=== PATIENT | male | born 1950 | race Caucasian/White ===

== ENCOUNTER 2017-10-18 18:40 | Inpatient (IN) | payer MEDICARE ==
[2017-10-18] MEDS ORDERED: IPRATROPIUM-ALBUTEROL 3 ML NEB INHALATION STA (18:42)
[2017-10-18] MEDS ORDERED: MAGNESIUM SULFATE-D5W PMX 1 GM in DEXTROSE/WATER 1 100ML.BAG IVPB STA (18:42)
--- NOTE | 2017-10-18 18:45 | ED ---
SOB HPI - General Stated Complaint: YENNY Time Seen by Provider: 10/18/17 18:40 Source: patient, EMS, RN notes reviewed Mode of arrival: EMS - History of Present Illness Initial Comments: This is a 67-year-old male with a history of COPD who is a former smoker who quit about 8 years ago who complains of shortness of breath which started this morning. He complains of difficulty breathing in spite of his homograft machine usage. He has a cough of white phlegm no fevers chills or sweats no overt chest pain except to the left anterior lateral ribs which is take is worse with coughing and deep breathing. No other complaints he was recently treated at [facility] for similar situation. He was brought in by EMS he was given 2 updrafts with some improvement he also was given 125 mg of Solu-Medrol. MD Complaint: shortness of breath - Related Data Home Medications Medication Instructions Recorded Confirmed Benazepril [Lotensin] 5 mg PO DAILY 10/18/17 10/18/17 Folic Acid 1 mg PO DAILY 10/18/17 10/18/17 Hydrochlorothiazide 25 mg PO DAILY 10/18/17 10/18/17 Potassium Chloride [Klor-Con 10 meq PO AC-BID 10/18/17 10/18/17 Sprinkle] Thiamine [Vitamin B-1] 100 mg PO DAILY 10/18/17 10/18/17 chlordiazePOXIDE HCL [Librium] 5 mg PO Q8H 10/18/17 10/18/17 Allergies Allergy/AdvReac Type Severity Reaction Status Date / Time Penicillins Allergy Swelling Verified 10/18/17 18:59 Review of Systems ROS Statement: Those systems with pertinent positive or pertinent negative responses have been documented in the HPI. ROS Other: All systems not noted in ROS Statement are negative. General Exam - General Exam Comments Initial Comments: This is a well-developed well-nourished awake alert oriented 3 male General appearance: alert, anxious, in distress Head exam: Present: atraumatic, normocephalic, normal inspection Eye exam: Present: normal appearance, PERRL, EOMI. Absent: scleral icterus, conjunctival injection, periorbital swelling ENT exam: Present: normal exam, mucous membranes moist Neck exam: Present: normal inspection. Absent: tenderness, meningismus, lymphadenopathy Respiratory exam: Present: respiratory distress, wheezes, chest wall tenderness , decreased breath sounds. Absent: rales, rhonchi, stridor Cardiovascular Exam: Present: regular rate, normal rhythm, normal heart sounds. Absent: systolic murmur, diastolic murmur, rubs, gallop, clicks GI/Abdominal exam: Present: soft, normal bowel sounds. Absent: distended, tenderness, guarding, rebound, rigid Extremities exam: Present: normal inspection, full ROM, normal capillary refill , pedal edema. Absent: tenderness, joint swelling, calf tenderness Back exam: Present: normal inspection Neurological exam: Present: alert, oriented X3, CN II-XII intact Psychiatric exam: Present: normal affect, normal mood Skin exam: Present: warm, dry, intact, normal color. Absent: rash Course Vital Signs 10/18/17 10/18/17 10/18/17 18:47 19:05 19:15 Temperature 98.0 F Pulse Rate 108 H 106 H 102 H Respiratory 18 Rate Blood Pressure 143/86 O2 Sat by Pulse 94 L Oximetry 10/18/17 10/18/17 10/18/17 19:32 20:02 21:00 Temperature Pulse Rate 110 H 114 H 108 H Respiratory 20 20 20 Rate Blood Pressure 144/81 136/88 150/82 O2 Sat by Pulse 95 92 L 92 L Oximetry 10/18/17 21:56 Temperature Pulse Rate 105 H Respiratory 20 Rate Blood Pressure 139/66 O2 Sat by Pulse 92 L Oximetry - Reevaluation(s) Reevaluation #1: 10/18/17 22:03 Reevaluation patient reveals some improvement in his aeration hour he still pretty dyspneic as follows heaviness breath sounds with some wheezes. X-ray did look suspicious for right middle lobe infiltrate his d-dimer was elevated a CAT scan was performed. Medical Decision Making - Medical Decision Making I did discuss findings the patient family members or present. Patient is still dyspneic and reexamination on this basis alone he does require admission. I did discuss the case with Dr. Mack. The patient will be admitted with pulmonary consultation. - Lab Data Result diagrams: 10/18/17 20:30 10/18/17 20:30 Lab Results 10/18/17 10/18/17 10/18/17 Range/Units 20:30 20:30 20:30 WBC 5.8 (3.8-10.6) k/uL RBC 2.99 L (4.30-5.90) m/uL Hgb 8.8 L (13.0-17.5) gm/dL Hct 28.6 L (39.0-53.0) % MCV 95.4 (80.0-100.0) fL MCH 29.4 (25.0-35.0) pg MCHC 30.8 L (31.0-37.0) g/dL RDW 14.5 (11.5-15.5) % Plt Count 437 (150-450) k/uL Neutrophils % 86 % Lymphocytes % 7 % Monocytes % 4 % Eosinophils % 1 % Basophils % 1 % Neutrophils # 5.0 (1.3-7.7) k/uL Lymphocytes # 0.4 L (1.0-4.8) k/uL Monocytes # 0.2 (0-1.0) k/uL Eosinophils # 0.1 (0-0.7) k/uL Basophils # 0.0 (0-0.2) k/uL Hypochromasia Slight PT 9.6 (9.0-12.0) sec INR 1.0 (<1.2) APTT 25.1 (22.0-30.0) sec D-Dimer 1.95 H (<0.60) mg/L FEU Sodium 138 (137-145) mmol/L Potassium 4.0 (3.5-5.1) mmol/L Chloride 102 (98-107) mmol/L Carbon Dioxide 27 (22-30) mmol/L Anion Gap 9 mmol/L BUN 14 (9-20) mg/dL Creatinine 0.70 (0.66-1.25) mg/dL Est GFR (MDRD) Af Amer >60 (>60 ml/min/1.73 sqM) Est GFR (MDRD) Non-Af >60 (>60 ml/min/1.73 sqM) Glucose 113 H (74-99) mg/dL Calcium 8.9 (8.4-10.2) mg/dL Magnesium 1.9 (1.6-2.3) mg/dL Total Bilirubin 0.2 (0.2-1.3) mg/dL AST 27 (17-59) U/L ALT 49 (21-72) U/L Alkaline Phosphatase 86 (38-126) U/L Total Creatine Kinase (55-170) U/L CK-MB (CK-2) (0.0-2.4) ng/mL CK-MB (CK-2) Rel Index Troponin I (0.000-0.034) ng/mL NT-Pro-B Natriuret Pep pg/mL Total Protein 5.8 L (6.3-8.2) g/dL Albumin 3.4 L (3.5-5.0) g/dL 10/18/17 10/18/17 Range/Units 20:30 20:30 WBC (3.8-10.6) k/uL RBC (4.30-5.90) m/uL Hgb (13.0-17.5) gm/dL Hct (39.0-53.0) % MCV (80.0-100.0) fL MCH (25.0-35.0) pg MCHC (31.0-37.0) g/dL RDW (11.5-15.5) % Plt Count (150-450) k/uL Neutrophils % % Lymphocytes % % Monocytes % % Eosinophils % % Basophils % % Neutrophils # (1.3-7.7) k/uL Lymphocytes # (1.0-4.8) k/uL Monocytes # (0-1.0) k/uL Eosinophils # (0-0.7) k/uL Basophils # (0-0.2) k/uL Hypochromasia PT (9.0-12.0) sec INR (<1.2) APTT (22.0-30.0) sec D-Dimer (<0.60) mg/L FEU Sodium (137-145) mmol/L Potassium (3.5-5.1) mmol/L Chloride (98-107) mmol/L Carbon Dioxide (22-30) mmol/L Anion Gap mmol/L BUN (9-20) mg/dL Creatinine (0.66-1.25) mg/dL Est GFR (MDRD) Af Amer (>60 ml/min/1.73 sqM) Est GFR (MDRD) Non-Af (>60 ml/min/1.73 sqM) Glucose (74-99) mg/dL Calcium (8.4-10.2) mg/dL Magnesium (1.6-2.3) mg/dL Total Bilirubin (0.2-1.3) mg/dL AST (17-59) U/L ALT (21-72) U/L Alkaline Phosphatase (38-126) U/L Total Creatine Kinase 55 (55-170) U/L CK-MB (CK-2) 1.8 (0.0-2.4) ng/mL CK-MB (CK-2) Rel Index 3.3 Troponin I <0.012 (0.000-0.034) ng/mL NT-Pro-B Natriuret Pep 117 pg/mL Total Protein (6.3-8.2) g/dL Albumin (3.5-5.0) g/dL - EKG Data -: EKG Interpreted by Me EKG shows normal: sinus rhythm (Sinus tachycardia with a rate of 107 appear interval 182 QRS duration 84 QT since QTC of 336/448 occasional PACs) - Radiology Data Radiology results: report reviewed (I did review the imaging and reports are is no evidence of PE there is however evidence of a suspicious 1.5 x 0.9 cm superior right lower lobe spiculated nodule consistent with a neoplasm.), image reviewed Critical Care Time Critical Care Time: Yes Critical Care Time: 33 minutes of critical care time includes initial presentation with monitoring of the EMS run and discussed with paramedics history physical labs x-rays of the patient. Several reevaluation the patient. Discussed with the family members as well as the patient as well as the admitting doctor. Admission orders and documentation of the above. Disposition Clinical Impression: Acute exacerbation of chronic obstructive airways disease, Adult respiratory distress syndrome, Lung mass Disposition: ADMITTED IP TO THIS HOSP Condition: Stable Referrals: None,Stated [Primary Care Provider] - 1-2 days
[2017-10-18 19:36] VITALS: RESP 20
--- NOTE | 2017-10-18 19:42 | XR ---
EXAMINATION TYPE: XR chest 2V DATE OF EXAM: 10/18/2017 COMPARISON: NONE HISTORY: Shortness of breath TECHNIQUE: Frontal and lateral views of the chest are obtained. FINDINGS: There is background chronic emphysematous change. There is suspicious right basilar opacity on frontal view localized to middle lobe on lateral view. Left lung is clear. No large pleural effus ion or pneumothorax is seen. The cardiac silhouette size is enlarged. The osseous structures are in tact. IMPRESSION: Chronic emphysematous change and cardiomegaly with right middle lobe infiltrate and/or a telectasis.
[2017-10-18 20:47] LABS: Basophils % (A) 1 %; Eosinophils # (A) 0.1 k/uL (0-0.7); Eosinophils % (A) 1 %; HCT 28.6 % (39.0-53.0); HGB 8.8 gm/dL (13.0-17.5); Hypochromasia Slight; Lymphocytes # (A) 0.4 k/uL (1.0-4.8); Lymphocytes % (A) 7 %; MCH 29.4 pg (25.0-35.0); MCHC 30.8 g/dL (31.0-37.0); MCV 95.4 fL (80.0-100.0); Mean Platelet Volume 6.5; Monocytes # (A) 0.2 k/uL (0-1.0); Monocytes % (A) 4 %; Neutrophils % (A) 86 %; Platelet Count 437 k/uL (150-450); RBC 2.99 m/uL (4.30-5.90); RDW 14.5 % (11.5-15.5); WBC 5.8 k/uL (3.8-10.6)
[2017-10-18 21:00] LABS: ALT 49 U/L (21-72); AST 27 U/L (17-59); Albumin 3.4 g/dL (3.5-5.0); Alkaline Phosphatase 86 U/L (38-126); Anion Gap 9 mmol/L; Blood Urea Nitrogen 14 mg/dL (9-20); Calcium 8.9 mg/dL (8.4-10.2); Carbon Dioxide 27 mmol/L (22-30); Chloride 102 mmol/L (98-107); Glucose 113 mg/dL (74-99); Magnesium 1.9 mg/dL (1.6-2.3); Sodium 138 mmol/L (137-145); Total Bilirubin 0.2 mg/dL (0.2-1.3); Total Protein 5.8 g/dL (6.3-8.2)
[2017-10-18 21:02] LABS: Creatine Kinase 55 U/L (55-170)
[2017-10-18 21:05] LABS: D-Dimer 1.95 mg/L FEU (<0.60); Partial Thromboplastin Time 25.1 sec (22.0-30.0); Prothrombin Time 9.6 sec (9.0-12.0)
[2017-10-18] MEDS ORDERED: RX INFO: IV CONTRAST WAS GIVEN 1 EACH MISC MISCELLANE PRN (21:08)
[2017-10-18 21:16] LABS: Creatine Kinase MB 1.8 ng/mL (0.0-2.4); Troponin I <0.012 ng/mL (0.000-0.034)
--- NOTE | 2017-10-18 21:53 | CT ---
EXAMINATION TYPE: CT angio chest DATE OF EXAM: 10/18/2017 COMPARISON: NONE HISTORY: YENNY and elevated d-dimer. CT DLP: 332 mGycm. Automated Exposure Control for Dose Reduction was Utilized. CONTRAST: CTA scan of the thorax is performed with IV Contrast, patient injected with 100ml mL of Omnipaque 350 , pulmonary embolism protocol. MIP Images are created on CT scanner and reviewed. FINDINGS: LUNGS: There is moderate underlying emphysematous change. There is patchy bibasilar linear areas of s carring and/or atelectasis. There is more suspicious spiculated nodule superior aspect right lower lo be measuring 1.5 x 0.9 cm size image 75 that warrants follow-up. Tracheobronchial tree is patent. No pleural effusion or pneumothorax is seen. MEDIASTINUM: There is suboptimal bolus with fecal contrast seen in right and left heart systems but t here is no convincing CT evidence for acute pulmonary embolism. There are no greater than 1 cm hilar or mediastinal lymph nodes. No cardiomegaly or pericardial effusion is seen. There is mild to mode rate left ventricular dilatation appreciated. There is coronary artery calcification which is noted m rochelle for coronary artery disease. OTHER: Osseous structures are demineralized. There is multilevel disc space narrowing and vacuum disc phenomenon. There is multilevel spurring with slight S-shaped scoliotic curvature seen on coronal im ages. IMPRESSION: 1. Suboptimal study without CT evidence for acute pulmonary embolism. 2. Moderate emphysematous change with scattered bibasilar scarring and/or atelectasis. There is a nick picious 1.5 x 0.9 cm superior right lower lobe spiculated nodule, neoplasm cannot be excluded. Pulmon ology referral and probable PET/CT follow-up advised.
--- NOTE | 2017-10-18 22:05 | ED ---
Medical Decision Making - Lab Data Result diagrams: 10/18/17 20:30 10/18/17 20:30 Lab Results 10/18/17 10/18/17 10/18/17 Range/Units 20:30 20:30 20:30 WBC 5.8 (3.8-10.6) k/uL RBC 2.99 L (4.30-5.90) m/uL Hgb 8.8 L (13.0-17.5) gm/dL Hct 28.6 L (39.0-53.0) % MCV 95.4 (80.0-100.0) fL MCH 29.4 (25.0-35.0) pg MCHC 30.8 L (31.0-37.0) g/dL RDW 14.5 (11.5-15.5) % Plt Count 437 (150-450) k/uL Neutrophils % 86 % Lymphocytes % 7 % Monocytes % 4 % Eosinophils % 1 % Basophils % 1 % Neutrophils # 5.0 (1.3-7.7) k/uL Lymphocytes # 0.4 L (1.0-4.8) k/uL Monocytes # 0.2 (0-1.0) k/uL Eosinophils # 0.1 (0-0.7) k/uL Basophils # 0.0 (0-0.2) k/uL Hypochromasia Slight PT 9.6 (9.0-12.0) sec INR 1.0 (<1.2) APTT 25.1 (22.0-30.0) sec D-Dimer 1.95 H (<0.60) mg/L FEU Sodium 138 (137-145) mmol/L Potassium 4.0 (3.5-5.1) mmol/L Chloride 102 (98-107) mmol/L Carbon Dioxide 27 (22-30) mmol/L Anion Gap 9 mmol/L BUN 14 (9-20) mg/dL Creatinine 0.70 (0.66-1.25) mg/dL Est GFR (MDRD) Af Amer >60 (>60 ml/min/1.73 sqM) Est GFR (MDRD) Non-Af >60 (>60 ml/min/1.73 sqM) Glucose 113 H (74-99) mg/dL Calcium 8.9 (8.4-10.2) mg/dL Magnesium 1.9 (1.6-2.3) mg/dL Total Bilirubin 0.2 (0.2-1.3) mg/dL AST 27 (17-59) U/L ALT 49 (21-72) U/L Alkaline Phosphatase 86 (38-126) U/L Total Creatine Kinase (55-170) U/L CK-MB (CK-2) (0.0-2.4) ng/mL CK-MB (CK-2) Rel Index Troponin I (0.000-0.034) ng/mL NT-Pro-B Natriuret Pep pg/mL Total Protein 5.8 L (6.3-8.2) g/dL Albumin 3.4 L (3.5-5.0) g/dL 10/18/17 10/18/17 Range/Units 20:30 20:30 WBC (3.8-10.6) k/uL RBC (4.30-5.90) m/uL Hgb (13.0-17.5) gm/dL Hct (39.0-53.0) % MCV (80.0-100.0) fL MCH (25.0-35.0) pg MCHC (31.0-37.0) g/dL RDW (11.5-15.5) % Plt Count (150-450) k/uL Neutrophils % % Lymphocytes % % Monocytes % % Eosinophils % % Basophils % % Neutrophils # (1.3-7.7) k/uL Lymphocytes # (1.0-4.8) k/uL Monocytes # (0-1.0) k/uL Eosinophils # (0-0.7) k/uL Basophils # (0-0.2) k/uL Hypochromasia PT (9.0-12.0) sec INR (<1.2) APTT (22.0-30.0) sec D-Dimer (<0.60) mg/L FEU Sodium (137-145) mmol/L Potassium (3.5-5.1) mmol/L Chloride (98-107) mmol/L Carbon Dioxide (22-30) mmol/L Anion Gap mmol/L BUN (9-20) mg/dL Creatinine (0.66-1.25) mg/dL Est GFR (MDRD) Af Amer (>60 ml/min/1.73 sqM) Est GFR (MDRD) Non-Af (>60 ml/min/1.73 sqM) Glucose (74-99) mg/dL Calcium (8.4-10.2) mg/dL Magnesium (1.6-2.3) mg/dL Total Bilirubin (0.2-1.3) mg/dL AST (17-59) U/L ALT (21-72) U/L Alkaline Phosphatase (38-126) U/L Total Creatine Kinase 55 (55-170) U/L CK-MB (CK-2) 1.8 (0.0-2.4) ng/mL CK-MB (CK-2) Rel Index 3.3 Troponin I <0.012 (0.000-0.034) ng/mL NT-Pro-B Natriuret Pep 117 pg/mL Total Protein (6.3-8.2) g/dL Albumin (3.5-5.0) g/dL Disposition Clinical Impression: Acute exacerbation of chronic obstructive airways disease, Adult respiratory distress syndrome, Lung mass, Anemia Disposition: ADMITTED IP TO THIS HOSP Condition: Stable Referrals: None,Stated [Primary Care Provider] - 1-2 days
--- NOTE | 2017-10-18 23:12 | P.HPIM ---
History of Present Illness H&P Date: 10/18/17 Chief Complaint: shortness of breath 67 year old male comes in with one-day history of shortness of breath. He has known history of COPD which he uses Xopenex and albuterol nebulization at home. Today patient says that he is unable to walk his bathroom without getting shortness of breath. He normally lives in [place] recently moved to [place] and to be with family. He currently does not establish with primary care physician in that area. No fever or chills or hemoptysis. No chest palpitations. In ER patient found to have COPD exacerbation with wheezes. CTA was done secondary to elevated d-dimer showed emphysema and a spiculated mass. Patient was admitted for further evaluation and treatment of COPD and spiculated mass Review of Systems Constitutional: Denies chills, Denies fever Ears, nose, mouth and throat: Denies neck lump, Denies sinus pressure, Denies vertigo Cardiovascular: Reports leg edema, Denies chest pain, Denies irregular heart beat, Denies syncope Gastrointestinal: Denies abdominal pain, Denies nausea, Denies vomiting Genitourinary: Denies nocturia, Denies polyuria, Denies urinary frequency Musculoskeletal: Denies arm numbness/tingling, Denies leg numbness/tingling, Denies myalgias, Denies neck pain Integumentary: Denies depigmentation, Denies pruritus, Denies rash Neurological: Denies head injury, Denies syncope Psychiatric: Reports as per HPI, Denies anxiety, Denies hopelessness Endocrine: Denies cold intolerance, Denies polyuria Hematologic/Lymphatic: Denies lymphadenopathy Allergic/Immunologic: Denies urticaria Past Medical History Past Medical History: COPD, Hypertension Past Surgical History: No Surgical Hx Reported Smoking Status: Former smoker Medications and Allergies Home Medications Medication Instructions Recorded Confirmed Type Benazepril [Lotensin] 5 mg PO DAILY 10/18/17 10/18/17 History Folic Acid 1 mg PO DAILY 10/18/17 10/18/17 History Hydrochlorothiazide 25 mg PO DAILY 10/18/17 10/18/17 History Potassium Chloride [Klor-Con 10 meq PO AC-BID 10/18/17 10/18/17 History Sprinkle] Thiamine [Vitamin B-1] 100 mg PO DAILY 10/18/17 10/18/17 History chlordiazePOXIDE HCL [Librium] 5 mg PO Q8H 10/18/17 10/18/17 History Allergies Allergy/AdvReac Type Severity Reaction Status Date / Time Penicillins Allergy Swelling Verified 10/18/17 18:59 Physical Exam Vitals: Vital Signs Temp Pulse Resp BP Pulse Ox 10/18/17 21:56 105 H 20 139/66 92 L 10/18/17 21:00 108 H 20 150/82 92 L 10/18/17 20:02 114 H 20 136/88 92 L 10/18/17 19:32 110 H 20 144/81 95 10/18/17 19:15 102 H 10/18/17 19:05 106 H 10/18/17 18:47 98.0 F 108 H 18 143/86 94 L Intake and Output 10/18/17 10/18/17 10/19/17 14:59 22:59 06:59 Other: Weight 87.18 kg Patient Weight 10/19/17 06:59 Weight 87.18 kg - Constitutional General appearance: no acute distress - EENT Eyes: EOMI, PERRLA - Neck Neck: no lymphadenopathy - Respiratory Respiratory: bilateral: CTA, negative: rhonchi, wheezing - Cardiovascular Rhythm: regular Heart sounds: normal: S1, S2 foot Peripheral Edema: bilateral: 2+ leg Peripheral Edema: bilateral: 2+ - Gastrointestinal General gastrointestinal: normal bowel sounds - Integumentary Integumentary: no cellulitis, no rash - Neurologic Neurologic: CNII-XII intact - Musculoskeletal Musculoskeletal: strength equal bilaterally - Psychiatric Psychiatric: A&O x's 3, appropriate affect Results CBC & Chem 7: 10/18/17 20:30 10/18/17 20:30 Labs: Abnormal Lab Results - Last 24 Hours (Table) 10/18/17 10/18/17 10/18/17 Range/Units 20:30 20:30 20:30 RBC 2.99 L (4.30-5.90) m/uL Hgb 8.8 L (13.0-17.5) gm/dL Hct 28.6 L (39.0-53.0) % MCHC 30.8 L (31.0-37.0) g/dL Lymphocytes # 0.4 L (1.0-4.8) k/uL D-Dimer 1.95 H (<0.60) mg/L FEU Glucose 113 H (74-99) mg/dL Total Protein 5.8 L (6.3-8.2) g/dL Albumin 3.4 L (3.5-5.0) g/dL Assessment and Plan (1) Acute exacerbation of chronic obstructive airways disease Narrative/Plan: IV Solu-Medrol Nebulizers Pulmonary to evaluate Current Visit: Yes Status: Acute Code(s): J44.1 - CHRONIC OBSTRUCTIVE PULMONARY DISEASE W (ACUTE) EXACERBATION SNOMED Code(s): 387148077 (2) Edema Narrative/Plan: We'll check echo Check Albumin Current Visit: Yes Status: Acute Code(s): R60.9 - EDEMA, UNSPECIFIED SNOMED Code(s): 815397791 (3) Lung mass Narrative/Plan: We'll need evaluation by pulmonary service Rule out malignancy Current Visit: Yes Status: Acute Code(s): R91.8 - OTHER NONSPECIFIC ABNORMAL FINDING OF LUNG FIELD SNOMED Code(s): 700353898 (4) Hypertension Narrative/Plan: Controlled Continue benazepril and hydrochlorothiazide Current Visit: Yes Status: Acute Code(s): I10 - ESSENTIAL (PRIMARY) HYPERTENSION SNOMED Code(s): 46523024
[2017-10-18] MEDS: IPRATROPIUM-ALBUTEROL 3 ML NEB INHALATION SCH (23:56)
[2017-10-19] MEDS: methylPREDNISolone SOD SUCCI 125 MG/2 ML VIAL IV SCH ×3 (00:04→10:54)
[2017-10-19] MEDS: chlordiazePOXIDE 5 MG CAPSULE PO SCH ×3 (00:05→14:35)
[2017-10-19] MEDS: SODIUM CHLORIDE 0.9% 1,000 ML IV SCH ×2 (00:05→08:38)
[2017-10-19] MEDS: IPRATROPIUM-ALBUTEROL 3 ML NEB INHALATION SCH ×4 (03:42→15:36)
[2017-10-19] MEDS ORDERED: POTASSIUM CHLORIDE ER 10 MEQ TAB.ER.PRT PO SCH (07:30)
[2017-10-19 08:55] LABS: HCT 28.9 % (39.0-53.0); HGB 8.8 gm/dL (13.0-17.5); Hypochromasia Slight; MCH 29.3 pg (25.0-35.0); MCHC 30.6 g/dL (31.0-37.0); Mean Platelet Volume 7.1; Platelet Count 389 k/uL (150-450); RBC 3.01 m/uL (4.30-5.90); RDW 15.4 % (11.5-15.5); WBC 4.3 k/uL (3.8-10.6)
[2017-10-19] MEDS ORDERED: HYDROCHLOROTHIAZIDE 25 MG TAB PO SCH (09:00)
[2017-10-19] MEDS ORDERED: FOLIC ACID 1 MG TAB PO SCH (09:00)
[2017-10-19] MEDS ORDERED: THIAMINE 100 MG TAB PO SCH (09:00)
[2017-10-19] MEDS ORDERED: LISINOPRIL 5 MG TAB PO SCH (09:00)
[2017-10-19 09:25] LABS: Anion Gap 10 mmol/L; Blood Urea Nitrogen 14 mg/dL (9-20); Carbon Dioxide 24 mmol/L (22-30); Chloride 101 mmol/L (98-107); Glucose 177 mg/dL (74-99); Potassium 4.4 mmol/L (3.5-5.1); Sodium 135 mmol/L (137-145)
[2017-10-19] MEDS ORDERED: PANTOPRAZOLE 40 MG TABLET PO SCH (09:30)
[2017-10-19] MEDS ORDERED: ENOXAPARIN 40 MG/0.4 ML SYRINGE SQ SCH (09:30)
[2017-10-19] MEDS ORDERED: DOXYCYCLINE 50 MG CAP PO SCH (09:30)
[2017-10-19 09:53] LABS: Calcium 8.9 mg/dL (8.4-10.2)
[2017-10-19] MEDS ORDERED: IPRATROPIUM-ALBUTEROL 3 ML NEB INHALATION PRN (10:41)
--- NOTE | 2017-10-19 10:59 | XR ---
EXAMINATION TYPE: XR chest 1V DATE OF EXAM: 10/19/2017 COMPARISON: 10/18/2017 HISTORY: Increasing shortness of breath with history of COPD TECHNIQUE: Single frontal view of the chest is obtained. FINDINGS: There is pulmonary hyperinflation and biapical lucency compatible with a known underlying moderate pulmonary emphysema. The previously seen 1.5 x 0.9 cm right lower lobe spiculated nodule is obscured by right lower lobe linear subsegmental atelectasis. Cardiac silhouette is upper limits of n ormal. Osseous structures appear intact. IMPRESSION: Right basilar atelectasis obscures the 1.5 cm suspicious pulmonary nodule. Emphysematous changes are redemonstrated with no new focal opacity.
--- NOTE | 2017-10-19 12:50 | US ---
EXAMINATION TYPE: US venous doppler duplex LE BI DATE OF EXAM: 10/19/2017 12:23 PM COMPARISON: NONE CLINICAL HISTORY: swelling in Bilateral LE, positive d-dimer. SIDE PERFORMED: Bilateral TECHNIQUE: The lower extremity deep venous system is examined utilizing real time linear array sonog bayron with graded compression, Doppler sonography and color-flow sonography. VESSELS IMAGED: Common Femoral Vein Deep Femoral Vein Greater Saphenous Vein * Femoral Vein Popliteal Vein Small Saphenous Vein * Proximal Calf Veins (* superficial vessels) Right Leg: Wall echoes are noted behind valves in Deep Venous System throughout Right Femoral Vein; otherwise, patency and compressibility is achieved throughout Deep Venous Assessment. Left Leg: Wall echoes are noted behind valves in Deep Venous System in Left Femoral Vein and in one of two upper calf veins;otherwise, patency and compressibility is achieved throughout Deep Venous Ass essment. IMPRESSION: 1. Findings are compatible with chronic areas of DVT eccentrically located near the valves.
[2017-10-19 15:46] VITALS: BP 139/89; TEMP 97
[2017-10-19 15:49] VITALS: PULSE 119
--- NOTE | 2017-10-19 16:34 | P.CNPUL ---
History of Present Illness Consult date: 10/19/17 Reason for consult: dyspnea, cough, asthma, COPD, hypoxemia, abnormal CXR/CT Chief complaint: Increased shortness of breath, congestive cough production of white sputum History of present illness: Bert is a 67-year-old white male patient who presented to the emergency department on 10/18/2017 with complaints of increasing shortness of breath, cough with production of white sputum that started that morning. He tried nebulizer treatments, with no relief. Denied any fever, chills, hemoptysis, chest pain. He is in the process of moving to this area from [place] to be closer to his family, great-niece and her family. He does have an underlying history of bronchial asthma, multiple environmental ALLERGIES, COPD, pneumonia. He is an ex-smoker, quit 2 years ago prior to then he smoked 1-1/2 packs per day for 40 years. He has a history of service, was in the [employer]. He wears 2 L of oxygen on a regular basis, at bedtime and and is needed basis. He has seen a auto adjudication specialist in the [place], was told his FEV1 was around 60% 6 months ago. Denied any history of myocardial infarction's , congestive heart failure or coronary artery disease. Negative for diabetes. He does have hypertension, currently on prescription medications for that. His maintenance inhalers include Xopenex nebulizer, albuterol rescue inhaler, and Symbicort. Chest x-ray taken in the ED on 10/18/2017 showed chronic emphysematous changes and cardiomegaly with right middle lobe infiltrate and/or atelectasis. D-dimer was elevated at 1.95, for that reason CTA chest was done, the study was suboptimal, without evidence of acute pulmonary embolism. There were moderate emphysematous changes noted with scattered bibasilar scarring and/ or atelectasis. There was a suspicious 1.5 x 0.9 cm superior right lower lobe spiculated nodule, neoplasm could not be excluded. Patient states he's had prior CT chest and [place], without any mention of nodules or masses. He does not have an established primary care provider or a auto adjudication specialist in this area, and is in process of transferring his records from [place]. Lab work showed no evidence of leukocytosis, hemoglobin is 8.8, d- dimer is 1.95, serum sodium on admission was 138, serum potassium 4.0, B1 is 14 , creatinine 0.7, cardiac enzymes and troponins were negative 1, and proBNP was negative and there are 117. He has been afebrile, tachycardic with a rate of 116-120 BPM, in sinus mechanism per the EKG on 10/18/2017. Patient was started on IV Solu-Medrol, DuoNeb nebulized treatments in the emergency department, and admitted for further evaluation and treatment. Review of Systems All systems: negative Constitutional: Denies chills, Denies fever Eyes: denies blurred vision, denies pain Ears, nose, mouth and throat: Denies headache, Denies sore throat Cardiovascular: Reports dyspnea on exertion, Reports high blood pressure, Reports leg edema, Reports rapid heart beat, Reports shortness of breath, Denies chest pain Respiratory: Reports cough, Reports cough with sputum, Reports dyspnea Gastrointestinal: Denies abdominal pain, Denies diarrhea, Denies nausea, Denies vomiting Musculoskeletal: Denies myalgias Musculoskeletal: bilateral: ankle swelling, foot swelling Integumentary: Denies pruritus, Denies rash Neurological: Denies numbness, Denies weakness Psychiatric: Denies anxiety, Denies depression Endocrine: Denies fatigue, Denies weight change Past Medical History Past Medical History: COPD, Hypertension History of Any Multi-Drug Resistant Organisms: None Reported Past Surgical History: No Surgical Hx Reported Smoking Status: Former smoker Medications and Allergies Home Medications Medication Instructions Recorded Confirmed Type Benazepril [Lotensin] 5 mg PO DAILY 10/18/17 10/18/17 History Folic Acid 1 mg PO DAILY 10/18/17 10/18/17 History Hydrochlorothiazide 25 mg PO DAILY 10/18/17 10/18/17 History Potassium Chloride [Klor-Con 10 meq PO AC-BID 10/18/17 10/18/17 History Sprinkle] Thiamine [Vitamin B-1] 100 mg PO DAILY 10/18/17 10/18/17 History chlordiazePOXIDE HCL [Librium] 5 mg PO Q8H 10/18/17 10/18/17 History Allergies Allergy/AdvReac Type Severity Reaction Status Date / Time Penicillins Allergy Swelling Verified 10/18/17 18:59 Physical Exam Vitals: Vital Signs Temp Pulse Pulse Pulse Resp BP BP 10/19/17 11:07 120 H 10/19/17 10:52 124 H 10/19/17 09:15 116 H 10/19/17 09:03 120 H 10/19/17 07:00 98.3 F 118 H 20 10/19/17 03:51 104 H 10/19/17 03:42 100 10/19/17 00:08 100 10/18/17 23:56 104 H 10/18/17 23:00 97.4 F L 113 H 20 138/79 10/18/17 21:56 105 H 20 139/66 10/18/17 21:00 108 H 20 150/82 10/18/17 20:02 114 H 20 136/88 10/18/17 19:32 110 H 20 144/81 10/18/17 19:15 102 H 10/18/17 19:05 106 H 10/18/17 18:47 98.0 F 108 H 18 143/86 BP Pulse Ox 10/19/17 11:07 10/19/17 10:52 10/19/17 09:15 10/19/17 09:03 95 10/19/17 07:00 125/73 94 L 10/19/17 03:51 10/19/17 03:42 10/19/17 00:08 10/18/17 23:56 10/18/17 23:00 94 L 10/18/17 21:56 92 L 10/18/17 21:00 92 L 10/18/17 20:02 92 L 10/18/17 19:32 95 10/18/17 19:15 10/18/17 19:05 10/18/17 18:47 94 L Intake and Output 10/18/17 10/19/17 10/19/17 22:59 06:59 14:59 Intake Total 250 Balance 250 Intake: Oral 250 Other: # Voids 2 2 Weight 87.18 kg 84 kg - Constitutional General appearance: average body habitus, cooperative, no acute distress - EENT Eyes: PERRLA ENT: NA/AT Ears: bilateral: normal - Neck Neck: no lymphadenopathy, normal ROM Carotids: bilateral: upstroke normal Thyroid: bilateral: normal size - Respiratory Respiratory: bilateral: rhonchi (Bilateral posterior bases), prolonged expiration - Cardiovascular Rhythm: regular Heart sounds: normal: S1, S2 ankle Peripheral Edema: bilateral: 1+ foot Peripheral Edema: bilateral: 1+ - Gastrointestinal General gastrointestinal: no organomegaly, soft, no tenderness - Neurologic Neurologic: CNII-XII intact - Musculoskeletal Musculoskeletal: gait normal, strength equal bilaterally - Psychiatric Psychiatric: A&O x's 3 Results - Laboratory Findings CBC and BMP: 10/19/17 08:20 10/19/17 08:20 PT/INR, D-dimer PT 9.6 sec (9.0-12.0) 10/18/17 20:30 INR 1.0 (<1.2) 10/18/17 20:30 D-Dimer 1.95 mg/L FEU (<0.60) H 10/18/17 20:30 Abnormal lab findings: Abnormal Labs 10/18/17 10/18/17 10/18/17 20:30 20:30 20:30 RBC 2.99 L Hgb 8.8 L Hct 28.6 L MCHC 30.8 L Lymphocytes # 0.4 L D-Dimer 1.95 H Sodium Creatinine Glucose 113 H Total Protein 5.8 L Albumin 3.4 L 10/19/17 10/19/17 08:20 08:20 RBC 3.01 L Hgb 8.8 L Hct 28.9 L MCHC 30.6 L Lymphocytes # D-Dimer Sodium 135 L Creatinine 0.57 L Glucose 177 H Total Protein Albumin - Diagnostic Findings Chest x-ray: report reviewed CT scan - chest: report reviewed U/S of Legs: report reviewed Additional studies: Twelve-lead EKG reviewed Assessment and Plan Plan: Assessment: #1. Acute COPD exacerbation with secondary dyspnea, chest x-ray from 2017 shows chronic emphysematous change, cardiomegaly and right middle lobe infiltrate/or atelectasis. #2. Elevated d-dimer, 1.95. CTA chest from 10/18/2017 was a suboptimal study, with no evidence of pulmonary embolism. Moderate emphysematous change with scattered bibasilar scarring and/or atelectasis was noted. #3. 1.5 x 0.9 cm suspicious superior right lower lobe spiculated nodule, neoplasm cannot be excluded #4. Underlying history of COPD, on home oxygen at bedtime and as needed #5. History of bronchial asthma, with multiple environmental ALLERGIES #6. Nicotine dependence, currently in remission, quit 2 years ago, smoked 1-1/ 2 packs for 40 years #7. Hypertension #8. Bilateral lower leg edema, echo is pending, bilateral lower extremity Dopplers positive for chronic DVTs, patient probably has a degree of cor pulmonale, from pulmonary hypertension secondary to COPD #9. Anemia, unspecified Plan: We will start patient on empiric antibiotic with the doxycycline 100 mg every 12 hours, continue IV steroids, we will add Pulmicort/Perforomist, continue all other medical treatments. Patient already reports some improvement in his respiratory status. 2-D echo is pending. Patient will need follow-up with Dr. Matta in the office on an outpatient basis in 7-10 days, he will need follow- up with a CT of the chest in 4 months to reevaluate the appearance of the superior right lower lobe spiculated nodule. We advised patient to try and obtaining records of his previous CT chest from [place], for comparison. From pulmonary standpoint patient can be discharged home today, with a follow- up appointment with Dr. Matta. He can go home and his home Xopenex nebulizer, he reportedly takes Symbicort, he can complete the outpatient course of doxycycline and prednisone taper. I performed a history & physical examination of the patient and discussed their management with my nurse practitioner, Berkley Valle. I reviewed the nurse practitioner's note and agree with the documented findings and plan of care. Lung sounds are positive for scattered rhonchi posterior bases. The findings and the impression was discussed with the patient. I attest to the documentation by the nurse practitioner.
--- NOTE | 2017-10-19 17:24 | ECHOF ---
Referral Reason:bilateral lower extremity swelling MEASUREMENTS -------- HEIGHT: 170.2 cm WEIGHT: 83.9 kg BP: 125/73 RVIDd: 3.0 cm (< 3.3) IVSd: 1.2 cm (0.6 - 1.1) LVIDd: 3.6 cm (3.9 - 5.3) LVPWd: 1.2 cm (0.6 - 1.1) LAESV Index (A-L): 27.32 ml/m Ao Diam: 3.9 cm (2.0 - 3.7) AV Cusp: 2.1 cm (1.5 - 2.6) LA Diam: 3.0 cm (2.7 - 3.8) MV E Alan: 1.28 m/s MV DecT: 221 ms MV A Alan: 0.00 m/s MV E/A Ratio: 310.95 RAP: 5.00 mmHg RVSP: 16.08 mmHg FINDINGS -------- Resting tachycardia (HR>100bpm). This was a technically adequate study. The left ventricular size is normal. There is mild concentric left ventricular hypertrophy. Overa ll left ventricular systolic function is mildly impaired with, an EF between 45 - 50 %. Apical ante rior LV wall motion is hypokinetic. The right ventricle is normal in size and function. Normal LA size by volume 22+/-6 ml/m2. The right atrium is normal in size. There is mild aortic valve sclerosis. There is no evidence of aortic regurgitation. There is no e vidence of aortic stenosis. The mitral valve leaflets are mildly thickened. There is trace to mild mitral regurgitation. Trace tricuspid regurgitation present. Right ventricular systolic pressure is normal at < 35 mmHg. There is no evidence of pulmonary hypertension. The pulmonic valve was not well visualized. The aortic root size is normal. Normal inferior vena cava with normal inspiratory collapse consistent with estimated right atrial pre ssure of 5 mmHg. The pericardium is normal. There is no pericardial effusion. CONCLUSIONS -------- 1. Resting tachycardia (HR>100bpm). 2. This was a technically adequate study. 3. The left ventricular size is normal. 4. There is mild concentric left ventricular hypertrophy. 5. Normal LA size by volume 22+/-6 ml/m2. 6. There is mild aortic valve sclerosis. 7. The mitral valve leaflets are mildly thickened. 8. There is trace to mild mitral regurgitation. 9. Trace tricuspid regurgitation present. 10. Right ventricular systolic pressure is normal at < 35 mmHg. 11. There is no evidence of pulmonary hypertension. 12. The pulmonic valve was not well visualized. 13. The aortic root size is normal. 14. There is no pericardial effusion. MANAGER TRANSPORTATION PLANNING: Thomas Mccullough RDCS
[2017-10-19] MEDS ORDERED: BUDESONIDE 1 MG/2 ML NEBU INHALATION SCH (20:00)
[2017-10-19] MEDS ORDERED: FORMOTEROL FUMARATE 20 MCG/2 ML NEBU INHALATION SCH (20:00)
--- NOTE | 2017-10-20 18:53 | P.DS ---
Providers Date of admission: 10/18/17 22:06 Expected date of discharge: 10/19/17 Attending physician: Katarina Means MD Consults: 10/18/17 22:06 Consult Physician Routine Consulting Provider: Arie Hodgson Consult Reason/Comments: COPD with exacerbation, right lung nodule Do you want consulting provider notified?: Yes Primary care physician: Stated None Hospital Course: 67-year-old white male patient who presented to the emergency department on 04/2018 with complaints of increasing shortness of breath, cough with production of white sputum that started that morning. He tried nebulizer treatments, with no relief. Denied any fever, chills, hemoptysis, chest pain. He is in the process of moving to this area from [place] to be closer to his family, great-niece and her family. He does have an underlying history of bronchial asthma, multiple environmental ALLERGIES, COPD, pneumonia. He is an ex-smoker, quit 2 years ago prior to then he smoked 1-1/2 packs per day for 40 years. He wears 2 L of oxygen on a regular basis at bedtime and and is needed basis. He does have hypertension, currently on prescription medications for that. Chest x-ray taken in the ED on 10/18/2017 showed chronic emphysematous changes and cardiomegaly with right middle lobe infiltrate and/or atelectasis. D-dimer was elevated at 1.95, for that reason CTA chest was done, the study was suboptimal, but no evidence of acute pulmonary embolism was found. There were moderate emphysematous changes noted with scattered bibasilar scarring and/or atelectasis. There was a suspicious 1.5 x 0.9 cm superior right lower lobe spiculated nodule, neoplasm could not be excluded. She was seen in consultation with pulmonary regarding the lung mass, the recommendation was to repeat computed tomography scan in 4 months. Patient is aware. Lab work showed no evidence of leukocytosis, cardiac enzyme were negative, and proBNP was negative. He was afebrile, tachycardic with a rate of 116-120 BPM, sinus tach per the EKG on 10/18/2017. Patient was started on IV Solu-Medrol, DuoNeb in the emergency department, doxycycline was added by the admitting physician. She also had bilateral leg swelling, because of that he had bilateral lower extremity Doppler as well as an echocardiogram. The Doppler showed chronic DVT in the superficial femoral artery on both sides. Patient was never treated with a blood thinner in the past. Echocardiogram report was pending at the time discharge. Patient was very anxious to leave the hospital to use his family. I went down and explained to him the benefits of staying in the hospital in order to finish the workup for his bilateral leg swelling but he adamantly refused to stay. He was given prescription for Medrol Dosepak, doxycycline and as well as pro-air upon discharge. He was told to follow-up with his primary care physician and possibly hematology to see if he qualifies for chronic anticoagulation therapy. Patient Condition at Discharge: Stable Plan - Discharge Summary Discharge Rx Participant: Yes New Discharge Prescriptions: No Action chlordiazePOXIDE HCL [Librium] 5 mg PO Q8H Benazepril [Lotensin] 5 mg PO DAILY Thiamine [Vitamin B-1] 100 mg PO DAILY Potassium Chloride [Klor-Con Sprinkle] 10 meq PO AC-BID Folic Acid 1 mg PO DAILY Hydrochlorothiazide 25 mg PO DAILY Discharge Medication List Benazepril [Lotensin] 5 mg PO DAILY 10/18/17 [History] Folic Acid 1 mg PO DAILY 10/18/17 [History] Hydrochlorothiazide 25 mg PO DAILY 10/18/17 [History] Potassium Chloride [Klor-Con Sprinkle] 10 meq PO AC-BID 10/18/17 [History] Thiamine [Vitamin B-1] 100 mg PO DAILY 10/18/17 [History] chlordiazePOXIDE HCL [Librium] 5 mg PO Q8H 10/18/17 [History] Follow up Appointment(s)/Referral(s): None,Stated [Primary Care Provider] - 1-2 days Patient Instructions/Handouts: COPD (Chronic Obstructive Pulmonary Disease) (DC ) Discharge Disposition: Left Against Medical Advice
== END 2017-10-19 17:21 | disposition left against medical advice (07) | DRG 191 ==
LOC: EC 18:40 → 4MS4W 22:06
PROVIDERS: ADMIT Internal Medicine; ATTEND Internal Medicine
DX: J44.1 Chronic obstructive pulmonary disease with (acute) exacerbation (principal); J98.11 Atelectasis; I27.20 Pulmonary hypertension, unspecified; I82.513 Chronic embolism and thrombosis of femoral vein, bilateral; D64.9 Anemia, unspecified; I10 Essential (primary) hypertension; R60.9 Edema, unspecified; R79.1 Abnormal coagulation profile; R91.1 Solitary pulmonary nodule; R00.0 Tachycardia, unspecified; M79.89 Other specified soft tissue disorders; J30.2 Other seasonal allergic rhinitis; I27.81 Cor pulmonale (chronic); R26.2 Difficulty in walking, not elsewhere classified; Z88.0 Allergy status to penicillin; Z87.891 Personal history of nicotine dependence; Z87.01 Personal history of pneumonia (recurrent); Z79.899 Other long term (current) drug therapy; Z99.81 Dependence on supplemental oxygen; Z53.21 Procedure and treatment not carried out due to patient leaving prior to being seen by health care provider
CPT/HCPCS: 36415; 71045; 71046; 71275; 80048; 80053; 82550; 82553; 83735; 83880; 84484; 85025; 85027; 85379; 85610; 85730; 93005; 93306; 93970; 94640; 94760; 96365; 99291

== ENCOUNTER 2018-01-04 10:29 | Inpatient (IN) | payer MEDICARE ==
[2018-01-04] MEDS ORDERED: IPRATROPIUM-ALBUTEROL 3 ML NEB INHALATION STA (10:40)
[2018-01-04] MEDS ORDERED: NITROGLYCERIN OINT 1 INCH/GM PACKET TOPICAL STA (10:40)
[2018-01-04] MEDS ORDERED: methylPREDNISolone SOD SUCCI 125 MG/2 ML VIAL IV STA (10:40)
[2018-01-04] MEDS ORDERED: FUROSEMIDE 10 MG/ML 4 ML VIAL IV STA (10:40)
[2018-01-04] MEDS ORDERED: MORPHINE SULFATE/PF 10MG/10ML VL IV STA (10:43)
[2018-01-04] MEDS ORDERED: ASPIRIN 81 MG PO STA (10:44)
--- NOTE | 2018-01-04 10:49 | ED ---
SOB HPI - General Chief Complaint: Shortness of Breath Stated Complaint: Respitory Issues Time Seen by Provider: 01/04/18 10:32 Source: EMS Mode of arrival: EMS Limitations: no limitations - History of Present Illness Initial Comments: This 67-year-old white male presents with a complaint of some shortness of breath which is been present for at least the last 4 days. He states that he's been coughing without any significant production. He denies any fevers or chills. He has a long-standing history of severe COPD. He does present via EMS and they relate that his pulse ox was 74% on they initially arrived. He is on home oxygen at 2 L per nasal cannula. They increased his oxygen and gave him a breathing treatment and this did improve his oxygenation. He denies any chest pain or leg pain. He's had some fairly significant abdominal distention which she relates is due to him needing more. This has increased over the last 1 month. He's had some mild lower extremity edema as well. He complains of a rattling in his chest. He also complains of chronic low back pain due to 3 herniated disks. No other complaints or modifying factors. Old records do show that he is hospitalized in October 2017. They did note a lung mass at that time but he denies having lung cancer currently. - Related Data Home Medications Medication Instructions Recorded Confirmed Potassium Chloride [Klor-Con 10 meq PO AC-BID 10/18/17 01/04/18 Sprinkle] ALPRAZolam [Xanax] 0.25 mg PO BID PRN 01/04/18 01/04/18 Albuterol Nebulized [Ventolin 2.5 mg INHALATION Q4H PRN 01/04/18 01/04/18 Nebulized] Albuterol Sulfate [Proair Hfa] 2 puff INHALATION RT-Q6H PRN 01/04/18 01/04/18 Atenolol [Tenormin] 50 mg PO DAILY 01/04/18 01/04/18 Benazepril [Lotensin] 5 mg PO DAILY 01/04/18 01/04/18 Cyclobenzaprine [Flexeril] 10 mg PO BID 01/04/18 01/04/18 Furosemide [Lasix] 20 mg PO DAILY 01/04/18 01/04/18 Levalbuterol Nebulized [Xopenex 1.25 mg INHALATION RT-Q8H PRN 01/04/18 01/04/18 Nebulized] Montelukast [Singulair] 10 mg PO HS 01/04/18 01/04/18 Omeprazole 40 mg PO DAILY 01/04/18 01/04/18 Tiotropium Elfrida [Spiriva] 1 cap INHALATION RT-DAILY 01/04/18 01/04/18 traMADol HCL [Ultram] 100 mg PO Q8H PRN 01/04/18 01/04/18 Allergies Allergy/AdvReac Type Severity Reaction Status Date / Time Penicillins Allergy Swelling Verified 01/04/18 12:14 Review of Systems ROS Statement: Those systems with pertinent positive or pertinent negative responses have been documented in the HPI. ROS Other: All systems not noted in ROS Statement are negative. Past Medical History Past Medical History: COPD, Hypertension History of Any Multi-Drug Resistant Organisms: None Reported Past Surgical History: No Surgical Hx Reported Past Psychological History: Anxiety Smoking Status: Former smoker Past Alcohol Use History: None Reported Past Drug Use History: None Reported General Exam - General Exam Comments Initial Comments: GENERAL: The patient is well nourished and well hydrated. VITAL SIGNS: Heart rate, blood pressure, respiratory rate reviewed as recorded in nurse's notes. EYES: Pupils are round and reactive. Extraocular movements are intact. No conjunctival / lid redness or swelling. ENT: No external evidence of injury, swelling, or ecchymosis. Airway is patent. Throat is clear. NECK: Nontender. No swelling or evidence of injury. No subcutaneous emphysema. Trachea is midline. No thyroid mass. HEART: Regular rate and rhythm. Good peripheral pulses. LUNGS/CHEST: There is wheezing and rhonchi noted bilaterally. No ecchymosis, subcutaneous emphysema, or tenderness. ABDOMEN: Abdomen soft without tenderness. No palpable masses or organomegaly. No peritoneal signs. There is diffuse abdominal swelling noted. EXTREMITIES: No extremity tenderness. Normal muscle tone and function. There is mild tenderness to the perilumbar musculature. There is mild bilateral lower extremity edema. NEUROLOGIC: Sensation is grossly intact. Cranial nerve exam reveals face is symmetrical, tongue is midline, speech is clear. SKIN: No abrasions or ecchymosis is noted. No induration or masses noted. PSYCHIATRIC: Alert and oriented. Appropriate behavior and judgment. Limitations: no limitations Course Vital Signs 01/04/18 01/04/18 01/04/18 10:35 10:55 11:12 Temperature 98.9 F Pulse Rate 110 H 106 H 88 Respiratory 28 H Rate Blood Pressure 148/98 O2 Sat by Pulse 97 Oximetry 01/04/18 01/04/18 12:00 13:00 Temperature Pulse Rate 104 H 107 H Respiratory 20 20 Rate Blood Pressure 124/81 160/99 O2 Sat by Pulse 96 96 Oximetry Medical Decision Making - Medical Decision Making The patient was seen and examined. All diagnostics were reviewed. The EKG shows a sinus tachycardia at a rate of 111. There is no acute ST-T wave changes noted. An occasional PVC is identified. The patient's LA interval is 158, QRS duration is 82, and the QTC intervals 451. An IV is started. He receives a double DuoNeb breathing treatment, Solu-Medrol, Nitropaste, aspirin, and Lasix. He is feeling somewhat improved on recheck. He does put out approximately 4 L of urine. The laboratories reviewed and does show an elevation of the BNP, hyperkalemia, leukocytosis but no other acute processes. The chest x-ray shows COPD changes and interstitial disease versus pneumonitis. It is felt clinically that he does have an exacerbation of COPD. He likely does have a tracheal bronchitis versus pneumonitis. He also may have a degree of congestive heart failure. The case is discussed with Dr. Zamora and she is agreeable to admission. - Lab Data Result diagrams: 01/04/18 11:14 01/04/18 11:14 Lab Results 01/04/18 01/04/18 01/04/18 Range/Units 11:14 11:14 11:14 WBC 14.5 H (3.8-10.6) k/uL RBC 4.20 L (4.30-5.90) m/uL Hgb 12.0 L (13.0-17.5) gm/dL Hct 38.1 L (39.0-53.0) % MCV 90.5 (80.0-100.0) fL MCH 28.6 (25.0-35.0) pg MCHC 31.6 (31.0-37.0) g/dL RDW 14.3 (11.5-15.5) % Plt Count 315 (150-450) k/uL Neutrophils % 93 % Lymphocytes % 2 % Monocytes % 4 % Eosinophils % 0 % Basophils % 0 % Neutrophils # 13.5 H (1.3-7.7) k/uL Lymphocytes # 0.4 L (1.0-4.8) k/uL Monocytes # 0.5 (0-1.0) k/uL Eosinophils # 0.0 (0-0.7) k/uL Basophils # 0.0 (0-0.2) k/uL PT (9.0-12.0) sec INR (<1.2) APTT (22.0-30.0) sec D-Dimer (<0.60) mg/L FEU Sodium 139 (137-145) mmol/L Potassium 5.5 H (3.5-5.1) mmol/L Chloride 101 (98-107) mmol/L Carbon Dioxide 27 (22-30) mmol/L Anion Gap 11 mmol/L BUN 16 (9-20) mg/dL Creatinine 0.60 L (0.66-1.25) mg/dL Est GFR (CKD-EPI)AfAm >90 (>60 ml/min/1.73 sqM) Est GFR (CKD-EPI)NonAf >90 (>60 ml/min/1.73 sqM) Glucose 105 H (74-99) mg/dL Calcium 9.0 (8.4-10.2) mg/dL Magnesium 2.5 H (1.6-2.3) mg/dL Total Bilirubin 0.5 (0.2-1.3) mg/dL AST 32 (17-59) U/L ALT 103 H (21-72) U/L Alkaline Phosphatase 86 (38-126) U/L Total Creatine Kinase 67 (55-170) U/L CK-MB (CK-2) 2.6 H* (0.0-2.4) ng/mL CK-MB (CK-2) Rel Index 3.9 Troponin I 0.015 (0.000-0.034) ng/mL NT-Pro-B Natriuret Pep pg/mL Total Protein 6.5 (6.3-8.2) g/dL Albumin 3.8 (3.5-5.0) g/dL 01/04/18 01/04/18 Range/Units 11:14 11:14 WBC (3.8-10.6) k/uL RBC (4.30-5.90) m/uL Hgb (13.0-17.5) gm/dL Hct (39.0-53.0) % MCV (80.0-100.0) fL MCH (25.0-35.0) pg MCHC (31.0-37.0) g/dL RDW (11.5-15.5) % Plt Count (150-450) k/uL Neutrophils % % Lymphocytes % % Monocytes % % Eosinophils % % Basophils % % Neutrophils # (1.3-7.7) k/uL Lymphocytes # (1.0-4.8) k/uL Monocytes # (0-1.0) k/uL Eosinophils # (0-0.7) k/uL Basophils # (0-0.2) k/uL PT 9.5 (9.0-12.0) sec INR 0.9 (<1.2) APTT 23.2 (22.0-30.0) sec D-Dimer 0.45 (<0.60) mg/L FEU Sodium (137-145) mmol/L Potassium (3.5-5.1) mmol/L Chloride (98-107) mmol/L Carbon Dioxide (22-30) mmol/L Anion Gap mmol/L BUN (9-20) mg/dL Creatinine (0.66-1.25) mg/dL Est GFR (CKD-EPI)AfAm (>60 ml/min/1.73 sqM) Est GFR (CKD-EPI)NonAf (>60 ml/min/1.73 sqM) Glucose (74-99) mg/dL Calcium (8.4-10.2) mg/dL Magnesium (1.6-2.3) mg/dL Total Bilirubin (0.2-1.3) mg/dL AST (17-59) U/L ALT (21-72) U/L Alkaline Phosphatase (38-126) U/L Total Creatine Kinase (55-170) U/L CK-MB (CK-2) (0.0-2.4) ng/mL CK-MB (CK-2) Rel Index Troponin I (0.000-0.034) ng/mL NT-Pro-B Natriuret Pep 1070 pg/mL Total Protein (6.3-8.2) g/dL Albumin (3.5-5.0) g/dL Disposition Clinical Impression: Acute respiratory failure, Acute exacerbation of chronic obstructive airways disease, Edema, Hypertension, Chronic back pain, Abdominal distension, Congestive heart failure, Bronchitis, Hyperkalemia Disposition: ADMITTED IP TO THIS [facility] Condition: Fair Referrals: Nonstaff,Physician [REFERRING] - 1-2 days Time of Disposition: 13:24 Decision Date: 01/04/18 Decision Time: 13:24
[2018-01-04 11:35] LABS: Basophils % (A) 0 %; Eosinophils % (A) 0 %; HCT 38.1 % (39.0-53.0); Lymphocytes # (A) 0.4 k/uL (1.0-4.8); Lymphocytes % (A) 2 %; MCH 28.6 pg (25.0-35.0); MCHC 31.6 g/dL (31.0-37.0); MCV 90.5 fL (80.0-100.0); Monocytes # (A) 0.5 k/uL (0-1.0); Monocytes % (A) 4 %; Neutrophils # (A) 13.5 k/uL (1.3-7.7); Neutrophils % (A) 93 %; Platelet Count 315 k/uL (150-450); RDW 14.3 % (11.5-15.5); WBC 14.5 k/uL (3.8-10.6)
[2018-01-04 11:46] LABS: ALT 103 U/L (21-72); AST 32 U/L (17-59); Albumin 3.8 g/dL (3.5-5.0); Alkaline Phosphatase 86 U/L (38-126); Anion Gap 11 mmol/L; Blood Urea Nitrogen 16 mg/dL (9-20); Carbon Dioxide 27 mmol/L (22-30); Chloride 101 mmol/L (98-107); Glucose 105 mg/dL (74-99); Magnesium 2.5 mg/dL (1.6-2.3); Potassium 5.5 mmol/L (3.5-5.1); Sodium 139 mmol/L (137-145); Total Bilirubin 0.5 mg/dL (0.2-1.3); Total Protein 6.5 g/dL (6.3-8.2)
--- NOTE | 2018-01-04 11:47 | XR ---
EXAMINATION TYPE: XR chest 2V DATE OF EXAM: 01/04/2018 COMPARISON: 10/28/2017 TECHNIQUE: PA and lateral views submitted. HISTORY: Chest pain FINDINGS: The lungs are clear and there is no pneumothorax, pleural effusion, or focal pneumonia. Hyperinflat ion suggests COPD. Coarsened interstitium noted correlate for congestion or pneumonitis. Basilar subs egmental consolidation noted. Biapical pleural thickening noted. Degenerative change of the spine. IMPRESSION: 1. COPD correlate for chronic interstitial lung disease or pneumonitis.
[2018-01-04 11:51] LABS: D-Dimer 0.45 mg/L FEU (<0.60)
[2018-01-04 12:07] LABS: INR 0.9 (<1.2); Partial Thromboplastin Time 23.2 sec (22.0-30.0); Prothrombin Time 9.5 sec (9.0-12.0)
[2018-01-04 12:13] LABS: Troponin I 0.015 ng/mL (0.000-0.034)
[2018-01-04 12:17] LABS: Creatine Kinase MB 2.6 ng/mL (0.0-2.4)
[2018-01-04] MEDS ORDERED: SODIUM POLYSTYRENE SULFONATE 15 GM/60 ML BOTTLE PO STA (13:20)
[2018-01-04] MEDS ORDERED: ALBUTEROL NEBULIZED 2.5 MG/3 ML INHALATION STA (13:24)
[2018-01-04] MEDS ORDERED: LEVOFLOXACIN 750MG-D5W PMX 750 MG in DEXTROSE/WATER 1 150ML.BAG IVPB STA (13:26)
[2018-01-04] MEDS ORDERED: ALBUTEROL NEBULIZED 2.5 MG/3 ML INHALATION PRN (13:32)
[2018-01-04] MEDS: FUROSEMIDE 10 MG/ML 4 ML VIAL IV SCH ×2 (13:38→22:48)
[2018-01-04] MEDS: IPRATROPIUM-ALBUTEROL 3 ML NEB INHALATION SCH ×2 (16:26→18:41)
[2018-01-04] MEDS: NITROGLYCERIN OINT 1 INCH/GM PACKET TOPICAL SCH ×2 (16:58→20:36)
[2018-01-04] MEDS: methylPREDNISolone SOD SUCCI 125 MG/2 ML VIAL IV SCH ×2 (16:59→20:36)
[2018-01-04] MEDS: ALPRAZolam 0.25 MG TAB PO PRN (17:01)
[2018-01-04] MEDS: traMADol 50 MG TAB PO PRN (17:01)
--- NOTE | 2018-01-04 18:14 | P.HPIM ---
History of Present Illness H&P Date: 01/04/18 67 years old male patient of Dr. Rouse with past medical history of COPD, hypertension, history of systolic CHF with ejection fraction last noted to be 45-50% in October 2017 presents with worsening shortness of breath associated with cough. Patient uses 2.5 L of oxygen with exertion and 2 L on rest at baseline he has to increase his oxygen to 4 L to help feed better. Patient denies any fever or chills or chest pain. He is a former smoker and quit 2 years ago smoked one to one and a half pack a day for [address] chest from October 2017 and a suspicious 1.5 X .9 cm right upper lobe spiculated lesion and was asked to follow-up with a repeat computed tomography scan in 4 months. His influenza negative. BNP is 1000. WBC 14.5, hemoglobin 12, PT/INR within normal limits. Potassium 5.5. Test x-ray concerning for congestion or pneumonitis. Patient is admitted for CHF exacerbation with COPD exacerbation. Started on levofloxacin 750 mg IV daily along with Solu-Medrol 60 daily 6 hours. Review of Systems Constitutional: Denies chills, Denies fever, Denies lethargy, Denies malaise, Denies poor appetite, Denies weakness, Denies weight loss Eyes: denies decreased vision, denies diplopia, denies discharge, denies pain Ears: deny: decreased hearing Ears, nose, mouth and throat: Denies dental pain, Denies headache, Denies nasal discharge, Denies nose pain Cardiovascular: Denies chest pain endorses decreased exercise tolerance, worsening edema of the lower extremity, palpitation, Denies paroxysmal nocturnal dyspnea, Respiratory: Dorsal congestion, cough with sputum production, home oxygen, wheezing Gastrointestinal: Denies abdominal pain, Denies change in bowel habits, Denies coffee ground emesis, Denies early satiety, Denies excessive gas, Denies heartburn, Denies hematemesis, Denies hematochezia, Denies loss of appetite, Denies nausea, Denies vomiting Genitourinary: Denies dysuria, Denies flank pain, Denies kidney stones, Denies menorrhagia, Denies urgency, Denies urinary frequency Musculoskeletal: Denies gait dysfunction, Denies limitation of motion, Denies morning stiffness, Denies muscle cramps Integumentary: Denies rash, Denies wounds, Denies brittle nails, Denies change in hair/nails, Denies darkening of skin Neurological: Denies balance difficulties, Denies change in speech, Denies double vision, Denies gait dysfunction, Denies loss of vision, Denies motor disturbance, Denies numbness, Denies paralysis, Denies paresthesias, Denies seizures Psychiatric: Denies anxiety, Denies depression Endocrine: Denies excessive sweating, Denies excessive thirst, Denies high blood sugars, Denies palpitations Hematologic/Lymphatic: Denies easy bruising, Denies lymphadenopathy Past Medical History Past Medical History: COPD, Hypertension Additional Past Medical History / Comment(s): Advanced COPD with an FEV1 of 36% of predicted, right lower lobes. Related nodule measuring 1.5 x 0.9 cm in size that looks suspicious for malignancy. The patient is not a candidate for any further interventions, hypertension, lower symmetry edema, CHF with mild impairment of the LV function and ejection fraction 45-50% History of Any Multi-Drug Resistant Organisms: None Reported Past Surgical History: No Surgical Hx Reported Past Psychological History: Anxiety Smoking Status: Former smoker Past Alcohol Use History: None Reported Past Drug Use History: None Reported - Past Family History Father Family Medical History: No Reported History Medications and Allergies Home Medications Medication Instructions Recorded Confirmed Type Potassium Chloride [Klor-Con 10 meq PO AC-BID 10/18/17 01/04/18 History Sprinkle] ALPRAZolam [Xanax] 0.25 mg PO BID PRN 01/04/18 01/04/18 History Albuterol Nebulized [Ventolin 2.5 mg INHALATION Q4H PRN 01/04/18 01/04/18 History Nebulized] Albuterol Sulfate [Proair Hfa] 2 puff INHALATION RT-Q6H PRN 01/04/18 01/04/18 History Atenolol [Tenormin] 50 mg PO DAILY 01/04/18 01/04/18 History Benazepril [Lotensin] 5 mg PO DAILY 01/04/18 01/04/18 History Cyclobenzaprine [Flexeril] 10 mg PO BID 01/04/18 01/04/18 History Furosemide [Lasix] 20 mg PO DAILY 01/04/18 01/04/18 History Levalbuterol Nebulized [Xopenex 1.25 mg INHALATION RT-Q8H PRN 01/04/18 01/04/18 History Nebulized] Montelukast [Singulair] 10 mg PO HS 01/04/18 01/04/18 History Omeprazole 40 mg PO DAILY 01/04/18 01/04/18 History Tiotropium [place] [Spiriva] 1 cap INHALATION RT-DAILY 01/04/18 01/04/18 History traMADol HCL [Ultram] 100 mg PO Q8H PRN 01/04/18 01/04/18 History Allergies Allergy/AdvReac Type Severity Reaction Status Date / Time Penicillins Allergy Swelling Verified 01/04/18 12:14 Physical Exam Vitals: Vital Signs Temp Pulse Pulse Resp BP BP Pulse Ox 01/04/18 16:38 110 H 18 01/04/18 16:26 117 H 18 01/04/18 15:47 97 F L 114 H 17 121/79 95 01/04/18 14:16 117 H 16 158/88 94 L 01/04/18 14:06 118 H 01/04/18 13:51 115 H 01/04/18 13:00 107 H 20 160/99 96 01/04/18 12:00 104 H 20 124/81 96 01/04/18 11:12 88 01/04/18 10:55 106 H 01/04/18 10:35 98.9 F 110 H 28 H 148/98 97 Intake and Output 01/04/18 01/04/18 01/04/18 06:59 14:59 22:59 Intake Total 150 Balance 150 Intake: Intake, IV Titration 150 Amount Levofloxacin 750Mg-D5w 150 Pmx 750 mg In Dextrose/ Water 1 150ml.bag @ 100 mls/hr IVPB ONCE STA Rx#: [id number] Other: Weight 91.626 kg 91.626 kg - Constitutional General appearance: cooperative, in mild acute distress, obese - EENT Eyes: anicteric sclerae, PERRLA, normal appearance ENT: hearing grossly normal - Neck Neck: no lymphadenopathy, normal ROM, no other, no rigidity, no stridor, no thyromegaly - Respiratory Respiratory: bilateral diffuse wheezing with decreased air entry with basilar rales - Cardiovascular Rhythm: Tachycardic Heart sounds: normal: S1, S2 Abnormal Heart Sounds: no systolic murmur, no diastolic murmur, no rub, no S3 Gallop, no S4 Gallop, no click, no other - Gastrointestinal General gastrointestinal: normal bowel sounds, soft - Integumentary Integumentary: no rash - Neurologic Neurologic: CNII-XII intact - Musculoskeletal Musculoskeletal: gait normal, strength equal bilaterally 2+ pitting edema in lower extremity - Psychiatric Psychiatric: A&O x's 3, appropriate affect Results CBC & Chem 7: 01/04/18 11:14 01/04/18 11:14 Labs: Abnormal Lab Results - Last 24 Hours (Table) 01/04/18 01/04/18 01/04/18 Range/Units 11:14 11:14 11:14 WBC 14.5 H (3.8-10.6) k/uL RBC 4.20 L (4.30-5.90) m/uL Hgb 12.0 L (13.0-17.5) gm/dL Hct 38.1 L (39.0-53.0) % Neutrophils # 13.5 H (1.3-7.7) k/uL Lymphocytes # 0.4 L (1.0-4.8) k/uL Potassium 5.5 H (3.5-5.1) mmol/L Creatinine 0.60 L (0.66-1.25) mg/dL Glucose 105 H (74-99) mg/dL Magnesium 2.5 H (1.6-2.3) mg/dL ALT 103 H (21-72) U/L CK-MB (CK-2) 2.6 H* (0.0-2.4) ng/mL TSH (0.465-4.680) mIU/L 01/04/18 Range/Units 11:16 WBC (3.8-10.6) k/uL RBC (4.30-5.90) m/uL Hgb (13.0-17.5) gm/dL Hct (39.0-53.0) % Neutrophils # (1.3-7.7) k/uL Lymphocytes # (1.0-4.8) k/uL Potassium (3.5-5.1) mmol/L Creatinine (0.66-1.25) mg/dL Glucose (74-99) mg/dL Magnesium (1.6-2.3) mg/dL ALT (21-72) U/L CK-MB (CK-2) (0.0-2.4) ng/mL TSH 0.116 L (0.465-4.680) mIU/L Thrombosis Risk Factor Assmnt - DVT/VTE Prophylaxis DVT/VTE Prophylaxis: Pharmacologic Prophylaxis ordered - Choose All That Apply Each Risk Factor Represents 2 Points: Age 61-74 years Thrombosis Risk Factor Assessment Total Risk Factor Score: 2 Thrombosis Risk Factor Assessment Level: Low Risk Assessment and Plan Plan: #1 acute on chronic hypoxic respiratory failure secondary to COPD exacerbation with a component of acute systolic CHF exacerbation. Continue input and output , daily weights, Lasix 80 mg IV stat given in the ER followed by Lasix 40 mg IV every 12. Continue Solu-Medrol 60 IV every 6 hours. Continue levofloxacin 750 mg by mouth daily. Sputum culture, DuoNeb's as needed for shortness of breath. Incentive spirometry. Influenza negative. Last echo in October 2017 with ejection fraction 40-45%. #2 spiculated upper right lower lobe nodule with follow-up in 4 months with a computed tomography scan recommended by pulmonary in the last admission. #3 former tobacco abuse. Quit 2 years ago small 1-1/2 pack for 40 years. #4 hypertension - Continue Sadiq inhibitors and beta ana maria #5 GI prophylaxis with Pepcid 20 mg twice a day on steroids #6 DVT prophylaxis with heparin every 12 #7 CODE STATUS full code Disposition patient need 1-2 inpatient nights in the hospital
[2018-01-04] MEDS ORDERED: ACETAMINOPHEN TAB 325 MG TAB PO PRN (18:17)
[2018-01-04] MEDS: IPRATROPIUM 0.5 MG/2.5 ML NEBU INHALATION SCH ×2 (18:30→21:00)
--- NOTE | 2018-01-04 19:15 | P.CNPUL ---
History of Present Illness Consult date: 01/04/18 Reason for consult: dyspnea History of present illness: T his is a 67-year-old white male with history of severe COPD, chronic hypoxic respiratory failure, seen on a previous admission at [facility], and he was eventually discharged on multiple bronchodilators. . CT of the chest showed a right lung solitary lung nodule, however the patient is not a candidate for any intervention based on the fact that he has severe COPD, and we have recommended repeat CT of the chest in 4 months. Patient is on home option 04/05, he does not smoke at present, used to live in [place], recently moved to the area. Despite his earlier hospitalization, the patient continued to have shortness of breath and wheezing and he was given another prednisone burst taper and a course of Cipro on outpatient basis. Also, anoro 1 puff daily was also added to his regimen. A pulmonary function test was done in the office on 10/28/2017 and the patient was found to have an FEV1 of 34% of predicted consistent with severe obstructive airway limitation. His diffusion capacity was at 22% and the patient had a total lung capacity of 91% along with some hyperinflation. Comorbid conditions include hypertension. The patient presented back to the emergency department today because of worsening shortness of breath over at least 4 days duration. He hasn't been able to cough out any significant sputum production. He denied having any fever or chills. His pulse ox was apparently at 74% when EMS arrived to the scene. He is utilizing oxygen at 2 L/m nasal cannula. He also had abdominal distention and some mild lower extremity edema. He had a congested cough. No fever. No chills. No altered mentation. White cell count was at 14.4. Renal function was stable at creatinine of 0.6 influenza screen was negative. Troponin was 0.015 and the proBNP level was at 1000. Echocardiogram from of his admission showed an ejection fraction of 45%. The patient had noticed some any pulmonary hypertension. No pericardial effusion. His LV was mildly impaired with an ejection fraction of 45-50%. Right ventricular size and function was within normal limits. There was mild aortic valve sclerosis without evidence of regurgitation or stenosis. Review of Systems All systems: negative Constitutional: Denies chills, Denies fever Eyes: denies blurred vision, denies pain Ears, nose, mouth and throat: Denies headache, Denies sore throat Cardiovascular: Reports dyspnea on exertion, Reports high blood pressure, Reports leg edema, Reports rapid heart beat, Reports shortness of breath, Denies chest pain Respiratory: Reports cough, Reports cough with sputum, Reports dyspnea. Noted the patient has significant limitation exercise capacity because of a shortness of breath. He is breathing was gradually getting worse over this past 4 days on outpatient basis. Gastrointestinal: Denies abdominal pain, Denies diarrhea, Denies nausea, Denies vomiting Musculoskeletal: Denies myalgias Musculoskeletal: bilateral: ankle swelling, foot swelling Integumentary: Denies pruritus, Denies rash Neurological: Denies numbness, Denies weakness Psychiatric: Denies anxiety, Denies depression Endocrine: Denies fatigue, Denies weight change Past Medical History Past Medical History: COPD, Hypertension Additional Past Medical History / Comment(s): Advanced COPD with an FEV1 of 36% of predicted, right lower lobes. Related nodule measuring 1.5 x 0.9 cm in size that looks suspicious for malignancy. The patient is not a candidate for any further interventions, hypertension, lower symmetry edema, CHF with mild impairment of the LV function and ejection fraction 45-50% History of Any Multi-Drug Resistant Organisms: None Reported Past Surgical History: No Surgical Hx Reported Past Psychological History: Anxiety Smoking Status: Former smoker Past Alcohol Use History: None Reported Past Drug Use History: None Reported - Past Family History Father Family Medical History: No Reported History Medications and Allergies Home Medications Medication Instructions Recorded Confirmed Type Potassium Chloride [Klor-Con 10 meq PO AC-BID 10/18/17 01/04/18 History Sprinkle] ALPRAZolam [Xanax] 0.25 mg PO BID PRN 01/04/18 01/04/18 History Albuterol Nebulized [Ventolin 2.5 mg INHALATION Q4H PRN 01/04/18 01/04/18 History Nebulized] Albuterol Sulfate [Proair Hfa] 2 puff INHALATION RT-Q6H PRN 01/04/18 01/04/18 History Atenolol [Tenormin] 50 mg PO DAILY 01/04/18 01/04/18 History Benazepril [Lotensin] 5 mg PO DAILY 01/04/18 01/04/18 History Cyclobenzaprine [Flexeril] 10 mg PO BID 01/04/18 01/04/18 History Furosemide [Lasix] 20 mg PO DAILY 01/04/18 01/04/18 History Levalbuterol Nebulized [Xopenex 1.25 mg INHALATION RT-Q8H PRN 01/04/18 01/04/18 History Nebulized] Montelukast [Singulair] 10 mg PO HS 01/04/18 01/04/18 History Omeprazole 40 mg PO DAILY 01/04/18 01/04/18 History Tiotropium [place] [Spiriva] 1 cap INHALATION RT-DAILY 01/04/18 01/04/18 History traMADol HCL [Ultram] 100 mg PO Q8H PRN 01/04/18 01/04/18 History Allergies Allergy/AdvReac Type Severity Reaction Status Date / Time Penicillins Allergy Swelling Verified 01/04/18 12:14 Physical Exam Vitals: Vital Signs Temp Pulse Pulse Resp BP BP Pulse Ox 01/04/18 16:38 110 H 18 01/04/18 16:26 117 H 18 01/04/18 15:47 97 F L 114 H 17 121/79 95 01/04/18 14:16 117 H 16 158/88 94 L 01/04/18 14:06 118 H 01/04/18 13:51 115 H 01/04/18 13:00 107 H 20 160/99 96 01/04/18 12:00 104 H 20 124/81 96 01/04/18 11:12 88 01/04/18 10:55 106 H 01/04/18 10:35 98.9 F 110 H 28 H 148/98 97 Intake and Output 01/04/18 01/04/18 01/04/18 06:59 14:59 22:59 Intake Total 150 Balance 150 Intake: Intake, IV Titration 150 Amount Levofloxacin 750Mg-D5w 150 Pmx 750 mg In Dextrose/ Water 1 150ml.bag @ 100 mls/hr IVPB ONCE STA Rx#: [id number] Other: Weight 91.626 kg 91.626 kg - Constitutional General appearance: average body habitus, cooperative, no acute distress - EENT Eyes: PERRLA ENT: NA/AT Ears: bilateral: normal - Neck Neck: no lymphadenopathy, normal ROM Carotids: bilateral: upstroke normal Thyroid: bilateral: normal size - Respiratory Respiratory: bilateral: rhonchi (Bilateral posterior bases), prolonged expiration - Cardiovascular Rhythm: regular Heart sounds: normal: S1, S2 ankle Peripheral Edema: bilateral: 1+ foot Peripheral Edema: bilateral: 1+ - Gastrointestinal General gastrointestinal: no organomegaly, soft, no tenderness - Neurologic Neurologic: CNII-XII intact - Musculoskeletal Musculoskeletal: gait normal, strength equal bilaterally - Psychiatric Psychiatric: A&O x's 3 Results - Laboratory Findings CBC and BMP: 01/04/18 11:14 01/04/18 11:14 PT/INR, D-dimer PT 9.5 sec (9.0-12.0) 01/04/18 11:14 INR 0.9 (<1.2) 01/04/18 11:14 D-Dimer 0.45 mg/L FEU (<0.60) 01/04/18 11:14 Abnormal lab findings: Abnormal Labs 01/04/18 01/04/18 01/04/18 11:14 11:14 11:14 WBC 14.5 H RBC 4.20 L Hgb 12.0 L Hct 38.1 L Neutrophils # 13.5 H Lymphocytes # 0.4 L Potassium 5.5 H Creatinine 0.60 L Glucose 105 H Magnesium 2.5 H ALT 103 H CK-MB (CK-2) 2.6 H* TSH 01/04/18 11:16 WBC RBC Hgb Hct Neutrophils # Lymphocytes # Potassium Creatinine Glucose Magnesium ALT CK-MB (CK-2) TSH 0.116 L - Diagnostic Findings Chest x-ray: image reviewed Assessment and Plan Plan: Assessment: #1. Acute COPD exacerbation with secondary dyspnea #2. Advanced COPD with an FEV1 of 36% of predicted consistent with severe obstructive airway limitation #3. 1.5 x 0.9 cm suspicious superior right lower lobe spiculated nodule, neoplasm cannot be excluded #4. Chronic hypoxic respiratory failure maintained on oxygen 2 L/m nasal cannula #5. History of bronchial asthma, with multiple environmental ALLERGIES #6. Nicotine dependence, currently in remission, quit 2 years ago, smoked 1-1/ 2 packs for 40 years #7. Hypertension #8. CHF with mild impairment of the LV with an ejection fraction 45% #9 chronic areas of DVT eccentric the located near the valves with secondary chronic lower extremity edema and the patient is on no anticoagulants for now Plan Agree on the current management. We'll continue to follow. The patient is currently on a combination of bronchodilators steroids and antibiotics. Agree on IV Lasix. No need for BiPAP treatment at this point. The patient's gradually improving. We'll continue to follow make further recommendations based on his progress. The patient has advanced COPD.
[2018-01-04] MEDS ORDERED: IPRATROPIUM-ALBUTEROL 3 ML NEB INHALATION PRN (20:32)
[2018-01-04] MEDS: CYCLOBENZAPRINE 10 MG TAB PO SCH (20:35)
[2018-01-04] MEDS: MONTELUKAST 10 MG TAB PO SCH (20:36)
[2018-01-04] MEDS: guaiFENesin 600 MG TABLET.ER PO SCH (20:36)
[2018-01-04] MEDS ORDERED: ALPRAZolam 0.5 MG TAB PO STA (22:44)
[2018-01-05 01:35] LABS: Creatine Kinase MB 2.2 ng/mL (0.0-2.4); Troponin I 0.014 ng/mL (0.000-0.034)
[2018-01-05 06:28] LABS: Basophils % (A) 0 %; Eosinophils % (A) 0 %; HCT 40.1 % (39.0-53.0); HGB 12.5 gm/dL (13.0-17.5); Lymphocytes # (A) 0.4 k/uL (1.0-4.8); Lymphocytes % (A) 4 %; MCH 29.1 pg (25.0-35.0); MCHC 31.2 g/dL (31.0-37.0); MCV 93.3 fL (80.0-100.0); Mean Platelet Volume 7.2; Monocytes # (A) 0.5 k/uL (0-1.0); Monocytes % (A) 4 %; Neutrophils # (A) 10.9 k/uL (1.3-7.7); Neutrophils % (A) 92 %; Platelet Count 300 k/uL (150-450); RDW 14.3 % (11.5-15.5); WBC 11.9 k/uL (3.8-10.6)
[2018-01-05 06:31] LABS: ALT 80 U/L (21-72); AST 21 U/L (17-59); Albumin 3.8 g/dL (3.5-5.0); Alkaline Phosphatase 75 U/L (38-126); Anion Gap 14 mmol/L; Blood Urea Nitrogen 29 mg/dL (9-20); Calcium 9.1 mg/dL (8.4-10.2); Carbon Dioxide 28 mmol/L (22-30); Chloride 96 mmol/L (98-107); Glucose 123 mg/dL (74-99); Magnesium 2.7 mg/dL (1.6-2.3); Potassium 4.5 mmol/L (3.5-5.1); Sodium 138 mmol/L (137-145); Total Bilirubin 0.4 mg/dL (0.2-1.3); Total Protein 6.3 g/dL (6.3-8.2)
[2018-01-05] MEDS: IPRATROPIUM-ALBUTEROL 3 ML NEB INHALATION SCH ×5 (07:59→19:15)
[2018-01-05] MEDS: traMADol 50 MG TAB PO PRN ×2 (08:14→16:15)
[2018-01-05] MEDS: ENOXAPARIN 40 MG/0.4 ML SYRINGE SQ SCH (08:17)
[2018-01-05] MEDS: ATENOLOL 50 MG TAB PO SCH (08:17)
[2018-01-05] MEDS: LISINOPRIL 5 MG TAB PO SCH (08:18)
[2018-01-05] MEDS: guaiFENesin 600 MG TABLET.ER PO SCH ×2 (08:18→20:02)
[2018-01-05] MEDS: NITROGLYCERIN OINT 1 INCH/GM PACKET TOPICAL SCH ×4 (08:18→21:37)
[2018-01-05] MEDS: CYCLOBENZAPRINE 10 MG TAB PO SCH ×2 (08:18→20:02)
[2018-01-05] MEDS: PANTOPRAZOLE 40 MG TABLET PO SCH (08:18)
[2018-01-05] MEDS: methylPREDNISolone SOD SUCCI 125 MG/2 ML VIAL IV SCH ×4 (08:18→21:38)
[2018-01-05] MEDS ORDERED: LEVOFLOXACIN 750MG-D5W PMX 750 MG in DEXTROSE/WATER 1 150ML.BAG IVPB SCH (09:00)
[2018-01-05] MEDS: ALPRAZolam 0.25 MG TAB PO PRN ×2 (09:16→20:01)
[2018-01-05] MEDS: FUROSEMIDE 10 MG/ML 4 ML VIAL IV SCH (12:26)
--- NOTE | 2018-01-05 12:36 | P.PN ---
Subjective Progress Note Date: 01/05/18 T his is a 67-year-old white male with history of severe COPD, chronic hypoxic respiratory failure, seen on a previous admission at [facility], and he was eventually discharged on multiple bronchodilators. . CT of the chest showed a right lung solitary lung nodule, however the patient is not a candidate for any intervention based on the fact that he has severe COPD, and we have recommended repeat CT of the chest in 4 months. Patient is on home option 04/05, he does not smoke at present, used to live in [place], recently moved to the area. Despite his earlier hospitalization, the patient continued to have shortness of breath and wheezing and he was given another prednisone burst taper and a course of Cipro on outpatient basis. Also, anoro 1 puff daily was also added to his regimen. A pulmonary function test was done in the office on 10/28/2017 and the patient was found to have an FEV1 of 34% of predicted consistent with severe obstructive airway limitation. His diffusion capacity was at 22% and the patient had a total lung capacity of 91% along with some hyperinflation. Comorbid conditions include hypertension. The patient presented back to the emergency department today because of worsening shortness of breath over at least 4 days duration. He hasn't been able to cough out any significant sputum production. He denied having any fever or chills. His pulse ox was apparently at 74% when EMS arrived to the scene. He is utilizing oxygen at 2 L/m nasal cannula. He also had abdominal distention and some mild lower extremity edema. He had a congested cough. No fever. No chills. No altered mentation. White cell count was at 14.4. Renal function was stable at creatinine of 0.6 influenza screen was negative. Troponin was 0.015 and the proBNP level was at 1000. Echocardiogram from of his admission showed an ejection fraction of 45%. The patient had noticed some any pulmonary hypertension. No pericardial effusion. His LV was mildly impaired with an ejection fraction of 45-50%. Right ventricular size and function was within normal limits. There was mild aortic valve sclerosis without evidence of regurgitation or stenosis. On 01/05/2018 the patient is feeling better compared to yesterday. Last bronchus spastic and wheezy compared to yesterday. He was treated with a combination of bronchodilators and steroids. He was admitted for an acute COPD exacerbation. No fever or chills. No altered mentation. He is responding nicely to a combination of bronchodilators and steroids. He is also on empiric antibiotic coverage with Levaquin. He is receiving diuretics due to increased lower extremities edema and a mild component of CHF and currently is on Lasix 40 mg IV push every 12 hours. Objective - Vital Signs Vital signs: Vital Signs Temp 98.1 F 01/05/18 12:00 Pulse 100 01/05/18 12:03 Resp 22 01/05/18 12:00 BP 136/91 01/05/18 12:00 Pulse Ox 91 L 01/05/18 12:00 Intake & Output 01/04/18 01/05/18 01/05/18 18:59 06:59 18:59 Intake Total 150 960 180 Output Total 1300 Balance 150 -340 180 Weight 91.626 kg 86.9 kg Intake: Intake, IV Titration 150 Amount Levofloxacin 750Mg-D5w 150 Pmx 750 mg In Dextrose/ Water 1 150ml.bag @ 100 mls/hr IVPB ONCE STA Rx#: [id number] Oral 960 180 Output: Urine 1300 Other: Voiding Method Urinal Urinal - Exam - Constitutional General appearance: average body habitus, cooperative, no acute distress - EENT Eyes: PERRLA ENT: NA/AT Ears: bilateral: normal - Neck Neck: no lymphadenopathy, normal ROM Carotids: bilateral: upstroke normal Thyroid: bilateral: normal size - Respiratory Respiratory: bilateral: rhonchi (Bilateral posterior bases), prolonged expiration - Cardiovascular Rhythm: regular Heart sounds: normal: S1, S2 ankle Peripheral Edema: bilateral: 1+ foot Peripheral Edema: bilateral: 1+ - Gastrointestinal General gastrointestinal: no organomegaly, soft, no tenderness - Neurologic Neurologic: CNII-XII intact - Musculoskeletal Musculoskeletal: gait normal, strength equal bilaterally - Psychiatric Psychiatric: A&O x's 3 - Labs CBC & Chem 7: 01/05/18 05:36 01/05/18 05:36 Labs: Abnormal Lab Results - Last 24 Hours (Table) 01/04/18 01/05/18 01/05/18 Range/Units 11:16 05:36 05:36 WBC 11.9 H (3.8-10.6) k/uL Hgb 12.5 L (13.0-17.5) gm/dL Neutrophils # 10.9 H (1.3-7.7) k/uL Lymphocytes # 0.4 L (1.0-4.8) k/uL Chloride 96 L (98-107) mmol/L BUN 29 H (9-20) mg/dL Glucose 123 H (74-99) mg/dL Magnesium 2.7 H (1.6-2.3) mg/dL ALT 80 H (21-72) U/L TSH 0.116 L (0.465-4.680) mIU/L Assessment and Plan Plan: Assessment: #1. Acute COPD exacerbation with secondary dyspnea, improving slowly. #2. Advanced COPD with an FEV1 of 36% of predicted consistent with severe obstructive airway limitation #3. 1.5 x 0.9 cm suspicious superior right lower lobe spiculated nodule, neoplasm cannot be excluded #4. Chronic hypoxic respiratory failure maintained on oxygen 2 L/m nasal cannula #5. History of bronchial asthma, with multiple environmental ALLERGIES #6. Nicotine dependence, currently in remission, quit 2 years ago, smoked 1-1/ 2 packs for 40 years #7. Hypertension #8. CHF with mild impairment of the LV with an ejection fraction 45% #9 chronic areas of DVT eccentric the located near the valves with secondary chronic lower extremity edema and the patient is on no anticoagulants for now Plan Continue same treatment. We continue to follow up this patient and reevaluate in a.m. Patient improved and feels better compared to yesterday.
--- NOTE | 2018-01-05 13:04 | CONS ---
CONSULTATION CHIEF COMPLAINT: Shortness of breath. Bert is a 67-year-old gentleman with history of COPD, systolic congestive heart failure on home O2, comes to hospital complaining of progressively worsening shortness of breath. It is moderate to severe intensity at rest unassociated with chest pain. Patient had been treated with bronchodilators, steroids and antibiotics following which his symptoms have improved. At the time of my evaluation, patient appears better. He is eating his lunch. PAST MEDICAL HISTORY: Significant for COPD, congestive heart failure. CURRENT MEDICATIONS: Include K-Dur, Xanax, Ventolin, ProAir, Tenormin, Lotensin, Lasix, Singulair, Spiriva, Ultram. ALLERGIES: PENICILLIN. FAMILY HISTORY: Negative for premature coronary artery disease. SOCIAL HISTORY: Negative for current smoking, EtOH abuse or drug abuse. REVIEW OF SYSTEMS: HEENT is unremarkable. CARDIAC: As described above. RESPIRATORY: As described above. GI: Negative. GENITOURINARY: Negative. ALLERGY/IMMUNOLOGY: Negative. SKIN: Negative. MUSCULOSKELETAL: Significant for arthritis. PSYCHOSOCIAL: Negative. ENDOCRINE: Negative. DERM: Negative. CONSTITUTIONAL: Negative. ONCOLOGICAL: Negative. Rest of the system review is not relevant. PHYSICAL EXAM: Comfortable at rest. Vital signs are stable. Chest exam reveals diminished air entry at the bases with diffuse rhonchi. Heart exam reveals first and second heart sounds. No gallop. Abdomen is soft. Exam of extremities reveal 1+ edema. Peripheral pulses are felt. LABS: Show a hemoglobin of 12.5. Potassium is 4.5, creatinine is 0.7, two sets of troponins are negative. EKG on this admission reveals sinus tachycardia. Chest x-ray shows COPD. ASSESSMENT: 1. Shortness of breath due to chronic obstructive pulmonary disease exacerbation. 2. Acute exacerbation of chronic systolic heart failure. 3. Hypertension. PLAN: Patient will continue the IV Lasix, aspirin, Tenormin, and Zestril along with the antibiotics, steroids and nebulizers. MMODL / IJN: [id number] /
[2018-01-05 13:24] VITALS: BMI 27.4
--- NOTE | 2018-01-05 13:27 | P.PN ---
Subjective 67 years old male patient of Dr. Rouse with past medical history of COPD, hypertension, history of systolic CHF with ejection fraction last noted to be 45-50% in October 2017 presents with worsening shortness of breath associated with cough. Patient uses 2.5 L of oxygen with exertion and 2 L on rest at baseline he has to increase his oxygen to 4 L to help feed better. Patient denies any fever or chills or chest pain. He is a former smoker and quit 2 years ago smoked one to one and a half pack a day for [address] chest from October 2017 and a suspicious 1.5 X .9 cm right upper lobe spiculated lesion and was asked to follow-up with a repeat computed tomography scan in 4 months. His influenza negative. BNP is 1000. WBC 14.5, hemoglobin 12, PT/INR within normal limits. Potassium 5.5. Test x-ray concerning for congestion or pneumonitis. Patient is admitted for CHF exacerbation with COPD exacerbation. Started on levofloxacin 750 mg IV daily along with Solu-Medrol 60 daily 6 hours. 01/05 Patient seen today at the bedside. He reports breathing has improved from last night. Wheezing has improved from yesterday. He still has quite a bit of lower extremity edema, continues on 4 L of o2 NC. Will continie with IV lasix 40 mg IV push every 12. He is down 4.7 Kg. Will continue with I&O's, cardiology and pulmonology is on consult. Influenza A and B are negative, 3 sets of troponins have been negative. We'll continue with current treatment plan and reevaluate tomorrow. Objective - Vital Signs Vital signs: Vital Signs Temp 98.3 F 01/05/18 00:00 Pulse 101 H 01/05/18 08:17 Resp 20 01/05/18 03:54 BP 116/74 01/05/18 00:00 Pulse Ox 96 01/05/18 00:00 Intake & Output 01/04/18 01/05/18 01/05/18 18:59 06:59 18:59 Intake Total 150 960 Output Total 1300 Balance 150 -340 Weight 91.626 kg 86.9 kg Intake: Intake, IV Titration 150 Amount Levofloxacin 750Mg-D5w 150 Pmx 750 mg In Dextrose/ Water 1 150ml.bag @ 100 mls/hr IVPB [facility] Rx#: [id number] Oral 960 Output: Urine 1300 Other: Voiding Method Urinal - Exam - Constitutional General appearance: cooperative, in mild acute distress, obese - EENT Eyes: anicteric sclerae, PERRLA, normal appearance ENT: hearing grossly normal - Neck Neck: no lymphadenopathy, normal ROM, no other, no rigidity, no stridor, no thyromegaly - Respiratory Respiratory: bilateral diffuse wheezing with decreased air entry - Cardiovascular Rhythm: Tachycardic Heart sounds: normal: S1, S2 Abnormal Heart Sounds: no systolic murmur, no diastolic murmur, no rub, no S3 Gallop, no S4 Gallop, no click, no other - Gastrointestinal General gastrointestinal: normal bowel sounds, soft - Integumentary Integumentary: no rash - Neurologic Neurologic: CNII-XII intact - Musculoskeletal Musculoskeletal: gait normal, strength equal bilaterally 2+ pitting edema in lower extremity - Psychiatric Psychiatric: A&O x's 3, appropriate affect - Labs CBC & Chem 7: 01/05/18 05:36 01/05/18 05:36 Labs: Abnormal Lab Results - Last 24 Hours (Table) 01/04/18 01/04/18 01/04/18 Range/Units 11:14 11:14 11:14 WBC 14.5 H (3.8-10.6) k/uL RBC 4.20 L (4.30-5.90) m/uL Hgb 12.0 L (13.0-17.5) gm/dL Hct 38.1 L (39.0-53.0) % Neutrophils # 13.5 H (1.3-7.7) k/uL Lymphocytes # 0.4 L (1.0-4.8) k/uL Potassium 5.5 H (3.5-5.1) mmol/L Chloride (98-107) mmol/L BUN (9-20) mg/dL Creatinine 0.60 L (0.66-1.25) mg/dL Glucose 105 H (74-99) mg/dL Magnesium 2.5 H (1.6-2.3) mg/dL ALT 103 H (21-72) U/L CK-MB (CK-2) 2.6 H* (0.0-2.4) ng/mL TSH (0.465-4.680) mIU/L 01/04/18 01/05/18 01/05/18 Range/Units 11:16 05:36 05:36 WBC 11.9 H (3.8-10.6) k/uL RBC (4.30-5.90) m/uL Hgb 12.5 L (13.0-17.5) gm/dL Hct (39.0-53.0) % Neutrophils # 10.9 H (1.3-7.7) k/uL Lymphocytes # 0.4 L (1.0-4.8) k/uL Potassium (3.5-5.1) mmol/L Chloride 96 L (98-107) mmol/L BUN 29 H (9-20) mg/dL Creatinine (0.66-1.25) mg/dL Glucose 123 H (74-99) mg/dL Magnesium 2.7 H (1.6-2.3) mg/dL ALT 80 H (21-72) U/L CK-MB (CK-2) (0.0-2.4) ng/mL TSH 0.116 L (0.465-4.680) mIU/L Assessment and Plan Plan: #1 acute on chronic hypoxic respiratory failure secondary to COPD exacerbation with a component of acute systolic CHF exacerbation. Continue input and output, daily weights, patient down 4.7 kg, continue Lasix 40 mg IV every 12 hours. Continue Solu-Medrol 60 IV every 6 hours. Continue levofloxacin 750 mg by mouth daily. Sputum culture still pending, DuoNeb's as needed for shortness of breath. Incentive spirometry. Influenza negative. Last echo in October 2017 with ejection fraction 40-45%. #2 spiculated upper right lower lobe nodule with follow-up in 4 months with a computed tomography scan recommended by pulmonary in the last admission. #3 former tobacco abuse. Quit 2 years ago, 1-1/2 pack for 40 years. #4 hypertension - Continue Sadiq inhibitors and beta ana maria #5 GI prophylaxis with Pepcid 20 mg twice a day on steroids #6 DVT prophylaxis with heparin every 12 #7 CODE STATUS full code Disposition patient need 1-2 inpatient nights in the hospital The above impression and plan of care have been discussed and directed by signing physician. Arlette Garcia nurse practitioner acting as scribe for signing physician.
[2018-01-05] MEDS ORDERED: ALBUTEROL NEBULIZED 2.5 MG/3 ML INHALATION PRN (15:59)
[2018-01-05] MEDS: ASPIRIN 325 MG TAB PO SCH (16:16)
[2018-01-05] MEDS: SENNOSIDES 8.6 MG TAB PO SCH (16:21)
[2018-01-05] MEDS: DOCUSATE 100 MG CAP PO SCH (16:21)
[2018-01-05 16:53] LABS: Glucose,Whole Blood 220 mg/dL (75-99)
[2018-01-05] MEDS: INSULIN ASPART 100 UNIT/ML 1 ML 10 ML VIAL SQ SCH ×2 (17:19→21:36)
[2018-01-05] MEDS: ALBUTEROL NEBULIZED 2.5 MG/3 ML INHALATION PRN (19:15)
[2018-01-05] MEDS: MONTELUKAST 10 MG TAB PO SCH (20:02)
[2018-01-05 21:09] LABS: Glucose,Whole Blood 228 mg/dL (75-99)
[2018-01-06] MEDS: FUROSEMIDE 10 MG/ML 4 ML VIAL IV SCH (00:42)
[2018-01-06] MEDS: ALBUTEROL NEBULIZED 2.5 MG/3 ML INHALATION PRN ×2 (01:06→16:42)
[2018-01-06 05:51] LABS: Glucose,Whole Blood 141 mg/dL (75-99)
[2018-01-06] MEDS: PANTOPRAZOLE 40 MG TABLET PO SCH (06:13)
[2018-01-06 06:16] LABS: Basophils % (A) 0 %; Eosinophils % (A) 0 %; HGB 12.9 gm/dL (13.0-17.5); Lymphocytes # (A) 0.3 k/uL (1.0-4.8); Lymphocytes % (A) 2 %; MCH 29.8 pg (25.0-35.0); MCHC 33.2 g/dL (31.0-37.0); MCV 89.7 fL (80.0-100.0); Mean Platelet Volume 6.7; Monocytes # (A) 0.7 k/uL (0-1.0); Monocytes % (A) 4 %; Neutrophils # (A) 15.6 k/uL (1.3-7.7); Neutrophils % (A) 93 %; Platelet Count 339 k/uL (150-450); RBC 4.35 m/uL (4.30-5.90); WBC 16.8 k/uL (3.8-10.6)
[2018-01-06 06:34] LABS: ALT 100 U/L (21-72); AST 32 U/L (17-59); Albumin 3.8 g/dL (3.5-5.0); Alkaline Phosphatase 85 U/L (38-126); Anion Gap 13 mmol/L; Blood Urea Nitrogen 39 mg/dL (9-20); Calcium 8.9 mg/dL (8.4-10.2); Carbon Dioxide 35 mmol/L (22-30); Chloride 94 mmol/L (98-107); Glucose 117 mg/dL (74-99); Magnesium 2.6 mg/dL (1.6-2.3); Potassium 3.9 mmol/L (3.5-5.1); Sodium 142 mmol/L (137-145); Total Bilirubin 0.4 mg/dL (0.2-1.3); Total Protein 6.4 g/dL (6.3-8.2)
[2018-01-06] MEDS: INSULIN ASPART 100 UNIT/ML 1 ML 10 ML VIAL SQ SCH ×4 (06:50→21:25)
[2018-01-06] MEDS: ATENOLOL 50 MG TAB PO SCH (07:58)
[2018-01-06] MEDS: ASPIRIN 325 MG TAB PO SCH (07:58)
[2018-01-06] MEDS: LEVOFLOXACIN 750 MG TAB PO SCH (07:59)
[2018-01-06] MEDS: DOCUSATE 100 MG CAP PO SCH ×2 (07:59→20:39)
[2018-01-06] MEDS: guaiFENesin 600 MG TABLET.ER PO SCH ×2 (07:59→20:39)
[2018-01-06] MEDS: LISINOPRIL 5 MG TAB PO SCH (07:59)
[2018-01-06] MEDS: CYCLOBENZAPRINE 10 MG TAB PO SCH ×2 (07:59→20:39)
[2018-01-06] MEDS: SENNOSIDES 8.6 MG TAB PO SCH (07:59)
[2018-01-06] MEDS: traMADol 50 MG TAB PO PRN ×2 (08:01→16:15)
[2018-01-06] MEDS: methylPREDNISolone SOD SUCCI 125 MG/2 ML VIAL IV SCH (08:02)
[2018-01-06] MEDS: ENOXAPARIN 40 MG/0.4 ML SYRINGE SQ SCH (08:02)
[2018-01-06] MEDS: NITROGLYCERIN OINT 1 INCH/GM PACKET TOPICAL SCH ×4 (08:07→20:40)
[2018-01-06] MEDS: IPRATROPIUM-ALBUTEROL 3 ML NEB INHALATION SCH ×4 (08:57→20:02)
[2018-01-06] MEDS: FUROSEMIDE 40 MG TAB PO SCH ×2 (10:14→16:15)
--- NOTE | 2018-01-06 11:16 | P.PN ---
Subjective Progress Note Date: 01/06/18 Principal diagnosis: CHf/COPD This is a 66-year-old gentleman with known history of COPD, home O2 use, systolic congestive heart failure, hypertension, who presented to the hospital with symptoms of progressively worsening shortness of breath. Initiated on IV Lasix for congestive heart failure, also receiving bronchodilators and steroids for exacerbation of COPD. Patient was seen and examined this morning, sitting up at the side of his bed, states that his breathing is significantly improved from admission here. Blood pressure 128/70 , heart rate tiny 90s low 100s, 98% on 3 L of oxygen. White blood cell count 16.8, hemoglobin 12.9, platelet count 339. Sodium 142, potassium 3.9, BUN 39, creatinine 0.8, magnesium 2.6. Objective - Vital Signs Vital signs: Vital Signs Temp 97 F L 01/06/18 08:00 Pulse 112 H 01/06/18 09:12 Resp 16 01/06/18 08:00 BP 129/74 01/06/18 08:00 Pulse Ox 98 01/06/18 08:00 Intake & Output 01/05/18 01/06/18 01/06/18 18:59 06:59 18:59 Intake Total 510 180 Output Total 300 500 Balance 210 -500 180 Weight 86.9 kg 85.4 kg Intake: Intake, IV Titration 150 Amount Levofloxacin 750Mg-D5w 150 Pmx 750 mg In Dextrose/ Water 1 150ml.bag @ 100 mls/hr IVPB DAILY [facility] Rx# :[id number] Oral 360 180 Output: Urine 300 500 Other: Voiding Method Urinal Urinal # Voids 1 # Bowel Movements 0 1 - Exam PHYSICAL EXAMINATION: HEENT: Head is atraumatic, normocephalic. Pupils equal, round. Neck is supple. There is no elevated jugular venous pressure. HEART EXAMINATION: Heart S1, S2 normal. No murmur or gallop heard. CHEST EXAMINATION: Lungs reveal scattered coarse rhonchi throughout ABDOMEN: Soft, nontender. Bowel sounds are heard. No organomegaly noted. EXTREMITIES: 2+ peripheral pulses with 1+ evidence of peripheral edema and no calf tenderness noted. NEUROLOGIC patient is awake, alert and oriented -3. . - Labs CBC & Chem 7: 01/06/18 05:25 01/06/18 05:25 Labs: Abnormal Lab Results - Last 24 Hours (Table) 01/04/18 01/05/18 01/05/18 Range/Units 11:14 16:33 21:06 WBC (3.8-10.6) k/uL Hgb (13.0-17.5) gm/dL Neutrophils # (1.3-7.7) k/uL Lymphocytes # (1.0-4.8) k/uL Chloride (98-107) mmol/L Carbon Dioxide (22-30) mmol/L BUN (9-20) mg/dL Glucose (74-99) mg/dL POC Glucose (mg/dL) 220 H 228 H (75-99) mg/dL Magnesium (1.6-2.3) mg/dL ALT (21-72) U/L Total T4 3.6 L (4.5 - 10.9) ug/dL 01/06/18 01/06/18 01/06/18 Range/Units 05:25 05:25 05:50 WBC 16.8 H (3.8-10.6) k/uL Hgb 12.9 L (13.0-17.5) gm/dL Neutrophils # 15.6 H (1.3-7.7) k/uL Lymphocytes # 0.3 L (1.0-4.8) k/uL Chloride 94 L (98-107) mmol/L Carbon Dioxide 35 H (22-30) mmol/L BUN 39 H (9-20) mg/dL Glucose 117 H (74-99) mg/dL POC Glucose (mg/dL) 141 H (75-99) mg/dL Magnesium 2.6 H (1.6-2.3) mg/dL ALT 100 H (21-72) U/L Total T4 (4.5 - 10.9) ug/dL Microbiology - Last 24 Hours (Table) 01/04/18 11:14 Blood Culture - Preliminary Blood No Growth after 24 hours Assessment and Plan Plan: Assessment and plan #1 COPD exacerbation #2 systolic congestive heart failure acute on chronic #3 history of advanced COPD and bronchial asthma. Suspicious superior right lower lobe nodule noted on chest x-ray, neoplasm cannot be excluded. #4 nicotine dependence, patient quit smoking 2 years ago #5 hypertension Plan IV Lasix has been discontinued and patient has been placed on oral diuretics. We will decrease the aspirin to 81 mg daily continue other medications. DNP note has been reviewed, I agree with a documented findings and plan of care. Patient was seen and examined.
[2018-01-06 11:41] LABS: Glucose,Whole Blood 137 mg/dL (75-99)
--- NOTE | 2018-01-06 14:14 | P.PN ---
Subjective Progress Note Date: 01/06/18 67 years old male patient of Dr. Rouse with past medical history of COPD, hypertension, history of systolic CHF with ejection fraction last noted to be 45-50% in October 2017 presents with worsening shortness of breath associated with cough. Patient uses 2.5 L of oxygen with exertion and 2 L on rest at baseline he has to increase his oxygen to 4 L to help feed better. Patient denies any fever or chills or chest pain. He is a former smoker and quit 2 years ago smoked one to one and a half pack a day for [address] chest from October 2017 and a suspicious 1.5 X .9 cm right upper lobe spiculated lesion and was asked to follow-up with a repeat computed tomography scan in 4 months. His influenza negative. BNP is 1000. WBC 14.5, hemoglobin 12, PT/INR within normal limits. Potassium 5.5. Test x-ray concerning for congestion or pneumonitis. Patient is admitted for CHF exacerbation with COPD exacerbation. Started on levofloxacin 750 mg IV daily along with Solu-Medrol 60 daily 6 hours. 01/05 Patient seen today at the bedside. He reports breathing has improved from last night. Wheezing has improved from yesterday. He still has quite a bit of lower extremity edema, continues on 4 L of o2 NC. Will continie with IV lasix 40 mg IV push every 12. He is down 4.7 Kg. Will continue with I&O's, cardiology and pulmonology is on consult. Influenza A and B are negative, 3 sets of troponins have been negative. We'll continue with current treatment plan and reevaluate tomorrow. 01/06: Patient remains on Solu-Medrol 60 mg IV 4 times daily and will be decreased to 40 mg every 8 hours. Lasix 40 mg IV every 12 hours will be changed to oral. Decreased lower extremity edema. Breathing status is slowly improving. Patient does state he is feeling better from yesterday. He is using incentive spirometry. White count is up to 16.8, BUN 34 and creatinine 0.83. Patient is followed by Dr. Hodgson. Patient has been seen by cardiology with plan to continue IV Lasix, aspirin, Tenormin and Zestril. Objective - Vital Signs Vital signs: Vital Signs Temp 96.0 F L 01/06/18 04:00 Pulse 109 H 01/06/18 04:00 Resp 16 01/06/18 04:00 BP 149/96 01/06/18 04:00 Pulse Ox 97 01/06/18 04:00 Intake & Output 01/05/18 01/06/18 01/06/18 18:59 06:59 18:59 Intake Total 510 Output Total 300 500 Balance 210 -500 Weight 86.9 kg 85.4 kg Intake: Intake, IV Titration 150 Amount Levofloxacin 750Mg-D5w 150 Pmx 750 mg In Dextrose/ Water 1 150ml.bag @ 100 mls/hr IVPB DAILY [facility] Rx# :[id number] Oral 360 Output: Urine 300 500 Other: Voiding Method Urinal Urinal # Voids 1 # Bowel Movements 0 1 - Exam - Constitutional General appearance: cooperative, in mild acute distress, obese - EENT Eyes: anicteric sclerae, PERRLA, normal appearance ENT: hearing grossly normal - Neck Neck: no lymphadenopathy, normal ROM, no other, no rigidity, no stridor, no thyromegaly - Respiratory Respiratory: bilateral diffuse wheezing with decreased air entry - Cardiovascular Rhythm: Tachycardic Heart sounds: normal: S1, S2 Abnormal Heart Sounds: no systolic murmur, no diastolic murmur, no rub, no S3 Gallop, no S4 Gallop, no click, no other - Gastrointestinal General gastrointestinal: normal bowel sounds, soft - Integumentary Integumentary: no rash - Neurologic Neurologic: CNII-XII intact - Musculoskeletal Musculoskeletal: gait normal, strength equal bilaterally 2+ pitting edema in lower extremity - Psychiatric Psychiatric: A&O x's 3, appropriate affect - Labs CBC & Chem 7: 01/06/18 05:25 01/06/18 05:25 Labs: Abnormal Lab Results - Last 24 Hours (Table) 01/05/18 01/05/18 01/06/18 Range/Units 16:33 21:06 05:25 WBC 16.8 H (3.8-10.6) k/uL Hgb 12.9 L (13.0-17.5) gm/dL Neutrophils # 15.6 H (1.3-7.7) k/uL Lymphocytes # 0.3 L (1.0-4.8) k/uL Chloride (98-107) mmol/L Carbon Dioxide (22-30) mmol/L BUN (9-20) mg/dL Glucose (74-99) mg/dL POC Glucose (mg/dL) 220 H 228 H (75-99) mg/dL Magnesium (1.6-2.3) mg/dL ALT (21-72) U/L 01/06/18 01/06/18 Range/Units 05:25 05:50 WBC (3.8-10.6) k/uL Hgb (13.0-17.5) gm/dL Neutrophils # (1.3-7.7) k/uL Lymphocytes # (1.0-4.8) k/uL Chloride 94 L (98-107) mmol/L Carbon Dioxide 35 H (22-30) mmol/L BUN 39 H (9-20) mg/dL Glucose 117 H (74-99) mg/dL POC Glucose (mg/dL) 141 H (75-99) mg/dL Magnesium 2.6 H (1.6-2.3) mg/dL ALT 100 H (21-72) U/L Microbiology - Last 24 Hours (Table) 01/04/18 11:14 Blood Culture - Preliminary Blood No Growth after 24 hours Assessment and Plan Plan: #1 acute on chronic hypoxic respiratory failure secondary to COPD exacerbation with a component of acute systolic CHF exacerbation. Continue input and output, daily weights, patient down 4.7 kg, continue Lasix 40 mg oral every 12 hours. Continue Solu-Medrol decreased to 40 mg IV every 8 hours. Continue levofloxacin 750 mg by mouth daily. Sputum culture still pending, DuoNeb's as needed for shortness of breath. Incentive spirometry. Influenza negative. Last echo in October 2017 with ejection fraction 40-45%. #2 spiculated upper right lower lobe nodule with follow-up in 4 months with a computed tomography scan recommended by pulmonary in the last admission. #3 former tobacco abuse. Quit 2 years ago, 1-1/2 pack for 40 years. #4 hypertension - Continue Sadiq inhibitors and beta ana maria #5 GI prophylaxis with Pepcid 20 mg twice a day on steroids #6 DVT prophylaxis with heparin every 12 #7 CODE STATUS full code Discharge plan: return home with [facility] Impression and plan of care have been directed as dictated by the signing physician. Valery Germain nurse practitioner acting as scribe for signing physician.
--- NOTE | 2018-01-06 15:20 | P.PN ---
Subjective Progress Note Date: 01/06/18 his is a 67-year-old white male with history of severe COPD, chronic hypoxic respiratory failure, seen on a previous admission at [facility], and he was eventually discharged on multiple bronchodilators. . CT of the chest showed a right lung solitary lung nodule, however the patient is not a candidate for any intervention based on the fact that he has severe COPD, and we have recommended repeat CT of the chest in 4 months. Patient is on home option 04/05, he does not smoke at present, used to live in [place], recently moved to the area. Despite his earlier hospitalization, the patient continued to have shortness of breath and wheezing and he was given another prednisone burst taper and a course of Cipro on outpatient basis. Also, anoro 1 puff daily was also added to his regimen. A pulmonary function test was done in the office on 10/28/2017 and the patient was found to have an FEV1 of 34% of predicted consistent with severe obstructive airway limitation. His diffusion capacity was at 22% and the patient had a total lung capacity of 91% along with some hyperinflation. Comorbid conditions include hypertension. The patient presented back to the emergency department today because of worsening shortness of breath over at least 4 days duration. He hasn't been able to cough out any significant sputum production. He denied having any fever or chills. His pulse ox was apparently at 74% when EMS arrived to the scene. He is utilizing oxygen at 2 L/m nasal cannula. He also had abdominal distention and some mild lower extremity edema. He had a congested cough. No fever. No chills. No altered mentation. White cell count was at 14.4. Renal function was stable at creatinine of 0.6 influenza screen was negative. Troponin was 0.015 and the proBNP level was at 1000. Echocardiogram from of his admission showed an ejection fraction of 45%. The patient had noticed some any pulmonary hypertension. No pericardial effusion. His LV was mildly impaired with an ejection fraction of 45-50%. Right ventricular size and function was within normal limits. There was mild aortic valve sclerosis without evidence of regurgitation or stenosis. On 01/05/2018 the patient is feeling better compared to yesterday. Last bronchus spastic and wheezy compared to yesterday. He was treated with a combination of bronchodilators and steroids. He was admitted for an acute COPD exacerbation. No fever or chills. No altered mentation. He is responding nicely to a combination of bronchodilators and steroids. He is also on empiric antibiotic coverage with Levaquin. He is receiving diuretics due to increased lower extremities edema and a mild component of CHF and currently is on Lasix 40 mg IV push every 12 hours. On 01/06/2018, patient is being seen for a follow-up. He is steadily improving. Specific complaints for now. Limited cough and sputum production. No chest pain. No pleurisy. Remains on a combination of bronchodilators and steroids. The patient on empiric antibiotic coverage with Levaquin. The patient is on IV Solu Medrol 40 g every 8 hours. He is requesting his pain medication to be renewed and resumed and the patient is currently on tramadol 100 mg every 8 hours and he also takes Flexeril 10 mg as a muscle relaxant. Mucinex for cough and congestion. Overall condition is improved. Lasix have been switched to oral 40 mg by mouth twice a day. Objective - Vital Signs Vital signs: Vital Signs Temp 97.4 F L 01/06/18 12:00 Pulse 110 H 01/06/18 12:39 Resp 18 01/06/18 12:00 BP 121/73 01/06/18 12:00 Pulse Ox 99 01/06/18 12:00 Intake & Output 01/05/18 01/06/18 01/06/18 18:59 06:59 18:59 Intake Total 510 580 Output Total 300 500 500 Balance 210 -500 80 Weight 86.9 kg 85.4 kg Intake: Intake, IV Titration 150 Amount Levofloxacin 750Mg-D5w 150 Pmx 750 mg In Dextrose/ Water 1 150ml.bag @ 100 mls/hr IVPB DAILY [facility] Rx# :[id number] Oral 360 580 Output: Urine 300 500 500 Other: Voiding Method Urinal Urinal Urinal # Voids 1 # Bowel Movements 0 1 - Exam - Constitutional General appearance: average body habitus, cooperative, no acute distress - EENT Eyes: PERRLA ENT: NA/AT Ears: bilateral: normal - Neck Neck: no lymphadenopathy, normal ROM Carotids: bilateral: upstroke normal Thyroid: bilateral: normal size - Respiratory Respiratory: bilateral: rhonchi (Bilateral posterior bases), prolonged expiration - Cardiovascular Rhythm: regular Heart sounds: normal: S1, S2 ankle Peripheral Edema: bilateral: 1+ foot Peripheral Edema: bilateral: 1+ - Gastrointestinal General gastrointestinal: no organomegaly, soft, no tenderness - Neurologic Neurologic: CNII-XII intact - Musculoskeletal Musculoskeletal: gait normal, strength equal bilaterally - Psychiatric Psychiatric: A&O x's 3 - Labs CBC & Chem 7: 01/06/18 05:25 01/06/18 05:25 Labs: Abnormal Lab Results - Last 24 Hours (Table) 01/04/18 01/05/18 01/05/18 Range/Units 11:14 16:33 21:06 WBC (3.8-10.6) k/uL Hgb (13.0-17.5) gm/dL Neutrophils # (1.3-7.7) k/uL Lymphocytes # (1.0-4.8) k/uL Chloride (98-107) mmol/L Carbon Dioxide (22-30) mmol/L BUN (9-20) mg/dL Glucose (74-99) mg/dL POC Glucose (mg/dL) 220 H 228 H (75-99) mg/dL Magnesium (1.6-2.3) mg/dL ALT (21-72) U/L Total T4 3.6 L (4.5 - 10.9) ug/dL 01/06/18 01/06/18 01/06/18 Range/Units 05:25 05:25 05:50 WBC 16.8 H (3.8-10.6) k/uL Hgb 12.9 L (13.0-17.5) gm/dL Neutrophils # 15.6 H (1.3-7.7) k/uL Lymphocytes # 0.3 L (1.0-4.8) k/uL Chloride 94 L (98-107) mmol/L Carbon Dioxide 35 H (22-30) mmol/L BUN 39 H (9-20) mg/dL Glucose 117 H (74-99) mg/dL POC Glucose (mg/dL) 141 H (75-99) mg/dL Magnesium 2.6 H (1.6-2.3) mg/dL ALT 100 H (21-72) U/L Total T4 (4.5 - 10.9) ug/dL 01/06/18 Range/Units 11:40 WBC (3.8-10.6) k/uL Hgb (13.0-17.5) gm/dL Neutrophils # (1.3-7.7) k/uL Lymphocytes # (1.0-4.8) k/uL Chloride (98-107) mmol/L Carbon Dioxide (22-30) mmol/L BUN (9-20) mg/dL Glucose (74-99) mg/dL POC Glucose (mg/dL) 137 H (75-99) mg/dL Magnesium (1.6-2.3) mg/dL ALT (21-72) U/L Total T4 (4.5 - 10.9) ug/dL Microbiology - Last 24 Hours (Table) 01/04/18 11:14 Blood Culture - Preliminary Blood No Growth after 48 hours Assessment and Plan Plan: Assessment: #1. Acute COPD exacerbation with secondary dyspnea, improving slowly. The patient is improving significantly since admission. No chest pain. No signs of ongoing pneumonia or rest or checked infection. His acute COPD exacerbations gradually improving. #2. Advanced COPD with an FEV1 of 36% of predicted consistent with severe obstructive airway limitation #3. 1.5 x 0.9 cm suspicious superior right lower lobe spiculated nodule, neoplasm cannot be excluded #4. Chronic hypoxic respiratory failure maintained on oxygen 2 L/m nasal cannula #5. History of bronchial asthma, with multiple environmental ALLERGIES #6. Nicotine dependence, currently in remission, quit 2 years ago, smoked 1-1/ 2 packs for 40 years #7. Hypertension #8. CHF with mild impairment of the LV with an ejection fraction 45% #9 chronic areas of DVT eccentric the located near the valves with secondary chronic lower extremity edema and the patient is on no anticoagulants for now Plan Continue same treatment. Continue bronchodilators. Switch diuretics to Lasix 40 mg by mouth twice a day. Continued IV Solu Medrol 40 g every 8 hours for another 24 hours. Ankle disease the level of activity as tolerated. We'll continue to follow. Overall condition is improving.
[2018-01-06] MEDS: methylPREDNISolone SOD SUCCI 40 MG/ML 1 ML VIAL IV SCH ×2 (16:23→23:18)
[2018-01-06 16:39] LABS: Glucose,Whole Blood 188 mg/dL (75-99)
[2018-01-06] MEDS: MONTELUKAST 10 MG TAB PO SCH (20:39)
[2018-01-06 20:59] LABS: Glucose,Whole Blood 161 mg/dL (75-99)
[2018-01-07] MEDS: ALBUTEROL NEBULIZED 2.5 MG/3 ML INHALATION PRN ×3 (05:04→11:56)
[2018-01-07] MEDS: traMADol 50 MG TAB PO PRN ×2 (05:18→08:40)
[2018-01-07] MEDS: INSULIN ASPART 100 UNIT/ML 1 ML 10 ML VIAL SQ SCH ×4 (06:18→21:34)
[2018-01-07 06:19] LABS: Glucose,Whole Blood 124 mg/dL (75-99)
[2018-01-07] MEDS: PANTOPRAZOLE 40 MG TABLET PO SCH (06:20)
[2018-01-07 07:16] LABS: Basophils % (A) 0 %; Eosinophils % (A) 0 %; HCT 38.4 % (39.0-53.0); HGB 12.8 gm/dL (13.0-17.5); Lymphocytes # (A) 0.5 k/uL (1.0-4.8); Lymphocytes % (A) 4 %; MCH 29.8 pg (25.0-35.0); MCHC 33.3 g/dL (31.0-37.0); MCV 89.4 fL (80.0-100.0); Mean Platelet Volume 6.8; Monocytes # (A) 0.8 k/uL (0-1.0); Monocytes % (A) 6 %; Neutrophils # (A) 12.4 k/uL (1.3-7.7); Neutrophils % (A) 90 %; Platelet Count 302 k/uL (150-450); WBC 13.8 k/uL (3.8-10.6)
[2018-01-07 07:39] LABS: ALT 97 U/L (21-72); AST 29 U/L (17-59); Albumin 3.7 g/dL (3.5-5.0); Alkaline Phosphatase 93 U/L (38-126); Anion Gap 13 mmol/L; Blood Urea Nitrogen 30 mg/dL (9-20); Calcium 8.8 mg/dL (8.4-10.2); Carbon Dioxide 30 mmol/L (22-30); Chloride 94 mmol/L (98-107); Glucose 106 mg/dL (74-99); Magnesium 2.7 mg/dL (1.6-2.3); Potassium 3.8 mmol/L (3.5-5.1); Sodium 137 mmol/L (137-145); Total Bilirubin 0.4 mg/dL (0.2-1.3); Total Protein 6.3 g/dL (6.3-8.2)
[2018-01-07] MEDS: IPRATROPIUM-ALBUTEROL 3 ML NEB INHALATION SCH ×5 (08:33→19:39)
[2018-01-07] MEDS: ENOXAPARIN 40 MG/0.4 ML SYRINGE SQ SCH (08:41)
[2018-01-07] MEDS: guaiFENesin 600 MG TABLET.ER PO SCH ×2 (08:41→21:36)
[2018-01-07] MEDS: DOCUSATE 100 MG CAP PO SCH ×2 (08:41→21:36)
[2018-01-07] MEDS: LISINOPRIL 5 MG TAB PO SCH (08:41)
[2018-01-07] MEDS: FUROSEMIDE 40 MG TAB PO SCH ×2 (08:41→17:18)
[2018-01-07] MEDS: CYCLOBENZAPRINE 10 MG TAB PO SCH ×2 (08:41→21:37)
[2018-01-07] MEDS: LEVOFLOXACIN 750 MG TAB PO SCH (08:41)
[2018-01-07] MEDS: ASPIRIN 81 MG PO SCH (08:41)
[2018-01-07] MEDS: ATENOLOL 50 MG TAB PO SCH (08:41)
[2018-01-07] MEDS: NITROGLYCERIN OINT 1 INCH/GM PACKET TOPICAL SCH ×4 (08:42→21:36)
[2018-01-07] MEDS: methylPREDNISolone SOD SUCCI 40 MG/ML 1 ML VIAL IV SCH ×2 (08:42→17:18)
[2018-01-07 11:20] LABS: Glucose,Whole Blood 163 mg/dL (75-99)
--- NOTE | 2018-01-07 11:39 | P.PN ---
Subjective Progress Note Date: 01/07/18 Principal diagnosis: CHf/COPD This is a 66-year-old gentleman with known history of COPD, home O2 use, systolic congestive heart failure, hypertension, who presented to the hospital with symptoms of progressively worsening shortness of breath. Initiated on IV Lasix for congestive heart failure, also receiving bronchodilators and steroids for exacerbation of COPD. Patient was seen and examined this morning, sitting up at the side of his bed, states that his breathing is significantly improved from admission here. Blood pressure 128/70 , heart rate tiny 90s low 100s, 98% on 3 L of oxygen. White blood cell count 16.8, hemoglobin 12.9, platelet count 339. Sodium 142, potassium 3.9, BUN 39, creatinine 0.8, magnesium 2.6. 01/07/2018 Patient seen and examined this morning, breathing has improved significantly overall. Continues to be in a sinus tachycardia with a heart rate 120s, we will add verapamil to his medication regime this morning. The patient is also on atenolol 50 mg daily. Blood pressure 126/70. Objective - Vital Signs Vital signs: Vital Signs Temp 98.1 F 01/07/18 08:00 Pulse 124 H 01/07/18 08:53 Resp 20 01/07/18 08:00 BP 126/74 01/07/18 08:00 Pulse Ox 93 L 01/07/18 08:00 Intake & Output 01/06/18 01/07/18 01/07/18 18:59 06:59 18:59 Intake Total 580 180 Output Total 500 Balance 80 180 Weight 86.3 kg Intake: Oral 580 180 Output: Urine 500 Other: Voiding Method Urinal Urinal # Voids 1 # Bowel Movements 1 - Exam PHYSICAL EXAMINATION: HEENT: Head is atraumatic, normocephalic. Pupils equal, round. Neck is supple. There is no elevated jugular venous pressure. HEART EXAMINATION: Heart S1, S2 normal. No murmur or gallop heard. CHEST EXAMINATION: Lungs reveal scattered coarse rhonchi throughout ABDOMEN: Soft, nontender. Bowel sounds are heard. No organomegaly noted. EXTREMITIES: 2+ peripheral pulses with 1+ evidence of peripheral edema and no calf tenderness noted. NEUROLOGIC patient is awake, alert and oriented -3. . - Labs CBC & Chem 7: 01/07/18 06:11 01/07/18 06:11 Labs: Abnormal Lab Results - Last 24 Hours (Table) 01/06/18 01/06/18 01/06/18 Range/Units 11:40 16:38 20:58 WBC (3.8-10.6) k/uL Hgb (13.0-17.5) gm/dL Hct (39.0-53.0) % Neutrophils # (1.3-7.7) k/uL Lymphocytes # (1.0-4.8) k/uL Chloride (98-107) mmol/L BUN (9-20) mg/dL Creatinine (0.66-1.25) mg/dL Glucose (74-99) mg/dL POC Glucose (mg/dL) 137 H 188 H 161 H (75-99) mg/dL Magnesium (1.6-2.3) mg/dL ALT (21-72) U/L 01/07/18 01/07/18 01/07/18 Range/Units 06:11 06:11 06:16 WBC 13.8 H (3.8-10.6) k/uL Hgb 12.8 L (13.0-17.5) gm/dL Hct 38.4 L (39.0-53.0) % Neutrophils # 12.4 H (1.3-7.7) k/uL Lymphocytes # 0.5 L (1.0-4.8) k/uL Chloride 94 L (98-107) mmol/L BUN 30 H (9-20) mg/dL Creatinine 0.65 L (0.66-1.25) mg/dL Glucose 106 H (74-99) mg/dL POC Glucose (mg/dL) 124 H (75-99) mg/dL Magnesium 2.7 H (1.6-2.3) mg/dL ALT 97 H (21-72) U/L 01/07/18 Range/Units 11:18 WBC (3.8-10.6) k/uL Hgb (13.0-17.5) gm/dL Hct (39.0-53.0) % Neutrophils # (1.3-7.7) k/uL Lymphocytes # (1.0-4.8) k/uL Chloride (98-107) mmol/L BUN (9-20) mg/dL Creatinine (0.66-1.25) mg/dL Glucose (74-99) mg/dL POC Glucose (mg/dL) 163 H (75-99) mg/dL Magnesium (1.6-2.3) mg/dL ALT (21-72) U/L Microbiology - Last 24 Hours (Table) 01/04/18 11:14 Blood Culture - Preliminary Blood No Growth after 48 hours Assessment and Plan Plan: Assessment and plan #1 COPD exacerbation #2 systolic congestive heart failure acute on chronic #3 history of advanced COPD and bronchial asthma. Suspicious superior right lower lobe nodule noted on chest x-ray, neoplasm cannot be excluded. #4 nicotine dependence, patient quit smoking 2 years ago #5 hypertension Plan From cardiology's perspective, we will add verapamil to the medication regime, for the sinus tachycardia. Continue atenolol. Discharge when cleared by pulmonary and primary. DNP note has been reviewed, I agree with a documented findings and plan of care. Patient was seen and examined.
[2018-01-07] MEDS: METOLAZONE 5 MG TAB PO SCH (12:22)
[2018-01-07] MEDS: SENNOSIDES 8.6 MG TAB PO SCH (12:22)
--- NOTE | 2018-01-07 13:02 | P.PN ---
Subjective Progress Note Date: 01/07/18 67 years old male patient of Dr. Rouse with past medical history of COPD, hypertension, history of systolic CHF with ejection fraction last noted to be 45-50% in October 2017 presents with worsening shortness of breath associated with cough. Patient uses 2.5 L of oxygen with exertion and 2 L on rest at baseline he has to increase his oxygen to 4 L to help feed better. Patient denies any fever or chills or chest pain. He is a former smoker and quit 2 years ago smoked one to one and a half pack a day for [address] chest from October 2017 and a suspicious 1.5 X .9 cm right upper lobe spiculated lesion and was asked to follow-up with a repeat computed tomography scan in 4 months. His influenza negative. BNP is 1000. WBC 14.5, hemoglobin 12, PT/INR within normal limits. Potassium 5.5. Test x-ray concerning for congestion or pneumonitis. Patient is admitted for CHF exacerbation with COPD exacerbation. Started on levofloxacin 750 mg IV daily along with Solu-Medrol 60 daily 6 hours. 01/05 Patient seen today at the bedside. He reports breathing has improved from last night. Wheezing has improved from yesterday. He still has quite a bit of lower extremity edema, continues on 4 L of o2 NC. Will continie with IV lasix 40 mg IV push every 12. He is down 4.7 Kg. Will continue with I&O's, cardiology and pulmonology is on consult. Influenza A and B are negative, 3 sets of troponins have been negative. We'll continue with current treatment plan and reevaluate tomorrow. 01/06: Patient remains on Solu-Medrol 60 mg IV 4 times daily and will be decreased to 40 mg every 8 hours. Lasix 40 mg IV every 12 hours will be changed to oral. Decreased lower extremity edema. Breathing status is slowly improving. Patient does state he is feeling better from yesterday. He is using incentive spirometry. White count is up to 16.8, BUN 34 and creatinine 0.83. Patient is followed by Dr. Hodgson. Patient has been seen by cardiology with plan to continue IV Lasix, aspirin, Tenormin and Zestril. 01/07: Patient is currently on oxygen at 2 L pulse oxing 93%. Patient is normally on home O2 at 2 L. He is mildly tachycardic. He does have shortness of breath with activity but slightly improved. Patient is continued on Solu- Medrol 40 mg IV every 8 hours. He has had good urine output. Patient is noted to have some increased edema from yesterday in the lower extremities. He did have his first bowel movement today after 4 days. Blood sugars are running 124- 188 and white count is 13.8 BUN 30 and creatinine 0.65. We are adding in metolazone 5 mg daily with plan to change this to Thursday at the time of discharge. Blood culture showing no growth after 48 hours. Objective - Vital Signs Vital signs: Vital Signs Temp 98.2 F 01/07/18 04:00 Pulse 114 H 01/07/18 05:16 Resp 18 01/07/18 04:00 BP 134/74 01/07/18 04:00 Pulse Ox 93 L 01/07/18 04:00 Intake & Output 01/06/18 01/07/18 01/07/18 18:59 06:59 18:59 Intake Total 580 Output Total 500 Balance 80 Weight 86.3 kg Intake: Oral 580 Output: Urine 500 Other: Voiding Method Urinal Urinal # Voids 1 # Bowel Movements 1 - Exam - Constitutional General appearance: cooperative, in mild acute distress, obese - EENT Eyes: anicteric sclerae, PERRLA, normal appearance ENT: hearing grossly normal - Neck Neck: no lymphadenopathy, normal ROM, no other, no rigidity, no stridor, no thyromegaly - Respiratory Respiratory: bilateral diffuse wheezing with decreased air entry - Cardiovascular Rhythm: Tachycardic Heart sounds: normal: S1, S2 Abnormal Heart Sounds: no systolic murmur, no diastolic murmur, no rub, no S3 Gallop, no S4 Gallop, no click, no other - Gastrointestinal General gastrointestinal: normal bowel sounds, soft - Integumentary Integumentary: no rash - Neurologic Neurologic: CNII-XII intact - Musculoskeletal Musculoskeletal: gait normal, strength equal bilaterally 2+ pitting edema in lower extremity - Psychiatric Psychiatric: A&O x's 3, appropriate affect - Labs CBC & Chem 7: 01/07/18 06:11 01/07/18 06:11 Labs: Abnormal Lab Results - Last 24 Hours (Table) 01/04/18 01/06/18 01/06/18 Range/Units 11:14 11:40 16:38 WBC (3.8-10.6) k/uL Hgb (13.0-17.5) gm/dL Hct (39.0-53.0) % Neutrophils # (1.3-7.7) k/uL Lymphocytes # (1.0-4.8) k/uL Chloride (98-107) mmol/L BUN (9-20) mg/dL Creatinine (0.66-1.25) mg/dL Glucose (74-99) mg/dL POC Glucose (mg/dL) 137 H 188 H (75-99) mg/dL Magnesium (1.6-2.3) mg/dL ALT (21-72) U/L Total T4 3.6 L (4.5 - 10.9) ug/dL 01/06/18 01/07/18 01/07/18 Range/Units 20:58 06:11 06:11 WBC 13.8 H (3.8-10.6) k/uL Hgb 12.8 L (13.0-17.5) gm/dL Hct 38.4 L (39.0-53.0) % Neutrophils # 12.4 H (1.3-7.7) k/uL Lymphocytes # 0.5 L (1.0-4.8) k/uL Chloride 94 L (98-107) mmol/L BUN 30 H (9-20) mg/dL Creatinine 0.65 L (0.66-1.25) mg/dL Glucose 106 H (74-99) mg/dL POC Glucose (mg/dL) 161 H (75-99) mg/dL Magnesium 2.7 H (1.6-2.3) mg/dL ALT 97 H (21-72) U/L Total T4 (4.5 - 10.9) ug/dL 01/07/18 Range/Units 06:16 WBC (3.8-10.6) k/uL Hgb (13.0-17.5) gm/dL Hct (39.0-53.0) % Neutrophils # (1.3-7.7) k/uL Lymphocytes # (1.0-4.8) k/uL Chloride (98-107) mmol/L BUN (9-20) mg/dL Creatinine (0.66-1.25) mg/dL Glucose (74-99) mg/dL POC Glucose (mg/dL) 124 H (75-99) mg/dL Magnesium (1.6-2.3) mg/dL ALT (21-72) U/L Total T4 (4.5 - 10.9) ug/dL Microbiology - Last 24 Hours (Table) 01/04/18 11:14 Blood Culture - Preliminary Blood No Growth after 48 hours Assessment and Plan Plan: #1 acute on chronic hypoxic respiratory failure secondary to COPD exacerbation with a component of acute systolic CHF exacerbation. Continue input and output, daily weights, patient down 4.7 kg, continue Lasix 40 mg oral every 12 hours. Continue Solu-Medrol decreased to 40 mg IV every 8 hours. Continue levofloxacin 750 mg by mouth daily. Sputum culture still pending, DuoNeb's as needed for shortness of breath. Incentive spirometry. Influenza negative. Last echo in October 2017 with ejection fraction 40-45%. Metolazone 5 mg daily added #2 spiculated upper right lower lobe nodule with follow-up in 4 months with a computed tomography scan recommended by pulmonary in the last admission. #3 former tobacco abuse. Quit 2 years ago, 1-1/2 pack for 40 years. #4 hypertension - Continue Sadiq inhibitors and beta ana maria #5 GI prophylaxis with Pepcid 20 mg twice a day on steroids #6 DVT prophylaxis with heparin every 12 #7 CODE STATUS full code Discharge plan: return home with [facility] Impression and plan of care have been directed as dictated by the signing physician. Valery Germain nurse practitioner acting as scribe for signing physician.
[2018-01-07 16:36] LABS: Glucose,Whole Blood 131 mg/dL (75-99)
--- NOTE | 2018-01-07 16:45 | P.PN ---
Subjective Progress Note Date: 01/07/18 his is a 67-year-old white male with history of severe COPD, chronic hypoxic respiratory failure, seen on a previous admission at [facility], and he was eventually discharged on multiple bronchodilators. . CT of the chest showed a right lung solitary lung nodule, however the patient is not a candidate for any intervention based on the fact that he has severe COPD, and we have recommended repeat CT of the chest in 4 months. Patient is on home option 04/05, he does not smoke at present, used to live in [place], recently moved to the area. Despite his earlier hospitalization, the patient continued to have shortness of breath and wheezing and he was given another prednisone burst taper and a course of Cipro on outpatient basis. Also, anoro 1 puff daily was also added to his regimen. A pulmonary function test was done in the office on 10/28/2017 and the patient was found to have an FEV1 of 34% of predicted consistent with severe obstructive airway limitation. His diffusion capacity was at 22% and the patient had a total lung capacity of 91% along with some hyperinflation. Comorbid conditions include hypertension. The patient presented back to the emergency department today because of worsening shortness of breath over at least 4 days duration. He hasn't been able to cough out any significant sputum production. He denied having any fever or chills. His pulse ox was apparently at 74% when EMS arrived to the scene. He is utilizing oxygen at 2 L/m nasal cannula. He also had abdominal distention and some mild lower extremity edema. He had a congested cough. No fever. No chills. No altered mentation. White cell count was at 14.4. Renal function was stable at creatinine of 0.6 influenza screen was negative. Troponin was 0.015 and the proBNP level was at 1000. Echocardiogram from of his admission showed an ejection fraction of 45%. The patient had noticed some any pulmonary hypertension. No pericardial effusion. His LV was mildly impaired with an ejection fraction of 45-50%. Right ventricular size and function was within normal limits. There was mild aortic valve sclerosis without evidence of regurgitation or stenosis. On 01/05/2018 the patient is feeling better compared to yesterday. Last bronchus spastic and wheezy compared to yesterday. He was treated with a combination of bronchodilators and steroids. He was admitted for an acute COPD exacerbation. No fever or chills. No altered mentation. He is responding nicely to a combination of bronchodilators and steroids. He is also on empiric antibiotic coverage with Levaquin. He is receiving diuretics due to increased lower extremities edema and a mild component of CHF and currently is on Lasix 40 mg IV push every 12 hours. On 01/06/2018, patient is being seen for a follow-up. He is steadily improving. Specific complaints for now. Limited cough and sputum production. No chest pain. No pleurisy. Remains on a combination of bronchodilators and steroids. The patient on empiric antibiotic coverage with Levaquin. The patient is on IV Solu Medrol 40 g every 8 hours. He is requesting his pain medication to be renewed and resumed and the patient is currently on tramadol 100 mg every 8 hours and he also takes Flexeril 10 mg as a muscle relaxant. Mucinex for cough and congestion. Overall condition is improved. Lasix have been switched to oral 40 mg by mouth twice a day. On 01/07/2018 I'm seeing this patient for a follow-up. His condition essentially the same. Not much of an improvement since yesterday and the patient is still having some symptoms of COPD exacerbation, this to exertion and even at rest and some bronchospasm wheezing. Cough is congested and is unable to bring up much sputum. No chest pain. No fever or chills. He is on examination bronchodilators and steroids. He is also on IV Solu Medrol 40 g every 8 hours, Lasix orally and DuoNeb nebulized treatments around the clock. Objective - Vital Signs Vital signs: Vital Signs Temp 98.1 F 01/07/18 15:45 Pulse 103 H 01/07/18 15:45 Resp 20 01/07/18 15:45 BP 121/89 01/07/18 15:45 Pulse Ox 94 L 01/07/18 15:45 Intake & Output 01/06/18 01/07/18 01/07/18 18:59 06:59 18:59 Intake Total 580 180 Output Total 500 300 Balance 80 -120 Weight 86.3 kg Intake: Oral 580 180 Output: Urine 500 300 Other: Voiding Method Urinal Urinal # Voids 1 # Bowel Movements 1 - Exam - Constitutional General appearance: average body habitus, cooperative, no acute distress - EENT Eyes: PERRLA ENT: NA/AT Ears: bilateral: normal - Neck Neck: no lymphadenopathy, normal ROM Carotids: bilateral: upstroke normal Thyroid: bilateral: normal size - Respiratory Respiratory: bilateral: rhonchi (Bilateral posterior bases), prolonged expiration - Cardiovascular Rhythm: regular Heart sounds: normal: S1, S2 ankle Peripheral Edema: bilateral: 1+ foot Peripheral Edema: bilateral: 1+ - Gastrointestinal General gastrointestinal: no organomegaly, soft, no tenderness - Neurologic Neurologic: CNII-XII intact - Musculoskeletal Musculoskeletal: gait normal, strength equal bilaterally - Psychiatric Psychiatric: A&O x's 3 - Labs CBC & Chem 7: 01/07/18 06:11 01/07/18 06:11 Labs: Abnormal Lab Results - Last 24 Hours (Table) 01/06/18 01/07/18 01/07/18 Range/Units 20:58 06:11 06:11 WBC 13.8 H (3.8-10.6) k/uL Hgb 12.8 L (13.0-17.5) gm/dL Hct 38.4 L (39.0-53.0) % Neutrophils # 12.4 H (1.3-7.7) k/uL Lymphocytes # 0.5 L (1.0-4.8) k/uL Chloride 94 L (98-107) mmol/L BUN 30 H (9-20) mg/dL Creatinine 0.65 L (0.66-1.25) mg/dL Glucose 106 H (74-99) mg/dL POC Glucose (mg/dL) 161 H (75-99) mg/dL Magnesium 2.7 H (1.6-2.3) mg/dL ALT 97 H (21-72) U/L 01/07/18 01/07/18 01/07/18 Range/Units 06:16 11:18 16:34 WBC (3.8-10.6) k/uL Hgb (13.0-17.5) gm/dL Hct (39.0-53.0) % Neutrophils # (1.3-7.7) k/uL Lymphocytes # (1.0-4.8) k/uL Chloride (98-107) mmol/L BUN (9-20) mg/dL Creatinine (0.66-1.25) mg/dL Glucose (74-99) mg/dL POC Glucose (mg/dL) 124 H 163 H 131 H (75-99) mg/dL Magnesium (1.6-2.3) mg/dL ALT (21-72) U/L Microbiology - Last 24 Hours (Table) 01/04/18 11:14 Blood Culture - Preliminary Blood No Growth after 72 hours Assessment and Plan Plan: Assessment: #1. Acute COPD exacerbation with secondary dyspnea, improving slowly. Over the past 24 hours, overall condition is stable and the patient will be kept on the same treatment with bronchodilators and steroids. #2. Advanced COPD with an FEV1 of 36% of predicted consistent with severe obstructive airway limitation #3. 1.5 x 0.9 cm suspicious superior right lower lobe spiculated nodule, neoplasm cannot be excluded #4. Chronic hypoxic respiratory failure maintained on oxygen 2 L/m nasal cannula #5. History of bronchial asthma, with multiple environmental ALLERGIES #6. Nicotine dependence, currently in remission, quit 2 years ago, smoked 1-1/ 2 packs for 40 years #7. Hypertension #8. CHF with mild impairment of the LV with an ejection fraction 45% #9 chronic areas of DVT eccentric the located near the valves with secondary chronic lower extremity edema and the patient is on no anticoagulants for now Plan Continue same treatment. Continue bronchodilators. Do not taper the steroids any further. Continue same treatment. We'll follow
[2018-01-07] MEDS: VERAPAMIL 40 MG TAB PO SCH ×2 (17:18→21:36)
[2018-01-07 20:43] LABS: Glucose,Whole Blood 135 mg/dL (75-99)
[2018-01-07] MEDS: MONTELUKAST 10 MG TAB PO SCH (21:36)
[2018-01-08] MEDS: methylPREDNISolone SOD SUCCI 40 MG/ML 1 ML VIAL IV SCH ×4 (00:53→23:06)
[2018-01-08] MEDS: ALBUTEROL NEBULIZED 2.5 MG/3 ML INHALATION PRN ×2 (03:51→11:19)
[2018-01-08 05:57] LABS: Glucose,Whole Blood 130 mg/dL (75-99)
[2018-01-08] MEDS: INSULIN ASPART 100 UNIT/ML 1 ML 10 ML VIAL SQ SCH ×4 (06:10→21:33)
[2018-01-08] MEDS: PANTOPRAZOLE 40 MG TABLET PO SCH (06:28)
[2018-01-08] MEDS: IPRATROPIUM-ALBUTEROL 3 ML NEB INHALATION SCH ×4 (07:27→20:20)
--- NOTE | 2018-01-08 09:05 | P.PN ---
Subjective Progress Note Date: 01/08/18 67 years old male patient of Dr. Rouse with past medical history of COPD, hypertension, history of systolic CHF with ejection fraction last noted to be 45-50% in October 2017 presents with worsening shortness of breath associated with cough. Patient uses 2.5 L of oxygen with exertion and 2 L on rest at baseline he has to increase his oxygen to 4 L to help feed better. Patient denies any fever or chills or chest pain. He is a former smoker and quit 2 years ago smoked one to one and a half pack a day for [address] chest from October 2017 and a suspicious 1.5 X .9 cm right upper lobe spiculated lesion and was asked to follow-up with a repeat computed tomography scan in 4 months. His influenza negative. BNP is 1000. WBC 14.5, hemoglobin 12, PT/INR within normal limits. Potassium 5.5. Test x-ray concerning for congestion or pneumonitis. Patient is admitted for CHF exacerbation with COPD exacerbation. Started on levofloxacin 750 mg IV daily along with Solu-Medrol 60 daily 6 hours. 01/05 Patient seen today at the bedside. He reports breathing has improved from last night. Wheezing has improved from yesterday. He still has quite a bit of lower extremity edema, continues on 4 L of o2 NC. Will continie with IV lasix 40 mg IV push every 12. He is down 4.7 Kg. Will continue with I&O's, cardiology and pulmonology is on consult. Influenza A and B are negative, 3 sets of troponins have been negative. We'll continue with current treatment plan and reevaluate tomorrow. 01/06: Patient remains on Solu-Medrol 60 mg IV 4 times daily and will be decreased to 40 mg every 8 hours. Lasix 40 mg IV every 12 hours will be changed to oral. Decreased lower extremity edema. Breathing status is slowly improving. Patient does state he is feeling better from yesterday. He is using incentive spirometry. White count is up to 16.8, BUN 34 and creatinine 0.83. Patient is followed by Dr. Hodgson. Patient has been seen by cardiology with plan to continue IV Lasix, aspirin, Tenormin and Zestril. 01/07: Patient is currently on oxygen at 2 L pulse oxing 93%. Patient is normally on home O2 at 2 L. He is mildly tachycardic. He does have shortness of breath with activity but slightly improved. Patient is continued on Solu- Medrol 40 mg IV every 8 hours. He has had good urine output. Patient is noted to have some increased edema from yesterday in the lower extremities. He did have his first bowel movement today after 4 days. Blood sugars are running 124- 188 and white count is 13.8 BUN 30 and creatinine 0.65. We are adding in metolazone 5 mg daily with plan to change this to Thursday at the time of discharge. Blood culture showing no growth after 48 hours. 01/08:. Heart rate running between 90s and 100s. Pulse ox 95% on 2 L nasal cannula. Patient states is breathing is about the same. He has increased shortness of breath with minimal activity. Lower extremity edema is decreasing. He is asking for Anoro which we asked for him to discuss with Dr. Hodgson as we do not carry this. Objective - Vital Signs Vital signs: Vital Signs Temp 97.2 F L 01/08/18 07:33 Pulse 108 H 01/08/18 07:41 Resp 16 01/08/18 07:33 BP 109/83 01/08/18 07:33 Pulse Ox 95 01/08/18 07:33 Intake & Output 01/07/18 01/08/18 01/08/18 18:59 06:59 18:59 Intake Total 540 540 Output Total 300 2575 Balance 240 -2035 Weight 83.4 kg Intake: Oral 540 540 Output: Urine 300 2575 Other: Voiding Method Urinal - Exam - Constitutional General appearance: cooperative, in mild acute distress, obese - EENT Eyes: anicteric sclerae, PERRLA, normal appearance ENT: hearing grossly normal - Neck Neck: no lymphadenopathy, normal ROM, no other, no rigidity, no stridor, no thyromegaly - Respiratory Respiratory: bilateral diffuse wheezing with decreased air entry - Cardiovascular Rhythm: Tachycardic Heart sounds: normal: S1, S2 Abnormal Heart Sounds: no systolic murmur, no diastolic murmur, no rub, no S3 Gallop, no S4 Gallop, no click, no other - Gastrointestinal General gastrointestinal: normal bowel sounds, soft - Integumentary Integumentary: no rash - Neurologic Neurologic: CNII-XII intact - Musculoskeletal Musculoskeletal: gait normal, strength equal bilaterally 2+ pitting edema in lower extremity - Psychiatric Psychiatric: A&O x's 3, appropriate affect - Labs CBC & Chem 7: 01/07/18 06:11 01/07/18 06:11 Labs: Abnormal Lab Results - Last 24 Hours (Table) 01/07/18 01/07/18 01/07/18 Range/Units 06:11 11:18 16:34 Chloride 94 L (98-107) mmol/L BUN 30 H (9-20) mg/dL Creatinine 0.65 L (0.66-1.25) mg/dL Glucose 106 H (74-99) mg/dL POC Glucose (mg/dL) 163 H 131 H (75-99) mg/dL Magnesium 2.7 H (1.6-2.3) mg/dL ALT 97 H (21-72) U/L 01/07/18 01/08/18 Range/Units 20:42 05:56 Chloride (98-107) mmol/L BUN (9-20) mg/dL Creatinine (0.66-1.25) mg/dL Glucose (74-99) mg/dL POC Glucose (mg/dL) 135 H 130 H (75-99) mg/dL Magnesium (1.6-2.3) mg/dL ALT (21-72) U/L Microbiology - Last 24 Hours (Table) 01/04/18 11:14 Blood Culture - Preliminary Blood No Growth after 72 hours Assessment and Plan Plan: #1 acute on chronic hypoxic respiratory failure secondary to COPD exacerbation with a component of acute systolic CHF exacerbation. Continue input and output, daily weights, patient down 4.7 kg, continue Lasix 40 mg oral every 12 hours. Continue Solu-Medrol decreased to 40 mg IV every 8 hours. Continue levofloxacin 750 mg by mouth daily. Sputum culture still pending, DuoNeb's as needed for shortness of breath. Incentive spirometry. Influenza negative. Last echo in October 2017 with ejection fraction 40-45%. Metolazone 5 mg daily added. No medication change. #2 spiculated upper right lower lobe nodule with follow-up in 4 months with a computed tomography scan recommended by pulmonary in the last admission. #3 former tobacco abuse. Quit 2 years ago, 1-1/2 pack for 40 years. #4 hypertension - Continue Sadiq inhibitors and beta ana maria #5 GI prophylaxis with Pepcid 20 mg twice a day on steroids #6 DVT prophylaxis with heparin every 12 #7 CODE STATUS full code #8 Chronic hypoxic respiratory failure with home O2 at 2L. Discharge plan: return home with [facility] Impression and plan of care have been directed as dictated by the signing physician. Valery Germain nurse practitioner acting as scribe for signing physician.
[2018-01-08] MEDS: ASPIRIN 81 MG PO SCH (09:19)
[2018-01-08] MEDS: ENOXAPARIN 40 MG/0.4 ML SYRINGE SQ SCH (09:20)
[2018-01-08] MEDS: guaiFENesin 600 MG TABLET.ER PO SCH ×2 (09:20→21:32)
[2018-01-08] MEDS: ATENOLOL 50 MG TAB PO SCH (09:20)
[2018-01-08] MEDS: CYCLOBENZAPRINE 10 MG TAB PO SCH ×2 (09:20→21:32)
[2018-01-08] MEDS: FUROSEMIDE 40 MG TAB PO SCH ×2 (09:20→16:28)
[2018-01-08] MEDS: LEVOFLOXACIN 750 MG TAB PO SCH (09:21)
[2018-01-08] MEDS: VERAPAMIL 40 MG TAB PO SCH ×3 (09:21→21:32)
[2018-01-08] MEDS: SENNOSIDES 8.6 MG TAB PO SCH (09:21)
[2018-01-08] MEDS: METOLAZONE 5 MG TAB PO SCH (09:21)
[2018-01-08] MEDS: DOCUSATE 100 MG CAP PO SCH ×2 (09:44→21:32)
--- NOTE | 2018-01-08 11:06 | P.PN ---
Subjective Progress Note Date: 01/08/18 Principal diagnosis: CHf/COPD This is a 66-year-old gentleman with known history of COPD, home O2 use, systolic congestive heart failure, hypertension, who presented to the hospital with symptoms of progressively worsening shortness of breath. Initiated on IV Lasix for congestive heart failure, also receiving bronchodilators and steroids for exacerbation of COPD. Patient was seen and examined this morning, sitting up at the side of his bed, states that his breathing is significantly improved from admission here. Blood pressure 128/70 , heart rate tiny 90s low 100s, 98% on 3 L of oxygen. White blood cell count 16.8, hemoglobin 12.9, platelet count 339. Sodium 142, potassium 3.9, BUN 39, creatinine 0.8, magnesium 2.6. 01/07/2018 Patient seen and examined this morning, breathing has improved significantly overall. Continues to be in a sinus tachycardia with a heart rate 120s, we will add verapamil to his medication regime this morning. The patient is also on atenolol 50 mg daily. Blood pressure 126/70. 01/08/2018 Patient seen and examined this morning, breathing is stable, states he gets mildly short of breath with exertion. Blood pressure 110/80, heart rate in the 80s this morning. Objective - Vital Signs Vital signs: Vital Signs Temp 97.2 F L 01/08/18 07:33 Pulse 108 H 01/08/18 07:41 Resp 16 01/08/18 07:33 BP 109/83 01/08/18 07:33 Pulse Ox 95 01/08/18 07:33 Intake & Output 01/07/18 01/08/18 01/08/18 18:59 06:59 18:59 Intake Total 540 540 480 Output Total 300 2575 400 Balance 80 Weight 83.4 kg Intake: Oral 540 540 480 Output: Urine 300 2575 400 Other: Voiding Method Urinal - Exam PHYSICAL EXAMINATION: HEENT: Head is atraumatic, normocephalic. Pupils equal, round. Neck is supple. There is no elevated jugular venous pressure. HEART EXAMINATION: Heart S1, S2 normal. No murmur or gallop heard. CHEST EXAMINATION: Lungs reveal scattered coarse rhonchi throughout ABDOMEN: Soft, nontender. Bowel sounds are heard. No organomegaly noted. EXTREMITIES: 2+ peripheral pulses with 1+ evidence of peripheral edema and no calf tenderness noted. NEUROLOGIC patient is awake, alert and oriented -3. . - Labs CBC & Chem 7: 01/07/18 06:11 01/07/18 06:11 Labs: Abnormal Lab Results - Last 24 Hours (Table) 01/07/18 01/07/18 01/07/18 Range/Units 11:18 16:34 20:42 POC Glucose (mg/dL) 163 H 131 H 135 H (75-99) mg/dL 01/08/18 Range/Units 05:56 POC Glucose (mg/dL) 130 H (75-99) mg/dL Microbiology - Last 24 Hours (Table) 01/04/18 11:14 Blood Culture - Preliminary Blood No Growth after 72 hours Assessment and Plan Plan: Assessment and plan #1 COPD exacerbation #2 systolic congestive heart failure acute on chronic #3 history of advanced COPD and bronchial asthma. Suspicious superior right lower lobe nodule noted on chest x-ray, neoplasm cannot be excluded. #4 nicotine dependence, patient quit smoking 2 years ago #5 hypertension Plan From cardiology's perspective, we will continue the patient on his current medications. Arrangements are being made for him to be discharged home with home care. We'll make a follow-up appointment in the office post discharge. DNP note has been reviewed, I agree with a documented findings and plan of care. Patient was seen and examined.
[2018-01-08 11:10] LABS: Glucose,Whole Blood 110 mg/dL (75-99)
[2018-01-08] MEDS: traMADol 50 MG TAB PO PRN ×2 (11:16→23:03)
[2018-01-08] MEDS: NITROGLYCERIN OINT 1 INCH/GM PACKET TOPICAL SCH ×2 (12:33)
[2018-01-08] MEDS: LISINOPRIL 5 MG TAB PO SCH (12:33)
--- NOTE | 2018-01-08 16:03 | P.PN ---
Subjective Progress Note Date: 01/08/18 his is a 67-year-old white male with history of severe COPD, chronic hypoxic respiratory failure, seen on a previous admission at [facility], and he was eventually discharged on multiple bronchodilators. . CT of the chest showed a right lung solitary lung nodule, however the patient is not a candidate for any intervention based on the fact that he has severe COPD, and we have recommended repeat CT of the chest in 4 months. Patient is on home option 04/05, he does not smoke at present, used to live in [place], recently moved to the area. Despite his earlier hospitalization, the patient continued to have shortness of breath and wheezing and he was given another prednisone burst taper and a course of Cipro on outpatient basis. Also, anoro 1 puff daily was also added to his regimen. A pulmonary function test was done in the office on 10/28/2017 and the patient was found to have an FEV1 of 34% of predicted consistent with severe obstructive airway limitation. His diffusion capacity was at 22% and the patient had a total lung capacity of 91% along with some hyperinflation. Comorbid conditions include hypertension. The patient presented back to the emergency department today because of worsening shortness of breath over at least 4 days duration. He hasn't been able to cough out any significant sputum production. He denied having any fever or chills. His pulse ox was apparently at 74% when EMS arrived to the scene. He is utilizing oxygen at 2 L/m nasal cannula. He also had abdominal distention and some mild lower extremity edema. He had a congested cough. No fever. No chills. No altered mentation. White cell count was at 14.4. Renal function was stable at creatinine of 0.6 influenza screen was negative. Troponin was 0.015 and the proBNP level was at 1000. Echocardiogram from of his admission showed an ejection fraction of 45%. The patient had noticed some any pulmonary hypertension. No pericardial effusion. His LV was mildly impaired with an ejection fraction of 45-50%. Right ventricular size and function was within normal limits. There was mild aortic valve sclerosis without evidence of regurgitation or stenosis. On 01/05/2018 the patient is feeling better compared to yesterday. Last bronchus spastic and wheezy compared to yesterday. He was treated with a combination of bronchodilators and steroids. He was admitted for an acute COPD exacerbation. No fever or chills. No altered mentation. He is responding nicely to a combination of bronchodilators and steroids. He is also on empiric antibiotic coverage with Levaquin. He is receiving diuretics due to increased lower extremities edema and a mild component of CHF and currently is on Lasix 40 mg IV push every 12 hours. On 01/06/2018, patient is being seen for a follow-up. He is steadily improving. Specific complaints for now. Limited cough and sputum production. No chest pain. No pleurisy. Remains on a combination of bronchodilators and steroids. The patient on empiric antibiotic coverage with Levaquin. The patient is on IV Solu Medrol 40 g every 8 hours. He is requesting his pain medication to be renewed and resumed and the patient is currently on tramadol 100 mg every 8 hours and he also takes Flexeril 10 mg as a muscle relaxant. Mucinex for cough and congestion. Overall condition is improved. Lasix have been switched to oral 40 mg by mouth twice a day. On 01/07/2018 I'm seeing this patient for a follow-up. His condition essentially the same. Not much of an improvement since yesterday and the patient is still having some symptoms of COPD exacerbation, this to exertion and even at rest and some bronchospasm wheezing. Cough is congested and is unable to bring up much sputum. No chest pain. No fever or chills. He is on examination bronchodilators and steroids. He is also on IV Solu Medrol 40 g every 8 hours, Lasix orally and DuoNeb nebulized treatments around the clock. On 01/08/2018, the patient is essentially the same. Probably slightly improved compared to yesterday. He was asked to ablate more. On examination is less bronchospastic and wheezy. Denies having any chest pain. No fever chills or night sweats. He is on Levaquin. Is on IV Solu-Medrol. No other significant events overnight. He still being treated for an acute COPD exacerbation. He is on Lasix 40 mg by mouth twice a day. He is also on IV Solu Medrol 40 mg every 8 hours. Objective - Vital Signs Vital signs: Vital Signs Temp 97.2 F L 01/08/18 15:15 Pulse 92 01/08/18 15:15 Resp 18 01/08/18 15:34 BP 105/68 01/08/18 15:15 Pulse Ox 96 01/08/18 15:15 Intake & Output 01/07/18 01/08/18 01/08/18 18:59 06:59 18:59 Intake Total 540 540 882 Output Total 300 2575 2450 Balance 861 -2533 -1318 Weight 83.4 kg Intake: Oral 540 540 882 Output: Urine 300 2575 2450 Other: Voiding Method Urinal Urinal - Exam - Constitutional General appearance: average body habitus, cooperative, no acute distress - EENT Eyes: PERRLA ENT: NA/AT Ears: bilateral: normal - Neck Neck: no lymphadenopathy, normal ROM Carotids: bilateral: upstroke normal Thyroid: bilateral: normal size - Respiratory Respiratory: bilateral: rhonchi (Bilateral posterior bases), prolonged expiration - Cardiovascular Rhythm: regular Heart sounds: normal: S1, S2 ankle Peripheral Edema: bilateral: 1+ foot Peripheral Edema: bilateral: 1+ - Gastrointestinal General gastrointestinal: no organomegaly, soft, no tenderness - Neurologic Neurologic: CNII-XII intact - Musculoskeletal Musculoskeletal: gait normal, strength equal bilaterally - Psychiatric Psychiatric: A&O x's 3 - Labs CBC & Chem 7: 01/07/18 06:11 01/07/18 06:11 Labs: Abnormal Lab Results - Last 24 Hours (Table) 01/07/18 01/07/18 01/08/18 Range/Units 16:34 20:42 05:56 POC Glucose (mg/dL) 131 H 135 H 130 H (75-99) mg/dL 01/08/18 Range/Units 11:06 POC Glucose (mg/dL) 110 H (75-99) mg/dL Microbiology - Last 24 Hours (Table) 01/04/18 11:14 Blood Culture - Preliminary Blood No Growth after 96 hours Assessment and Plan Plan: Assessment: #1. Acute COPD exacerbation with secondary dyspnea, improving slowly. #2. Advanced COPD with an FEV1 of 36% of predicted consistent with severe obstructive airway limitation #3. 1.5 x 0.9 cm suspicious superior right lower lobe spiculated nodule, neoplasm cannot be excluded #4. Chronic hypoxic respiratory failure maintained on oxygen 2 L/m nasal cannula #5. History of bronchial asthma, with multiple environmental ALLERGIES #6. Nicotine dependence, currently in remission, quit 2 years ago, smoked 1-1/ 2 packs for 40 years #7. Hypertension #8. CHF with mild impairment of the LV with an ejection fraction 45% #9 chronic areas of DVT eccentric the located near the valves with secondary chronic lower extremity edema and the patient is on no anticoagulants for now Plan Continue same treatment. Improved compared to yesterday. We'll start the patient a prednisone burst taper and discharge patient home in a.m.
[2018-01-08 16:14] LABS: Glucose,Whole Blood 121 mg/dL (75-99)
[2018-01-08] MEDS: ALPRAZolam 0.25 MG TAB PO PRN (19:50)
[2018-01-08 20:38] LABS: Glucose,Whole Blood 140 mg/dL (75-99)
[2018-01-08] MEDS: MONTELUKAST 10 MG TAB PO SCH (21:32)
[2018-01-09 05:50] LABS: HCT 40.4 % (39.0-53.0); HGB 13.5 gm/dL (13.0-17.5); MCH 29.3 pg (25.0-35.0); MCHC 33.4 g/dL (31.0-37.0); MCV 87.9 fL (80.0-100.0); Mean Platelet Volume 6.7; Platelet Count 310 k/uL (150-450); RDW 13.9 % (11.5-15.5); WBC 15.7 k/uL (3.8-10.6)
[2018-01-09 06:03] LABS: Anion Gap 8 mmol/L; Blood Urea Nitrogen 35 mg/dL (9-20); Calcium 8.9 mg/dL (8.4-10.2); Carbon Dioxide 39 mmol/L (22-30); Chloride 81 mmol/L (98-107); Glucose 190 mg/dL (74-99); Potassium 4.1 mmol/L (3.5-5.1); Sodium 128 mmol/L (137-145)
[2018-01-09 06:15] LABS: Glucose,Whole Blood 161 mg/dL (75-99)
[2018-01-09] MEDS: INSULIN ASPART 100 UNIT/ML 1 ML 10 ML VIAL SQ SCH ×4 (06:37→21:50)
[2018-01-09] MEDS: PANTOPRAZOLE 40 MG TABLET PO SCH (06:37)
[2018-01-09] MEDS: IPRATROPIUM-ALBUTEROL 3 ML NEB INHALATION SCH ×4 (07:56→19:37)
[2018-01-09] MEDS: ASPIRIN 81 MG PO SCH (09:07)
[2018-01-09] MEDS: methylPREDNISolone SOD SUCCI 40 MG/ML 1 ML VIAL IV SCH (09:07)
[2018-01-09] MEDS: ATENOLOL 50 MG TAB PO SCH (09:07)
[2018-01-09] MEDS: SENNOSIDES 8.6 MG TAB PO SCH (09:07)
[2018-01-09] MEDS: VERAPAMIL 40 MG TAB PO SCH ×3 (09:08→21:51)
[2018-01-09] MEDS: CYCLOBENZAPRINE 10 MG TAB PO SCH ×2 (09:08→21:50)
[2018-01-09] MEDS: guaiFENesin 600 MG TABLET.ER PO SCH ×2 (09:08→21:50)
[2018-01-09] MEDS: FUROSEMIDE 40 MG TAB PO SCH ×2 (09:08→15:45)
[2018-01-09] MEDS: LEVOFLOXACIN 750 MG TAB PO SCH (09:08)
[2018-01-09] MEDS: ENOXAPARIN 40 MG/0.4 ML SYRINGE SQ SCH (09:08)
[2018-01-09] MEDS: DOCUSATE 100 MG CAP PO SCH ×3 (09:09→21:50)
--- NOTE | 2018-01-09 11:29 | P.PN ---
Subjective Progress Note Date: 01/09/18 Principal diagnosis: This is a 67-year-old white male with history of severe COPD, chronic hypoxic respiratory failure, seen on a previous admission at [facility], and he was eventually discharged on multiple bronchodilators. . CT of the chest showed a right lung solitary lung nodule, however the patient is not a candidate for any intervention based on the fact that he has severe COPD, and we have recommended repeat CT of the chest in 4 months. Patient is on home option 04/05, he does not smoke at present, used to live in [place], recently moved to the area. Despite his earlier hospitalization, the patient continued to have shortness of breath and wheezing and he was given another prednisone burst taper and a course of Cipro on outpatient basis. Also, anoro 1 puff daily was also added to his regimen. A pulmonary function test was done in the office on 10/28/2017 and the patient was found to have an FEV1 of 34% of predicted consistent with severe obstructive airway limitation. His diffusion capacity was at 22% and the patient had a total lung capacity of 91% along with some hyperinflation. Comorbid conditions include hypertension. The patient presented back to the emergency department today because of worsening shortness of breath over at least 4 days duration. He hasn't been able to cough out any significant sputum production. He denied having any fever or chills. His pulse ox was apparently at 74% when EMS arrived to the scene. He is utilizing oxygen at 2 L/m nasal cannula. He also had abdominal distention and some mild lower extremity edema. He had a congested cough. No fever. No chills. No altered mentation. White cell count was at 14.4. Renal function was stable at creatinine of 0.6 influenza screen was negative. Troponin was 0.015 and the proBNP level was at 1000. Echocardiogram from of his admission showed an ejection fraction of 45%. The patient had noticed some any pulmonary hypertension. No pericardial effusion. His LV was mildly impaired with an ejection fraction of 45-50%. Right ventricular size and function was within normal limits. There was mild aortic valve sclerosis without evidence of regurgitation or stenosis. On 01/05/2018 the patient is feeling better compared to yesterday. Last bronchus spastic and wheezy compared to yesterday. He was treated with a combination of bronchodilators and steroids. He was admitted for an acute COPD exacerbation. No fever or chills. No altered mentation. He is responding nicely to a combination of bronchodilators and steroids. He is also on empiric antibiotic coverage with Levaquin. He is receiving diuretics due to increased lower extremities edema and a mild component of CHF and currently is on Lasix 40 mg IV push every 12 hours. On 01/06/2018, patient is being seen for a follow-up. He is steadily improving. Specific complaints for now. Limited cough and sputum production. No chest pain. No pleurisy. Remains on a combination of bronchodilators and steroids. The patient on empiric antibiotic coverage with Levaquin. The patient is on IV Solu Medrol 40 g every 8 hours. He is requesting his pain medication to be renewed and resumed and the patient is currently on tramadol 100 mg every 8 hours and he also takes Flexeril 10 mg as a muscle relaxant. Mucinex for cough and congestion. Overall condition is improved. Lasix have been switched to oral 40 mg by mouth twice a day. On 01/07/2018 I'm seeing this patient for a follow-up. His condition essentially the same. Not much of an improvement since yesterday and the patient is still having some symptoms of COPD exacerbation, this to exertion and even at rest and some bronchospasm wheezing. Cough is congested and is unable to bring up much sputum. No chest pain. No fever or chills. He is on examination bronchodilators and steroids. He is also on IV Solu Medrol 40 g every 8 hours, Lasix orally and DuoNeb nebulized treatments around the clock. On 01/08/2018, the patient is essentially the same. Probably slightly improved compared to yesterday. He was asked to ablate more. On examination is less bronchospastic and wheezy. Denies having any chest pain. No fever chills or night sweats. He is on Levaquin. Is on IV Solu-Medrol. No other significant events overnight. He still being treated for an acute COPD exacerbation. He is on Lasix 40 mg by mouth twice a day. He is also on IV Solu Medrol 40 mg every 8 hours. The patient is seen again today 01/09/2018 follow-up on the selective care unit. He is currently awake and alert in no acute distress. He is breathing easier today as compared to yesterday. Still not back to his baseline. Still some dyspnea on minimal exertion. Maintaining good O2 saturations in the upper 90s on 3 L/m per nasal cannula. Afebrile. Hemodynamically stable. He remains on bronchodilators, steroids, diuretics. Objective - Vital Signs Vital signs: Vital Signs Temp 97.7 F 01/09/18 09:00 Pulse 105 H 01/09/18 09:00 Resp 20 01/09/18 09:00 BP 127/83 01/09/18 09:00 Pulse Ox 97 01/09/18 09:00 Intake & Output 01/08/18 01/09/18 01/09/18 18:59 06:59 18:59 Intake Total 1104 30 240 Output Total 2450 275 Balance -1346 -245 240 Weight 83.6 kg Intake: IV 30 Invasive Line 4 30 Oral 1104 240 Output: Urine 2450 275 Other: Voiding Method Urinal Urinal - Exam GENERAL EXAM: Alert, active, comfortable in no apparent distress. HEAD: Normocephalic. EYES: Normal reaction of pupils, equal size. NOSE: Clear with pink turbinates. THROAT: No erythema or exudates. NECK: No masses, no JVD. CHEST: No chest wall deformity. LUNGS: Equal air entry with bilateral end expiratory wheeze. Diminished. CVS: S1 and S2 normal with no audible murmur, regular rhythm. ABDOMEN: No hepatosplenomegaly, normal bowel sounds, no guarding or rigidity. SPINE: No scoliosis or deformity SKIN: No rashes CENTRAL NERVOUS SYSTEM: No focal deficits, tone is normal in all 4 extremities. EXTREMITIES: There is no peripheral edema. No clubbing, no cyanosis. Peripheral pulses are intact. - Labs CBC & Chem 7: 01/09/18 05:32 01/09/18 05:32 Labs: Abnormal Lab Results - Last 24 Hours (Table) 01/08/18 01/08/18 01/09/18 Range/Units 16:05 20:38 05:32 WBC 15.7 H (3.8-10.6) k/uL Sodium (137-145) mmol/L Chloride (98-107) mmol/L Carbon Dioxide (22-30) mmol/L BUN (9-20) mg/dL Glucose (74-99) mg/dL POC Glucose (mg/dL) 121 H 140 H (75-99) mg/dL 03/31/18 03/31/18 Range/Units 05:32 06:14 WBC (3.8-10.6) k/uL Sodium 128 L (137-145) mmol/L Chloride 81 L (98-107) mmol/L Carbon Dioxide 39 H (22-30) mmol/L BUN 35 H (9-20) mg/dL Glucose 190 H (74-99) mg/dL POC Glucose (mg/dL) 161 H (75-99) mg/dL Microbiology - Last 24 Hours (Table) 01/04/18 11:14 Blood Culture - Preliminary Blood No Growth after 96 hours Assessment and Plan Assessment: Assessment: #1. Acute COPD exacerbation with secondary dyspnea, improving slowly. #2. Advanced COPD with an FEV1 of 36% of predicted consistent with severe obstructive airway limitation #3. 1.5 x 0.9 cm suspicious superior right lower lobe spiculated nodule, neoplasm cannot be excluded #4. Chronic hypoxic respiratory failure maintained on oxygen 2 L/m nasal cannula #5. History of bronchial asthma, with multiple environmental ALLERGIES #6. Nicotine dependence, currently in remission, quit 2 years ago, smoked 1-1/ 2 packs for 40 years #7. Hypertension #8. CHF with mild impairment of the LV with an ejection fraction 45% #9 chronic areas of DVT eccentric the located near the valves with secondary chronic lower extremity edema and the patient is on no anticoagulants for now Plan: The patient was seen and evaluated by Dr. Hodgson. We'll continue with his current treatment plan for now. He is improved. Hopefully discharge in the next 24-48 hours. We'll continue to follow and make further recommendations based on his clinical status. I, the cosigning physician, performed a history & physical examination of the patient. Lungs sounds expiratory wheeze. Diminished.. Maintaining good O2 saturations in the 90s on 2 L/m per nasal cannula. I discussed the assessment and plan of care with my nurse practitioner, Janessa Rubio. I attest to the above note as dictated by her.
[2018-01-09 12:01] LABS: Glucose,Whole Blood 131 mg/dL (75-99)
[2018-01-09] MEDS: ALBUTEROL NEBULIZED 2.5 MG/3 ML INHALATION PRN ×2 (12:01→15:52)
[2018-01-09] MEDS: traMADol 50 MG TAB PO PRN ×2 (12:25→21:58)
[2018-01-09] MEDS: LISINOPRIL 5 MG TAB PO SCH (12:26)
--- NOTE | 2018-01-09 13:54 | P.PN ---
Subjective Progress Note Date: 01/09/18 67 years old male patient of Dr. Rouse with past medical history of COPD, hypertension, history of systolic CHF with ejection fraction last noted to be 45-50% in October 2017 presents with worsening shortness of breath associated with cough. Patient uses 2.5 L of oxygen with exertion and 2 L on rest at baseline he has to increase his oxygen to 4 L to help feed better. Patient denies any fever or chills or chest pain. He is a former smoker and quit 2 years ago smoked one to one and a half pack a day for [address] chest from October 2017 and a suspicious 1.5 X .9 cm right upper lobe spiculated lesion and was asked to follow-up with a repeat computed tomography scan in 4 months. His influenza negative. BNP is 1000. WBC 14.5, hemoglobin 12, PT/INR within normal limits. Potassium 5.5. Test x-ray concerning for congestion or pneumonitis. Patient is admitted for CHF exacerbation with COPD exacerbation. Started on levofloxacin 750 mg IV daily along with Solu-Medrol 60 daily 6 hours. 01/05 Patient seen today at the bedside. He reports breathing has improved from last night. Wheezing has improved from yesterday. He still has quite a bit of lower extremity edema, continues on 4 L of o2 NC. Will continie with IV lasix 40 mg IV push every 12. He is down 4.7 Kg. Will continue with I&O's, cardiology and pulmonology is on consult. Influenza A and B are negative, 3 sets of troponins have been negative. We'll continue with current treatment plan and reevaluate tomorrow. 01/06: Patient remains on Solu-Medrol 60 mg IV 4 times daily and will be decreased to 40 mg every 8 hours. Lasix 40 mg IV every 12 hours will be changed to oral. Decreased lower extremity edema. Breathing status is slowly improving. Patient does state he is feeling better from yesterday. He is using incentive spirometry. White count is up to 16.8, BUN 34 and creatinine 0.83. Patient is followed by Dr. Hodgson. Patient has been seen by cardiology with plan to continue IV Lasix, aspirin, Tenormin and Zestril. 01/07: Patient is currently on oxygen at 2 L pulse oxing 93%. Patient is normally on home O2 at 2 L. He is mildly tachycardic. He does have shortness of breath with activity but slightly improved. Patient is continued on Solu- Medrol 40 mg IV every 8 hours. He has had good urine output. Patient is noted to have some increased edema from yesterday in the lower extremities. He did have his first bowel movement today after 4 days. Blood sugars are running 124- 188 and white count is 13.8 BUN 30 and creatinine 0.65. We are adding in metolazone 5 mg daily with plan to change this to Thursday at the time of discharge. Blood culture showing no growth after 48 hours. 01/08:. Heart rate running between 90s and 100s. Pulse ox 95% on 2 L nasal cannula. Patient states is breathing is about the same. He has increased shortness of breath with minimal activity. Lower extremity edema is decreasing. He is asking for Anoro which we asked for him to discuss with Dr. Hodgson as we do not carry this. 01/09: Patient is feeling better today he continues to have some shortness of breath, he continues to have some coughing yellow phlegm production, he is using his spirometer at the bedside, he denies any abdominal pain, he has less edema both lower extremity is, and he has no new complaints. Objective - Vital Signs Vital signs: Vital Signs Temp 97.1 F L 01/09/18 04:00 Pulse 101 H 01/09/18 08:08 Resp 17 01/09/18 04:00 BP 130/83 01/09/18 04:00 Pulse Ox 96 01/09/18 07:57 Intake & Output 01/08/18 01/09/18 01/09/18 18:59 06:59 18:59 Intake Total 1104 30 240 Output Total 2450 275 Balance -1346 -245 240 Weight 83.6 kg Intake: IV 30 Invasive Line 4 30 Oral 1104 240 Output: Urine 2450 275 Other: Voiding Method Urinal Urinal - Exam Exam - Constitutional General appearance: cooperative, in mild acute distress, obese - EENT Eyes: anicteric sclerae, PERRLA, normal appearance ENT: hearing grossly normal - Neck Neck: no lymphadenopathy, normal ROM, no other, no rigidity, no stridor, no thyromegaly - Respiratory Respiratory: bilateral diffuse wheezing with decreased air entry - Cardiovascular Rhythm: Tachycardic Heart sounds: normal: S1, S2 Abnormal Heart Sounds: no systolic murmur, no diastolic murmur, no rub, no S3 Gallop, no S4 Gallop, no click, no other - Gastrointestinal General gastrointestinal: normal bowel sounds, soft - Integumentary Integumentary: no rash - Neurologic Neurologic: CNII-XII intact - Musculoskeletal Musculoskeletal: gait normal, strength equal bilaterally 2+ pitting edema in lower extremity - Psychiatric Psychiatric: A&O x's 3, appropriate affect - Labs CBC & Chem 7: 01/09/18 05:32 01/09/18 05:32 Labs: Abnormal Lab Results - Last 24 Hours (Table) 01/08/18 01/08/18 01/08/18 Range/Units 11:06 16:05 20:38 WBC (3.8-10.6) k/uL Sodium (137-145) mmol/L Chloride (98-107) mmol/L Carbon Dioxide (22-30) mmol/L BUN (9-20) mg/dL Glucose (74-99) mg/dL POC Glucose (mg/dL) 110 H 121 H 140 H (75-99) mg/dL 01/09/18 01/09/18 01/09/18 Range/Units 05:32 05:32 06:14 WBC 15.7 H (3.8-10.6) k/uL Sodium 128 L (137-145) mmol/L Chloride 81 L (98-107) mmol/L Carbon Dioxide 39 H (22-30) mmol/L BUN 35 H (9-20) mg/dL Glucose 190 H (74-99) mg/dL POC Glucose (mg/dL) 161 H (75-99) mg/dL Microbiology - Last 24 Hours (Table) 01/04/18 11:14 Blood Culture - Preliminary Blood No Growth after 96 hours Assessment and Plan Assessment: Assessment and Plan Plan: #1 acute on chronic hypoxic respiratory failure secondary to COPD exacerbation with a component of acute systolic CHF exacerbation. Continue input and output, daily weights, patient down 4.7 kg, continue Lasix 40 mg oral every 12 hours. Continue Solu-Medrol decreased to 40 mg IV every 12 hours. Continue levofloxacin 750 mg by mouth daily. Sputum culture still pending, DuoNeb's as needed for shortness of breath. Incentive spirometry. Influenza negative. Last echo in October 2017 with ejection fraction 40-45%. Metolazone 5 mg daily added. No medication change. #2 spiculated upper right lower lobe nodule with follow-up in 4 months with a computed tomography scan recommended by pulmonary in the last admission. #3 former tobacco abuse. Quit 2 years ago, 1-1/2 pack for 40 years. #4 hypertension - Continue Sadiq inhibitors and beta ana maria #5 GI prophylaxis with Pepcid 20 mg twice a day on steroids #6 DVT prophylaxis with heparin every 12 #7 CODE STATUS full code #8 Chronic hypoxic respiratory failure with home O2 at 2L. Discharge plan: return home with [facility] hopefully tomorrow morning.
[2018-01-09 16:21] LABS: Glucose,Whole Blood 135 mg/dL (75-99)
[2018-01-09 20:31] LABS: Glucose,Whole Blood 135 mg/dL (75-99)
[2018-01-09] MEDS ORDERED: methylPREDNISolone SOD SUCCI 40 MG/ML 1 ML VIAL IV SCH (21:00)
[2018-01-09] MEDS: MONTELUKAST 10 MG TAB PO SCH (21:51)
[2018-01-10] MEDS: ALBUTEROL NEBULIZED 2.5 MG/3 ML INHALATION PRN ×3 (03:36→15:24)
[2018-01-10 06:00] LABS: Glucose,Whole Blood 122 mg/dL (75-99)
[2018-01-10 06:36] LABS: Basophils % (A) 0 %; Eosinophils % (A) 0 %; HCT 41.1 % (39.0-53.0); HGB 13.6 gm/dL (13.0-17.5); Lymphocytes # (A) 0.8 k/uL (1.0-4.8); Lymphocytes % (A) 4 %; MCHC 33.2 g/dL (31.0-37.0); MCV 87.5 fL (80.0-100.0); Mean Platelet Volume 6.8; Monocytes # (A) 0.7 k/uL (0-1.0); Monocytes % (A) 3 %; Neutrophils # (A) 17.6 k/uL (1.3-7.7); Neutrophils % (A) 92 %; Platelet Count 310 k/uL (150-450); RDW 13.9 % (11.5-15.5); WBC 19.1 k/uL (3.8-10.6)
[2018-01-10 06:52] LABS: ALT 71 U/L (21-72); AST 21 U/L (17-59); Albumin 3.7 g/dL (3.5-5.0); Alkaline Phosphatase 87 U/L (38-126); Anion Gap 9 mmol/L; Blood Urea Nitrogen 35 mg/dL (9-20); Calcium 8.7 mg/dL (8.4-10.2); Carbon Dioxide 37 mmol/L (22-30); Glucose 106 mg/dL (74-99); Magnesium 3.4 mg/dL (1.6-2.3); Potassium 4.2 mmol/L (3.5-5.1); Sodium 123 mmol/L (137-145); Total Bilirubin 0.5 mg/dL (0.2-1.3); Total Protein 6.1 g/dL (6.3-8.2)
[2018-01-10 06:56] LABS: Chloride 77 mmol/L (98-107)
[2018-01-10] MEDS: PANTOPRAZOLE 40 MG TABLET PO SCH (06:56)
[2018-01-10] MEDS: INSULIN ASPART 100 UNIT/ML 1 ML 10 ML VIAL SQ SCH ×4 (06:56→22:29)
[2018-01-10] MEDS: predniSONE 20 MG TAB PO SCH (07:45)
[2018-01-10] MEDS: traMADol 50 MG TAB PO PRN ×3 (07:45→23:29)
[2018-01-10] MEDS: ALPRAZolam 0.25 MG TAB PO PRN ×2 (07:45→15:24)
[2018-01-10] MEDS: IPRATROPIUM-ALBUTEROL 3 ML NEB INHALATION SCH ×4 (07:51→20:40)
[2018-01-10] MEDS: SODIUM CHLORIDE 0.9% 1,000 ML IV SCH ×2 (07:51→22:30)
[2018-01-10] MEDS: ASPIRIN 81 MG PO SCH (07:51)
[2018-01-10] MEDS: LEVOFLOXACIN 750 MG TAB PO SCH (07:51)
[2018-01-10] MEDS: CYCLOBENZAPRINE 10 MG TAB PO SCH ×2 (07:52→21:40)
[2018-01-10] MEDS: guaiFENesin 600 MG TABLET.ER PO SCH ×2 (07:52→21:39)
[2018-01-10] MEDS: DOCUSATE 100 MG CAP PO SCH ×2 (07:52→21:40)
[2018-01-10] MEDS: ATENOLOL 50 MG TAB PO SCH (07:52)
[2018-01-10] MEDS: LISINOPRIL 5 MG TAB PO SCH (07:52)
[2018-01-10] MEDS: ENOXAPARIN 40 MG/0.4 ML SYRINGE SQ SCH (07:52)
[2018-01-10] MEDS: SENNOSIDES 8.6 MG TAB PO SCH (07:53)
[2018-01-10] MEDS: VERAPAMIL 40 MG TAB PO SCH ×2 (07:53→21:40)
--- NOTE | 2018-01-10 10:06 | P.PN ---
Subjective Progress Note Date: 01/10/18 67 years old male patient of Dr. Rouse with past medical history of COPD, hypertension, history of systolic CHF with ejection fraction last noted to be 45-50% in October 2017 presents with worsening shortness of breath associated with cough. Patient uses 2.5 L of oxygen with exertion and 2 L on rest at baseline he has to increase his oxygen to 4 L to help feed better. Patient denies any fever or chills or chest pain. He is a former smoker and quit 2 years ago smoked one to one and a half pack a day for [address] chest from October 2017 and a suspicious 1.5 X .9 cm right upper lobe spiculated lesion and was asked to follow-up with a repeat computed tomography scan in 4 months. His influenza negative. BNP is 1000. WBC 14.5, hemoglobin 12, PT/INR within normal limits. Potassium 5.5. Test x-ray concerning for congestion or pneumonitis. Patient is admitted for CHF exacerbation with COPD exacerbation. Started on levofloxacin 750 mg IV daily along with Solu-Medrol 60 daily 6 hours. 01/05 Patient seen today at the bedside. He reports breathing has improved from last night. Wheezing has improved from yesterday. He still has quite a bit of lower extremity edema, continues on 4 L of o2 NC. Will continie with IV lasix 40 mg IV push every 12. He is down 4.7 Kg. Will continue with I&O's, cardiology and pulmonology is on consult. Influenza A and B are negative, 3 sets of troponins have been negative. We'll continue with current treatment plan and reevaluate tomorrow. 01/06: Patient remains on Solu-Medrol 60 mg IV 4 times daily and will be decreased to 40 mg every 8 hours. Lasix 40 mg IV every 12 hours will be changed to oral. Decreased lower extremity edema. Breathing status is slowly improving. Patient does state he is feeling better from yesterday. He is using incentive spirometry. White count is up to 16.8, BUN 34 and creatinine 0.83. Patient is followed by Dr. Hodgson. Patient has been seen by cardiology with plan to continue IV Lasix, aspirin, Tenormin and Zestril. 01/07: Patient is currently on oxygen at 2 L pulse oxing 93%. Patient is normally on home O2 at 2 L. He is mildly tachycardic. He does have shortness of breath with activity but slightly improved. Patient is continued on Solu- Medrol 40 mg IV every 8 hours. He has had good urine output. Patient is noted to have some increased edema from yesterday in the lower extremities. He did have his first bowel movement today after 4 days. Blood sugars are running 124- 188 and white count is 13.8 BUN 30 and creatinine 0.65. We are adding in metolazone 5 mg daily with plan to change this to Thursday at the time of discharge. Blood culture showing no growth after 48 hours. 01/08:. Heart rate running between 90s and 100s. Pulse ox 95% on 2 L nasal cannula. Patient states is breathing is about the same. He has increased shortness of breath with minimal activity. Lower extremity edema is decreasing. He is asking for Anoro which we asked for him to discuss with Dr. Hodgson as we do not carry this. 01/09: Patient is feeling better today he continues to have some shortness of breath, he continues to have some coughing yellow phlegm production, he is using his spirometer at the bedside, he denies any abdominal pain, he has less edema both lower extremity is, and he has no new complaints. 01/10: Patient is feeling weak today very wobbly with the low blood pressure he had dropped his sodium 23 and chloride to 77 he was taken off his diuretics he would be given sodium chloride at 75 mL an hour for the next 24 hours, he would be kept in the hospital for another 24 hours he would be switched to oral prednisone hopefully will be discharged home tomorrow morning. Objective - Vital Signs Vital signs: Vital Signs Temp 97.5 F L 01/10/18 04:00 Pulse 90 01/10/18 04:00 Resp 17 01/10/18 04:00 BP 118/76 01/10/18 04:00 Pulse Ox 94 L 01/10/18 04:00 Intake & Output 01/09/18 01/10/18 01/10/18 18:59 06:59 18:59 Intake Total 240 Output Total 750 Balance -510 Weight 84.2 kg Intake: Oral 240 Output: Urine 750 Other: Voiding Method Urinal Urinal - Exam Exam - Constitutional General appearance: cooperative, in mild acute distress, obese - EENT Eyes: anicteric sclerae, PERRLA, normal appearance ENT: hearing grossly normal - Neck Neck: no lymphadenopathy, normal ROM, no other, no rigidity, no stridor, no thyromegaly - Respiratory Respiratory: bilateral diffuse wheezing with decreased air entry - Cardiovascular Rhythm: Tachycardic Heart sounds: normal: S1, S2 Abnormal Heart Sounds: no systolic murmur, no diastolic murmur, no rub, no S3 Gallop, no S4 Gallop, no click, no other - Gastrointestinal General gastrointestinal: normal bowel sounds, soft - Integumentary Integumentary: no rash - Neurologic Neurologic: CNII-XII intact - Musculoskeletal Musculoskeletal: gait normal, strength equal bilaterally 2+ pitting edema in lower extremity - Psychiatric Psychiatric: A&O x's 3, appropriate affect - Labs CBC & Chem 7: 01/10/18 05:26 01/10/18 05:26 Labs: Abnormal Lab Results - Last 24 Hours (Table) 01/09/18 01/09/18 01/09/18 Range/Units 11:43 16:19 20:29 WBC (3.8-10.6) k/uL Neutrophils # (1.3-7.7) k/uL Lymphocytes # (1.0-4.8) k/uL Sodium (137-145) mmol/L Chloride (98-107) mmol/L Carbon Dioxide (22-30) mmol/L BUN (9-20) mg/dL Glucose (74-99) mg/dL POC Glucose (mg/dL) 131 H 135 H 135 H (75-99) mg/dL Magnesium (1.6-2.3) mg/dL Total Protein (6.3-8.2) g/dL 01/10/18 01/10/18 01/10/18 Range/Units 05:26 05:26 05:59 WBC 19.1 H (3.8-10.6) k/uL Neutrophils # 17.6 H (1.3-7.7) k/uL Lymphocytes # 0.8 L (1.0-4.8) k/uL Sodium 123 L (137-145) mmol/L Chloride 77 L* (98-107) mmol/L Carbon Dioxide 37 H (22-30) mmol/L BUN 35 H (9-20) mg/dL Glucose 106 H (74-99) mg/dL POC Glucose (mg/dL) 122 H (75-99) mg/dL Magnesium 3.4 H (1.6-2.3) mg/dL Total Protein 6.1 L (6.3-8.2) g/dL Microbiology - Last 24 Hours (Table) 01/04/18 11:14 Blood Culture - Preliminary Blood No Growth after 120 hours Assessment and Plan Assessment: Assessment and Plan Plan: #1 acute on chronic hypoxic respiratory failure secondary to COPD exacerbation with a component of acute systolic CHF exacerbation. Continue input and output, daily weights, patient down 4.7 kg, continue Lasix 40 mg oral every 12 hours. Continue Solu-Medrol decreased to 40 mg IV every 12 hours. Continue levofloxacin 750 mg by mouth daily. Sputum culture still pending, DuoNeb's as needed for shortness of breath. Incentive spirometry. Influenza negative. Last echo in October 2017 with ejection fraction 40-45%. Metolazone 5 mg daily added. No medication change. #2 spiculated upper right lower lobe nodule with follow-up in 4 months with a computed tomography scan recommended by pulmonary in the last admission. #3 former tobacco abuse. Quit 2 years ago, 1-1/2 pack for 40 years. #4 hypertension - Continue Sadiq inhibitors and beta ana maria #5 GI prophylaxis with Pepcid 20 mg twice a day on steroids #6 DVT prophylaxis with heparin every 12 #7 CODE STATUS full code #8 Chronic hypoxic respiratory failure with home O2 at 2L. # 9 hypovolemic hyponatremia with contraction alkalosis. Discontinue diuretics , start IV fluid normal saline 75 mL an hour, repeat BMP tomorrow morning. #10. Home tomorrow morning.
[2018-01-10 11:43] LABS: Glucose,Whole Blood 116 mg/dL (75-99)
--- NOTE | 2018-01-10 11:43 | P.PN ---
Subjective Progress Note Date: 01/10/18 This is a 67-year-old white male with history of severe COPD, chronic hypoxic respiratory failure, seen on a previous admission at [facility], and he was eventually discharged on multiple bronchodilators. . CT of the chest showed a right lung solitary lung nodule, however the patient is not a candidate for any intervention based on the fact that he has severe COPD, and we have recommended repeat CT of the chest in 4 months. Patient is on home option 04/05, he does not smoke at present, used to live in [place], recently moved to the area. Despite his earlier hospitalization, the patient continued to have shortness of breath and wheezing and he was given another prednisone burst taper and a course of Cipro on outpatient basis. Also, anoro 1 puff daily was also added to his regimen. A pulmonary function test was done in the office on 10/28/2017 and the patient was found to have an FEV1 of 34% of predicted consistent with severe obstructive airway limitation. His diffusion capacity was at 22% and the patient had a total lung capacity of 91% along with some hyperinflation. Comorbid conditions include hypertension. The patient presented back to the emergency department today because of worsening shortness of breath over at least 4 days duration. He hasn't been able to cough out any significant sputum production. He denied having any fever or chills. His pulse ox was apparently at 74% when EMS arrived to the scene. He is utilizing oxygen at 2 L/m nasal cannula. He also had abdominal distention and some mild lower extremity edema. He had a congested cough. No fever. No chills. No altered mentation. White cell count was at 14.4. Renal function was stable at creatinine of 0.6 influenza screen was negative. Troponin was 0.015 and the proBNP level was at 1000. Echocardiogram from of his admission showed an ejection fraction of 45%. The patient had noticed some any pulmonary hypertension. No pericardial effusion. His LV was mildly impaired with an ejection fraction of 45-50%. Right ventricular size and function was within normal limits. There was mild aortic valve sclerosis without evidence of regurgitation or stenosis. On 01/05/2018 the patient is feeling better compared to yesterday. Last bronchus spastic and wheezy compared to yesterday. He was treated with a combination of bronchodilators and steroids. He was admitted for an acute COPD exacerbation. No fever or chills. No altered mentation. He is responding nicely to a combination of bronchodilators and steroids. He is also on empiric antibiotic coverage with Levaquin. He is receiving diuretics due to increased lower extremities edema and a mild component of CHF and currently is on Lasix 40 mg IV push every 12 hours. On 01/06/2018, patient is being seen for a follow-up. He is steadily improving. Specific complaints for now. Limited cough and sputum production. No chest pain. No pleurisy. Remains on a combination of bronchodilators and steroids. The patient on empiric antibiotic coverage with Levaquin. The patient is on IV Solu Medrol 40 g every 8 hours. He is requesting his pain medication to be renewed and resumed and the patient is currently on tramadol 100 mg every 8 hours and he also takes Flexeril 10 mg as a muscle relaxant. Mucinex for cough and congestion. Overall condition is improved. Lasix have been switched to oral 40 mg by mouth twice a day. On 01/07/2018 I'm seeing this patient for a follow-up. His condition essentially the same. Not much of an improvement since yesterday and the patient is still having some symptoms of COPD exacerbation, this to exertion and even at rest and some bronchospasm wheezing. Cough is congested and is unable to bring up much sputum. No chest pain. No fever or chills. He is on examination bronchodilators and steroids. He is also on IV Solu Medrol 40 g every 8 hours, Lasix orally and DuoNeb nebulized treatments around the clock. On 01/08/2018, the patient is essentially the same. Probably slightly improved compared to yesterday. He was asked to ablate more. On examination is less bronchospastic and wheezy. Denies having any chest pain. No fever chills or night sweats. He is on Levaquin. Is on IV Solu-Medrol. No other significant events overnight. He still being treated for an acute COPD exacerbation. He is on Lasix 40 mg by mouth twice a day. He is also on IV Solu Medrol 40 mg every 8 hours. The patient is seen again today 01/09/2018 follow-up on the selective care unit. He is currently awake and alert in no acute distress. He is breathing easier today as compared to yesterday. Still not back to his baseline. Still some dyspnea on minimal exertion. Maintaining good O2 saturations in the upper 90s on 3 L/m per nasal cannula. Afebrile. Hemodynamically stable. He remains on bronchodilators, steroids, diuretics. On 01/10/2018 the patient has no specific complaints. Clinically improving. Less short of breath. Ambulating. I was considering discharging home this patient today however he opted to stay for another day. He is currently on a prednisone burst taper. He is also on oral Levaquin. Objective - Vital Signs Vital signs: Vital Signs Temp 97.0 F L 01/10/18 08:00 Pulse 84 01/10/18 11:22 Resp 20 01/10/18 08:00 BP 115/58 01/10/18 08:00 Pulse Ox 98 01/10/18 08:00 Intake & Output 01/09/18 01/10/18 01/10/18 18:59 06:59 18:59 Intake Total 240 Output Total 750 Balance -510 Weight 84.2 kg Intake: Oral 240 Output: Urine 750 Other: Voiding Method Urinal Urinal - Exam - Constitutional General appearance: average body habitus, cooperative, no acute distress - EENT Eyes: PERRLA ENT: NA/AT Ears: bilateral: normal - Neck Neck: no lymphadenopathy, normal ROM Carotids: bilateral: upstroke normal Thyroid: bilateral: normal size - Respiratory Respiratory: bilateral: rhonchi (Bilateral posterior bases), prolonged expiration - Cardiovascular Rhythm: regular Heart sounds: normal: S1, S2 ankle Peripheral Edema: bilateral: 1+ foot Peripheral Edema: bilateral: 1+ - Gastrointestinal General gastrointestinal: no organomegaly, soft, no tenderness - Neurologic Neurologic: CNII-XII intact - Musculoskeletal Musculoskeletal: gait normal, strength equal bilaterally - Psychiatric Psychiatric: A&O x's 3 - Labs CBC & Chem 7: 01/10/18 05:26 01/10/18 05:26 Labs: Abnormal Lab Results - Last 24 Hours (Table) 01/09/18 01/09/18 01/09/18 Range/Units 11:43 16:19 20:29 WBC (3.8-10.6) k/uL Neutrophils # (1.3-7.7) k/uL Lymphocytes # (1.0-4.8) k/uL Sodium (137-145) mmol/L Chloride (98-107) mmol/L Carbon Dioxide (22-30) mmol/L BUN (9-20) mg/dL Glucose (74-99) mg/dL POC Glucose (mg/dL) 131 H 135 H 135 H (75-99) mg/dL Magnesium (1.6-2.3) mg/dL Total Protein (6.3-8.2) g/dL 01/10/18 01/10/18 01/10/18 Range/Units 05:26 05:26 05:59 WBC 19.1 H (3.8-10.6) k/uL Neutrophils # 17.6 H (1.3-7.7) k/uL Lymphocytes # 0.8 L (1.0-4.8) k/uL Sodium 123 L (137-145) mmol/L Chloride 77 L* (98-107) mmol/L Carbon Dioxide 37 H (22-30) mmol/L BUN 35 H (9-20) mg/dL Glucose 106 H (74-99) mg/dL POC Glucose (mg/dL) 122 H (75-99) mg/dL Magnesium 3.4 H (1.6-2.3) mg/dL Total Protein 6.1 L (6.3-8.2) g/dL Microbiology - Last 24 Hours (Table) 01/04/18 11:14 Blood Culture - Preliminary Blood No Growth after 120 hours Assessment and Plan Plan: Assessment: #1. Acute COPD exacerbation with secondary dyspnea, recovered #2. Advanced COPD with an FEV1 of 36% of predicted consistent with severe obstructive airway limitation #3. 1.5 x 0.9 cm suspicious superior right lower lobe spiculated nodule, neoplasm cannot be excluded #4. Chronic hypoxic respiratory failure maintained on oxygen 2 L/m nasal cannula #5. History of bronchial asthma, with multiple environmental ALLERGIES #6. Nicotine dependence, currently in remission, quit 2 years ago, smoked 1-1/ 2 packs for 40 years #7. Hypertension #8. CHF with mild impairment of the LV with an ejection fraction 45% #9 chronic areas of DVT eccentric the located near the valves with secondary chronic lower extremity edema and the patient is on no anticoagulants for now Plan Prednisone burst taper starting with 60 mg. Completed the course of Levaquin. Continue bronchodilators. Discharge planning is in progress. Possible discharge either today or tomorrow.
[2018-01-10 17:22] LABS: Glucose,Whole Blood 117 mg/dL (75-99)
[2018-01-10 21:19] LABS: Glucose,Whole Blood 164 mg/dL (75-99)
[2018-01-10] MEDS: MONTELUKAST 10 MG TAB PO SCH (21:40)
[2018-01-11] MEDS: CYCLOBENZAPRINE 10 MG TAB PO SCH ×2 (05:33→11:06)
[2018-01-11 06:01] LABS: Glucose,Whole Blood 106 mg/dL (75-99)
[2018-01-11] MEDS: INSULIN ASPART 100 UNIT/ML 1 ML 10 ML VIAL SQ SCH (06:15)
[2018-01-11] MEDS: PANTOPRAZOLE 40 MG TABLET PO SCH (06:31)
[2018-01-11 06:47] LABS: Basophils % (A) 0 %; Eosinophils % (A) 0 %; HGB 14.8 gm/dL (13.0-17.5); Lymphocytes # (A) 1.4 k/uL (1.0-4.8); Lymphocytes % (A) 8 %; MCH 30.3 pg (25.0-35.0); MCHC 34.4 g/dL (31.0-37.0); MCV 87.9 fL (80.0-100.0); Mean Platelet Volume 6.5; Monocytes # (A) 0.7 k/uL (0-1.0); Monocytes % (A) 4 %; Neutrophils # (A) 14.8 k/uL (1.3-7.7); Neutrophils % (A) 87 %; Platelet Count 324 k/uL (150-450); RDW 13.8 % (11.5-15.5); WBC 17.1 k/uL (3.8-10.6)
[2018-01-11 06:56] LABS: Anion Gap 13 mmol/L; Blood Urea Nitrogen 28 mg/dL (9-20); Carbon Dioxide 26 mmol/L (22-30); Chloride 88 mmol/L (98-107); Glucose 124 mg/dL (74-99); Potassium 3.9 mmol/L (3.5-5.1); Sodium 127 mmol/L (137-145)
[2018-01-11 06:57] LABS: ALT 56 U/L (21-72); AST 20 U/L (17-59); Albumin 3.6 g/dL (3.5-5.0); Alkaline Phosphatase 80 U/L (38-126); Calcium 8.7 mg/dL (8.4-10.2); Total Bilirubin 0.5 mg/dL (0.2-1.3); Total Protein 6.2 g/dL (6.3-8.2)
[2018-01-11] MEDS: traMADol 50 MG TAB PO PRN (08:04)
[2018-01-11] MEDS: DOCUSATE 100 MG CAP PO SCH (08:14)
[2018-01-11] MEDS: LISINOPRIL 5 MG TAB PO SCH (08:14)
[2018-01-11] MEDS: LEVOFLOXACIN 750 MG TAB PO SCH (08:14)
[2018-01-11] MEDS: ASPIRIN 81 MG PO SCH (08:15)
[2018-01-11] MEDS: IPRATROPIUM-ALBUTEROL 3 ML NEB INHALATION SCH ×2 (08:15→12:39)
[2018-01-11] MEDS: ENOXAPARIN 40 MG/0.4 ML SYRINGE SQ SCH (08:15)
[2018-01-11] MEDS: SENNOSIDES 8.6 MG TAB PO SCH (08:15)
[2018-01-11] MEDS: guaiFENesin 600 MG TABLET.ER PO SCH (08:15)
[2018-01-11] MEDS: ATENOLOL 50 MG TAB PO SCH (08:15)
[2018-01-11] MEDS: VERAPAMIL 40 MG TAB PO SCH (08:15)
[2018-01-11] MEDS: predniSONE 20 MG TAB PO SCH (08:15)
[2018-01-11 09:47] VITALS: BP 116/69; RESP 20; TEMP 97
--- NOTE | 2018-01-11 10:32 | P.PN ---
Subjective Progress Note Date: 01/11/18 Principal diagnosis: Acute exacerbation of chronic obstructive pulmonary disease. This is a 67-year-old white male with history of severe COPD, chronic hypoxic respiratory failure, seen on a previous admission at [facility], and he was eventually discharged on multiple bronchodilators. . CT of the chest showed a right lung solitary lung nodule, however the patient is not a candidate for any intervention based on the fact that he has severe COPD, and we have recommended repeat CT of the chest in 4 months. Patient is on home option 04/05, he does not smoke at present, used to live in [place], recently moved to the area. Despite his earlier hospitalization, the patient continued to have shortness of breath and wheezing and he was given another prednisone burst taper and a course of Cipro on outpatient basis. Also, anoro 1 puff daily was also added to his regimen. A pulmonary function test was done in the office on 10/28/2017 and the patient was found to have an FEV1 of 34% of predicted consistent with severe obstructive airway limitation. His diffusion capacity was at 22% and the patient had a total lung capacity of 91% along with some hyperinflation. Comorbid conditions include hypertension. The patient presented back to the emergency department today because of worsening shortness of breath over at least 4 days duration. He hasn't been able to cough out any significant sputum production. He denied having any fever or chills. His pulse ox was apparently at 74% when EMS arrived to the scene. He is utilizing oxygen at 2 L/m nasal cannula. He also had abdominal distention and some mild lower extremity edema. He had a congested cough. No fever. No chills. No altered mentation. White cell count was at 14.4. Renal function was stable at creatinine of 0.6 influenza screen was negative. Troponin was 0.015 and the proBNP level was at 1000. Echocardiogram from of his admission showed an ejection fraction of 45%. The patient had noticed some any pulmonary hypertension. No pericardial effusion. His LV was mildly impaired with an ejection fraction of 45-50%. Right ventricular size and function was within normal limits. There was mild aortic valve sclerosis without evidence of regurgitation or stenosis. On 01/05/2018 the patient is feeling better compared to yesterday. Last bronchus spastic and wheezy compared to yesterday. He was treated with a combination of bronchodilators and steroids. He was admitted for an acute COPD exacerbation. No fever or chills. No altered mentation. He is responding nicely to a combination of bronchodilators and steroids. He is also on empiric antibiotic coverage with Levaquin. He is receiving diuretics due to increased lower extremities edema and a mild component of CHF and currently is on Lasix 40 mg IV push every 12 hours. On 01/06/2018, patient is being seen for a follow-up. He is steadily improving. Specific complaints for now. Limited cough and sputum production. No chest pain. No pleurisy. Remains on a combination of bronchodilators and steroids. The patient on empiric antibiotic coverage with Levaquin. The patient is on IV Solu Medrol 40 g every 8 hours. He is requesting his pain medication to be renewed and resumed and the patient is currently on tramadol 100 mg every 8 hours and he also takes Flexeril 10 mg as a muscle relaxant. Mucinex for cough and congestion. Overall condition is improved. Lasix have been switched to oral 40 mg by mouth twice a day. On 01/07/2018 I'm seeing this patient for a follow-up. His condition essentially the same. Not much of an improvement since yesterday and the patient is still having some symptoms of COPD exacerbation, this to exertion and even at rest and some bronchospasm wheezing. Cough is congested and is unable to bring up much sputum. No chest pain. No fever or chills. He is on examination bronchodilators and steroids. He is also on IV Solu Medrol 40 g every 8 hours, Lasix orally and DuoNeb nebulized treatments around the clock. On 01/08/2018, the patient is essentially the same. Probably slightly improved compared to yesterday. He was asked to ablate more. On examination is less bronchospastic and wheezy. Denies having any chest pain. No fever chills or night sweats. He is on Levaquin. Is on IV Solu-Medrol. No other significant events overnight. He still being treated for an acute COPD exacerbation. He is on Lasix 40 mg by mouth twice a day. He is also on IV Solu Medrol 40 mg every 8 hours. The patient is seen again today 01/09/2018 follow-up on the selective care unit. He is currently awake and alert in no acute distress. He is breathing easier today as compared to yesterday. Still not back to his baseline. Still some dyspnea on minimal exertion. Maintaining good O2 saturations in the upper 90s on 3 L/m per nasal cannula. Afebrile. Hemodynamically stable. He remains on bronchodilators, steroids, diuretics. On 01/10/2018 the patient has no specific complaints. Clinically improving. Less short of breath. Ambulating. I was considering discharging home this patient today however he opted to stay for another day. He is currently on a prednisone burst taper. He is also on oral Levaquin. Patient is seen again today 01/11/2018 in follow-up on the selective care unit. He is awake and alert in no acute distress. He is nearly back to his baseline. He denies any worsening shortness of breath, cough or congestion. He 's been up ambulating without acute distress. He has been converted to oral prednisone. Continued bronchodilators. Plan is for home today. Objective - Vital Signs Vital signs: Vital Signs Temp 97 F L 01/11/18 08:00 Pulse 84 01/11/18 08:25 Resp 20 01/11/18 08:00 BP 116/69 01/11/18 08:00 Pulse Ox 97 01/11/18 08:00 Intake & Output 01/10/18 01/11/18 01/11/18 18:59 06:59 18:59 Intake Total 480 240 Balance 480 240 Intake: Oral 480 240 Other: Voiding Method Urinal - Exam GENERAL EXAM: Alert, active, comfortable in no apparent distress. HEAD: Normocephalic. EYES: Normal reaction of pupils, equal size. NOSE: Clear with pink turbinates. THROAT: No erythema or exudates. NECK: No masses, no JVD. CHEST: No chest wall deformity. LUNGS: Equal air entry with bilateral end expiratory wheeze. Diminished. CVS: S1 and S2 normal with no audible murmur, regular rhythm. ABDOMEN: No hepatosplenomegaly, normal bowel sounds, no guarding or rigidity. SPINE: No scoliosis or deformity SKIN: No rashes CENTRAL NERVOUS SYSTEM: No focal deficits, tone is normal in all 4 extremities. EXTREMITIES: There is no peripheral edema. No clubbing, no cyanosis. Peripheral pulses are intact. - Labs CBC & Chem 7: 01/11/18 05:25 04/02/18 05:25 Labs: Abnormal Lab Results - Last 24 Hours (Table) 01/10/18 01/10/18 01/10/18 Range/Units 11:41 17:17 21:06 WBC (3.8-10.6) k/uL Neutrophils # (1.3-7.7) k/uL Sodium (137-145) mmol/L Chloride (98-107) mmol/L BUN (9-20) mg/dL Glucose (74-99) mg/dL POC Glucose (mg/dL) 116 H 117 H 164 H (75-99) mg/dL Total Protein (6.3-8.2) g/dL 01/11/18 01/11/18 01/11/18 Range/Units 05:25 05:25 05:57 WBC 17.1 H (3.8-10.6) k/uL Neutrophils # 14.8 H (1.3-7.7) k/uL Sodium 127 L (137-145) mmol/L Chloride 88 L (98-107) mmol/L BUN 28 H (9-20) mg/dL Glucose 124 H (74-99) mg/dL POC Glucose (mg/dL) 106 H (75-99) mg/dL Total Protein 6.2 L (6.3-8.2) g/dL Microbiology - Last 24 Hours (Table) 01/04/18 11:14 Blood Culture - Final Blood No Growth after 144 hours Assessment and Plan Assessment: Assessment: #1. Acute COPD exacerbation with secondary dyspnea, improving slowly. #2. Advanced COPD with an FEV1 of 36% of predicted consistent with severe obstructive airway limitation #3. 1.5 x 0.9 cm suspicious superior right lower lobe spiculated nodule, neoplasm cannot be excluded #4. Chronic hypoxic respiratory failure maintained on oxygen 2 L/m nasal cannula #5. History of bronchial asthma, with multiple environmental ALLERGIES #6. Nicotine dependence, currently in remission, quit 2 years ago, smoked 1-1/ 2 packs for 40 years #7. Hypertension #8. CHF with mild impairment of the LV with an ejection fraction 45% #9 chronic areas of DVT eccentric the located near the valves with secondary chronic lower extremity edema and the patient is on no anticoagulants for now Plan: The patient was seen and evaluated by Dr. Eller. He is cleared for discharge from the pulmonary standpoint. Complete his course of antibiotics. Complete prednisone taper. Continue with home oxygen and nebulized treatments. Continue Singulair. He will follow-up in our office in 1 week's time. He is however encouraged to call sooner with any recurrence of symptoms or other questions or concerns. I, the cosigning physician, performed a history & physical examination of the patient. Lungs sounds with end expiratory wheeze. Diminished.. Maintaining good O2 saturations in the 90s on 2 L/m per nasal cannula. I discussed the assessment and plan of care with my nurse practitioner, Janessa Rubio. I attest to the above note as dictated by her.
[2018-01-11] MEDS: SODIUM CHLORIDE 0.9% 1,000 ML IV SCH (11:07)
[2018-01-11 11:42] LABS: Glucose,Whole Blood 106 mg/dL (75-99)
--- NOTE | 2018-01-11 12:24 | P.DS ---
Providers Date of admission: 01/04/18 13:26 Expected date of discharge: 01/11/18 Attending physician: Fred Zamora MD Consults: 01/04/18 13:26 Consult Physician Routine Consulting Provider: Kwaku Poe Consult Reason/Comments: chf Do you want consulting provider notified?: Yes Consult Physician Routine Consulting Provider: Paige Eller Consult Reason/Comments: sob Do you want consulting provider notified?: Yes Primary care physician: Candelaria White Hospital Course: 67 years old male patient of Dr. Rouse with past medical history of COPD, hypertension, history of systolic CHF with ejection fraction last noted to be 45-50% in October 2017 presents with worsening shortness of breath associated with cough. Patient uses 2.5 L of oxygen with exertion and 2 L on rest at baseline he has to increase his oxygen to 4 L to help feed better. Patient denies any fever or chills or chest pain. He is a former smoker and quit 2 years ago smoked one to one and a half pack a day for [address] chest from October 2017 and a suspicious 1.5 X .9 cm right upper lobe spiculated lesion and was asked to follow-up with a repeat computed tomography scan in 4 months. His influenza negative. BNP is 1000. WBC 14.5, hemoglobin 12, PT/INR within normal limits. Potassium 5.5. Test x-ray concerning for congestion or pneumonitis. Patient is admitted for CHF exacerbation with COPD exacerbation. Started on levofloxacin 750 mg IV daily along with Solu-Medrol 60 daily 6 hours. 01/05 Patient seen today at the bedside. He reports breathing has improved from last night. Wheezing has improved from yesterday. He still has quite a bit of lower extremity edema, continues on 4 L of o2 NC. Will continie with IV lasix 40 mg IV push every 12. He is down 4.7 Kg. Will continue with I&O's, cardiology and pulmonology is on consult. Influenza A and B are negative, 3 sets of troponins have been negative. We'll continue with current treatment plan and reevaluate tomorrow. 01/06: Patient remains on Solu-Medrol 60 mg IV 4 times daily and will be decreased to 40 mg every 8 hours. Lasix 40 mg IV every 12 hours will be changed to oral. Decreased lower extremity edema. Breathing status is slowly improving. Patient does state he is feeling better from yesterday. He is using incentive spirometry. White count is up to 16.8, BUN 34 and creatinine 0.83. Patient is followed by Dr. Hodgson. Patient has been seen by cardiology with plan to continue IV Lasix, aspirin, Tenormin and Zestril. 01/07: Patient is currently on oxygen at 2 L pulse oxing 93%. Patient is normally on home O2 at 2 L. He is mildly tachycardic. He does have shortness of breath with activity but slightly improved. Patient is continued on Solu- Medrol 40 mg IV every 8 hours. He has had good urine output. Patient is noted to have some increased edema from yesterday in the lower extremities. He did have his first bowel movement today after 4 days. Blood sugars are running 124- 188 and white count is 13.8 BUN 30 and creatinine 0.65. We are adding in metolazone 5 mg daily with plan to change this to Thursday at the time of discharge. Blood culture showing no growth after 48 hours. 01/08:. Heart rate running between 90s and 100s. Pulse ox 95% on 2 L nasal cannula. Patient states is breathing is about the same. He has increased shortness of breath with minimal activity. Lower extremity edema is decreasing. He is asking for Anoro which we asked for him to discuss with Dr. Hodgson as we do not carry this. 01/09: Patient is feeling better today he continues to have some shortness of breath, he continues to have some coughing yellow phlegm production, he is using his spirometer at the bedside, he denies any abdominal pain, he has less edema both lower extremity is, and he has no new complaints. 01/10: Patient is feeling weak today very wobbly with the low blood pressure he had dropped his sodium 23 and chloride to 77 he was taken off his diuretics he would be given sodium chloride at 75 mL an hour for the next 24 hours, he would be kept in the hospital for another 24 hours he would be switched to oral prednisone hopefully will be discharged home tomorrow morning. 01/11: Repeat sodium is 127. Repeat sodium is 127 with chloride 88. Patient's breathing status is stable and he has been cleared for discharge On a medicine. Heart rate is running 80s to 90s. Patient will be discharged home today in stable condition. He has been instructed to hold Lasix and potassium and resume tomorrow. Discharge diagnoses: 1 acute on chronic hypoxic respiratory failure secondary to COPD exacerbation with a component of acute systolic CHF exacerbation. 2 spiculated upper right lower lobe nodule with follow-up in 4 months with a computed tomography scan recommended by pulmonary in the last admission. 3 former tobacco abuse. Quit 2 years ago, 1-1/2 pack for 40 years. 4 hypertension 5 Chronic hypoxic respiratory failure with home O2 at 2L. 6. Hypovolemic hyponatremia with contraction alkalosis. Discharge plan: return home with [facility] Impression and plan of care have been directed as dictated by the signing physician. Valery Germain nurse practitioner acting as scribe for signing physician. Patient Condition at Discharge: Good Plan - Discharge Summary Discharge Rx Participant: Yes New Discharge Prescriptions: New Aspirin 81 mg PO DAILY chew Cyclobenzaprine [Flexeril] 10 mg PO TID #30 tab guaiFENesin [Mucinex] 600 mg PO Q12HR tablet.er Levofloxacin [Levaquin] 750 mg PO DAILY #7 tab Lisinopril [Zestril] 5 mg PO DAILY #30 tab predniSONE 0 mg PO DIRECTED #63 tab Verapamil [Isoptin] 40 mg PO BID #60 tab Continue Potassium Chloride [Klor-Con Sprinkle] 10 meq PO AC-BID Levalbuterol Nebulized [Xopenex Nebulized] 1.25 mg INHALATION RT-Q8H PRN PRN Reason: Shortness Of Breath Albuterol Sulfate [Proair Hfa] 2 puff INHALATION RT-Q6H PRN PRN Reason: Shortness Of Breath Furosemide [Lasix] 20 mg PO DAILY Atenolol [Tenormin] 50 mg PO DAILY Omeprazole 40 mg PO DAILY Tiotropium [place] [Spiriva] 1 cap INHALATION RT-DAILY Montelukast [Singulair] 10 mg PO HS ALPRAZolam [Xanax] 0.25 mg PO BID PRN PRN Reason: Anxiety Albuterol Nebulized [Ventolin Nebulized] 2.5 mg INHALATION Q4H PRN PRN Reason: Shortness Of Breath Umeclidinium Brm/Vilanterol Tr [Anoro Ellipta 62.5-25 Mcg INH] 1 puff INHALATION DAILY traMADol HCL [Ultram] 100 mg PO Q8H PRN #21 tablet PRN Reason: Pain Discontinued Cyclobenzaprine [Flexeril] 10 mg PO BID Discharge Medication List Potassium Chloride [Klor-Con Sprinkle] 10 meq PO AC-BID 10/18/17 [History] ALPRAZolam [Xanax] 0.25 mg PO BID PRN 01/04/18 [History] Albuterol Nebulized [Ventolin Nebulized] 2.5 mg INHALATION Q4H PRN 01/04/18 [ History] Albuterol Sulfate [Proair Hfa] 2 puff INHALATION RT-Q6H PRN 01/04/18 [History] Atenolol [Tenormin] 50 mg PO DAILY 01/04/18 [History] Furosemide [Lasix] 20 mg PO DAILY 01/04/18 [History] Levalbuterol Nebulized [Xopenex Nebulized] 1.25 mg INHALATION RT-Q8H PRN [History] Montelukast [Singulair] 10 mg PO HS 01/04/18 [History] Omeprazole 40 mg PO DAILY 01/04/18 [History] Tiotropium [place] [Spiriva] 1 cap INHALATION RT-DAILY 01/04/18 [History] Umeclidinium Brm/Vilanterol Tr [Anoro Ellipta 62.5-25 Mcg INH] 1 puff INHALATION DAILY 01/07/18 [History] Aspirin 81 mg PO DAILY chew 01/11/18 [Rx] Cyclobenzaprine [Flexeril] 10 mg PO TID #30 tab 01/11/18 [Rx] Levofloxacin [Levaquin] 750 mg PO DAILY #7 tab 01/11/18 [Rx] Lisinopril [Zestril] 5 mg PO DAILY #30 tab 01/11/18 [Rx] Verapamil [Isoptin] 40 mg PO BID #60 tab 01/11/18 [Rx] guaiFENesin [Mucinex] 600 mg PO Q12HR tablet.er 01/11/18 [Rx] predniSONE 0 mg PO DIRECTED #63 tab 01/11/18 [Rx] traMADol HCL [Ultram] 100 mg PO Q8H PRN #21 tablet 01/11/18 [Rx] Follow up Appointment(s)/Referral(s): Paige Eller MD [STAFF PHYSICIAN] - 01/18/18 2:00 pm (Thursday) Candelaria Owen MD [Primary Care Provider] - 01/14/18 11:00 am () [facility], [NON-STAFF] - Patient Instructions/Handouts: Heart Failure (DC), COPD (Chronic Obstructive Pulmonary Disease) (DC) Activity/Diet/Wound Care/Special Instructions: Resume Lasix and potassium tomorrow at usual doses. Discharge Disposition: HOME WITH HOME HEALTH SERVICES
[2018-01-11 12:40] VITALS: PULSE 84
== END 2018-01-11 13:19 | disposition home health service (06) | DRG 291 ==
LOC: EC 10:29 → 6SEL 13:26
PROVIDERS: ADMIT Internal Medicine; ATTEND Internal Medicine
DX: I11.0 Hypertensive heart disease with heart failure (principal); J96.21 Acute and chronic respiratory failure with hypoxia; E87.3 Alkalosis; J44.1 Chronic obstructive pulmonary disease with (acute) exacerbation; E87.1 Hypo-osmolality and hyponatremia; I82.599 Chronic embolism and thrombosis of other specified deep vein of unspecified lower extremity; Z99.81 Dependence on supplemental oxygen; I50.23 Acute on chronic systolic (congestive) heart failure; R91.1 Solitary pulmonary nodule; R00.0 Tachycardia, unspecified; R14.0 Abdominal distension (gaseous); I35.8 Other nonrheumatic aortic valve disorders; F41.9 Anxiety disorder, unspecified; F17.211 Nicotine dependence, cigarettes, in remission; I49.3 Ventricular premature depolarization; E87.5 Hyperkalemia; I27.20 Pulmonary hypertension, unspecified; Z79.899 Other long term (current) drug therapy; Z79.51 Long term (current) use of inhaled steroids; Z88.0 Allergy status to penicillin
CPT/HCPCS: 36415; 71046; 80048; 80053; 82550; 82553; 83735; 83880; 84436; 84443; 84480; 84484; 85025; 85027; 85379; 85610; 85730; 87040; 87502; 93005; 94640; 94760; 96365; 96366; 96375; 96376; 99285

== ENCOUNTER 2018-01-12 19:06 | Inpatient (IN) | payer MEDICARE ==
[2018-01-12] MEDS ORDERED: SODIUM CHLORIDE 0.9% 500 ML IV STA ×2 (19:31→20:18)
--- NOTE | 2018-01-12 19:43 | ED ---
Altered Mental Status HPI - General Source: patient, RN notes reviewed Mode of arrival: EMS <Carmela Fiore - Last Filed: 01/12/18 20:01> <Jong Bansal - Last Filed: 01/12/18 22:13> - General Chief Complaint: Altered Mental Status Stated Complaint: Lethargy Time Seen by Provider: 01/12/18 19:12 - History of Present Illness Initial Comments: This is a 67-year-old male who presents to the emergency department via EMS with chief complaint of lethargy. Patient is a poor historian. EMS reports that they were contacted by patient's niece whom he lives with. It was reported that patient may have taken too many of his Xanax and tramadol. Patient became lethargic and his niece contacted EMS. Patient does state that he has been having mid to low back pain and difficulty sleeping so may have taken too much of his tramadol. He states that he took 2 Xanax and possibly 2 Ultram prior to arrival. Patient was recently admitted to the hospital for end- stage COPD and was discharged home yesterday. Patient does state that he is short of breath and has an increase in his cough. Denies chest pain, abdominal pain, nausea or vomiting, diarrhea or constipation, dysuria or hematuria. On review of patient's previous reports, he was admitted on January 04, 2018 for acute on chronic hypoxic respiratory failure, COPD exacerbation and CHF exacerbation. Chest x-ray revealed spiculated nodule in the right lower lobe with follow-up computed tomography scan recommended in 4 months. Patient does have a past medical history of COPD, hypertension and systolic CHF with ejection fraction of 45-50% last noted in October 2017. (Carmela Fiore) - Related Data Home Medications Medication Instructions Recorded Confirmed Potassium Chloride [Klor-Con 10 meq PO AC-BID 10/18/17 01/12/18 Sprinkle] ALPRAZolam [Xanax] 0.25 mg PO BID PRN 01/04/18 01/12/18 Albuterol Nebulized [Ventolin 2.5 mg INHALATION Q4H PRN 01/04/18 01/12/18 Nebulized] Albuterol Sulfate [Proair Hfa] 2 puff INHALATION RT-Q6H PRN 01/04/18 01/12/18 Atenolol [Tenormin] 50 mg PO DAILY 01/04/18 01/12/18 Furosemide [Lasix] 20 mg PO DAILY 01/04/18 01/12/18 Levalbuterol Nebulized [Xopenex 1.25 mg INHALATION RT-Q8H PRN 01/04/18 01/12/18 Nebulized] Montelukast [Singulair] 10 mg PO HS 01/04/18 01/12/18 Omeprazole 40 mg PO DAILY 01/04/18 01/12/18 Tiotropium [place] [Spiriva] 1 cap INHALATION RT-DAILY 01/04/18 01/12/18 Umeclidinium Brm/Vilanterol Tr 1 puff INHALATION DAILY 01/07/18 01/12/18 [Anoro Ellipta 62.5-25 Mcg INH] guaiFENesin [Mucinex] 600 mg PO Q12HR PRN 01/12/18 01/12/18 predniSONE See Taper PO DIRECTED 01/12/18 01/12/18 Previous Rx's Medication Instructions Recorded Aspirin 81 mg PO DAILY chew 01/11/18 Cyclobenzaprine [Flexeril] 10 mg PO TID #30 tab 01/11/18 Levofloxacin [Levaquin] 750 mg PO DAILY #7 tab 01/11/18 Lisinopril [Zestril] 5 mg PO DAILY #30 tab 01/11/18 Verapamil [Isoptin] 40 mg PO BID #60 tab 01/11/18 traMADol HCL [Ultram] 100 mg PO Q8H PRN #21 tablet 01/11/18 Allergies Allergy/AdvReac Type Severity Reaction Status Date / Time Penicillins Allergy Swelling Verified 01/12/18 20:03 Review of Systems ROS Other: All systems not noted in ROS Statement are negative. <Carmela Fiore - Last Filed: 01/12/18 20:01> ROS Other: All systems not noted in ROS Statement are negative. <Jong Bansal - Last Filed: 01/12/18 22:13> ROS Statement: Those systems with pertinent positive or pertinent negative responses have been documented in the HPI. Past Medical History Past Medical History: COPD, Hypertension Additional Past Medical History / Comment(s): Advanced COPD with an FEV1 of 36% of predicted, right lower lobes. Related nodule measuring 1.5 x 0.9 cm in size that looks suspicious for malignancy. The patient is not a candidate for any further interventions, hypertension, lower symmetry edema, CHF with mild impairment of the LV function and ejection fraction 45-50% History of Any Multi-Drug Resistant Organisms: None Reported Past Surgical History: No Surgical Hx Reported Past Psychological History: Anxiety Smoking Status: Former smoker Past Alcohol Use History: None Reported Past Drug Use History: None Reported - Past Family History Father Family Medical History: No Reported History <Carmela Fiore - Last Filed: 01/12/18 20:01> General Exam Limitations: altered mental status (Initial vital signs: temperature 99.9, pulse 132, respirations 28, blood pressure 81/41, pulse ox 88% room air) Back exam: Present: normal inspection, full ROM <Carmela Fiore - Last Filed: 01/12/18 20:01> <Jong Bansal - Last Filed: 01/12/18 22:13> - General Exam Comments Initial Comments: General: Awake and fatigued, but easily arousable. Well-developed; labored breathing. Resting uncomfortably in bed. HEENT: Head atraumatic, normocephalic. Pupils are equal and round and sluggishly reactive to light. Extraocular movements intact. Oropharynx dry without erythema. Neck: Supple. Normal ROM. Cardiovascular: Regular rate and rhythm. No murmurs, rubs or gallops. Chest symmetrical. Respiratory: Labored breathing. Diminished breath sounds throughout all lung carter. No wheezes, rales or rhonchi. Abdomen: Soft, nontender. Abdomen is distended. 2 large areas of ecchymosis bilateral lateral abdomen. No rigidity, rebound or guarding. Hypoactive bowel sounds 4 quadrants. Musculoskeletal: Normal ROM, no tenderness bilateral upper and lower extremities. 2+ pitting edema bilateral lower extremities. Skin: [place], warm and dry without rashes. Neurological: Alert and oriented x3. CN II-XII grossly intact. Speech is slurred. No focal neuro deficits. (Carmela Fiore) Course <Carmela Fiore - Last Filed: 01/12/18 20:01> <Jong Bansal - Last Filed: 01/12/18 22:13> Vital Signs 01/12/18 01/12/18 01/12/18 19:28 19:52 20:04 Temperature 99.9 F H Pulse Rate 132 H 133 H 123 H Respiratory 28 H 16 28 H Rate Blood Pressure 81/41 116/83 78/38 O2 Sat by Pulse 88 L 95 96 Oximetry 01/12/18 01/12/18 01/12/18 20:06 20:11 20:16 Temperature Pulse Rate 131 H 135 H 133 H Respiratory 16 22 38 H Rate Blood Pressure 78/38 80/42 O2 Sat by Pulse 95 98 Oximetry 01/12/18 01/12/18 01/12/18 20:28 20:30 21:17 Temperature 99.2 F Pulse Rate 127 H 130 H Respiratory 20 32 H Rate Blood Pressure 90/52 O2 Sat by Pulse 95 Oximetry 01/12/18 21:45 Temperature Pulse Rate 123 H Respiratory 30 H Rate Blood Pressure 85/51 O2 Sat by Pulse 94 L Oximetry - Reevaluation(s) Reevaluation #1: 01/12/18 22:11 Patient placed on BiPAP secondary to respiratory distress, accessory muscles of respiration. (Jong Bansal) Reevaluation #2: 01/12/18 22:11 Patient remains tachycardic despite IV fluid bolus, blood pressure labile ( Jong Bansal) Medical Decision Making <Carmela Fiore - Last Filed: 01/12/18 20:01> - Lab Data Result diagrams: 01/12/18 21:04 01/12/18 19:20 - EKG Data -: EKG Interpreted by Me (EKG shows sinus tachycardia rate 136, [place] 154, QRS 84, QTC 4:15) - Radiology Data Radiology results: report reviewed (Chest x-ray unchanged from prior could represent pneumonia), image reviewed <Jong Bansal - Last Filed: 01/12/18 22:13> - Medical Decision Making 67 male the ER for evaluation of shortness of breath, altered mental state. Patient placed on BiPAP given fluid bolus and secondary to increased white count placed on IV antibiotics. Patient to be admitted ICU for monitoring of cardiopulmonary hemodynamic state (Jong Bansal) - Lab Data Lab Results 01/12/18 01/12/18 01/12/18 Range/Units 19:20 19:20 19:20 WBC (3.8-10.6) k/uL RBC (4.30-5.90) m/uL Hgb (13.0-17.5) gm/dL Hct (39.0-53.0) % MCV (80.0-100.0) fL MCH (25.0-35.0) pg MCHC (31.0-37.0) g/dL RDW (11.5-15.5) % Plt Count (150-450) k/uL Neutrophils % % Lymphocytes % % Monocytes % % Eosinophils % % Basophils % % Neutrophils # (1.3-7.7) k/uL Lymphocytes # (1.0-4.8) k/uL Monocytes # (0-1.0) k/uL Eosinophils # (0-0.7) k/uL Basophils # (0-0.2) k/uL PT 10.5 (9.0-12.0) sec INR 1.1 (<1.2) APTT 24.8 (22.0-30.0) sec D-Dimer 0.57 (<0.60) mg/L FEU Sodium (137-145) mmol/L Potassium (3.5-5.1) mmol/L Chloride (98-107) mmol/L Carbon Dioxide (22-30) mmol/L Anion Gap mmol/L BUN (9-20) mg/dL Creatinine (0.66-1.25) mg/dL Est GFR (CKD-EPI)AfAm (>60 ml/min/1.73 sqM) Est GFR (CKD-EPI)NonAf (>60 ml/min/1.73 sqM) Glucose (74-99) mg/dL Plasma Lactic Acid Benjamin (0.7-2.0) mmol/L Calcium (8.4-10.2) mg/dL Phosphorus (2.5-4.5) mg/dL Magnesium (1.6-2.3) mg/dL Total Bilirubin (0.2-1.3) mg/dL AST (17-59) U/L ALT (21-72) U/L Alkaline Phosphatase (38-126) U/L Ammonia (<30) umol/L Total Creatine Kinase (55-170) U/L CK-MB (CK-2) (0.0-2.4) ng/mL CK-MB (CK-2) Rel Index Troponin I 0.028 (0.000-0.034) ng/mL NT-Pro-B Natriuret Pep 362 pg/mL Total Protein (6.3-8.2) g/dL Albumin (3.5-5.0) g/dL Urine Color Urine Appearance (Clear) Urine pH (5.0-8.0) Ur Specific [place] (1.001-1.035) Urine Protein (Negative) Urine Glucose (UA) (Negative) Urine Ketones (Negative) Urine Blood (Negative) Urine Nitrite (Negative) Urine Bilirubin (Negative) Urine Urobilinogen (<2.0) mg/dL Ur Leukocyte Esterase (Negative) Urine Opiates Screen (NotDetected) Ur Oxycodone Screen (NotDetected) Urine Methadone Screen (NotDetected) Ur Propoxyphene Screen (NotDetected) Ur Barbiturates Screen (NotDetected) U Tricyclic Antidepress (NotDetected) Ur Phencyclidine Scrn (NotDetected) Ur Amphetamines Screen (NotDetected) U Methamphetamines Scrn (NotDetected) U Benzodiazepines Scrn (NotDetected) Urine Cocaine Screen (NotDetected) U Marijuana (THC) Screen (NotDetected) Serum Alcohol mg/dL 01/12/18 01/12/18 01/12/18 Range/Units 19:20 19:20 19:20 WBC (3.8-10.6) k/uL RBC (4.30-5.90) m/uL Hgb (13.0-17.5) gm/dL Hct (39.0-53.0) % MCV (80.0-100.0) fL MCH (25.0-35.0) pg MCHC (31.0-37.0) g/dL RDW (11.5-15.5) % Plt Count (150-450) k/uL Neutrophils % % Lymphocytes % % Monocytes % % Eosinophils % % Basophils % % Neutrophils # (1.3-7.7) k/uL Lymphocytes # (1.0-4.8) k/uL Monocytes # (0-1.0) k/uL Eosinophils # (0-0.7) k/uL Basophils # (0-0.2) k/uL PT (9.0-12.0) sec INR (<1.2) APTT (22.0-30.0) sec D-Dimer (<0.60) mg/L FEU Sodium 124 L (137-145) mmol/L Potassium 5.2 H (3.5-5.1) mmol/L Chloride 85 L (98-107) mmol/L Carbon Dioxide 27 (22-30) mmol/L Anion Gap 12 mmol/L BUN 34 H (9-20) mg/dL Creatinine 1.48 H (0.66-1.25) mg/dL Est GFR (CKD-EPI)AfAm 57 (>60 ml/min/1.73 sqM) Est GFR (CKD-EPI)NonAf 49 (>60 ml/min/1.73 sqM) Glucose 84 (74-99) mg/dL Plasma Lactic Acid Benjamin 4.0 H* (0.7-2.0) mmol/L Calcium 8.7 (8.4-10.2) mg/dL Phosphorus 3.4 (2.5-4.5) mg/dL Magnesium 2.1 (1.6-2.3) mg/dL Total Bilirubin 0.6 (0.2-1.3) mg/dL AST 27 (17-59) U/L ALT 49 (21-72) U/L Alkaline Phosphatase 82 (38-126) U/L Ammonia <9 (<30) umol/L Total Creatine Kinase (55-170) U/L CK-MB (CK-2) (0.0-2.4) ng/mL CK-MB (CK-2) Rel Index Troponin I (0.000-0.034) ng/mL NT-Pro-B Natriuret Pep pg/mL Total Protein 6.1 L (6.3-8.2) g/dL Albumin 3.6 (3.5-5.0) g/dL Urine Color Urine Appearance (Clear) Urine pH (5.0-8.0) Ur Specific [place] (1.001-1.035) Urine Protein (Negative) Urine Glucose (UA) (Negative) Urine Ketones (Negative) Urine Blood (Negative) Urine Nitrite (Negative) Urine Bilirubin (Negative) Urine Urobilinogen (<2.0) mg/dL Ur Leukocyte Esterase (Negative) Urine Opiates Screen (NotDetected) Ur Oxycodone Screen (NotDetected) Urine Methadone Screen (NotDetected) Ur Propoxyphene Screen (NotDetected) Ur Barbiturates Screen (NotDetected) U Tricyclic Antidepress (NotDetected) Ur Phencyclidine Scrn (NotDetected) Ur Amphetamines Screen (NotDetected) U Methamphetamines Scrn (NotDetected) U Benzodiazepines Scrn (NotDetected) Urine Cocaine Screen (NotDetected) U Marijuana (THC) Screen (NotDetected) Serum Alcohol <10 mg/dL 01/12/18 01/12/18 01/12/18 Range/Units 19:20 20:48 21:04 WBC 27.3 H* (3.8-10.6) k/uL RBC 4.49 (4.30-5.90) m/uL Hgb 13.2 (13.0-17.5) gm/dL Hct 39.2 (39.0-53.0) % MCV 87.3 (80.0-100.0) fL MCH 29.4 (25.0-35.0) pg MCHC 33.7 (31.0-37.0) g/dL RDW 14.0 (11.5-15.5) % Plt Count 255 (150-450) k/uL Neutrophils % 96 % Lymphocytes % 2 % Monocytes % 2 % Eosinophils % 1 % Basophils % 0 % Neutrophils # 26.1 H (1.3-7.7) k/uL Lymphocytes # 0.5 L (1.0-4.8) k/uL Monocytes # 0.5 (0-1.0) k/uL Eosinophils # 0.1 (0-0.7) k/uL Basophils # 0.1 (0-0.2) k/uL PT (9.0-12.0) sec INR (<1.2) APTT (22.0-30.0) sec D-Dimer (<0.60) mg/L FEU Sodium (137-145) mmol/L Potassium (3.5-5.1) mmol/L Chloride (98-107) mmol/L Carbon Dioxide (22-30) mmol/L Anion Gap mmol/L BUN (9-20) mg/dL Creatinine (0.66-1.25) mg/dL Est GFR (CKD-EPI)AfAm (>60 ml/min/1.73 sqM) Est GFR (CKD-EPI)NonAf (>60 ml/min/1.73 sqM) Glucose (74-99) mg/dL Plasma Lactic Acid Benjamin (0.7-2.0) mmol/L Calcium (8.4-10.2) mg/dL Phosphorus (2.5-4.5) mg/dL Magnesium (1.6-2.3) mg/dL Total Bilirubin (0.2-1.3) mg/dL AST (17-59) U/L ALT (21-72) U/L Alkaline Phosphatase (38-126) U/L Ammonia (<30) umol/L Total Creatine Kinase 62 (55-170) U/L CK-MB (CK-2) 1.5 (0.0-2.4) ng/mL CK-MB (CK-2) Rel Index 2.4 Troponin I (0.000-0.034) ng/mL NT-Pro-B Natriuret Pep pg/mL Total Protein (6.3-8.2) g/dL Albumin (3.5-5.0) g/dL Urine Color Yellow Urine Appearance Clear (Clear) Urine pH 6.5 (5.0-8.0) Ur Specific [place] 1.012 (1.001-1.035) Urine Protein Negative (Negative) Urine Glucose (UA) Negative (Negative) Urine Ketones Negative (Negative) Urine Blood Negative (Negative) Urine Nitrite Negative (Negative) Urine Bilirubin Negative (Negative) Urine Urobilinogen <2.0 (<2.0) mg/dL Ur Leukocyte Esterase Negative (Negative) Urine Opiates Screen Not Detected (NotDetected) Ur Oxycodone Screen Not Detected (NotDetected) Urine Methadone Screen Not Detected (NotDetected) Ur Propoxyphene Screen Not Detected (NotDetected) Ur Barbiturates Screen Not Detected (NotDetected) U Tricyclic Antidepress Detected H (NotDetected) Ur Phencyclidine Scrn Not Detected (NotDetected) Ur Amphetamines Screen Not Detected (NotDetected) U Methamphetamines Scrn Not Detected (NotDetected) U Benzodiazepines Scrn Detected H (NotDetected) Urine Cocaine Screen Not Detected (NotDetected) U Marijuana (THC) Screen Not Detected (NotDetected) Serum Alcohol mg/dL Critical Care Time Critical Care Time: Yes Total Critical Care Time: 31 <Jong Bansal - Last Filed: 01/12/18 22:13> Disposition <Carmela Fiore - Last Filed: 01/12/18 20:01> <Jong Bansal - Last Filed: 01/12/18 22:13> Clinical Impression: Acute exacerbation of chronic obstructive airways disease, Adult respiratory distress syndrome, Acute respiratory failure, Altered mental status, Leukocytosis, Weakness, Delirium due to general medical condition, Tachycardia Disposition: ADMITTED IP TO THIS HOSP Condition: Critical Referrals: Candelaria Owen MD [Primary Care Provider] - 1-2 days
[2018-01-12 19:47] LABS: Ammonia <9 umol/L (<30)
[2018-01-12 19:50] LABS: Alcohol <10 mg/dL; D-Dimer 0.57 mg/L FEU (<0.60); INR 1.1 (<1.2); Magnesium 2.1 mg/dL (1.6-2.3); Partial Thromboplastin Time 24.8 sec (22.0-30.0); Phosphorus 3.4 mg/dL (2.5-4.5); Prothrombin Time 10.5 sec (9.0-12.0)
[2018-01-12] MEDS ORDERED: IPRATROPIUM-ALBUTEROL 3 ML NEB INHALATION STA (19:53)
[2018-01-12] MEDS ORDERED: SODIUM CHLORIDE 0.9% 1,000 ML IV STA (20:18)
[2018-01-12] MEDS ORDERED: methylPREDNISolone SOD SUCCI 125 MG/2 ML VIAL IV STA (20:18)
[2018-01-12] MEDS: SODIUM CHLORIDE 0.9% 1,000 ML IV STA ×2 (20:25→21:07)
[2018-01-12 20:31] LABS: Albumin 3.6 g/dL (3.5-5.0); Calcium 8.7 mg/dL (8.4-10.2); Potassium 5.2 mmol/L (3.5-5.1); Total Bilirubin 0.6 mg/dL (0.2-1.3); Total Protein 6.1 g/dL (6.3-8.2)
[2018-01-12 20:40] LABS: Creatine Kinase MB 1.5 ng/mL (0.0-2.4)
--- NOTE | 2018-01-12 20:59 | XR ---
EXAMINATION TYPE: XR chest 1V portable DATE OF EXAM: 01/12/2018 COMPARISON: 01/04/2018 HISTORY: Shortness of breath TECHNIQUE: Single frontal view of the chest is obtained. FINDINGS: Bibasilar opacities are again seen as present on the exam of 01/04/2018, similar in degree. Remainder the lungs are clear. No sizable pneumothorax or pleural effusion. Pulmonary per inflation again could relate to underlying COPD. Osseous structures are grossly intact. Cardiomediastinal silho uette is partially obscured but overall nonenlarged. The known 1.5 cm spiculated right lower lobe pul monary nodule is better demonstrated on CT. IMPRESSION: Bibasilar airspace disease, similar to the prior may represent pneumonia in the appropri ate clinical setting.
--- NOTE | 2018-01-12 21:01 | XR ---
EXAMINATION TYPE: XR KUB portable DATE OF EXAM: 01/12/2018 8:53 PM CLINICAL HISTORY: Abdominal pain and distention TECHNIQUE: Single supine KUB image of the abdomen is obtained. COMPARISON: None. FINDINGS: Exam is limited secondary to patient body habitus and technique: Noninclusion of the periph adrianne of the patient's abdomen. Moderate amount retained colonic stool is noted. No gross dilatation of small bowel. Degenerative changes of the lumbar spine and femoral acetabular joints are present.The lung bases are clear and the osseous structures are intact. IMPRESSION: The exam is suboptimal with noninclusion of the entirety of the abdomen. Moderate amount retained right hemicolonic stool is noted in overall nonobstructive bowel gas pattern.
[2018-01-12 21:12] LABS: Basophils # (A) 0.1 k/uL (0-0.2); Basophils % (A) 0 %; Eosinophils # (A) 0.1 k/uL (0-0.7); Eosinophils % (A) 1 %; HCT 39.2 % (39.0-53.0); HGB 13.2 gm/dL (13.0-17.5); Lymphocytes # (A) 0.5 k/uL (1.0-4.8); Lymphocytes % (A) 2 %; MCH 29.4 pg (25.0-35.0); MCHC 33.7 g/dL (31.0-37.0); MCV 87.3 fL (80.0-100.0); Mean Platelet Volume 6.8; Monocytes # (A) 0.5 k/uL (0-1.0); Monocytes % (A) 2 %; Neutrophils # (A) 26.1 k/uL (1.3-7.7); Neutrophils % (A) 96 %; Platelet Count 255 k/uL (150-450); RBC 4.49 m/uL (4.30-5.90)
[2018-01-12 21:16] LABS: WBC 27.3 k/uL (3.8-10.6)
[2018-01-12 21:38] LABS: Appearance,Urine Clear (Clear); Bilirubin,Urine Negative (Negative); Blood,Urine Negative (Negative); Color,Urine Yellow; Glucose,Urine (UA) Negative (Negative); Ketones,Urine Negative (Negative); Leukocyte Esterase,Urine Negative (Negative); Nitrite,Urine Negative (Negative); PH, Urine 6.5 (5.0-8.0); Protein,Urine Negative (Negative); Specific Gravity,Urine 1.012 (1.001-1.035); Urobilinogen,Urine <2.0 mg/dL (<2.0)
[2018-01-12] MEDS ORDERED: ACETAMINOPHEN IV (For NPO) 1,000 MG in EMPTY BAG 1 BAG IVPB STA (21:39)
[2018-01-12 21:48] LABS: Amphetamine Screen,Urine Not Detected (NotDetected); Barbiturate Screen,Urine Not Detected (NotDetected); Benzodiazepines Screen,Urine Detected (NotDetected); Cocaine Screen,Urine Not Detected (NotDetected); Methadone Screen, Urine Not Detected (NotDetected); Opiate Screen,Urine Not Detected (NotDetected); Oxycodone Screen, Urine Not Detected (NotDetected); Phencyclidine Screen,Urine Not Detected (NotDetected); Tricyclic Antidepressant,Urine Detected (NotDetected); Urn Cannabinoid Scrn Not Detected (NotDetected)
[2018-01-12] MEDS ORDERED: LEVOFLOXACIN 750MG-D5W PMX 750 MG in DEXTROSE/WATER 1 150ML.BAG IVPB STA (22:07)
[2018-01-12] MEDS ORDERED: NALOXONE 0.4 MG/ML 1 ML VIAL IV PRN (22:07)
[2018-01-12] MEDS ORDERED: VANCOMYCIN IV PER PHARMACY 1 EACH MISC MISCELLANE PRN (22:07)
[2018-01-12] MEDS ORDERED: DIAZEPAM 5 MG/ML 2 ML INJ IVP STA (22:31)
[2018-01-12] MEDS ORDERED: RX INFO: IV CONTRAST WAS GIVEN 1 EACH MISC MISCELLANE PRN (22:31)
[2018-01-12] MEDS: LACTATED RINGERS 1,000 ML IV SCH (22:37)
--- NOTE | 2018-01-12 23:09 | CT ---
EXAMINATION TYPE: CT brain wo con DATE OF EXAM: 01/12/2018 COMPARISON: NONE HISTORY: Confusion. Shortness of breath. CT DLP: 708.3 mGycm Automated exposure control for dose reduction was used. FINDINGS: There is mild cerebral cortical atrophy. There is no mass effect nor midline shift. There is no sign of intracranial hemorrhage. The calvarium is intact. IMPRESSION: MILD ATROPHY. OTHERWISE NEGATIVE CT SCAN OF THE BRAIN.
--- NOTE | 2018-01-12 23:20 | CT ---
EXAMINATION TYPE: CT abdomen pelvis w con DATE OF EXAM: 01/12/2018 COMPARISON: NONE HISTORY: Confusion, shortness of breath and abdominal distention. CT DLP: 1394.2 mGycm Automated exposure control for dose reduction was used. TECHNIQUE: Helical acquisition of images was performed from the lung bases through the pelvis. CONTRAST: Performed without Oral Contrast and with IV Contrast, patient injected with 80 mL of Isovue 370. FINDINGS: There is patchy pneumonic consolidation or atelectasis at the lung bases. There is no pericardial eff usion. There is no pleural effusion. Liver and spleen appear normal. Bile ducts are not dilated. Gallbladder appears normal. There is no p ancreatic mass. There is no adrenal mass. Kidneys show satisfactory contrast opacification. There is no hydronephrosi s. There is no retroperitoneal adenopathy. There is no ascites. There is no sign of free air. The genoveva endix appears normal. Urinary bladder is large and measures 17 cm in length. There are spondylotic ch anges in the lumbar spine. There is 10% depression of the superior endplate of T11. This is probably old fracture. I see no intestinal wall thickening. There are no dilated loops. There is no free fluid in the pelvis . There is very little contrast in the renal collecting systems on the delayed images suggestive of rakesh e degree of renal failure. IMPRESSION: THERE IS DECREASED CONTRAST IN THE RENAL COLLECTING SYSTEMS ON DELAYED IMAGES THAT SUGGEST SOME DEGRE E OF RENAL FAILURE. DILATED URINARY BLADDER SUGGESTIVE OF BLADDER OUTLET OBSTRUCTION. NORMAL APPENDIX. EXTENSIVE PNEUMONIC INFILTRATES AT THE LUNG BASES AND MORE ON THE RIGHT SIDE.
--- NOTE | 2018-01-12 23:27 | CT ---
EXAMINATION TYPE: CT angio chest DATE OF EXAM: 01/12/2018 11:03 PM COMPARISON: NONE HISTORY: Confusion, shortness of breath and abdominal distention. CT DLP: 468.4 mGycm Automated exposure control for dose reduction was used. CONTRAST: CTA scan of the thorax is performed with IV Contrast, patient injected with 80 mL of Isovue 370, pulm onary embolism protocol. There are 3-D post processed images.. FINDINGS: There is extensive pneumonic infiltrates in the mid and lower lung carter. There is mild right bronch ial adenopathy. Heart is enlarged. There is no pericardial effusion. There is no pleural effusion. Th ere is a small hiatal hernia. Thoracic aorta shows no evidence of aneurysm or dissection. I see no definite filling defects in the pulmonary arteries. There is no mediastinal adenopathy. There are paratracheal lymph nodes that measu re up to 7 mm. IMPRESSION: EXTENSIVE PNEUMONIC INFILTRATES PROBABLY RELATED TO INFLAMMATORY DISEASE. CARDIOMEGALY. NO EVIDENCE OF PULMONARY EMBOLISM. SPONDYLOTIC CHANGES IN THE THORACIC SPINE WITH SLIGHT ANTERIOR WEDGING OF SEVERAL MID AND LOWER THORA CIC VERTEBRA.
[2018-01-12] MEDS ORDERED: CEFEPIME 2 GM in SODIUM CHLORIDE 0.9% 50 ML IVPB STA (23:33)
[2018-01-13] MEDS ORDERED: VANCOMYCIN 1,500 MG in SODIUM CHLORIDE 0.9% 250 ML IVPB ONE ×2
[2018-01-13 00:24] LABS: Glucose,Whole Blood 110 mg/dL (75-99)
[2018-01-13 03:11] LABS: Albumin 2.7 g/dL (3.5-5.0); Calcium 7.7 mg/dL (8.4-10.2); Phosphorus 4.1 mg/dL (2.5-4.5); Potassium 4.8 mmol/L (3.5-5.1); Total Bilirubin 0.3 mg/dL (0.2-1.3); Total Protein 4.8 g/dL (6.3-8.2)
[2018-01-13 03:15] LABS: Basophils % (A) 0 %; Eosinophils % (A) 0 %; HCT 32.7 % (39.0-53.0); Lymphocytes # (A) 0.1 k/uL (1.0-4.8); Lymphocytes % (A) 1 %; MCHC 33.8 g/dL (31.0-37.0); MCV 88.6 fL (80.0-100.0); Mean Platelet Volume 6.4; Monocytes # (A) 0.4 k/uL (0-1.0); Monocytes % (A) 2 %; Neutrophils # (A) 19.4 k/uL (1.3-7.7); Neutrophils % (A) 97 %; Platelet Count 224 k/uL (150-450); RBC 3.69 m/uL (4.30-5.90); RDW 13.8 % (11.5-15.5)
[2018-01-13] MEDS: LACTATED RINGERS 1,000 ML IV SCH ×2 (05:19→12:57)
--- NOTE | 2018-01-13 08:28 | XR ---
EXAMINATION TYPE: XR chest 1V DATE OF EXAM: 01/13/2018 COMPARISON: 01/12/2018 HISTORY: 67-year-old male rule out aspiration, productive cough. TECHNIQUE: Single frontal view of the chest is obtained. FINDINGS: Heart upper limits of normal in size. Mild diffuse interstitial prominence similar to slightly increa sed. Patchy bibasilar densities persist and have also slightly increased. No significant pleural effu xavier. IMPRESSION: 1. Borderline heart size and interstitial prominence slightly more pronounced from prior. Correlate t o exclude mild CHF. 2. Patchy bibasilar infiltrates also slightly increased in the interval. Aspiration or infectious pne umonitis are considerations.
[2018-01-13] MEDS ORDERED: PANTOPRAZOLE 40 MG/10 ML VIAL IV SCH (09:00)
[2018-01-13] MEDS: IPRATROPIUM-ALBUTEROL 3 ML NEB INHALATION SCH ×4 (09:15→20:10)
[2018-01-13] MEDS: SODIUM CHLORIDE 0.9% 1,000 ML IV SCH (12:00)
--- NOTE | 2018-01-13 12:24 | P.CRDCN ---
History of Present Illness Consult date: 01/13/18 Chief complaint: shortness of breath History of present illness: This is a pleasant 67-year-old gentleman with a past medical history significant for chronic respiratory failure on home oxygen secondary to COPD as well as hypertension who presented to the hospital back complaining of worsening dyspnea. The patient just was discharged from the hospital a few days ago after he was admitted with COPD exacerbation and at that point he was seen by Dr. Wylie. The patient stated that after he left home he was experiencing worsening exertional dyspnea associated with cough and some sputum. No fever and no chills. No chest pain or chest discomfort. We get involved in the care of the patient because of tachycardia. He is in sinus tachycardia with a heart rate around 110 bpm. His blood pressure has been slightly elevated as well. The patient was receiving atenolol at home for hypertension. I am going to start the patient on Cardizem and DC the atenolol, in view of the COPD/wheezing. He underwent an echocardiogram back in October 2017 and that revealed mildly impaired LV function with an ejection fraction of 45%. Past Medical History Past Medical History: COPD, Hypertension Additional Past Medical History / Comment(s): Advanced COPD with an FEV1 of 36% of predicted, right lower lobes. Related nodule measuring 1.5 x 0.9 cm in size that looks suspicious for malignancy. The patient is not a candidate for any further interventions, hypertension, lower symmetry edema, CHF with mild impairment of the LV function and ejection fraction 45-50% History of Any Multi-Drug Resistant Organisms: None Reported Past Surgical History: No Surgical Hx Reported Past Psychological History: Anxiety Smoking Status: Former smoker Past Alcohol Use History: None Reported Past Drug Use History: None Reported - Past Family History Father Family Medical History: No Reported History Medications and Allergies Home Medications Medication Instructions Recorded Confirmed Type Potassium Chloride [Klor-Con 10 meq PO AC-BID 10/18/17 01/12/18 History Sprinkle] ALPRAZolam [Xanax] 0.25 mg PO BID PRN 01/04/18 01/12/18 History Albuterol Nebulized [Ventolin 2.5 mg INHALATION Q4H PRN 01/04/18 01/12/18 History Nebulized] Albuterol Sulfate [Proair Hfa] 2 puff INHALATION RT-Q6H PRN 01/04/18 01/12/18 History Atenolol [Tenormin] 50 mg PO DAILY 01/04/18 01/12/18 History Furosemide [Lasix] 20 mg PO DAILY 01/04/18 01/12/18 History Levalbuterol Nebulized [Xopenex 1.25 mg INHALATION RT-Q8H PRN 01/04/18 01/12/18 History Nebulized] Montelukast [Singulair] 10 mg PO HS 01/04/18 01/12/18 History Omeprazole 40 mg PO DAILY 01/04/18 01/12/18 History Tiotropium [place] [Spiriva] 1 cap INHALATION RT-DAILY 01/04/18 01/12/18 History Umeclidinium Brm/Vilanterol Tr 1 puff INHALATION DAILY 01/07/18 01/12/18 History [Anoro Ellipta 62.5-25 Mcg INH] Aspirin 81 mg PO DAILY chew 01/11/18 01/12/18 Rx Cyclobenzaprine [Flexeril] 10 mg PO TID #30 tab 01/11/18 01/12/18 Rx Levofloxacin [Levaquin] 750 mg PO DAILY #7 tab 01/11/18 01/12/18 Rx Lisinopril [Zestril] 5 mg PO DAILY #30 tab 01/11/18 01/12/18 Rx Verapamil [Isoptin] 40 mg PO BID #60 tab 01/11/18 01/12/18 Rx traMADol HCL [Ultram] 100 mg PO Q8H PRN #21 tablet 01/11/18 01/12/18 Rx guaiFENesin [Mucinex] 600 mg PO Q12HR PRN 01/12/18 01/12/18 History predniSONE See Taper PO DIRECTED 01/12/18 01/12/18 History Allergies Allergy/AdvReac Type Severity Reaction Status Date / Time Penicillins Allergy Swelling Verified 01/12/18 20:03 Physical Exam Vitals: Vital Signs Temp Pulse Resp BP Pulse Ox 01/13/18 11:00 101 H 29 H 117/71 96 01/13/18 10:00 101 H 26 H 147/78 98 01/13/18 09:24 104 H 01/13/18 09:15 108 H 01/13/18 09:00 103 H 27 H 115/74 96 01/13/18 08:00 97.2 F L 102 H 27 H 105/70 95 01/13/18 07:00 100 23 101/67 98 01/13/18 06:00 92 28 H 101/57 97 01/13/18 05:00 95 24 93/54 94 L 01/13/18 04:00 97.0 F L 99 28 H 105/69 96 01/13/18 03:00 96 26 H 107/70 97 01/13/18 02:00 98.6 F 105 H 26 H 97/65 96 01/13/18 01:00 109 H 26 H 105/67 95 01/13/18 00:22 99.2 F 109 H 26 H 96 01/13/18 00:04 111 H 27 H 95 01/12/18 23:00 98.8 F 110 H 26 H 90/52 95 01/12/18 22:20 119 H 30 H 90/54 97 01/12/18 21:45 123 H 30 H 85/51 94 L 01/12/18 21:17 130 H 32 H 90/52 95 01/12/18 20:30 99.2 F 01/12/18 20:28 127 H 20 01/12/18 20:16 133 H 38 H 80/42 98 01/12/18 20:11 135 H 22 01/12/18 20:06 131 H 16 78/38 95 01/12/18 20:04 123 H 28 H 78/38 96 01/12/18 19:52 133 H 16 116/83 95 01/12/18 19:28 99.9 F H 132 H 28 H 81/41 88 L Intake and Output 01/12/18 01/13/18 01/13/18 22:59 06:59 14:59 Intake Total 1200 990 Output Total 50 9815 560 Balance -50 -1340 430 Intake: IV 1200 750 Cefepime 2 gm In Sodium 50 Chloride 0.9% 50 ml @ 100 mls/hr IVPB ONCE STA Rx# :[id number] Lactated Ringers 1,000 ml 900 750 @ 150 mls/hr IV .Q6H40M [facility] Rx#:[id number] Vancomycin 1,500 mg In 250 Sodium Chloride 0.9% 250 ml @ 125 mls/hr IVPB ONCE ONE Rx#:[id number] Oral 240 Output: Urine 50 1845 560 Uretheral (Reed) 500 Other 700 Other: Voiding Method Indwelling Catheter Indwelling Catheter Weight 97.522 kg 83.7 kg - Constitutional General appearance: mild distress - Respiratory Respiratory: bilateral: diminished, wheezing - Cardiovascular Rhythm: regular Heart sounds: normal: S1, S2 Results 01/13/18 02:39 01/13/18 02:39 Cardiac Enzymes 01/12/18 01/12/18 01/12/18 Range/Units 19:20 19:20 19:20 AST 27 (17-59) U/L CK-MB (CK-2) 1.5 (0.0-2.4) ng/mL Troponin I 0.028 (0.000-0.034) ng/mL 01/13/18 Range/Units 02:39 AST 25 (17-59) U/L CK-MB (CK-2) (0.0-2.4) ng/mL Troponin I (0.000-0.034) ng/mL Coagulation 01/12/18 Range/Units 19:20 PT 10.5 (9.0-12.0) sec APTT 24.8 (22.0-30.0) sec CBC 01/12/18 01/13/18 Range/Units 21:04 02:39 WBC 27.3 H* 20.0 H (3.8-10.6) k/uL RBC 4.49 3.69 L (4.30-5.90) m/uL Hgb 13.2 11.0 L (13.0-17.5) gm/dL Hct 39.2 32.7 L (39.0-53.0) % Plt Count 255 224 (150-450) k/uL Comprehensive Metabolic Panel 01/12/18 01/13/18 Range/Units 19:20 02:39 Sodium 124 L 126 L (137-145) mmol/L Potassium 5.2 H 4.8 (3.5-5.1) mmol/L Chloride 85 L 94 L (98-107) mmol/L Carbon Dioxide 27 25 (22-30) mmol/L BUN 34 H 32 H (9-20) mg/dL Creatinine 1.48 H 1.10 (0.66-1.25) mg/dL Glucose 84 102 H (74-99) mg/dL Calcium 8.7 7.7 L (8.4-10.2) mg/dL AST 27 25 (17-59) U/L ALT 49 41 (21-72) U/L Alkaline Phosphatase 82 63 (38-126) U/L Total Protein 6.1 L 4.8 L (6.3-8.2) g/dL Albumin 3.6 2.7 L (3.5-5.0) g/dL Current Medications Generic Name Dose Route Start Last Admin Trade Name Freq PRN Reason Stop Dose Admin Albuterol/Ipratropium 3 ml 01/13/18 08:00 01/13/18 12:12 Duoneb 0.5 Mg-3 Mg/3 Ml Soln INHALATION 3 ml RT-QID BHUMIKA Administration Budesonide 1 mg 01/13/18 20:00 Pulmicort INHALATION RT-BID [facility] Formoterol Fumarate 20 mcg 01/13/18 20:00 Perforomist INHALATION RT-BID [facility] Levofloxacin 750 mg/ IV 150 mls @ 100 mls/hr 01/13/18 21:00 Solution IVPB HS [facility] Vancomycin HCl 1,750 mg/ 250 mls @ 125 mls/hr 01/13/18 18:00 Sodium Chloride IVPB Q12H BHUMIKA Sodium Chloride 1,000 mls @ 75 mls/hr 01/13/18 12:00 Saline 0.9% IV .[id number] [facility] Methylprednisolone Sodium Succinate 60 mg 01/13/18 12:00 Solu-Medrol IV Q6HR [facility] Miscellaneous Information 1 each 01/12/18 22:31 Rx Info: Iv Contrast Was Given MISCELLANE 01/14/18 22:31 DAILY PRN Per Protocol Naloxone HCl 0.2 mg 01/12/18 22:07 Narcan IV Q2M PRN Opioid Reversal Pantoprazole Sodium 40 mg 01/14/18 09:00 Protonix PO DAILY [facility] Intake and Output 01/12/18 01/13/18 01/13/18 22:59 06:59 14:59 Intake Total 1200 990 Output Total 50 2645 560 Balance -50 -1345 430 Intake: IV 1200 750 Cefepime 2 gm In Sodium 50 Chloride 0.9% 50 ml @ 100 mls/hr IVPB ONCE STA Rx# :[id number] Lactated Ringers 1,000 ml 900 750 @ 150 mls/hr IV .Q6H40M [facility] Rx#:[id number] Vancomycin 1,500 mg In 250 Sodium Chloride 0.9% 250 ml @ 125 mls/hr IVPB ONCE ONE Rx#:[id number] Oral 240 Output: Urine 50 1845 560 Uretheral (Reed) 500 Other 700 Other: Voiding Method Indwelling Catheter Indwelling Catheter Weight 97.522 kg 83.7 kg 01/13/18 02:39 01/13/18 02:39 Assessment and Plan Assessment: assessment #1 acute on chronic respiratory failure #2 sinus tachycardia #3 systemic hypertension #4 COPD Plan #1 DC atenolol and start the patient on Cardizem CD #2 monitor the patient in the intensive care unit for additional 24 hours #3 follow-up with the patient. Thank you for allowing us but spitting his care and we'll continue following up with him
[2018-01-13] MEDS: methylPREDNISolone SOD SUCCI 125 MG/2 ML VIAL IV SCH ×3 (12:57→23:20)
[2018-01-13] MEDS ORDERED: VANCOMYCIN 1,500 MG in SODIUM CHLORIDE 0.9% 250 ML IVPB SCH (13:00)
--- NOTE | 2018-01-13 13:09 | P.CNPUL ---
History of Present Illness Consult date: 01/13/18 Requesting physician: Nadege Kim Reason for consult: COPD, pneumonia Chief complaint: Altered mental status and shortness of breath History of present illness: This is a 67-year-old white male with known history of severe end-stage COPD, O2 dependent, prednisone dependent, patient was recently in the hospital for acute exacerbation of COPD, and he was discharged home on Thursday, 2 days ago. Patient was brought in via EMS with chief complaint of being lethargic, and he was complaining of shortness of breath, cough, and wheezing. It was felt that the patient may have been taking too much Xanax and tramadol, and that was affecting his mental status and affecting his pulmonary status at the same time. According to the ER note, the patient took 2 Xanax and 2 Ultram tablets prior to arrival to the ER. CT of the chest and chest x-ray clearly showed evidence of bilateral pneumonia. Patient is describing cough, wheezing, shortness of breath, cough is productive with thick yellow phlegm. Denies fever or chills, no hemoptysis, no chest pain. I reviewed the chest x-ray myself and the CT of the chest, clearly the patient has extensive infiltrates in both lungs. And there is a small hiatal hernia noted. No pulmonary embolism was noted. There was also evidence of spondylitic changes in thoracic spine with slight anterior wedging of the several mid and lower thoracic vertebral. CBC showed evidence of leukocytosis with WBC count of 27.3. His sodium was 126. Patient was also noted to have elevated lactic acid. Received about 3 L of fluid boluses overnight, and his repeat lactic acid this morning is 1.3. Patient is feeling much per her today compared to last night, apparently he required to be on BiPAP for a few hours before he was transferred to the ICU. However upon arrival to the ICU, patient was placed on a nasal cannula, and already on bronchodilators, steroids, and antibiotics. Patient is hemodynamically stable. And again feeling better compared to how he felt yesterday. He is off BiPAP at present. Denies any headaches, no blurred vision , no dizziness. No nausea no vomiting no abdominal pain no melena no hematemesis no dysuria and no frequency no urgency. Review of Systems 14 point review of systems were obtained, please refer to pertinent positives and negatives as noted in HPI. Otherwise remaining systems are negative. Past Medical History Past Medical History: COPD, Hypertension Additional Past Medical History / Comment(s): Advanced COPD with an FEV1 of 36% of predicted, right lower lobes. Related nodule measuring 1.5 x 0.9 cm in size that looks suspicious for malignancy. The patient is not a candidate for any further interventions, hypertension, lower symmetry edema, CHF with mild impairment of the LV function and ejection fraction 45-50% History of Any Multi-Drug Resistant Organisms: None Reported Past Surgical History: No Surgical Hx Reported Past Psychological History: Anxiety Smoking Status: Former smoker Past Alcohol Use History: None Reported Past Drug Use History: None Reported - Past Family History Father Family Medical History: No Reported History Medications and Allergies Home Medications Medication Instructions Recorded Confirmed Type Potassium Chloride [Klor-Con 10 meq PO AC-BID 10/18/17 01/12/18 History Sprinkle] ALPRAZolam [Xanax] 0.25 mg PO BID PRN 01/04/18 01/12/18 History Albuterol Nebulized [Ventolin 2.5 mg INHALATION Q4H PRN 01/04/18 01/12/18 History Nebulized] Albuterol Sulfate [Proair Hfa] 2 puff INHALATION RT-Q6H PRN 01/04/18 01/12/18 History Atenolol [Tenormin] 50 mg PO DAILY 01/04/18 01/12/18 History Furosemide [Lasix] 20 mg PO DAILY 01/04/18 01/12/18 History Levalbuterol Nebulized [Xopenex 1.25 mg INHALATION RT-Q8H PRN 01/04/18 01/12/18 History Nebulized] Montelukast [Singulair] 10 mg PO HS 01/04/18 01/12/18 History Omeprazole 40 mg PO DAILY 01/04/18 01/12/18 History Tiotropium [place] [Spiriva] 1 cap INHALATION RT-DAILY 01/04/18 01/12/18 History Umeclidinium Brm/Vilanterol Tr 1 puff INHALATION DAILY 01/07/18 01/12/18 History [Anoro Ellipta 62.5-25 Mcg INH] Aspirin 81 mg PO DAILY chew 01/11/18 01/12/18 Rx Cyclobenzaprine [Flexeril] 10 mg PO TID #30 tab 01/11/18 01/12/18 Rx Levofloxacin [Levaquin] 750 mg PO DAILY #7 tab 01/11/18 01/12/18 Rx Lisinopril [Zestril] 5 mg PO DAILY #30 tab 01/11/18 01/12/18 Rx Verapamil [Isoptin] 40 mg PO BID #60 tab 01/11/18 01/12/18 Rx traMADol HCL [Ultram] 100 mg PO Q8H PRN #21 tablet 01/11/18 01/12/18 Rx guaiFENesin [Mucinex] 600 mg PO Q12HR PRN 01/12/18 01/12/18 History predniSONE See Taper PO DIRECTED 01/12/18 01/12/18 History Allergies Allergy/AdvReac Type Severity Reaction Status Date / Time Penicillins Allergy Swelling Verified 01/12/18 20:03 Physical Exam Vitals: Vital Signs Temp Pulse Resp BP Pulse Ox 01/13/18 12:27 102 H 01/13/18 12:15 106 H 01/13/18 11:00 101 H 29 H 117/71 96 01/13/18 10:00 101 H 26 H 147/78 98 01/13/18 09:24 104 H 01/13/18 09:15 108 H 01/13/18 09:00 103 H 27 H 115/74 96 01/13/18 08:00 97.2 F L 102 H 27 H 105/70 95 01/13/18 07:00 100 23 101/67 98 01/13/18 06:00 92 28 H 101/57 97 01/13/18 05:00 95 24 93/54 94 L 01/13/18 04:00 97.0 F L 99 28 H 105/69 96 01/13/18 03:00 96 26 H 107/70 97 01/13/18 02:00 98.6 F 105 H 26 H 97/65 96 01/13/18 01:00 109 H 26 H 105/67 95 01/13/18 00:22 99.2 F 109 H 26 H 96 01/13/18 00:04 111 H 27 H 95 01/12/18 23:00 98.8 F 110 H 26 H 90/52 95 01/12/18 22:20 119 H 30 H 90/54 97 01/12/18 21:45 123 H 30 H 85/51 94 L 01/12/18 21:17 130 H 32 H 90/52 95 01/12/18 20:30 99.2 F 01/12/18 20:28 127 H 20 01/12/18 20:16 133 H 38 H 80/42 98 01/12/18 20:11 135 H 22 01/12/18 20:06 131 H 16 78/38 95 01/12/18 20:04 123 H 28 H 78/38 96 01/12/18 19:52 133 H 16 116/83 95 01/12/18 19:28 99.9 F H 132 H 28 H 81/41 88 L Intake and Output 01/12/18 01/13/18 01/13/18 22:59 06:59 14:59 Intake Total 1200 990 Output Total 50 2545 560 Balance -50 -1345 430 Intake: IV 1200 750 Cefepime 2 gm In Sodium 50 Chloride 0.9% 50 ml @ 100 mls/hr IVPB ONCE STA Rx# :[id number] Lactated Ringers 1,000 ml 900 750 @ 150 mls/hr IV .Q6H40M COUNT INCLUDES THE [facility] Rx#:[id number] Vancomycin 1,500 mg In 250 Sodium Chloride 0.9% 250 ml @ 125 mls/hr IVPB ONCE ONE Rx#:[id number] Oral 240 Output: Urine 50 1845 560 Uretheral (Reed) 500 Other 700 Other: Voiding Method Indwelling Catheter Indwelling Catheter Weight 97.522 kg 83.7 kg GENERAL EXAM: Alert, active, comfortable in no apparent distress. HEAD: Normocephalic. EYES: Normal reaction of pupils, equal size. NOSE: Clear with pink turbinates. THROAT: No erythema or exudates. NECK: No masses, no JVD. CHEST: No chest wall deformity. LUNGS: Equal air entry with bilateral end expiratory wheeze. Diminished. CVS: S1 and S2 normal with no audible murmur, regular rhythm. ABDOMEN: No hepatosplenomegaly, normal bowel sounds, no guarding or rigidity. SPINE: No scoliosis or deformity SKIN: No rashes CENTRAL NERVOUS SYSTEM: No focal deficits, tone is normal in all 4 extremities. EXTREMITIES: There is no peripheral edema. No clubbing, no cyanosis. Peripheral pulses are intact. Results - Laboratory Findings CBC and BMP: 01/13/18 02:39 01/13/18 02:39 PT/INR, D-dimer PT 10.5 sec (9.0-12.0) 01/12/18 19:20 INR 1.1 (<1.2) 01/12/18 19:20 D-Dimer 0.57 mg/L FEU (<0.60) 01/12/18 19:20 Abnormal lab findings: Abnormal Labs 01/12/18 01/12/18 01/12/18 19:20 19:20 20:48 WBC RBC Hgb Hct Neutrophils # Lymphocytes # Sodium 124 L Potassium 5.2 H Chloride 85 L BUN 34 H Creatinine 1.48 H Glucose POC Glucose (mg/dL) Plasma Lactic Acid Benjamin 4.0 H* Calcium Total Protein 6.1 L Albumin U Tricyclic Antidepress Detected H U Benzodiazepines Scrn Detected H 01/12/18 01/12/18 01/13/18 21:04 22:35 00:21 WBC 27.3 H* RBC Hgb Hct Neutrophils # 26.1 H Lymphocytes # 0.5 L Sodium Potassium Chloride BUN Creatinine Glucose POC Glucose (mg/dL) 110 H Plasma Lactic Acid Benjamin 3.5 H* Calcium Total Protein Albumin U Tricyclic Antidepress U Benzodiazepines Scrn 01/13/18 01/13/18 02:39 02:39 WBC 20.0 H RBC 3.69 L Hgb 11.0 L Hct 32.7 L Neutrophils # 19.4 H Lymphocytes # 0.1 L Sodium 126 L Potassium Chloride 94 L BUN 32 H Creatinine Glucose 102 H POC Glucose (mg/dL) Plasma Lactic Acid Benjamin Calcium 7.7 L Total Protein 4.8 L Albumin 2.7 L U Tricyclic Antidepress U Benzodiazepines Scrn - Diagnostic Findings Chest x-ray: image reviewed (As noted in HPI.) CT scan - chest: image reviewed Assessment and Plan Assessment: Impression: 1 acute on chronic hypoxic respiratory failure secondary to COPD exacerbation. And secondary to pneumonia. 2 acute sepsis secondary to pneumonia. Most likely healthcare acquired pneumonia. 3 history of right lower lobe spiculated nodule, suspicious for malignancy, not clearly appreciated on the chest x-ray or CT of the chest on this admission, but has been present previously, obviously the patient is not a candidate for any surgical intervention. 4 history of chronic hypoxic respiratory failure 5 history of hypertension 6 history of LV dysfunction ejection fraction of 45% 7 history of chronic areas of deep vein thrombosis with recurrent episodes of lower extremities edema. 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 And pneumonia. Recommendation: Continue present treatment plan including fluids, oxygen, bronchodilators, steroids, GI and DVT prophylaxis, may have to consider bronchoscopy if the patient does not improve much over the next couple of days. Patient could be transferred out of the ICU today, and we'll continue to follow. Orders placed on the chart. Time with Patient: Greater than 30
--- NOTE | 2018-01-13 14:32 | P.HPIM ---
History of Present Illness H&P Date: 01/13/18 This is a 67 years old male patient of Dr. Owen with past medical history of COPD, hypertension, chronic systolic heart failure with ejection fraction last noted to be 45-50% in October 2017, chronic hypoxic respiratory failure with home O2 at 2 L nasal cannula. Patient was just hospitalized from January 04 through January 11 for COPD exacerbation, acute on chronic systolic heart failure and discharged home. Patient states that he went home and sat on the couch and was having a hard time breathing. There was concern from a niece that he may have taken too Xanax and possibly to Ultram. He has had worsening cough with dark green sputum production. He came back into [facility] emergency center for evaluation where he found to have a lactic acid of 4 and was given 2 L of IV fluid with repeat lactic acid 1.3. He was tachycardic running in the 136 and blood pressure was low at 81/41 and pulse ox 88%. Patient was placed on BiPAP. His white count was elevated from time of discharge to 27.3. EKG was a sinus tachycardia. D-dimer was within normal limits, proBNP was 362, troponin 0.028. Sodium was done on 124 with potassium of 5.2, BUN 34 and creatinine 1.48. Ammonia level was less than 9. Urinalysis was negative for nitrate and leukoesterase. Urine drug screen was positive for tricyclic antidepressants and benzodiazepines. Imaging studies done included a chest x-ray that showed bibasilar airspace disease with marked prior May represent pneumonia. KUB of the abdomen for abdominal pain and distention which was suboptimal and not inconclusive. Moderate amount of retained right jl-colonic stool. Patient states that he has had abdominal bloating for many months with no change. CT of the abdomen and pelvis with contrast revealed decreased contrast and the renal collection systems. Images suggest some degree of renal failure. Dilated urinary bladder suggestive bladder outlet obstruction. Normal appendix. Extensive pneumonic infiltrates at the lung bases and more on the right side. CAT scan of the brain showed mild atrophy otherwise negative scan. CTA of the chest showed extensive pneumonic infiltrates probably related to inflammatory disease. Cardiomegaly. No evidence of pulmonary embolism. Spondylotic changes in the thoracic spine with slight anterior wedging of several mid and lower thoracic vertebrae. Repeat chest x-ray done this morning shows borderline heart size and interstitial prominence slightly more pronounced from prior. Correlate to exclude mild heart failure. Patchy bibasilar infiltrates also slightly increased in the interval. Aspiration of infectious pneumonitis are considerations. Due to sepsis and hypotension, patient was admitted into the intensive care unit. Consults in place with cardiology and pulmonary medicine. Review of Systems All systems: negative Constitutional: Reports fatigue, Reports malaise, Reports weakness, Denies chills, Denies fever Eyes: denies blurred vision, denies pain Ears, nose, mouth and throat: Denies dental pain, Denies headache, Denies mouth pain, Denies sore throat Cardiovascular: Reports decreased exercise tolerance, Reports dyspnea on exertion, Denies chest pain, Denies edema, Denies leg edema, Denies lightheadedness, Denies shortness of breath, Denies syncope Respiratory: Reports cough, Reports cough with sputum, Reports dyspnea, Reports excessive sputum, Reports home oxygen, Reports wheezing, Denies hemoptysis Gastrointestinal: Denies abdominal pain, Denies diarrhea, Denies nausea, Denies vomiting Musculoskeletal: Denies myalgias Integumentary: Denies pruritus, Denies rash Neurological: Denies numbness, Denies weakness Psychiatric: Denies anxiety, Denies depression Endocrine: Denies fatigue, Denies weight change Past Medical History Past Medical History: COPD, Hypertension Additional Past Medical History / Comment(s): Advanced COPD with an FEV1 of 36% of predicted, right lower lobes. Related nodule measuring 1.5 x 0.9 cm in size that looks suspicious for malignancy. The patient is not a candidate for any further interventions, hypertension, lower symmetry edema, CHF with mild impairment of the LV function and ejection fraction 45-50% History of Any Multi-Drug Resistant Organisms: None Reported Past Surgical History: No Surgical Hx Reported Past Psychological History: Anxiety Smoking Status: Former smoker Past Alcohol Use History: None Reported Past Drug Use History: None Reported - Past Family History Father Family Medical History: No Reported History Medications and Allergies Home Medications Medication Instructions Recorded Confirmed Type Potassium Chloride [Klor-Con 10 meq PO AC-BID 10/18/17 01/12/18 History Sprinkle] ALPRAZolam [Xanax] 0.25 mg PO BID PRN 01/04/18 01/12/18 History Albuterol Nebulized [Ventolin 2.5 mg INHALATION Q4H PRN 01/04/18 01/12/18 History Nebulized] Albuterol Sulfate [Proair Hfa] 2 puff INHALATION RT-Q6H PRN 01/04/18 01/12/18 History Atenolol [Tenormin] 50 mg PO DAILY 01/04/18 01/12/18 History Furosemide [Lasix] 20 mg PO DAILY 01/04/18 01/12/18 History Levalbuterol Nebulized [Xopenex 1.25 mg INHALATION RT-Q8H PRN 01/04/18 01/12/18 History Nebulized] Montelukast [Singulair] 10 mg PO HS 01/04/18 01/12/18 History Omeprazole 40 mg PO DAILY 01/04/18 01/12/18 History Tiotropium Causey [Spiriva] 1 cap INHALATION RT-DAILY 01/04/18 01/12/18 History Umeclidinium Brm/Vilanterol Tr 1 puff INHALATION DAILY 01/07/18 01/12/18 History [Anoro Ellipta 62.5-25 Mcg INH] Aspirin 81 mg PO DAILY chew 01/11/18 01/12/18 Rx Cyclobenzaprine [Flexeril] 10 mg PO TID #30 tab 01/11/18 01/12/18 Rx Levofloxacin [Levaquin] 750 mg PO DAILY #7 tab 01/11/18 01/12/18 Rx Lisinopril [Zestril] 5 mg PO DAILY #30 tab 01/11/18 01/12/18 Rx Verapamil [Isoptin] 40 mg PO BID #60 tab 01/11/18 01/12/18 Rx traMADol HCL [Ultram] 100 mg PO Q8H PRN #21 tablet 01/11/18 01/12/18 Rx guaiFENesin [Mucinex] 600 mg PO Q12HR PRN 01/12/18 01/12/18 History predniSONE See Taper PO DIRECTED 01/12/18 01/12/18 History Allergies Allergy/AdvReac Type Severity Reaction Status Date / Time Penicillins Allergy Swelling Verified 01/12/18 20:03 Physical Exam Vitals: Vital Signs Temp Pulse Resp BP Pulse Ox 01/13/18 13:00 113 H 29 H 119/74 95 01/13/18 12:27 102 H 01/13/18 12:15 106 H 01/13/18 12:00 98.1 F 103 H 28 H 112/73 96 01/13/18 11:00 101 H 29 H 117/71 96 01/13/18 10:00 101 H 26 H 147/78 98 01/13/18 09:24 104 H 01/13/18 09:15 108 H 01/13/18 09:00 103 H 27 H 115/74 96 01/13/18 08:00 97.2 F L 102 H 27 H 105/70 95 01/13/18 07:00 100 23 101/67 98 01/13/18 06:00 92 28 H 101/57 97 01/13/18 05:00 95 24 93/54 94 L 01/13/18 04:00 97.0 F L 99 28 H 105/69 96 01/13/18 03:00 96 26 H 107/70 97 01/13/18 02:00 98.6 F 105 H 26 H 97/65 96 01/13/18 01:00 109 H 26 H 105/67 95 01/13/18 00:22 99.2 F 109 H 26 H 96 01/13/18 00:04 111 H 27 H 95 01/12/18 23:00 98.8 F 110 H 26 H 90/52 95 01/12/18 22:20 119 H 30 H 90/54 97 01/12/18 21:45 123 H 30 H 85/51 94 L 01/12/18 21:17 130 H 32 H 90/52 95 01/12/18 20:30 99.2 F 01/12/18 20:28 127 H 20 01/12/18 20:16 133 H 38 H 80/42 98 01/12/18 20:11 135 H 22 01/12/18 20:06 131 H 16 78/38 95 01/12/18 20:04 123 H 28 H 78/38 96 01/12/18 19:52 133 H 16 116/83 95 01/12/18 19:28 99.9 F H 132 H 28 H 81/41 88 L Intake and Output 01/12/18 01/13/18 01/13/18 22:59 06:59 14:59 Intake Total 1200 1140 Output Total 50 0505 1060 Balance -50 -1344 80 Intake: IV 1200 750 Cefepime 2 gm In Sodium 50 Chloride 0.9% 50 ml @ 100 mls/hr IVPB ONCE STA Rx# :[id number] Lactated Ringers 1,000 ml 900 750 @ 150 mls/hr IV .[id number] [facility] Rx#:[id number] Vancomycin 1,500 mg In 250 Sodium Chloride 0.9% 250 ml @ 125 mls/hr IVPB ONCE ONE Rx#:[id number] Intake, IV Titration 150 Amount Sodium Chloride 0.9% 1, 150 000 ml @ 75 mls/hr IV . [id number] [facility] Rx#:[id number] Oral 240 Output: Urine 50 1845 1060 Uretheral (Reed) 500 Other 700 Other: Voiding Method Indwelling Catheter Indwelling Catheter Weight 97.522 kg 83.7 kg - Constitutional General appearance: cooperative, in mild acute distress, obese - EENT Eyes: anicteric sclerae, PERRLA, normal appearance ENT: hearing grossly normal - Neck Neck: no lymphadenopathy, normal ROM, no other, no rigidity, no stridor, no thyromegaly - Respiratory Respiratory: bilateral diffuse wheezing with decreased air entry - Cardiovascular Rhythm: Tachycardic Heart sounds: normal: S1, S2 Abnormal Heart Sounds: no systolic murmur, no diastolic murmur, no rub, no S3 Gallop, no S4 Gallop, no click, no other - Gastrointestinal General gastrointestinal: normal bowel sounds, soft - Integumentary Integumentary: no rash - Neurologic Neurologic: CNII-XII intact - Musculoskeletal Musculoskeletal: gait normal, strength equal bilaterally 2+ pitting edema in lower extremity - Psychiatric Psychiatric: A&O x's 3, appropriate affect Results CBC & Chem 7: 01/13/18 02:39 01/13/18 02:39 Labs: Abnormal Lab Results - Last 24 Hours (Table) 01/12/18 01/12/18 01/12/18 Range/Units 19:20 19:20 20:48 WBC (3.8-10.6) k/uL RBC (4.30-5.90) m/uL Hgb (13.0-17.5) gm/dL Hct (39.0-53.0) % Neutrophils # (1.3-7.7) k/uL Lymphocytes # (1.0-4.8) k/uL Sodium 124 L (137-145) mmol/L Potassium 5.2 H (3.5-5.1) mmol/L Chloride 85 L (98-107) mmol/L BUN 34 H (9-20) mg/dL Creatinine 1.48 H (0.66-1.25) mg/dL Glucose (74-99) mg/dL POC Glucose (mg/dL) (75-99) mg/dL Plasma Lactic Acid Benjamin 4.0 H* (0.7-2.0) mmol/L Calcium (8.4-10.2) mg/dL Total Protein 6.1 L (6.3-8.2) g/dL Albumin (3.5-5.0) g/dL U Tricyclic Antidepress Detected H (NotDetected) U Benzodiazepines Scrn Detected H (NotDetected) 01/12/18 01/12/18 01/13/18 Range/Units 21:04 22:35 00:21 WBC 27.3 H* (3.8-10.6) k/uL RBC (4.30-5.90) m/uL Hgb (13.0-17.5) gm/dL Hct (39.0-53.0) % Neutrophils # 26.1 H (1.3-7.7) k/uL Lymphocytes # 0.5 L (1.0-4.8) k/uL Sodium (137-145) mmol/L Potassium (3.5-5.1) mmol/L Chloride (98-107) mmol/L BUN (9-20) mg/dL Creatinine (0.66-1.25) mg/dL Glucose (74-99) mg/dL POC Glucose (mg/dL) 110 H (75-99) mg/dL Plasma Lactic Acid Benjamin 3.5 H* (0.7-2.0) mmol/L Calcium (8.4-10.2) mg/dL Total Protein (6.3-8.2) g/dL Albumin (3.5-5.0) g/dL U Tricyclic Antidepress (NotDetected) U Benzodiazepines Scrn (NotDetected) 01/13/18 01/13/18 Range/Units 02:39 02:39 WBC 20.0 H (3.8-10.6) k/uL RBC 3.69 L (4.30-5.90) m/uL Hgb 11.0 L (13.0-17.5) gm/dL Hct 32.7 L (39.0-53.0) % Neutrophils # 19.4 H (1.3-7.7) k/uL Lymphocytes # 0.1 L (1.0-4.8) k/uL Sodium 126 L (137-145) mmol/L Potassium (3.5-5.1) mmol/L Chloride 94 L (98-107) mmol/L BUN 32 H (9-20) mg/dL Creatinine (0.66-1.25) mg/dL Glucose 102 H (74-99) mg/dL POC Glucose (mg/dL) (75-99) mg/dL Plasma Lactic Acid Benjamin (0.7-2.0) mmol/L Calcium 7.7 L (8.4-10.2) mg/dL Total Protein 4.8 L (6.3-8.2) g/dL Albumin 2.7 L (3.5-5.0) g/dL U Tricyclic Antidepress (NotDetected) U Benzodiazepines Scrn (NotDetected) Thrombosis Risk Factor Assmnt - DVT/VTE Prophylaxis DVT/VTE Prophylaxis: Pharmacologic Prophylaxis ordered Assessment and Plan Plan: 1. Acute on chronic hypoxic respiratory failure secondary to COPD exacerbation and possible gram-negative pneumonia. Pulmonary consult appreciated. Continue DuoNeb treatments 4 times daily, Pulmicort 1 mg twice daily, perform a missed twice daily, Levaquin and vancomycin, Solu-Medrol 60 mg IV every 6 hours. 2. Acute sepsis with septic shock status post fluid resuscitation secondary to pneumonia. Continue as in #1. 3. Chronic hypoxic respiratory failure on home O2 at 2 L nasal cannula. 4. Chronic systolic heart failure. Hold Lasix. 5. Spiculated upper right lower lobe nodule with follow-up in 4 months with a computed tomography scan recommended by pulmonary in the last admission. 6. Former tobacco abuse. Quit 2 years ago, 1-1/2 pack for 40 years. 5. Hypertension, currently hypotensive. Verapamil, lisinopril, atenolol on hold. 7. Sinus tachycardia secondary to sepsis and underlying pulmonary disease. Cardiology consult appreciated. Patient started on Cardizem CD 120 mg daily. 8. 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 9. GI prophylaxis with Protonix. 10. DVT prophylaxis with heparin every 12 CODE STATUS full code Patient will be admitted to the hospital for a minimum of 2 night stay. Discharge plan: To be determined. PT and OT evaluations. Impression and plan of care have been directed as dictated by the signing physician. Valery Germain nurse practitioner acting as scribe for signing physician.
[2018-01-13] MEDS ORDERED: guaiFENesin 600 MG TABLET.ER PO PRN (16:50)
[2018-01-13 17:16] LABS: Glucose,Whole Blood 134 mg/dL (75-99)
[2018-01-13] MEDS: traMADol 50 MG TAB PO PRN (17:42)
[2018-01-13] MEDS: HEPARIN SODIUM,PORCINE 5,000 UNIT/ML 1 ML VIAL SQ SCH ×2 (17:45→23:20)
[2018-01-13] MEDS: INSULIN ASPART 100 UNIT/ML 1 ML 10 ML VIAL SQ SCH ×2 (17:45→23:03)
[2018-01-13] MEDS ORDERED: ALPRAZolam 0.25 MG TAB PO PRN (18:53)
[2018-01-13] MEDS: VANCOMYCIN 1,750 MG in SODIUM CHLORIDE 0.9% 250 ML IVPB SCH (19:05)
[2018-01-13] MEDS: BUDESONIDE 1 MG/2 ML NEBU INHALATION SCH (20:10)
[2018-01-13] MEDS: FORMOTEROL FUMARATE 20 MCG/2 ML NEBU INHALATION SCH (20:10)
[2018-01-13] MEDS: LORazepam 2 MG/ML INJ IV PRN (21:54)
[2018-01-13] MEDS: CYCLOBENZAPRINE 10 MG TAB PO PRN (22:03)
[2018-01-13 22:39] LABS: Glucose,Whole Blood 122 mg/dL (75-99)
[2018-01-13] MEDS: LEVOFLOXACIN 750MG-D5W PMX 750 MG in DEXTROSE/WATER 1 150ML.BAG IVPB SCH (23:03)
[2018-01-14] MEDS: LORazepam 2 MG/ML INJ IV PRN ×5 (00:57→21:28)
[2018-01-14] MEDS: SODIUM CHLORIDE 0.9% 1,000 ML IV SCH (01:00)
[2018-01-14 05:09] LABS: HGB 10.2 gm/dL (13.0-17.5); MCH 29.2 pg (25.0-35.0); MCHC 32.9 g/dL (31.0-37.0); MCV 88.7 fL (80.0-100.0); Mean Platelet Volume 6.7; Platelet Count 214 k/uL (150-450); RBC 3.49 m/uL (4.30-5.90); RDW 14.3 % (11.5-15.5); WBC 12.7 k/uL (3.8-10.6)
[2018-01-14] MEDS: methylPREDNISolone SOD SUCCI 125 MG/2 ML VIAL IV SCH ×4 (05:18→23:19)
[2018-01-14] MEDS: VANCOMYCIN 1,750 MG in SODIUM CHLORIDE 0.9% 250 ML IVPB SCH ×2 (05:18→19:22)
[2018-01-14 05:40] LABS: Anion Gap 5 mmol/L; Blood Urea Nitrogen 22 mg/dL (9-20); Calcium 8.4 mg/dL (8.4-10.2); Carbon Dioxide 28 mmol/L (22-30); Chloride 96 mmol/L (98-107); Glucose 116 mg/dL (74-99); Magnesium 2.3 mg/dL (1.6-2.3); Phosphorus 2.6 mg/dL (2.5-4.5); Potassium 4.5 mmol/L (3.5-5.1); Sodium 129 mmol/L (137-145)
[2018-01-14 07:05] LABS: Glucose,Whole Blood 116 mg/dL (75-99)
[2018-01-14] MEDS: FORMOTEROL FUMARATE 20 MCG/2 ML NEBU INHALATION SCH ×2 (07:21→19:54)
[2018-01-14] MEDS: IPRATROPIUM-ALBUTEROL 3 ML NEB INHALATION SCH ×4 (07:21→19:54)
[2018-01-14] MEDS: BUDESONIDE 1 MG/2 ML NEBU INHALATION SCH ×2 (07:21→19:54)
[2018-01-14] MEDS: HEPARIN SODIUM,PORCINE 5,000 UNIT/ML 1 ML VIAL SQ SCH ×3 (08:17→23:19)
[2018-01-14] MEDS: INSULIN ASPART 100 UNIT/ML 1 ML 10 ML VIAL SQ SCH ×4 (08:17→21:04)
[2018-01-14] MEDS: PANTOPRAZOLE 40 MG TABLET PO SCH (08:18)
[2018-01-14] MEDS: ALPRAZolam 0.25 MG TAB PO PRN ×2 (08:18→21:06)
[2018-01-14] MEDS ORDERED: DILTIAZEM CD 120 MG CAP.ER.24H PO SCH (09:00)
--- NOTE | 2018-01-14 09:11 | XR ---
EXAMINATION TYPE: XR chest 1V DATE OF EXAM: 01/14/2018 COMPARISON: 01/13/2018 HISTORY: Shortness of breath. Concern for aspiration. Productive cough. TECHNIQUE: Single frontal view of the chest is obtained. FINDINGS: Heart is mildly enlarged. Diffuse interstitial prominence and bibasilar airspace disease i s unchanged from the prior. Lung apices are well aerated. No sizable pleural effusion or pneumothorax . Osseous structures are grossly intact. IMPRESSION: Similar-appearing bibasilar opacities that could represent pneumonia from aspiration in the clinical suspicion. Alternatively these could represent atelectasis.
[2018-01-14] MEDS: CYCLOBENZAPRINE 10 MG TAB PO PRN ×2 (10:24→23:19)
[2018-01-14 11:13] VITALS: BMI 27.1
--- NOTE | 2018-01-14 11:51 | P.PN ---
Subjective Progress Note Date: 01/14/18 Principal diagnosis: Sinus tachycardia This is a pleasant 67-year-old gentleman with a past medical history significant for chronic respiratory failure on home oxygen secondary to COPD as well as hypertension who presented to the hospital back complaining of worsening dyspnea. The patient just was discharged from the hospital a few days ago after he was admitted with COPD exacerbation and at that point he was seen by Dr. Wylie. The patient stated that after he left home he was experiencing worsening exertional dyspnea associated with cough and some sputum. No fever and no chills. No chest pain or chest discomfort. We get involved in the care of the patient because of tachycardia. He is in sinus tachycardia with a heart rate around 110 bpm. The patient was receiving atenolol at home for hypertension. The patient was started yesterday on Cardizem by mouth at 120 mg daily. I did stop the atenolol in view of the COPD/wheezing. I'll follow-up with her today, he continues to be slightly tachycardic and I am going to increase the dose of Cardizem to 180 mg by mouth daily. Objective - Vital Signs Vital signs: Vital Signs Temp 97.6 F 01/14/18 04:00 Pulse 121 H 01/14/18 07:47 Resp 26 H 01/14/18 07:00 BP 144/94 01/14/18 07:00 Pulse Ox 96 01/14/18 07:00 Intake & Output 01/13/18 01/14/18 01/14/18 18:59 06:59 18:59 Intake Total 1440 1615 300 Output Total 1685 510 192 Balance -245 1105 108 Weight 86 kg 86 kg Intake: IV 750 1050 300 Lactated Ringers 1,000 ml 750 @ 150 mls/hr IV .Q6H40M [facility] Rx#:[id number] Levofloxacin 750Mg-D5w 100 Pmx 750 mg In Dextrose/ Water 1 150ml.bag @ 100 mls/hr IVPB HS [facility] Rx#: [id number] Sodium Chloride 0.9% 1, 700 300 000 ml @ 75 mls/hr IV . [id number] [facility] Rx#:[id number] Vancomycin 1,500 mg In 250 Sodium Chloride 0.9% 250 ml @ 125 mls/hr IVPB Q16H [facility] Rx#:[id number] Intake, IV Titration 450 325 Amount Sodium Chloride 0.9% 1, 450 75 000 ml @ 75 mls/hr IV . [id number] [facility] Rx#:[id number] Vancomycin 1,750 mg In 250 Sodium Chloride 0.9% 250 ml @ 125 mls/hr IVPB Q12H [facility] Rx#:[id number] Oral 240 240 Output: Urine 1685 510 192 Other: Voiding Method Indwelling Catheter Indwelling Catheter - Constitutional General appearance: Present: no acute distress - Respiratory Respiratory: bilateral: wheezing - Cardiovascular Rhythm: regular Heart sounds: normal: S1, S2 - Labs CBC & Chem 7: 01/14/18 04:42 01/14/18 04:42 Labs: Abnormal Lab Results - Last 24 Hours (Table) 01/13/18 01/13/18 01/14/18 Range/Units 17:13 22:37 04:42 WBC (3.8-10.6) k/uL RBC (4.30-5.90) m/uL Hgb (13.0-17.5) gm/dL Hct (39.0-53.0) % Sodium 129 L (137-145) mmol/L Chloride 96 L (98-107) mmol/L BUN 22 H (9-20) mg/dL Creatinine 0.60 L (0.66-1.25) mg/dL Glucose 116 H (74-99) mg/dL POC Glucose (mg/dL) 134 H 122 H (75-99) mg/dL 01/14/18 01/14/18 Range/Units 04:42 07:03 WBC 12.7 H (3.8-10.6) k/uL RBC 3.49 L (4.30-5.90) m/uL Hgb 10.2 L (13.0-17.5) gm/dL Hct 31.0 L (39.0-53.0) % Sodium (137-145) mmol/L Chloride (98-107) mmol/L BUN (9-20) mg/dL Creatinine (0.66-1.25) mg/dL Glucose (74-99) mg/dL POC Glucose (mg/dL) 116 H (75-99) mg/dL Microbiology - Last 24 Hours (Table) 01/13/18 09:30 Gram Stain - Preliminary Sputum 01/12/18 19:20 Blood Culture - Preliminary Blood No Growth after 24 hours Assessment and Plan Assessment: assessment #1 acute on chronic respiratory failure #2 sinus tachycardia #3 systemic hypertension #4 COPD Plan #1 increase the dose of Cardizem to 180 mg by mouth daily #2 follow-up with the patient. Thank you for allowing us but spitting his care and we'll continue following up with him
[2018-01-14 12:06] LABS: Glucose,Whole Blood 164 mg/dL (75-99)
--- NOTE | 2018-01-14 12:56 | P.PN ---
Subjective Progress Note Date: 01/14/18 Principal diagnosis: Acute on chronic hypoxic respiratory failure secondary to COPD exacerbation and pneumonia. Healthcare acquired. This is a 67-year-old white male with known history of severe end-stage COPD, O2 dependent, prednisone dependent, patient was recently in the hospital for acute exacerbation of COPD, and he was discharged home on Thursday, 2 days ago. Patient was brought in via EMS with chief complaint of being lethargic, and he was complaining of shortness of breath, cough, and wheezing. It was felt that the patient may have been taking too much Xanax and tramadol, and that was affecting his mental status and affecting his pulmonary status at the same time. According to the ER note, the patient took 2 Xanax and 2 Ultram tablets prior to arrival to the ER. CT of the chest and chest x-ray clearly showed evidence of bilateral pneumonia. Patient is describing cough, wheezing, shortness of breath, cough is productive with thick yellow phlegm. Denies fever or chills, no hemoptysis, no chest pain. I reviewed the chest x-ray myself and the CT of the chest, clearly the patient has extensive infiltrates in both lungs. And there is a small hiatal hernia noted. No pulmonary embolism was noted. There was also evidence of spondylitic changes in thoracic spine with slight anterior wedging of the several mid and lower thoracic vertebral. CBC showed evidence of leukocytosis with WBC count of 27.3. His sodium was 126. Patient was also noted to have elevated lactic acid. Received about 3 L of fluid boluses overnight, and his repeat lactic acid this morning is 1.3. Patient is feeling much per her today compared to last night, apparently he required to be on BiPAP for a few hours before he was transferred to the ICU. However upon arrival to the ICU, patient was placed on a nasal cannula, and already on bronchodilators, steroids, and antibiotics. Patient is hemodynamically stable. And again feeling better compared to how he felt yesterday. He is off BiPAP at present. Denies any headaches, no blurred vision , no dizziness. No nausea no vomiting no abdominal pain no melena no hematemesis no dysuria and no frequency no urgency. Patient was reevaluated today on 01/14/2018, patient required placement on BiPAP last night, he was experiencing more episodes of shortness of breath cough and wheezing. Initially he was reluctant to go on BiPAP, but once he was given Ativan, he was able to comply with the BiPAP. Presently on IPAP of 10, EPAP of 5, and he seems to be doing great on that mode of ventilation/noninvasive positive pressure ventilation. Chest x-ray continues to show by basilar infiltrates. This was also noted on the CT of the chest on admission. Patient remains on Levaquin and vancomycin, final microbiology from the sputum is pending. His WBC count seems to be coming down nicely it is 12.7 and his sodium is correcting nicely it is 129 today. The rest of the labs were noted to be unremarkable. Objective - Vital Signs Vital signs: Vital Signs Temp 97.6 F 01/14/18 04:00 Pulse 116 H 01/14/18 12:06 Resp 26 H 01/14/18 07:00 BP 144/94 01/14/18 07:00 Pulse Ox 96 01/14/18 07:00 Intake & Output 01/13/18 01/14/18 01/14/18 18:59 06:59 18:59 Intake Total 1440 1615 300 Output Total 1685 510 192 Balance -245 1105 108 Weight 86 kg 86 kg Intake: IV 750 1050 300 Lactated Ringers 1,000 ml 750 @ 150 mls/hr IV .Q6H40M [facility] Rx#:[id number] Levofloxacin 750Mg-D5w 100 Pmx 750 mg In Dextrose/ Water 1 150ml.bag @ 100 mls/hr IVPB HS [facility] Rx#: [id number] Sodium Chloride 0.9% 1, 700 300 000 ml @ 75 mls/hr IV . [id number] [facility] Rx#:[id number] Vancomycin 1,500 mg In 250 Sodium Chloride 0.9% 250 ml @ 125 mls/hr IVPB Q16H [facility] Rx#:[id number] Intake, IV Titration 450 325 Amount Sodium Chloride 0.9% 1, 450 75 000 ml @ 75 mls/hr IV . [id number] [facility] Rx#:[id number] Vancomycin 1,750 mg In 250 Sodium Chloride 0.9% 250 ml @ 125 mls/hr IVPB Q12H [facility] Rx#:[id number] Oral 240 240 Output: Urine 1685 510 192 Other: Voiding Method Indwelling Catheter Indwelling Catheter - Exam GENERAL EXAM: Revealed a 67-year-old white male, sleepy, on BiPAP. Arousable, and seems to be appropriate. HEAD: Normocephalic. EYES: Normal reaction of pupils, equal size. NOSE: Clear with pink turbinates. THROAT: No erythema or exudates. NECK: No masses, no JVD. CHEST: No chest wall deformity. LUNGS: Equal air entry with bilateral end expiratory wheeze. Diminished. CVS: S1 and S2 normal with no audible murmur, regular rhythm. ABDOMEN: No hepatosplenomegaly, normal bowel sounds, no guarding or rigidity. SPINE: No scoliosis or deformity SKIN: No rashes CENTRAL NERVOUS SYSTEM: No focal deficits, tone is normal in all 4 extremities. EXTREMITIES: There is no peripheral edema. No clubbing, no cyanosis. Peripheral pulses are intact. - Labs CBC & Chem 7: 01/14/18 04:42 01/14/18 04:42 Labs: Abnormal Lab Results - Last 24 Hours (Table) 01/13/18 01/13/18 01/14/18 Range/Units 17:13 22:37 04:42 WBC (3.8-10.6) k/uL RBC (4.30-5.90) m/uL Hgb (13.0-17.5) gm/dL Hct (39.0-53.0) % Sodium 129 L (137-145) mmol/L Chloride 96 L (98-107) mmol/L BUN 22 H (9-20) mg/dL Creatinine 0.60 L (0.66-1.25) mg/dL Glucose 116 H (74-99) mg/dL POC Glucose (mg/dL) 134 H 122 H (75-99) mg/dL 01/14/18 01/14/18 01/14/18 Range/Units 04:42 07:03 12:03 WBC 12.7 H (3.8-10.6) k/uL RBC 3.49 L (4.30-5.90) m/uL Hgb 10.2 L (13.0-17.5) gm/dL Hct 31.0 L (39.0-53.0) % Sodium (137-145) mmol/L Chloride (98-107) mmol/L BUN (9-20) mg/dL Creatinine (0.66-1.25) mg/dL Glucose (74-99) mg/dL POC Glucose (mg/dL) 116 H 164 H (75-99) mg/dL Microbiology - Last 24 Hours (Table) 01/13/18 09:30 Gram Stain - Preliminary Sputum Sputum Culture - Preliminary 01/12/18 19:20 Blood Culture - Preliminary Blood No Growth after 24 hours Assessment and Plan Assessment: Impression: 1 acute on chronic hypoxic respiratory failure secondary to COPD exacerbation. And secondary to pneumonia. 2 acute sepsis secondary to pneumonia. Most likely healthcare acquired pneumonia. 3 history of right lower lobe spiculated nodule, suspicious for malignancy, not clearly appreciated on the chest x-ray or CT of the chest on this admission, but has been present previously, obviously the patient is not a candidate for any surgical intervention. 4 history of chronic hypoxic respiratory failure 5 history of hypertension 6 history of LV dysfunction ejection fraction of 45% 7 history of chronic areas of deep vein thrombosis with recurrent episodes of lower extremities edema. 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 And pneumonia. Recommendation: Continue present treatment plan including fluids, oxygen, bronchodilators, steroids, GI and DVT prophylaxis, continue noninvasive positive pressure ventilation continue antibiotics, bronchodilators, steroids, continue Ativan and Xanax as needed, will follow closely. If the patient's clinical condition deteriorates, we could consider intubation and mechanical ventilation. At this point the patient seems to be tolerating BiPAP quite well , and we'll continue to monitor in the ICU. Time with Patient: Less than 30
[2018-01-14] MEDS ORDERED: FUROSEMIDE 20 MG TAB PO STA (13:39)
[2018-01-14 17:23] LABS: Glucose,Whole Blood 125 mg/dL (75-99)
[2018-01-14 20:56] LABS: Glucose,Whole Blood 134 mg/dL (75-99)
[2018-01-14] MEDS: MELATONIN 5 MG TABLET PO SCH (21:05)
[2018-01-14] MEDS: LEVOFLOXACIN 750MG-D5W PMX 750 MG in DEXTROSE/WATER 1 150ML.BAG IVPB SCH (21:05)
[2018-01-14] MEDS: traMADol 50 MG TAB PO PRN (23:20)
[2018-01-15] MEDS: LORazepam 2 MG/ML INJ IV PRN ×3 (00:46→16:22)
[2018-01-15] MEDS: IPRATROPIUM-ALBUTEROL 3 ML NEB INHALATION SCH ×6 (03:36→18:36)
[2018-01-15 04:44] LABS: HCT 30.9 % (39.0-53.0); HGB 10.1 gm/dL (13.0-17.5); MCH 29.1 pg (25.0-35.0); MCHC 32.5 g/dL (31.0-37.0); MCV 89.5 fL (80.0-100.0); Mean Platelet Volume 6.9; Platelet Count 219 k/uL (150-450); RBC 3.45 m/uL (4.30-5.90); WBC 12.5 k/uL (3.8-10.6)
[2018-01-15 04:55] LABS: Anion Gap 8 mmol/L; Blood Urea Nitrogen 28 mg/dL (9-20); Calcium 8.5 mg/dL (8.4-10.2); Carbon Dioxide 26 mmol/L (22-30); Chloride 96 mmol/L (98-107); Glucose 127 mg/dL (74-99); Magnesium 2.2 mg/dL (1.6-2.3); Phosphorus 2.8 mg/dL (2.5-4.5); Potassium 4.3 mmol/L (3.5-5.1); Sodium 130 mmol/L (137-145)
[2018-01-15] MEDS ORDERED: VANCOMYCIN TROUGH DUE 1 EACH MISC MISCELLANE ONE (05:00)
[2018-01-15] MEDS: VANCOMYCIN 1,750 MG in SODIUM CHLORIDE 0.9% 250 ML IVPB SCH ×2 (06:43→18:27)
[2018-01-15] MEDS: methylPREDNISolone SOD SUCCI 125 MG/2 ML VIAL IV SCH (06:51)
[2018-01-15] MEDS: BUDESONIDE 1 MG/2 ML NEBU INHALATION SCH ×2 (07:19→18:36)
[2018-01-15] MEDS: FORMOTEROL FUMARATE 20 MCG/2 ML NEBU INHALATION SCH ×2 (07:19→18:36)
[2018-01-15 07:39] LABS: Glucose,Whole Blood 126 mg/dL (75-99)
[2018-01-15] MEDS: INSULIN ASPART 100 UNIT/ML 1 ML 10 ML VIAL SQ SCH ×5 (07:45→20:56)
--- NOTE | 2018-01-15 08:31 | XR ---
EXAMINATION TYPE: XR chest 1V DATE OF EXAM: 01/15/2018 COMPARISON: 01/14/2018 HISTORY: 67-year-old male shortness of breath, rule out aspiration TECHNIQUE: Single frontal view of the chest is obtained. FINDINGS: Low lung volumes crowded vascular markings. Heart margins are obscured by adjacent pleural parenchyma l disease. Upper lungs remain clear. IMPRESSION: Hypoventilatory changes. Patchy bibasilar infiltrates persist.
[2018-01-15] MEDS ORDERED: DILTIAZEM CD 180 MG CAP.ER.24H PO SCH (09:00)
[2018-01-15] MEDS: FUROSEMIDE 20 MG TAB PO SCH (09:07)
[2018-01-15] MEDS: HEPARIN SODIUM,PORCINE 5,000 UNIT/ML 1 ML VIAL SQ SCH ×2 (09:07→18:26)
[2018-01-15] MEDS: PANTOPRAZOLE 40 MG TABLET PO SCH (09:07)
[2018-01-15] MEDS ORDERED: DILTIAZEM CD 240 MG CAP.ER.24H PO SCH (10:06)
--- NOTE | 2018-01-15 10:19 | P.PN ---
Subjective Progress Note Date: 01/15/18 Principal diagnosis: Sinus tachycardia This is a pleasant 67-year-old gentleman with a past medical history significant for chronic respiratory failure on home oxygen secondary to COPD as well as hypertension who presented to the hospital back complaining of worsening dyspnea. The patient just was discharged from the hospital a few days ago after he was admitted with COPD exacerbation and at that point he was seen by Dr. Wylie. The patient stated that after he left home he was experiencing worsening exertional dyspnea associated with cough and some sputum. No fever and no chills. No chest pain or chest discomfort. We get involved in the care of the patient because of tachycardia. He is in sinus tachycardia with a heart rate around 110 bpm. The patient was receiving atenolol at home for hypertension. The patient was started on Cardizem CD for heart rate control. His heart rate has came down and now his heart rate is around 110 bpm on Cardizem CD at 180 mg by mouth daily. I am going to increase the dose to 240 mg by mouth daily. The blood pressure continues to be slightly uncontrolled. Objective - Vital Signs Vital signs: Vital Signs Temp 97.8 F 01/15/18 04:00 Pulse 102 H 01/15/18 08:00 Resp 35 H 01/15/18 08:00 BP 150/93 01/15/18 08:00 Pulse Ox 95 01/15/18 08:00 Intake & Output 01/14/18 01/15/18 01/15/18 18:59 06:59 18:59 Intake Total 775 1570 250 Output Total 780 840 85 Balance -5 730 165 Weight 86 kg 84.7 kg 84.7 kg Intake: IV 485 Sodium Chloride 0.9% 1, 485 000 ml @ 75 mls/hr IV . [id number] [facility] Rx#:[id number] Intake, IV Titration 250 250 Amount Vancomycin 1,750 mg In 250 250 Sodium Chloride 0.9% 250 ml @ 125 mls/hr IVPB Q12H [facility] Rx#:[id number] Oral 290 1320 Output: Urine 780 840 85 Other: Voiding Method Indwelling Catheter Indwelling Catheter # Bowel Movements 1 - Constitutional General appearance: Present: no acute distress - Respiratory Respiratory: bilateral: CTA - Cardiovascular Rhythm: regular Heart sounds: normal: S1, S2 - Labs CBC & Chem 7: 01/15/18 04:25 01/15/18 04:25 Labs: Abnormal Lab Results - Last 24 Hours (Table) 01/14/18 01/14/18 01/14/18 Range/Units 12:03 17:01 20:53 WBC (3.8-10.6) k/uL RBC (4.30-5.90) m/uL Hgb (13.0-17.5) gm/dL Hct (39.0-53.0) % Sodium (137-145) mmol/L Chloride (98-107) mmol/L BUN (9-20) mg/dL Glucose (74-99) mg/dL POC Glucose (mg/dL) 164 H 125 H 134 H (75-99) mg/dL 01/15/18 01/15/18 01/15/18 Range/Units 04:25 04:25 07:38 WBC 12.5 H (3.8-10.6) k/uL RBC 3.45 L (4.30-5.90) m/uL Hgb 10.1 L (13.0-17.5) gm/dL Hct 30.9 L (39.0-53.0) % Sodium 130 L (137-145) mmol/L Chloride 96 L (98-107) mmol/L BUN 28 H (9-20) mg/dL Glucose 127 H (74-99) mg/dL POC Glucose (mg/dL) 126 H (75-99) mg/dL Microbiology - Last 24 Hours (Table) 01/13/18 09:30 Gram Stain - Final Sputum Sputum Culture - Final 01/12/18 19:20 Blood Culture - Preliminary Blood No Growth after 48 hours Assessment and Plan Assessment: assessment #1 acute on chronic respiratory failure #2 sinus tachycardia #3 systemic hypertension #4 COPD Plan #1 increase the dose of Cardizem to 240 mg by mouth daily #2 follow-up with the patient. Thank you for allowing us but spitting his care and we'll continue following up with him
[2018-01-15] MEDS: ALPRAZolam 0.5 MG TAB PO PRN ×2 (10:21→16:22)
[2018-01-15 12:10] LABS: Glucose,Whole Blood 136 mg/dL (75-99)
--- NOTE | 2018-01-15 12:40 | P.PN ---
Subjective Progress Note Date: 01/15/18 Principal diagnosis: Acute on chronic hypoxic respiratory failure secondary to COPD exacerbation and pneumonia. Healthcare acquired. This is a 67-year-old white male with known history of severe end-stage COPD, O2 dependent, prednisone dependent, patient was recently in the hospital for acute exacerbation of COPD, and he was discharged home on Thursday, 2 days ago. Patient was brought in via EMS with chief complaint of being lethargic, and he was complaining of shortness of breath, cough, and wheezing. It was felt that the patient may have been taking too much Xanax and tramadol, and that was affecting his mental status and affecting his pulmonary status at the same time. According to the ER note, the patient took 2 Xanax and 2 Ultram tablets prior to arrival to the ER. CT of the chest and chest x-ray clearly showed evidence of bilateral pneumonia. Patient is describing cough, wheezing, shortness of breath, cough is productive with thick yellow phlegm. Denies fever or chills, no hemoptysis, no chest pain. I reviewed the chest x-ray myself and the CT of the chest, clearly the patient has extensive infiltrates in both lungs. And there is a small hiatal hernia noted. No pulmonary embolism was noted. There was also evidence of spondylitic changes in thoracic spine with slight anterior wedging of the several mid and lower thoracic vertebral. CBC showed evidence of leukocytosis with WBC count of 27.3. His sodium was 126. Patient was also noted to have elevated lactic acid. Received about 3 L of fluid boluses overnight, and his repeat lactic acid this morning is 1.3. Patient is feeling much per her today compared to last night, apparently he required to be on BiPAP for a few hours before he was transferred to the ICU. However upon arrival to the ICU, patient was placed on a nasal cannula, and already on bronchodilators, steroids, and antibiotics. Patient is hemodynamically stable. And again feeling better compared to how he felt yesterday. He is off BiPAP at present. Denies any headaches, no blurred vision , no dizziness. No nausea no vomiting no abdominal pain no melena no hematemesis no dysuria and no frequency no urgency. Patient was reevaluated today on 01/14/2018, patient required placement on BiPAP last night, he was experiencing more episodes of shortness of breath cough and wheezing. Initially he was reluctant to go on BiPAP, but once he was given Ativan, he was able to comply with the BiPAP. Presently on IPAP of 10, EPAP of 5, and he seems to be doing great on that mode of ventilation/noninvasive positive pressure ventilation. Chest x-ray continues to show by basilar infiltrates. This was also noted on the CT of the chest on admission. Patient remains on Levaquin and vancomycin, final microbiology from the sputum is pending. His WBC count seems to be coming down nicely it is 12.7 and his sodium is correcting nicely it is 129 today. The rest of the labs were noted to be unremarkable. Reevaluated today on 01/15/2018 patient remains on BiPAP, intermittent episodes of confusion noted, at times the patient has been pulling out his BiPAP, and desaturating easily. Continues to have intermittent episodes of productive cough. Remains on antibiotics, bronchodilators, steroids, sedatives, patient does well as long as he complies with the use of the BiPAP, but again he desaturates very easily. Chest x-ray is basically about the same showing bibasilar infiltrates. Labs WBC count is 12.5 hemoglobin is 10.1 electrolytes and basic metabolic profile are normal sodium is a bit low at 130. Patient remains on vancomycin and Levaquin. Sputum cultures remain nondiagnostic. It showed mostly normal respiratory desire. Objective - Vital Signs Vital signs: Vital Signs Temp 97.8 F 01/15/18 12:00 Pulse 99 01/15/18 12:00 Resp 31 H 01/15/18 12:00 BP 149/90 01/15/18 12:00 Pulse Ox 100 01/15/18 12:00 Intake & Output 01/14/18 01/15/18 01/15/18 18:59 06:59 18:59 Intake Total 775 1570 310 Output Total 780 840 285 Balance -5 730 25 Weight 86 kg 84.7 kg 84.7 kg Intake: IV 485 Sodium Chloride 0.9% 1, 485 000 ml @ 75 mls/hr IV . [id number] [facility] Rx#:[id number] Intake, IV Titration 250 250 Amount Vancomycin 1,750 mg In 250 250 Sodium Chloride 0.9% 250 ml @ 125 mls/hr IVPB Q12H [facility] Rx#:[id number] Oral 290 1320 60 Output: Urine 780 840 285 Other: Voiding Method Indwelling Catheter Indwelling Catheter Indwelling Catheter # Bowel Movements 1 - Exam GENERAL EXAM: Revealed a 67-year-old white male, sleepy, on BiPAP. Arousable, and seems to be appropriate most of the time, and at times he is quite confused. HEAD: Normocephalic. EYES: Normal reaction of pupils, equal size. NOSE: Clear with pink turbinates. THROAT: No erythema or exudates. NECK: No masses, no JVD. CHEST: No chest wall deformity. LUNGS: Equal air entry with bilateral end expiratory wheeze. Diminished. CVS: S1 and S2 normal with no audible murmur, regular rhythm. ABDOMEN: No hepatosplenomegaly, normal bowel sounds, no guarding or rigidity. SPINE: No scoliosis or deformity SKIN: No rashes CENTRAL NERVOUS SYSTEM: No focal deficits, tone is normal in all 4 extremities. EXTREMITIES: There is no peripheral edema. No clubbing, no cyanosis. Peripheral pulses are intact. - Labs CBC & Chem 7: 01/15/18 04:25 01/15/18 04:25 Labs: Abnormal Lab Results - Last 24 Hours (Table) 01/14/18 01/14/18 01/15/18 Range/Units 17:01 20:53 04:25 WBC (3.8-10.6) k/uL RBC (4.30-5.90) m/uL Hgb (13.0-17.5) gm/dL Hct (39.0-53.0) % Sodium 130 L (137-145) mmol/L Chloride 96 L (98-107) mmol/L BUN 28 H (9-20) mg/dL Glucose 127 H (74-99) mg/dL POC Glucose (mg/dL) 125 H 134 H (75-99) mg/dL 01/15/18 01/15/18 01/15/18 Range/Units 04:25 07:38 12:09 WBC 12.5 H (3.8-10.6) k/uL RBC 3.45 L (4.30-5.90) m/uL Hgb 10.1 L (13.0-17.5) gm/dL Hct 30.9 L (39.0-53.0) % Sodium (137-145) mmol/L Chloride (98-107) mmol/L BUN (9-20) mg/dL Glucose (74-99) mg/dL POC Glucose (mg/dL) 126 H 136 H (75-99) mg/dL Microbiology - Last 24 Hours (Table) 01/13/18 09:30 Gram Stain - Final Sputum Sputum Culture - Final 01/12/18 19:20 Blood Culture - Preliminary Blood No Growth after 48 hours Assessment and Plan Assessment: Impression: 1 acute on chronic hypoxic respiratory failure secondary to COPD exacerbation. And secondary to pneumonia. 2 acute sepsis secondary to pneumonia. Most likely healthcare acquired pneumonia. 3 history of right lower lobe spiculated nodule, suspicious for malignancy, not clearly appreciated on the chest x-ray or CT of the chest on this admission, but has been present previously, obviously the patient is not a candidate for any surgical intervention. 4 history of chronic hypoxic respiratory failure 5 history of hypertension 6 history of LV dysfunction ejection fraction of 45% 7 history of chronic areas of deep vein thrombosis with recurrent episodes of lower extremities edema. 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 And pneumonia. Recommendation: Continue present treatment plan including fluids, oxygen, bronchodilators, steroids, GI and DVT prophylaxis, continue noninvasive positive pressure ventilation continue antibiotics, bronchodilators, steroids, continue Ativan and Xanax as needed, added Seroquel for extreme agitation will follow closely. We'll continue to monitor the patient in the ICU. Time with Patient: Less than 30
--- NOTE | 2018-01-15 13:05 | P.PN ---
Subjective Progress Note Date: 01/14/18 This is a 67 years old male patient of Dr. Owen with past medical history of COPD, hypertension, chronic systolic heart failure with ejection fraction last noted to be 45-50% in October 2017, chronic hypoxic respiratory failure with home O2 at 2 L nasal cannula. Patient was just hospitalized from January 04 through January 11 for COPD exacerbation, acute on chronic systolic heart failure and discharged home. Patient states that he went home and sat on the couch and was having a hard time breathing. There was concern from a niece that he may have taken too Xanax and possibly to Ultram. He has had worsening cough with dark green sputum production. He came back into [facility] emergency center for evaluation where he found to have a lactic acid of 4 and was given 2 L of IV fluid with repeat lactic acid 1.3. He was tachycardic running in the 136 and blood pressure was low at 81/41 and pulse ox 88%. Patient was placed on BiPAP. His white count was elevated from time of discharge to 27.3. EKG was a sinus tachycardia. D-dimer was within normal limits, proBNP was 362, troponin 0.028. Sodium was done on 124 with potassium of 5.2, BUN 34 and creatinine 1.48. Ammonia level was less than 9. Urinalysis was negative for nitrate and leukoesterase. Urine drug screen was positive for tricyclic antidepressants and benzodiazepines. Imaging studies done included a chest x-ray that showed bibasilar airspace disease with marked prior May represent pneumonia. KUB of the abdomen for abdominal pain and distention which was suboptimal and not inconclusive. Moderate amount of retained right jl-colonic stool. Patient states that he has had abdominal bloating for many months with no change. CT of the abdomen and pelvis with contrast revealed decreased contrast and the renal collection systems. Images suggest some degree of renal failure. Dilated urinary bladder suggestive bladder outlet obstruction. Normal appendix. Extensive pneumonic infiltrates at the lung bases and more on the right side. CAT scan of the brain showed mild atrophy otherwise negative scan. CTA of the chest showed extensive pneumonic infiltrates probably related to inflammatory disease. Cardiomegaly. No evidence of pulmonary embolism. Spondylotic changes in the thoracic spine with slight anterior wedging of several mid and lower thoracic vertebrae. Repeat chest x-ray done this morning shows borderline heart size and interstitial prominence slightly more pronounced from prior. Correlate to exclude mild heart failure. Patchy bibasilar infiltrates also slightly increased in the interval. Aspiration of infectious pneumonitis are considerations. Due to sepsis and hypotension, patient was admitted into the intensive care unit. Consults in place with cardiology and pulmonary medicine. 01/14: Heart rate is running between 113 and 120. Pulse ox is 96% on 2 L nasal cannula. Patient refused to use BiPAP. Blood pressure is high today. Sodium is improved to 129 and white count improved to 12.7. Sputum cultures and progress and blood cultures showing no growth after 24 hours. Patient thinks is a little bit better today. Reed in place. He has had a bowel movement. Objective - Vital Signs Vital signs: Vital Signs Temp 97.6 F 01/14/18 04:00 Pulse 121 H 01/14/18 07:47 Resp 26 H 01/14/18 07:00 BP 144/94 01/14/18 07:00 Pulse Ox 96 01/14/18 07:00 Intake & Output 01/13/18 01/14/18 01/14/18 18:59 06:59 18:59 Intake Total 1440 1615 300 Output Total 1685 510 192 Balance -245 1105 108 Weight 86 kg Intake: IV 750 1050 300 Lactated Ringers 1,000 ml 750 @ 150 mls/hr IV [id number] [facility] Rx#:[id number] Levofloxacin 750Mg-D5w 100 Pmx 750 mg In Dextrose/ Water 1 150ml.bag @ 100 mls/hr IVPB HS [facility] Rx#: [id number] Sodium Chloride 0.9% 1, 700 300 000 ml @ 75 mls/hr IV . [id number] [facility] Rx#:[id number] Vancomycin 1,500 mg In 250 Sodium Chloride 0.9% 250 ml @ 125 mls/hr IVPB Q16H [facility] Rx#:[id number] Intake, IV Titration 450 325 Amount Sodium Chloride 0.9% 1, 450 75 000 ml @ 75 mls/hr IV . [id number] [facility] Rx#:[id number] Vancomycin 1,750 mg In 250 Sodium Chloride 0.9% 250 ml @ 125 mls/hr IVPB Q12H [facility] Rx#:[id number] Oral 240 240 Output: Urine 1685 510 192 Other: Voiding Method Indwelling Catheter Indwelling Catheter - Exam General appearance: cooperative, in mild acute distress, obese - EENT Eyes: anicteric sclerae, PERRLA, normal appearance ENT: hearing grossly normal - Neck Neck: no lymphadenopathy, normal ROM, no other, no rigidity, no stridor, no thyromegaly - Respiratory Respiratory: bilateral diffuse wheezing with decreased air entry - Cardiovascular Rhythm: Tachycardic Heart sounds: normal: S1, S2 Abnormal Heart Sounds: no systolic murmur, no diastolic murmur, no rub, no S3 Gallop, no S4 Gallop, no click, no other - Gastrointestinal General gastrointestinal: normal bowel sounds, soft - Integumentary Integumentary: no rash - Neurologic Neurologic: CNII-XII intact - Musculoskeletal Musculoskeletal: gait normal, strength equal bilaterally 2+ pitting edema in lower extremity - Psychiatric Psychiatric: A&O x's 3, appropriate affect - Labs CBC & Chem 7: 01/15/18 04:25 01/15/18 04:25 Labs: Abnormal Lab Results - Last 24 Hours (Table) 01/13/18 01/13/18 01/14/18 Range/Units 17:13 22:37 04:42 WBC (3.8-10.6) k/uL RBC (4.30-5.90) m/uL Hgb (13.0-17.5) gm/dL Hct (39.0-53.0) % Sodium 129 L (137-145) mmol/L Chloride 96 L (98-107) mmol/L BUN 22 H (9-20) mg/dL Creatinine 0.60 L (0.66-1.25) mg/dL Glucose 116 H (74-99) mg/dL POC Glucose (mg/dL) 134 H 122 H (75-99) mg/dL 01/14/18 01/14/18 Range/Units 04:42 07:03 WBC 12.7 H (3.8-10.6) k/uL RBC 3.49 L (4.30-5.90) m/uL Hgb 10.2 L (13.0-17.5) gm/dL Hct 31.0 L (39.0-53.0) % Sodium (137-145) mmol/L Chloride (98-107) mmol/L BUN (9-20) mg/dL Creatinine (0.66-1.25) mg/dL Glucose (74-99) mg/dL POC Glucose (mg/dL) 116 H (75-99) mg/dL Microbiology - Last 24 Hours (Table) 01/13/18 09:30 Gram Stain - Preliminary Sputum 01/12/18 19:20 Blood Culture - Preliminary Blood No Growth after 24 hours Assessment and Plan Plan: 1. Acute on chronic hypoxic respiratory failure secondary to COPD exacerbation and possible gram-negative pneumonia. Pulmonary consult appreciated. Continue DuoNeb treatments 4 times daily, Pulmicort 1 mg twice daily, perform a missed twice daily, Levaquin and vancomycin, Solu-Medrol 60 mg IV every 6 hours. 2. Acute sepsis with septic shock status post fluid resuscitation secondary to pneumonia. Continue as in #1. 3. Chronic hypoxic respiratory failure on home O2 at 2 L nasal cannula. 4. Chronic systolic heart failure. Hold Lasix. 5. Spiculated upper right lower lobe nodule with follow-up in 4 months with a computed tomography scan recommended by pulmonary in the last admission. 6. Former tobacco abuse. Quit 2 years ago, 1-1/2 pack for 40 years. 5. Hypertension, currently hypotensive. Verapamil, lisinopril, atenolol on hold. 7. Sinus tachycardia secondary to sepsis and underlying pulmonary disease. Cardiology consult appreciated. Patient started on Cardizem CD 120 mg daily. 8. 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 9. GI prophylaxis with Protonix. 10. DVT prophylaxis with heparin every 12 CODE STATUS full code with no intubation Patient will be admitted to the hospital for a minimum of 2 night stay. Discharge plan: To be determined. PT and OT evaluations. Impression and plan of care have been directed as dictated by the signing physician. Valery Germain nurse practitioner acting as scribe for signing physician.
--- NOTE | 2018-01-15 13:10 | P.PN ---
Subjective Progress Note Date: 01/15/18 This is a 67 years old male patient of Dr. Owen with past medical history of COPD, hypertension, chronic systolic heart failure with ejection fraction last noted to be 45-50% in October 2017, chronic hypoxic respiratory failure with home O2 at 2 L nasal cannula. Patient was just hospitalized from January 04 through January 11 for COPD exacerbation, acute on chronic systolic heart failure and discharged home. Patient states that he went home and sat on the couch and was having a hard time breathing. There was concern from a niece that he may have taken too Xanax and possibly to Ultram. He has had worsening cough with dark green sputum production. He came back into [facility] emergency center for evaluation where he found to have a lactic acid of 4 and was given 2 L of IV fluid with repeat lactic acid 1.3. He was tachycardic running in the 136 and blood pressure was low at 81/41 and pulse ox 88%. Patient was placed on BiPAP. His white count was elevated from time of discharge to 27.3. EKG was a sinus tachycardia. D-dimer was within normal limits, proBNP was 362, troponin 0.028. Sodium was done on 124 with potassium of 5.2, BUN 34 and creatinine 1.48. Ammonia level was less than 9. Urinalysis was negative for nitrate and leukoesterase. Urine drug screen was positive for tricyclic antidepressants and benzodiazepines. Imaging studies done included a chest x-ray that showed bibasilar airspace disease with marked prior May represent pneumonia. KUB of the abdomen for abdominal pain and distention which was suboptimal and not inconclusive. Moderate amount of retained right jl-colonic stool. Patient states that he has had abdominal bloating for many months with no change. CT of the abdomen and pelvis with contrast revealed decreased contrast and the renal collection systems. Images suggest some degree of renal failure. Dilated urinary bladder suggestive bladder outlet obstruction. Normal appendix. Extensive pneumonic infiltrates at the lung bases and more on the right side. CAT scan of the brain showed mild atrophy otherwise negative scan. CTA of the chest showed extensive pneumonic infiltrates probably related to inflammatory disease. Cardiomegaly. No evidence of pulmonary embolism. Spondylotic changes in the thoracic spine with slight anterior wedging of several mid and lower thoracic vertebrae. Repeat chest x-ray done this morning shows borderline heart size and interstitial prominence slightly more pronounced from prior. Correlate to exclude mild heart failure. Patchy bibasilar infiltrates also slightly increased in the interval. Aspiration of infectious pneumonitis are considerations. Due to sepsis and hypotension, patient was admitted into the intensive care unit. Consults in place with cardiology and pulmonary medicine. 01/14: Heart rate is running between 113 and 120. Pulse ox is 96% on 2 L nasal cannula. Patient refused to use BiPAP. Blood pressure is high today. Sodium is improved to 129 and white count improved to 12.7. Sputum cultures and progress and blood cultures showing no growth after 24 hours. Patient thinks is a little bit better today. Reed in place. He has had a bowel movement. 01/15: Patient would not wear his BiPAP map during the night and was somewhat confused and combative. He didn't sleep through the night. Dr. Dr. Eller has increased Xanax and added in Seroquel. Tramadol will be discontinued. Objective - Vital Signs Vital signs: Vital Signs Temp 97.8 F 01/15/18 12:00 Pulse 112 H 01/15/18 13:00 Resp 31 H 01/15/18 13:00 BP 140/88 01/15/18 13:00 Pulse Ox 93 L 01/15/18 13:00 Intake & Output 01/14/18 01/15/18 01/15/18 18:59 06:59 18:59 Intake Total 775 1570 670 Output Total 780 840 585 Balance -5 730 85 Weight 86 kg 84.7 kg 84.7 kg Intake: IV 485 Sodium Chloride 0.9% 1, 485 000 ml @ 75 mls/hr IV . [id number] Rx#:[id number] Intake, IV Titration 250 250 Amount Vancomycin 1,750 mg In 250 250 Sodium Chloride 0.9% 250 ml @ 125 mls/hr IVPB Q12H [facility] Rx#:[id number] Oral 290 1320 420 Output: Urine 780 840 585 Other: Voiding Method Indwelling Catheter Indwelling Catheter Indwelling Catheter # Bowel Movements 1 - Exam General appearance: cooperative, in mild acute distress, obese - EENT Eyes: anicteric sclerae, PERRLA, normal appearance ENT: hearing grossly normal - Neck Neck: no lymphadenopathy, normal ROM, no other, no rigidity, no stridor, no thyromegaly - Respiratory Respiratory: bilateral diffuse wheezing with decreased air entry - Cardiovascular Rhythm: Tachycardic Heart sounds: normal: S1, S2 Abnormal Heart Sounds: no systolic murmur, no diastolic murmur, no rub, no S3 Gallop, no S4 Gallop, no click, no other - Gastrointestinal General gastrointestinal: normal bowel sounds, soft - Integumentary Integumentary: no rash - Neurologic Neurologic: CNII-XII intact - Musculoskeletal Musculoskeletal: gait normal, strength equal bilaterally 2+ pitting edema in lower extremity - Psychiatric Psychiatric: A&O x's 3, appropriate affect - Labs CBC & Chem 7: 01/15/18 04:25 01/15/18 04:25 Labs: Abnormal Lab Results - Last 24 Hours (Table) 01/14/18 01/14/18 01/15/18 Range/Units 17:01 20:53 04:25 WBC (3.8-10.6) k/uL RBC (4.30-5.90) m/uL Hgb (13.0-17.5) gm/dL Hct (39.0-53.0) % Sodium 130 L (137-145) mmol/L Chloride 96 L (98-107) mmol/L BUN 28 H (9-20) mg/dL Glucose 127 H (74-99) mg/dL POC Glucose (mg/dL) 125 H 134 H (75-99) mg/dL 01/15/18 01/15/18 01/15/18 Range/Units 04:25 07:38 12:09 WBC 12.5 H (3.8-10.6) k/uL RBC 3.45 L (4.30-5.90) m/uL Hgb 10.1 L (13.0-17.5) gm/dL Hct 30.9 L (39.0-53.0) % Sodium (137-145) mmol/L Chloride (98-107) mmol/L BUN (9-20) mg/dL Glucose (74-99) mg/dL POC Glucose (mg/dL) 126 H 136 H (75-99) mg/dL Microbiology - Last 24 Hours (Table) 01/13/18 09:30 Gram Stain - Final Sputum Sputum Culture - Final 01/12/18 19:20 Blood Culture - Preliminary Blood No Growth after 48 hours Assessment and Plan Plan: 1. Acute on chronic hypoxic respiratory failure secondary to COPD exacerbation and possible gram-negative pneumonia. Pulmonary consult appreciated. Continue DuoNeb treatments 4 times daily, Pulmicort 1 mg twice daily, perforomist twice daily, Levaquin and vancomycin, Solu-Medrol 40 mg IV every 6 hours. 2. Acute sepsis with septic shock status post fluid resuscitation secondary to pneumonia. Continue as in #1. 3. Chronic hypoxic respiratory failure on home O2 at 2 L nasal cannula. 4. Chronic systolic heart failure. Hold Lasix. 5. Spiculated upper right lower lobe nodule with follow-up in 4 months with a computed tomography scan recommended by pulmonary in the last admission. 6. Former tobacco abuse. Quit 2 years ago, 1-1/2 pack for 40 years. 5. Hypertension, currently hypotensive. Verapamil, lisinopril, atenolol on hold. 7. Sinus tachycardia secondary to sepsis and underlying pulmonary disease. Cardiology consult appreciated. Patient started on Cardizem CD 120 mg daily. 8. 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 9. GI prophylaxis with Protonix. 10. DVT prophylaxis with heparin every 12 11. Acute metabolic encephalopathy from ICU psychosis. Xanax was increased and Seroquel added by Dr. Eller. We will discontinue tramadol. CODE STATUS full code with no intubation Patient will be admitted to the hospital for a minimum of 2 night stay. Discharge plan: To be determined. PT and OT evaluations. Impression and plan of care have been directed as dictated by the signing physician. Valery Germain nurse practitioner acting as scribe for signing physician.
[2018-01-15] MEDS: methylPREDNISolone SOD SUCCI 40 MG/ML 1 ML VIAL IV SCH ×2 (13:47→18:27)
[2018-01-15 17:36] LABS: Glucose,Whole Blood 133 mg/dL (75-99)
[2018-01-15 20:15] LABS: Glucose,Whole Blood 177 mg/dL (75-99)
[2018-01-15] MEDS: MELATONIN 5 MG TABLET PO SCH (20:56)
[2018-01-15] MEDS ORDERED: LEVOFLOXACIN 750 MG TAB PO SCH (21:00)
[2018-01-15] MEDS ORDERED: QUEtiapine 25 MG TAB PO SCH (21:00)
[2018-01-16] MEDS: IPRATROPIUM-ALBUTEROL 3 ML NEB INHALATION SCH ×6 (00:03→23:57)
[2018-01-16] MEDS: HEPARIN SODIUM,PORCINE 5,000 UNIT/ML 1 ML VIAL SQ SCH ×3 (00:04→16:21)
[2018-01-16] MEDS: methylPREDNISolone SOD SUCCI 40 MG/ML 1 ML VIAL IV SCH ×2 (00:05→05:53)
[2018-01-16] MEDS: ALPRAZolam 0.5 MG TAB PO PRN (03:34)
[2018-01-16 04:27] LABS: HCT 30.3 % (39.0-53.0); HGB 10.4 gm/dL (13.0-17.5); MCH 29.9 pg (25.0-35.0); MCHC 34.4 g/dL (31.0-37.0); MCV 86.8 fL (80.0-100.0); Mean Platelet Volume 6.3; Platelet Count 245 k/uL (150-450); RBC 3.49 m/uL (4.30-5.90); RDW 13.9 % (11.5-15.5); WBC 10.4 k/uL (3.8-10.6)
[2018-01-16] MEDS: LORazepam 2 MG/ML INJ IV PRN ×3 (04:32→16:00)
[2018-01-16 04:38] LABS: Anion Gap 7 mmol/L; Blood Urea Nitrogen 21 mg/dL (9-20); Calcium 8.7 mg/dL (8.4-10.2); Carbon Dioxide 28 mmol/L (22-30); Chloride 98 mmol/L (98-107); Glucose 132 mg/dL (74-99); Magnesium 2.1 mg/dL (1.6-2.3); Phosphorus 3.7 mg/dL (2.5-4.5); Potassium 4.1 mmol/L (3.5-5.1); Sodium 133 mmol/L (137-145)
[2018-01-16] MEDS ORDERED: traMADol 50 MG TAB PO PRN (05:35)
[2018-01-16] MEDS: VANCOMYCIN 1,750 MG in SODIUM CHLORIDE 0.9% 250 ML IVPB SCH (05:54)
--- NOTE | 2018-01-16 06:29 | XR ---
EXAMINATION TYPE: XR chest 1V DATE OF EXAM: 01/16/2018 HISTORY: rule out aspiration . REFERENCE: Previous study dated 01/15/2018. FINDINGS: The heart remains enlarged. There are bibasilar infiltrates either representing atelectasis or pneumonia. The right CP angle is excluded from this study. No definite effusion is seen. IMPRESSION: 1. CARDIOMEGALY. 2. BIBASILAR INFILTRATES.
[2018-01-16] MEDS: BUDESONIDE 1 MG/2 ML NEBU INHALATION SCH ×2 (07:11→23:56)
[2018-01-16] MEDS: FORMOTEROL FUMARATE 20 MCG/2 ML NEBU INHALATION SCH ×2 (07:11→23:57)
[2018-01-16 07:32] LABS: Glucose,Whole Blood 123 mg/dL (75-99)
[2018-01-16] MEDS: INSULIN ASPART 100 UNIT/ML 1 ML 10 ML VIAL SQ SCH ×2 (08:12→15:59)
[2018-01-16] MEDS: FUROSEMIDE 20 MG TAB PO SCH (08:12)
[2018-01-16] MEDS: PANTOPRAZOLE 40 MG TABLET PO SCH (08:13)
[2018-01-16 08:15] VITALS: TEMP 98.5
--- NOTE | 2018-01-16 10:47 | P.PN ---
Subjective Progress Note Date: 01/16/18 This is a 67 years old male patient of Dr. Owen with past medical history of COPD, hypertension, chronic systolic heart failure with ejection fraction last noted to be 45-50% in October 2017, chronic hypoxic respiratory failure with home O2 at 2 L nasal cannula. Patient was just hospitalized from January 04 through January 11 for COPD exacerbation, acute on chronic systolic heart failure and discharged home. Patient states that he went home and sat on the couch and was having a hard time breathing. There was concern from a niece that he may have taken too Xanax and possibly to Ultram. He has had worsening cough with dark green sputum production. He came back into [facility] emergency center for evaluation where he found to have a lactic acid of 4 and was given 2 L of IV fluid with repeat lactic acid 1.3. He was tachycardic running in the 136 and blood pressure was low at 81/41 and pulse ox 88%. Patient was placed on BiPAP. His white count was elevated from time of discharge to 27.3. EKG was a sinus tachycardia. D-dimer was within normal limits, proBNP was 362, troponin 0.028. Sodium was done on 124 with potassium of 5.2, BUN 34 and creatinine 1.48. Ammonia level was less than 9. Urinalysis was negative for nitrate and leukoesterase. Urine drug screen was positive for tricyclic antidepressants and benzodiazepines. Imaging studies done included a chest x-ray that showed bibasilar airspace disease with marked prior May represent pneumonia. KUB of the abdomen for abdominal pain and distention which was suboptimal and not inconclusive. Moderate amount of retained right jl-colonic stool. Patient states that he has had abdominal bloating for many months with no change. CT of the abdomen and pelvis with contrast revealed decreased contrast and the renal collection systems. Images suggest some degree of renal failure. Dilated urinary bladder suggestive bladder outlet obstruction. Normal appendix. Extensive pneumonic infiltrates at the lung bases and more on the right side. CAT scan of the brain showed mild atrophy otherwise negative scan. CTA of the chest showed extensive pneumonic infiltrates probably related to inflammatory disease. Cardiomegaly. No evidence of pulmonary embolism. Spondylotic changes in the thoracic spine with slight anterior wedging of several mid and lower thoracic vertebrae. Repeat chest x-ray done this morning shows borderline heart size and interstitial prominence slightly more pronounced from prior. Correlate to exclude mild heart failure. Patchy bibasilar infiltrates also slightly increased in the interval. Aspiration of infectious pneumonitis are considerations. Due to sepsis and hypotension, patient was admitted into the intensive care unit. Consults in place with cardiology and pulmonary medicine. 01/14: Heart rate is running between 113 and 120. Pulse ox is 96% on 2 L nasal cannula. Patient refused to use BiPAP. Blood pressure is high today. Sodium is improved to 129 and white count improved to 12.7. Sputum cultures and progress and blood cultures showing no growth after 24 hours. Patient thinks is a little bit better today. Reed in place. He has had a bowel movement. 01/15: Patient would not wear his BiPAP map during the night and was somewhat confused and combative. He didn't sleep through the night. Dr. Dr. Eller has increased Xanax and added in Seroquel. Tramadol will be discontinued. 01/16: She remains in the intensive care unit. Nursing had ongoing problems with confusion during the night he did sleep for a couple hours after receiving Seroquel but then was awake with increasing effusion refusing to use BiPAP. Essentially patient did not sleep during the night. Patient is now sitting in a chair slumped and on BiPAP. White count is normal, hemoglobin 10.4, CO2 28, creatinine 0.6. Blood sugars are running 123-177. He has been afebrile. Objective - Vital Signs Vital signs: Vital Signs Temp 98.5 F 01/16/18 08:00 Pulse 110 H 01/16/18 08:00 Resp 29 H 01/16/18 08:00 BP 143/67 01/16/18 08:00 Pulse Ox 96 01/16/18 08:00 Intake & Output 01/15/18 01/16/18 01/16/18 18:59 06:59 18:59 Intake Total 920 600 Output Total 1010 790 75 Balance -90 -190 -75 Weight 84.7 kg 85.9 kg Intake: Intake, IV Titration 500 Amount Vancomycin 1,750 mg In 500 Sodium Chloride 0.9% 250 ml @ 125 mls/hr IVPB Q12H [facility] Rx#:[id number] Oral 420 600 Output: Urine 1010 790 75 Other: Voiding Method Indwelling Catheter Indwelling Catheter - Exam General appearance: cooperative, in mild acute distress, obese - EENT Eyes: anicteric sclerae, PERRLA, normal appearance ENT: hearing grossly normal - Neck Neck: no lymphadenopathy, normal ROM, no other, no rigidity, no stridor, no thyromegaly - Respiratory Respiratory: bilateral diffuse wheezing with decreased air entry - Cardiovascular Rhythm: Tachycardic Heart sounds: normal: S1, S2 Abnormal Heart Sounds: no systolic murmur, no diastolic murmur, no rub, no S3 Gallop, no S4 Gallop, no click, no other - Gastrointestinal General gastrointestinal: normal bowel sounds, soft - Integumentary Integumentary: no rash - Neurologic Neurologic: CNII-XII intact - Musculoskeletal Musculoskeletal: gait normal, strength equal bilaterally 2+ pitting edema in lower extremity - Psychiatric Psychiatric: A&O x's 1, appropriate affect - Labs CBC & Chem 7: 01/16/18 03:54 01/16/18 03:54 Labs: Abnormal Lab Results - Last 24 Hours (Table) 01/15/18 01/15/18 01/15/18 Range/Units 12:09 17:34 20:13 RBC (4.30-5.90) m/uL Hgb (13.0-17.5) gm/dL Hct (39.0-53.0) % Sodium (137-145) mmol/L BUN (9-20) mg/dL Creatinine (0.66-1.25) mg/dL Glucose (74-99) mg/dL POC Glucose (mg/dL) 136 H 133 H 177 H (75-99) mg/dL 01/16/18 01/16/18 01/16/18 Range/Units 03:54 03:54 07:30 RBC 3.49 L (4.30-5.90) m/uL Hgb 10.4 L (13.0-17.5) gm/dL Hct 30.3 L (39.0-53.0) % Sodium 133 L (137-145) mmol/L BUN 21 H (9-20) mg/dL Creatinine 0.60 L (0.66-1.25) mg/dL Glucose 132 H (74-99) mg/dL POC Glucose (mg/dL) 123 H (75-99) mg/dL Microbiology - Last 24 Hours (Table) 01/12/18 19:20 Blood Culture - Preliminary Blood No Growth after 72 hours 01/13/18 09:30 Gram Stain - Final Sputum Sputum Culture - Final Assessment and Plan Plan: 1. Acute on chronic hypoxic respiratory failure secondary to COPD exacerbation and possible gram-negative pneumonia. Pulmonary consult appreciated. Continue DuoNeb treatments 4 times daily, Pulmicort 1 mg twice daily, perforomist twice daily, Levaquin and vancomycin, Solu-Medrol 40 mg IV every 12 hours. 2. Acute sepsis with septic shock status post fluid resuscitation secondary to pneumonia. Continue as in #1. 3. Chronic hypoxic respiratory failure on home O2 at 2 L nasal cannula. 4. Chronic systolic heart failure. Lasix 20mg daily. 5. Spiculated upper right lower lobe nodule with follow-up in 4 months with a computed tomography scan recommended by pulmonary in the last admission. 6. Former tobacco abuse. Quit 2 years ago, 1-1/2 pack for 40 years. 5. Hypertension, currently hypotensive. Verapamil, lisinopril, atenolol on hold. 7. Sinus tachycardia secondary to sepsis and underlying pulmonary disease. Cardiology consult appreciated. Patient started on Cardizem CD 240 mg daily. 8. 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 9. GI prophylaxis with Protonix. 10. DVT prophylaxis with heparin every 12 11. Acute metabolic encephalopathy from ICU psychosis. Xanax was increased and Seroquel added by Dr. Eller. CODE STATUS full code with no intubation Discharge plan: To be determined. PT and OT evaluations once stabilized. Impression and plan of care have been directed as dictated by the signing physician. Valery Germani nurse practitioner acting as scribe for signing physician.
--- NOTE | 2018-01-16 10:54 | P.PN ---
Subjective Progress Note Date: 01/16/18 Principal diagnosis: Acute on chronic hypoxic respiratory failure secondary to COPD exacerbation and healthcare associated pneumonia This is a 67-year-old white male with known history of severe end-stage COPD, O2 dependent, prednisone dependent, patient was recently in the hospital for acute exacerbation of COPD, and he was discharged home on Thursday, 2 days ago. Patient was brought in via EMS with chief complaint of being lethargic, and he was complaining of shortness of breath, cough, and wheezing. It was felt that the patient may have been taking too much Xanax and tramadol, and that was affecting his mental status and affecting his pulmonary status at the same time. According to the ER note, the patient took 2 Xanax and 2 Ultram tablets prior to arrival to the ER. CT of the chest and chest x-ray clearly showed evidence of bilateral pneumonia. Patient is describing cough, wheezing, shortness of breath, cough is productive with thick yellow phlegm. Denies fever or chills, no hemoptysis, no chest pain. I reviewed the chest x-ray myself and the CT of the chest, clearly the patient has extensive infiltrates in both lungs. And there is a small hiatal hernia noted. No pulmonary embolism was noted. There was also evidence of spondylitic changes in thoracic spine with slight anterior wedging of the several mid and lower thoracic vertebral. CBC showed evidence of leukocytosis with WBC count of 27.3. His sodium was 126. Patient was also noted to have elevated lactic acid. Received about 3 L of fluid boluses overnight, and his repeat lactic acid this morning is 1.3. Patient is feeling much per her today compared to last night, apparently he required to be on BiPAP for a few hours before he was transferred to the ICU. However upon arrival to the ICU, patient was placed on a nasal cannula, and already on bronchodilators, steroids, and antibiotics. Patient is hemodynamically stable. And again feeling better compared to how he felt yesterday. He is off BiPAP at present. Denies any headaches, no blurred vision , no dizziness. No nausea no vomiting no abdominal pain no melena no hematemesis no dysuria and no frequency no urgency. Patient was reevaluated today on 01/14/2018, patient required placement on BiPAP last night, he was experiencing more episodes of shortness of breath cough and wheezing. Initially he was reluctant to go on BiPAP, but once he was given Ativan, he was able to comply with the BiPAP. Presently on IPAP of 10, EPAP of 5, and he seems to be doing great on that mode of ventilation/noninvasive positive pressure ventilation. Chest x-ray continues to show by basilar infiltrates. This was also noted on the CT of the chest on admission. Patient remains on Levaquin and vancomycin, final microbiology from the sputum is pending. His WBC count seems to be coming down nicely it is 12.7 and his sodium is correcting nicely it is 129 today. The rest of the labs were noted to be unremarkable. Reevaluated today on 01/15/2018 patient remains on BiPAP, intermittent episodes of confusion noted, at times the patient has been pulling out his BiPAP, and desaturating easily. Continues to have intermittent episodes of productive cough. Remains on antibiotics, bronchodilators, steroids, sedatives, patient does well as long as he complies with the use of the BiPAP, but again he desaturates very easily. Chest x-ray is basically about the same showing bibasilar infiltrates. Labs WBC count is 12.5 hemoglobin is 10.1 electrolytes and basic metabolic profile are normal sodium is a bit low at 130. Patient remains on vancomycin and Levaquin. Sputum cultures remain nondiagnostic. It showed mostly normal respiratory desire. Reevaluated today on 01/16/2018, remains with intermittent episodes of confusion, remains on BiPAP, intermittently has to be reminded to keep the BiPAP otherwise the patient takes about, and he desaturates. And he develops worsening shortness of breath. Chest x-ray is basically the same continues to show by basilar infiltrates. Labs were all reviewed relatively normal CBC and relatively normal basic metabolic profile noted. Objective - Vital Signs Vital signs: Vital Signs Temp 98.5 F 01/16/18 08:00 Pulse 107 H 01/16/18 10:00 Resp 30 H 01/16/18 10:00 BP 142/88 01/16/18 10:00 Pulse Ox 97 01/16/18 10:00 Intake & Output 01/15/18 01/16/18 01/16/18 18:59 06:59 18:59 Intake Total 920 600 120 Output Total 1010 790 165 Balance -90 -190 -45 Weight 84.7 kg 85.9 kg Intake: Intake, IV Titration 500 Amount Vancomycin 1,750 mg In 500 Sodium Chloride 0.9% 250 ml @ 125 mls/hr IVPB Q12H [facility] Rx#:[id number] Oral 420 600 120 Output: Urine 1010 790 165 Other: Voiding Method Indwelling Catheter Indwelling Catheter Indwelling Catheter - Exam GENERAL EXAM: Revealed a 67-year-old white male, sleepy, on BiPAP. Intermittently confused. HEAD: Normocephalic. EYES: Normal reaction of pupils, equal size. NOSE: Clear with pink turbinates. THROAT: No erythema or exudates. NECK: No masses, no JVD. CHEST: No chest wall deformity. LUNGS: Equal air entry with bilateral end expiratory wheeze. Diminished. CVS: S1 and S2 normal with no audible murmur, regular rhythm. ABDOMEN: No hepatosplenomegaly, normal bowel sounds, no guarding or rigidity. SPINE: No scoliosis or deformity SKIN: No rashes CENTRAL NERVOUS SYSTEM: No focal deficits, tone is normal in all 4 extremities. EXTREMITIES: There is no peripheral edema. No clubbing, no cyanosis. Peripheral pulses are intact. - Labs CBC & Chem 7: 01/16/18 03:54 01/16/18 03:54 Labs: Abnormal Lab Results - Last 24 Hours (Table) 01/15/18 01/15/18 01/15/18 Range/Units 12:09 17:34 20:13 RBC (4.30-5.90) m/uL Hgb (13.0-17.5) gm/dL Hct (39.0-53.0) % Sodium (137-145) mmol/L BUN (9-20) mg/dL Creatinine (0.66-1.25) mg/dL Glucose (74-99) mg/dL POC Glucose (mg/dL) 136 H 133 H 177 H (75-99) mg/dL 01/16/18 01/16/18 01/16/18 Range/Units 03:54 03:54 07:30 RBC 3.49 L (4.30-5.90) m/uL Hgb 10.4 L (13.0-17.5) gm/dL Hct 30.3 L (39.0-53.0) % Sodium 133 L (137-145) mmol/L BUN 21 H (9-20) mg/dL Creatinine 0.60 L (0.66-1.25) mg/dL Glucose 132 H (74-99) mg/dL POC Glucose (mg/dL) 123 H (75-99) mg/dL Microbiology - Last 24 Hours (Table) 01/12/18 19:20 Blood Culture - Preliminary Blood No Growth after 72 hours 01/13/18 09:30 Gram Stain - Final Sputum Sputum Culture - Final Assessment and Plan Assessment: Impression: 1 acute on chronic hypoxic respiratory failure secondary to COPD exacerbation. And secondary to pneumonia. 2 acute sepsis secondary to pneumonia. Most likely healthcare acquired pneumonia. 3 history of right lower lobe spiculated nodule, suspicious for malignancy, not clearly appreciated on the chest x-ray or CT of the chest on this admission, but has been present previously, obviously the patient is not a candidate for any surgical intervention. 4 history of chronic hypoxic respiratory failure 5 history of hypertension 6 history of LV dysfunction ejection fraction of 45% 7 history of chronic areas of deep vein thrombosis with recurrent episodes of lower extremities edema. 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 And pneumonia. Recommendation: Continue present treatment plan including fluids, oxygen, bronchodilators, steroids, GI and DVT prophylaxis, continue noninvasive positive pressure ventilation continue antibiotics, bronchodilators, steroids, continue Xanax and Seroquel. Continue to monitor in the ICU. Prognosis is definitely poor and guarded. Time with Patient: Less than 30
--- NOTE | 2018-01-16 12:36 | P.PN ---
Subjective Progress Note Date: 01/16/18 Principal diagnosis: Sinus tachycardia This is a pleasant 67-year-old gentleman with a past medical history significant for chronic respiratory failure on home oxygen secondary to COPD as well as hypertension who presented to the hospital back complaining of worsening dyspnea. The patient just was discharged from the hospital a few days ago after he was admitted with COPD exacerbation and at that point he was seen by Dr. Wylie. The patient stated that after he left home he was experiencing worsening exertional dyspnea associated with cough and some sputum. No fever and no chills. No chest pain or chest discomfort. We get involved in the care of the patient because of tachycardia. He is in sinus tachycardia with a heart rate around 110 bpm. The patient was receiving atenolol at home for hypertension. The patient was started on Cardizem CD for heart rate control. Currently the patient is receiving Cardizem CD 240 mg by mouth daily. The heart rate is well controlled once he is sleeping. Once he is waking up and in mild respiratory distress he is tachycardic. Objective - Vital Signs Vital signs: Vital Signs Temp 98.5 F 01/16/18 08:00 Pulse 112 H 01/16/18 11:30 Resp 30 H 01/16/18 11:00 BP 142/85 01/16/18 11:00 Pulse Ox 97 01/16/18 11:00 Intake & Output 01/15/18 01/16/18 01/16/18 18:59 06:59 18:59 Intake Total 920 600 120 Output Total 1010 790 195 Balance -90 -190 -75 Weight 84.7 kg 85.9 kg Intake: Intake, IV Titration 500 Amount Vancomycin 1,750 mg In 500 Sodium Chloride 0.9% 250 ml @ 125 mls/hr IVPB Q12H [facility] Rx#:[id number] Oral 420 600 120 Output: Urine 1010 790 195 Other: Voiding Method Indwelling Catheter Indwelling Catheter Indwelling Catheter - Constitutional General appearance: Present: no acute distress - Labs CBC & Chem 7: 01/16/18 03:54 01/16/18 03:54 Labs: Abnormal Lab Results - Last 24 Hours (Table) 01/15/18 01/15/18 01/16/18 Range/Units 17:34 20:13 03:54 RBC (4.30-5.90) m/uL Hgb (13.0-17.5) gm/dL Hct (39.0-53.0) % Sodium 133 L (137-145) mmol/L BUN 21 H (9-20) mg/dL Creatinine 0.60 L (0.66-1.25) mg/dL Glucose 132 H (74-99) mg/dL POC Glucose (mg/dL) 133 H 177 H (75-99) mg/dL 01/16/18 01/16/18 Range/Units 03:54 07:30 RBC 3.49 L (4.30-5.90) m/uL Hgb 10.4 L (13.0-17.5) gm/dL Hct 30.3 L (39.0-53.0) % Sodium (137-145) mmol/L BUN (9-20) mg/dL Creatinine (0.66-1.25) mg/dL Glucose (74-99) mg/dL POC Glucose (mg/dL) 123 H (75-99) mg/dL Microbiology - Last 24 Hours (Table) 01/12/18 19:20 Blood Culture - Preliminary Blood No Growth after 72 hours 01/13/18 09:30 Gram Stain - Final Sputum Sputum Culture - Final Assessment and Plan Assessment: assessment #1 acute on chronic respiratory failure #2 sinus tachycardia #3 systemic hypertension #4 COPD Plan #1 continue the current dose of Cardizem CD #2 follow-up with the patient on when necessary case
[2018-01-16] MEDS ORDERED: MORPHINE SULFATE 4MG/4ML SYRG IV PRN (15:53)
[2018-01-16] MEDS ORDERED: MORPHINE SULFATE 4MG/4ML SYRG IVP ONE (15:53)
[2018-01-16] MEDS ORDERED: MORPHINE SULF 5MG/10ML VL IVP ONE (16:15)
[2018-01-16] MEDS: MORPHINE SULFATE (100 MG/2 ML) 100 MG in SODIUM CHLORIDE 0.9% 100 ML IV SCH (16:20)
[2018-01-16] MEDS ORDERED: QUEtiapine 25 MG TAB PO SCH (21:00)
[2018-01-16] MEDS ORDERED: methylPREDNISolone SOD SUCCI 40 MG/ML 1 ML VIAL IV SCH (21:00)
[2018-01-17 00:08] VITALS: BP 128/80; PULSE 99; RESP 22
[2018-01-17] MEDS: LORazepam 2 MG/ML INJ IV PRN ×2 (00:34→08:13)
[2018-01-17] MEDS: MORPHINE SULFATE (100 MG/2 ML) 100 MG in SODIUM CHLORIDE 0.9% 100 ML IV SCH (08:04)
--- NOTE | 2018-01-17 11:01 | P.PN ---
Subjective Progress Note Date: 01/17/18 This is a 67 years old male patient of Dr. Owen with past medical history of COPD, hypertension, chronic systolic heart failure with ejection fraction last noted to be 45-50% in October 2017, chronic hypoxic respiratory failure with home O2 at 2 L nasal cannula. Patient was just hospitalized from January 04 through January 11 for COPD exacerbation, acute on chronic systolic heart failure and discharged home. Patient states that he went home and sat on the couch and was having a hard time breathing. There was concern from a niece that he may have taken too Xanax and possibly to Ultram. He has had worsening cough with dark green sputum production. He came back into [facility] emergency center for evaluation where he found to have a lactic acid of 4 and was given 2 L of IV fluid with repeat lactic acid 1.3. He was tachycardic running in the 136 and blood pressure was low at 81/41 and pulse ox 88%. Patient was placed on BiPAP. His white count was elevated from time of discharge to 27.3. EKG was a sinus tachycardia. D-dimer was within normal limits, proBNP was 362, troponin 0.028. Sodium was done on 124 with potassium of 5.2, BUN 34 and creatinine 1.48. Ammonia level was less than 9. Urinalysis was negative for nitrate and leukoesterase. Urine drug screen was positive for tricyclic antidepressants and benzodiazepines. Imaging studies done included a chest x-ray that showed bibasilar airspace disease with marked prior May represent pneumonia. KUB of the abdomen for abdominal pain and distention which was suboptimal and not inconclusive. Moderate amount of retained right jl-colonic stool. Patient states that he has had abdominal bloating for many months with no change. CT of the abdomen and pelvis with contrast revealed decreased contrast and the renal collection systems. Images suggest some degree of renal failure. Dilated urinary bladder suggestive bladder outlet obstruction. Normal appendix. Extensive pneumonic infiltrates at the lung bases and more on the right side. CAT scan of the brain showed mild atrophy otherwise negative scan. CTA of the chest showed extensive pneumonic infiltrates probably related to inflammatory disease. Cardiomegaly. No evidence of pulmonary embolism. Spondylotic changes in the thoracic spine with slight anterior wedging of several mid and lower thoracic vertebrae. Repeat chest x-ray done this morning shows borderline heart size and interstitial prominence slightly more pronounced from prior. Correlate to exclude mild heart failure. Patchy bibasilar infiltrates also slightly increased in the interval. Aspiration of infectious pneumonitis are considerations. Due to sepsis and hypotension, patient was admitted into the intensive care unit. Consults in place with cardiology and pulmonary medicine. 01/14: Heart rate is running between 113 and 120. Pulse ox is 96% on 2 L nasal cannula. Patient refused to use BiPAP. Blood pressure is high today. Sodium is improved to 129 and white count improved to 12.7. Sputum cultures and progress and blood cultures showing no growth after 24 hours. Patient thinks is a little bit better today. Reed in place. He has had a bowel movement. 01/15: Patient would not wear his BiPAP map during the night and was somewhat confused and combative. He didn't sleep through the night. Dr. Dr. Eller has increased Xanax and added in Seroquel. Tramadol will be discontinued. 01/16: She remains in the intensive care unit. Nursing had ongoing problems with confusion during the night he did sleep for a couple hours after receiving Seroquel but then was awake with increasing effusion refusing to use BiPAP. Essentially patient did not sleep during the night. Patient is now sitting in a chair slumped and on BiPAP. White count is normal, hemoglobin 10.4, CO2 28, creatinine 0.6. Blood sugars are running 123-177. He has been afebrile. 01/17: Yesterday, patient was made comfort care and started on a morphine drip along with Ativan IV. He has been transferred to the oncology floor. We'll put in an order for hospice to evaluate for GIP. Patient appears comfortable at this time. Family members are at the bedside and updated. Objective - Vital Signs Vital signs: Vital Signs Temp 98.5 F 01/16/18 12:00 Pulse 99 01/17/18 00:06 Resp 22 01/17/18 00:06 BP 128/80 01/17/18 00:06 Pulse Ox 55 L 01/17/18 00:06 Intake & Output 01/16/18 01/17/18 01/17/18 18:59 06:59 18:59 Intake Total 172.89 37.14 76.908 Output Total 355 250 Balance -182.11 -212.86 76.908 Intake: IV 30 Sodium Chloride 0.9% 1, 30 000 ml @ 75 mls/hr IV . [id number] [facility] Rx#:[id number] Intake, IV Titration 2.89 7.14 76.908 Amount Morphine Sulfate (100 mg/ 2.89 7.14 76.908 2 ml) 100 mg In Sodium Chloride 0.9% 100 ml @ 2 MG/HR 2.04 mls/hr IV . Q24H [facility] Rx#:[id number] Oral 170 Output: Urine 355 250 Other: Voiding Method Indwelling Catheter Indwelling Catheter # Voids 0 - Exam General appearance: no acute distress, obese - Respiratory Respiratory: Respirations unlabored - Neurologic Neurologic: Patient is unresponsive - Labs CBC & Chem 7: 01/16/18 03:54 01/16/18 03:54 Labs: Microbiology - Last 24 Hours (Table) 01/12/18 19:20 Blood Culture - Preliminary Blood No Growth after 96 hours Assessment and Plan Plan: 1. Acute on chronic hypoxic respiratory failure secondary to COPD exacerbation and possible gram-negative pneumonia. 2. Acute sepsis with septic shock status post fluid resuscitation secondary to pneumonia. 3. Chronic hypoxic respiratory failure on home O2 at 2 L nasal cannula. 4. Chronic systolic heart failure. 5. Spiculated upper right lower lobe nodule 6. Former tobacco abuse. Quit 2 years ago, 1-1/2 pack for 40 years. 5. Hypertension, currently hypotensive. 7. Sinus tachycardia secondary to sepsis and underlying pulmonary disease. 8. 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 9. Acute metabolic encephalopathy from ICU psychosis and medical conditions. CODE STATUS no code Continue morphine drip, Ativan. Consult placed with hospice. Possible change to GIP within 24 hours. Impression and plan of care have been directed as dictated by the signing physician. Valery Germain nurse practitioner acting as scribe for signing physician.
--- NOTE | 2018-01-17 13:37 | P.PN ---
Subjective Progress Note Date: 01/17/18 Principal diagnosis: Acute on chronic hypoxic respiratory failure secondary to COPD exacerbation and healthcare associated pneumonia This is a 67-year-old white male with known history of severe end-stage COPD, O2 dependent, prednisone dependent, patient was recently in the hospital for acute exacerbation of COPD, and he was discharged home on Thursday, 2 days ago. Patient was brought in via EMS with chief complaint of being lethargic, and he was complaining of shortness of breath, cough, and wheezing. It was felt that the patient may have been taking too much Xanax and tramadol, and that was affecting his mental status and affecting his pulmonary status at the same time. According to the ER note, the patient took 2 Xanax and 2 Ultram tablets prior to arrival to the ER. CT of the chest and chest x-ray clearly showed evidence of bilateral pneumonia. Patient is describing cough, wheezing, shortness of breath, cough is productive with thick yellow phlegm. Denies fever or chills, no hemoptysis, no chest pain. I reviewed the chest x-ray myself and the CT of the chest, clearly the patient has extensive infiltrates in both lungs. And there is a small hiatal hernia noted. No pulmonary embolism was noted. There was also evidence of spondylitic changes in thoracic spine with slight anterior wedging of the several mid and lower thoracic vertebral. CBC showed evidence of leukocytosis with WBC count of 27.3. His sodium was 126. Patient was also noted to have elevated lactic acid. Received about 3 L of fluid boluses overnight, and his repeat lactic acid this morning is 1.3. Patient is feeling much per her today compared to last night, apparently he required to be on BiPAP for a few hours before he was transferred to the ICU. However upon arrival to the ICU, patient was placed on a nasal cannula, and already on bronchodilators, steroids, and antibiotics. Patient is hemodynamically stable. And again feeling better compared to how he felt yesterday. He is off BiPAP at present. Denies any headaches, no blurred vision , no dizziness. No nausea no vomiting no abdominal pain no melena no hematemesis no dysuria and no frequency no urgency. Patient was reevaluated today on 01/14/2018, patient required placement on BiPAP last night, he was experiencing more episodes of shortness of breath cough and wheezing. Initially he was reluctant to go on BiPAP, but once he was given Ativan, he was able to comply with the BiPAP. Presently on IPAP of 10, EPAP of 5, and he seems to be doing great on that mode of ventilation/noninvasive positive pressure ventilation. Chest x-ray continues to show by basilar infiltrates. This was also noted on the CT of the chest on admission. Patient remains on Levaquin and vancomycin, final microbiology from the sputum is pending. His WBC count seems to be coming down nicely it is 12.7 and his sodium is correcting nicely it is 129 today. The rest of the labs were noted to be unremarkable. Reevaluated today on 01/15/2018 patient remains on BiPAP, intermittent episodes of confusion noted, at times the patient has been pulling out his BiPAP, and desaturating easily. Continues to have intermittent episodes of productive cough. Remains on antibiotics, bronchodilators, steroids, sedatives, patient does well as long as he complies with the use of the BiPAP, but again he desaturates very easily. Chest x-ray is basically about the same showing bibasilar infiltrates. Labs WBC count is 12.5 hemoglobin is 10.1 electrolytes and basic metabolic profile are normal sodium is a bit low at 130. Patient remains on vancomycin and Levaquin. Sputum cultures remain nondiagnostic. It showed mostly normal respiratory desire. Reevaluated today on 01/16/2018, remains with intermittent episodes of confusion, remains on BiPAP, intermittently has to be reminded to keep the BiPAP otherwise the patient takes about, and he desaturates. And he develops worsening shortness of breath. Chest x-ray is basically the same continues to show by basilar infiltrates. Labs were all reviewed relatively normal CBC and relatively normal basic metabolic profile noted. Patient was reevaluated today on 01/17/2018, presently in a private room on oncology unit, patient was made comfort care measures yesterday, presently on morphine drip, comatose, family is at bedside, and I discussed his status with the family who clearly expressed again to me that the patient wanted no heroic measures, and wanted to pass in peace comfort and dignity. All seem to be agreeable to the idea of the comfort care measures. Objective - Vital Signs Vital signs: Vital Signs Temp 98.5 F 01/16/18 12:00 Pulse 99 01/17/18 08:00 Resp 22 01/17/18 08:00 BP 128/80 01/17/18 00:06 Pulse Ox 55 L 01/17/18 00:06 Intake & Output 01/16/18 01/17/18 01/17/18 18:59 06:59 18:59 Intake Total 172.89 37.14 76.908 Output Total 355 250 Balance -182.11 -212.86 76.908 Intake: IV 30 Sodium Chloride 0.9% 1, 30 000 ml @ 75 mls/hr IV . [id number] [facility] Rx#:[id number] Intake, IV Titration 2.89 7.14 76.908 Amount Morphine Sulfate (100 mg/ 2.89 7.14 76.908 2 ml) 100 mg In Sodium Chloride 0.9% 100 ml @ 2 MG/HR 2.04 mls/hr IV . Q24H [facility] Rx#:[id number] Oral 170 0 Output: Urine 355 250 Other: Voiding Method Indwelling Catheter Indwelling Catheter Indwelling Catheter # Voids 0 - Exam GENERAL EXAM: Revealed a 67-year-old white male,comatose, on morphine drip. HEAD: Normocephalic. EYES: Normal reaction of pupils, equal size. NOSE: Clear with pink turbinates. THROAT: No erythema or exudates. NECK: No masses, no JVD. CHEST: No chest wall deformity. LUNGS: extremely diminished breath sounds bilaterally. CVS: S1 and S2 normal with no audible murmur, regular rhythm. ABDOMEN: No hepatosplenomegaly, normal bowel sounds, no guarding or rigidity. SPINE: No scoliosis or deformity SKIN: No rashes CENTRAL NERVOUS SYSTEM: patient is comatose at present, unresponsive to any stimuli. - Labs CBC & Chem 7: 01/16/18 03:54 01/16/18 03:54 Labs: Microbiology - Last 24 Hours (Table) 01/12/18 19:20 Blood Culture - Preliminary Blood No Growth after 96 hours Assessment and Plan Assessment: Impression: 1 acute on chronic hypoxic respiratory failure secondary to COPD exacerbation. And secondary to pneumonia. 2 acute sepsis secondary to pneumonia. Most likely healthcare acquired pneumonia. 3 history of right lower lobe spiculated nodule, suspicious for malignancy, not clearly appreciated on the chest x-ray or CT of the chest on this admission, but has been present previously, obviously the patient is not a candidate for any surgical intervention. 4 history of chronic hypoxic respiratory failure 5 history of hypertension 6 history of LV dysfunction ejection fraction of 45% 7 history of chronic areas of deep vein thrombosis with recurrent episodes of lower extremities edema. 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 And pneumonia. Recommendation: continue comfort measures as requested by the family members, and as previously expressed by the patient his family, they seem to be all prepared for him to pass in peace comfort and dignity. Time with Patient: Less than 30
--- NOTE | 2018-01-18 14:34 | P.DS ---
Providers Date of admission: 01/12/18 22:07 Expected date of discharge: 01/17/18 Attending physician: Bert Seay Primary care physician: Candelaria Owen [facility] Course: This is a 67 years old male patient of Dr. Owen with past medical history of COPD, hypertension, chronic systolic heart failure with ejection fraction last noted to be 45-50% in October 2017, chronic hypoxic respiratory failure with home O2 at 2 L nasal cannula. Patient was just hospitalized from January 04 through January 11 for COPD exacerbation, acute on chronic systolic heart failure and discharged home. Patient states that he went home and sat on the couch and was having a hard time breathing. There was concern from a niece that he may have taken too Xanax and possibly to Ultram. He has had worsening cough with dark green sputum production. He came back into [facility] emergency center for evaluation where he found to have a lactic acid of 4 and was given 2 L of IV fluid with repeat lactic acid 1.3. He was tachycardic running in the 136 and blood pressure was low at 81/41 and pulse ox 88%. Patient was placed on BiPAP. His white count was elevated from time of discharge to 27.3. EKG was a sinus tachycardia. D-dimer was within normal limits, proBNP was 362, troponin 0.028. Sodium was done on 124 with potassium of 5.2, BUN 34 and creatinine 1.48. Ammonia level was less than 9. Urinalysis was negative for nitrate and leukoesterase. Urine drug screen was positive for tricyclic antidepressants and benzodiazepines. Imaging studies done included a chest x-ray that showed bibasilar airspace disease with marked prior May represent pneumonia. KUB of the abdomen for abdominal pain and distention which was suboptimal and not inconclusive. Moderate amount of retained right jl-colonic stool. Patient states that he has had abdominal bloating for many months with no change. CT of the abdomen and pelvis with contrast revealed decreased contrast and the renal collection systems. Images suggest some degree of renal failure. Dilated urinary bladder suggestive bladder outlet obstruction. Normal appendix. Extensive pneumonic infiltrates at the lung bases and more on the right side. CAT scan of the brain showed mild atrophy otherwise negative scan. CTA of the chest showed extensive pneumonic infiltrates probably related to inflammatory disease. Cardiomegaly. No evidence of pulmonary embolism. Spondylotic changes in the thoracic spine with slight anterior wedging of several mid and lower thoracic vertebrae. Repeat chest x-ray done this morning shows borderline heart size and interstitial prominence slightly more pronounced from prior. Correlate to exclude mild heart failure. Patchy bibasilar infiltrates also slightly increased in the interval. Aspiration of infectious pneumonitis are considerations. Due to sepsis and hypotension, patient was admitted into the intensive care unit. Consults in place with cardiology and pulmonary medicine. 01/14: Heart rate is running between 113 and 120. Pulse ox is 96% on 2 L nasal cannula. Patient refused to use BiPAP. Blood pressure is high today. Sodium is improved to 129 and white count improved to 12.7. Sputum cultures and progress and blood cultures showing no growth after 24 hours. Patient thinks is a little bit better today. Reed in place. He has had a bowel movement. 01/15: Patient would not wear his BiPAP map during the night and was somewhat confused and combative. He didn't sleep through the night. Dr. Dr. Eller has increased Xanax and added in Seroquel. Tramadol will be discontinued. 01/16: She remains in the intensive care unit. Nursing had ongoing problems with confusion during the night he did sleep for a couple hours after receiving Seroquel but then was awake with increasing effusion refusing to use BiPAP. Essentially patient did not sleep during the night. Patient is now sitting in a chair slumped and on BiPAP. White count is normal, hemoglobin 10.4, CO2 28, creatinine 0.6. Blood sugars are running 123-177. He has been afebrile. 01/17: Yesterday, patient was made comfort care and started on a morphine drip along with Ativan IV. He has been transferred to the oncology floor. We'll put in an order for hospice to evaluate for GIP. Patient appears comfortable at this time. Family members are at the bedside and updated. Discharge diagnoses: 1. Acute on chronic hypoxic respiratory failure secondary to COPD exacerbation and possible gram-negative pneumonia. 2. Acute sepsis with septic shock status post fluid resuscitation secondary to pneumonia. 3. Chronic hypoxic respiratory failure on home O2 at 2 L nasal cannula. 4. Chronic systolic heart failure. 5. Spiculated upper right lower lobe nodule 6. Former tobacco abuse. Quit 2 years ago, 1-1/2 pack for 40 years. 5. Hypertension, currently hypotensive. 7. Sinus tachycardia secondary to sepsis and underlying pulmonary disease. 8. 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 9. Acute metabolic encephalopathy from ICU psychosis and medical conditions. CODE STATUS no code Continue morphine drip, Ativan. Consult placed with hospice GIP. Impression and plan of care have been directed as dictated by the signing physician. Valery Germain nurse practitioner acting as scribe for signing physician. Patient Condition at Discharge: Undetermined Plan - Discharge Summary New Discharge Prescriptions: No Action Potassium Chloride [Klor-Con Sprinkle] 10 meq PO AC-BID Levalbuterol Nebulized [Xopenex Nebulized] 1.25 mg INHALATION RT-Q8H PRN PRN Reason: Shortness Of Breath Albuterol Sulfate [Proair Hfa] 2 puff INHALATION RT-Q6H PRN PRN Reason: Shortness Of Breath Furosemide [Lasix] 20 mg PO DAILY Atenolol [Tenormin] 50 mg PO DAILY Omeprazole 40 mg PO DAILY Tiotropium [place] [Spiriva] 1 cap INHALATION RT-DAILY Montelukast [Singulair] 10 mg PO HS ALPRAZolam [Xanax] 0.25 mg PO BID PRN PRN Reason: Anxiety Albuterol Nebulized [Ventolin Nebulized] 2.5 mg INHALATION Q4H PRN PRN Reason: Shortness Of Breath Umeclidinium Brm/Vilanterol Tr [Anoro Ellipta 62.5-25 Mcg INH] 1 puff INHALATION DAILY Aspirin 81 mg PO DAILY chew Cyclobenzaprine [Flexeril] 10 mg PO TID #30 tab Levofloxacin [Levaquin] 750 mg PO DAILY #7 tab Lisinopril [Zestril] 5 mg PO DAILY #30 tab Verapamil [Isoptin] 40 mg PO BID #60 tab traMADol HCL [Ultram] 100 mg PO Q8H PRN #21 tablet PRN Reason: Pain guaiFENesin [Mucinex] 600 mg PO Q12HR PRN PRN Reason: Cold Symptoms predniSONE See Taper PO DIRECTED Discharge Medication List Potassium Chloride [Klor-Con Sprinkle] 10 meq PO AC-BID 10/18/17 [History] ALPRAZolam [Xanax] 0.25 mg PO BID PRN 01/04/18 [History] Albuterol Nebulized [Ventolin Nebulized] 2.5 mg INHALATION Q4H PRN 01/04/18 [ History] Albuterol Sulfate [Proair Hfa] 2 puff INHALATION RT-Q6H PRN 01/04/18 [History] Atenolol [Tenormin] 50 mg PO DAILY 01/04/18 [History] Furosemide [Lasix] 20 mg PO DAILY 01/04/18 [History] Levalbuterol Nebulized [Xopenex Nebulized] 1.25 mg INHALATION RT-Q8H PRN [History] Montelukast [Singulair] 10 mg PO HS 01/04/18 [History] Omeprazole 40 mg PO DAILY 01/04/18 [History] Tiotropium [place] [Spiriva] 1 cap INHALATION RT-DAILY 01/04/18 [History] Umeclidinium Brm/Vilanterol Tr [Anoro Ellipta 62.5-25 Mcg INH] 1 puff INHALATION DAILY 01/07/18 [History] Aspirin 81 mg PO DAILY chew 01/11/18 [Rx] Cyclobenzaprine [Flexeril] 10 mg PO TID #30 tab 01/11/18 [Rx] Levofloxacin [Levaquin] 750 mg PO DAILY #7 tab 01/11/18 [Rx] Lisinopril [Zestril] 5 mg PO DAILY #30 tab 01/11/18 [Rx] Verapamil [Isoptin] 40 mg PO BID #60 tab 01/11/18 [Rx] traMADol HCL [Ultram] 100 mg PO Q8H PRN #21 tablet 01/11/18 [Rx] guaiFENesin [Mucinex] 600 mg PO Q12HR PRN 01/12/18 [History] predniSONE See Taper PO DIRECTED 01/12/18 [History] Follow up Appointment(s)/Referral(s): Candelaria Owen MD [Primary Care Provider] - 1-2 days Discharge Disposition: HOME SELF-CARE
--- NOTE | 2018-01-19 14:12 | CDI ---
Last Revision, September 2017 Documentation Clarification Form Date: 01/19/18 From: Vernell Chu Phone: If you have a question regarding this query, please contact Sravanthi Gong at [phone] between 8am and 5pm Admit Date: 01/12/2018 10:07:00 PM Patient Name: Bert Haile Visit Number: [id number] Discharge Date: 01/17/18 ATTENTION: The Clinical Documentation Specialists (CDI) and [facility] Coding Staff appreciate your assistance in clarifying documentation. Please respond to the clarification below the line at the bottom and electronically sign. The CDI & [facility] Coding staff will review the response and follow-up if needed. Please note: Queries are made part of the Legal Health Record. If you have any questions, please contact the author of this message via ITS. Dr. Nadege Kim Images suggest some degree of renal failure was documented in the History of present illness of the H&P, discharge summary and in your/Valery Germain's progress notes. History/Risk Factors: The patient was admitted with septic shock due to gram negative pneumonia, has hypertension, CHF and suggestive bladder outlet obstruction. Discharge BUN/CR/GFR: 21/.60/>90 Admission BUN/Cr/GFR : 34//1.48/49 Treatments IVF: Sodium chloride @125 In order to capture the severity of condition, please clarify if the condition signifies: Acute renal failure, Please specify etiology (if known): Cortical Necrosis Medullary Necrosis Tubular Necrosis Acute kidney injury Acute on chronic renal failure CKD Stage 1 GFR >90 CKD Stage 2 GFR 60-89 CKD Stage 3 GFR 30-59 CKD Stage 4 GFR 15-29 CKD Stage 5 GFR <15 Chronic renal failure/Chronic Kidney disease (CKD) please stage if known CKD Stage 1 GFR >90 CKD Stage 2 GFR 60-89 CKD Stage 3 GFR 30-59 CKD Stage 4 GFR 15-29 CKD Stage 5 GFR <15 ESRD Other, please specify Unable to determine MTDD
== END 2018-01-17 14:38 | disposition home or self-care (01) | DRG 871 ==
LOC: EC 19:06 → 6ICU 22:07 → 5ONC 01-16 23:49
PROVIDERS: ADMIT Internal Medicine Geriatric Medicine; ATTEND Internal Medicine Geriatric Medicine
PROC: 5A09557 Assistance with Respiratory Ventilation, Greater than 96 Consecutive Hours, Continuous Positive Airway Pressure (ICD-10-PCS; principal; 2018-01-12)
DX: A41.50 Gram-negative sepsis, unspecified (principal); J15.6 Pneumonia due to other Gram-negative bacteria; J96.21 Acute and chronic respiratory failure with hypoxia; R40.20 Unspecified coma; R65.21 Severe sepsis with septic shock; G93.41 Metabolic encephalopathy; E87.3 Alkalosis; E22.2 Syndrome of inappropriate secretion of antidiuretic hormone; I50.22 Chronic systolic (congestive) heart failure; F05 Delirium due to known physiological condition; J44.0 Chronic obstructive pulmonary disease with (acute) lower respiratory infection; J44.1 Chronic obstructive pulmonary disease with (acute) exacerbation; N17.9 Acute kidney failure, unspecified; I11.0 Hypertensive heart disease with heart failure; N18.2 Chronic kidney disease, stage 2 (mild); E86.1 Hypovolemia; Y95 Nosocomial condition; K44.9 Diaphragmatic hernia without obstruction or gangrene; G47.9 Sleep disorder, unspecified; M54.5 Low back pain; R91.1 Solitary pulmonary nodule; R14.0 Abdominal distension (gaseous); R10.9 Unspecified abdominal pain; F41.9 Anxiety disorder, unspecified; N32.0 Bladder-neck obstruction; F28 Other psychotic disorder not due to a substance or known physiological condition; Z51.5 Encounter for palliative care; Z79.82 Long term (current) use of aspirin; Z79.899 Other long term (current) drug therapy; Z87.891 Personal history of nicotine dependence; Z99.81 Dependence on supplemental oxygen; Z88.0 Allergy status to penicillin; Z86.718 Personal history of other venous thrombosis and embolism
CPT/HCPCS: 36415; 51702; 70450; 71045; 71275; 74018; 74177; 80048; 80053; 80202; 80306; 80320; 81003; 82140; 82550; 82553; 83036; 83605; 83735; 83880; 84100; 84484; 85025; 85027; 85379; 85610; 85730; 87040; 87070; 87205; 93005; 94640; 94660; 96361; 96365; 96366; 96374; 96375; 99291

== ENCOUNTER 2018-01-17 14:43 | Inpatient (IN) | payer MEDICAID ==
[2018-01-17 15:10] VITALS: BMI 27.1
[2018-01-17] MEDS ORDERED: LORazepam 2 MG/ML INJ IV PRN (15:20)
[2018-01-17] MEDS ORDERED: ATROPINE OPHTH SOLN 1% 5ML BTL SUBLINGUAL PRN (15:21)
[2018-01-17] MEDS ORDERED: ONDANSETRON 4 MG/2 ML VIAL IVP PRN (15:24)
[2018-01-17] MEDS ORDERED: ACETAMINOPHEN SUPPOSITORY 650 MG SUPP RECTAL PRN (15:26)
[2018-01-17] MEDS ORDERED: MORPHINE SULFATE (100 MG/2 ML) 100 MG in SODIUM CHLORIDE 0.9% 100 ML IV SCH (16:00)
--- NOTE | 2018-01-18 14:32 | P.HPIM ---
History of Present Illness H&P Date: 01/18/18 HISTORY AND PHYSICAL AND DISCHARGE SUMMARY: This is a 67 years old male patient of Dr. Owen with past medical history of COPD, hypertension, chronic systolic heart failure with ejection fraction last noted to be 45-50% in October 2017, chronic hypoxic respiratory failure with home O2 at 2 L nasal cannula. Patient was just hospitalized from January 04 through January 11 for COPD exacerbation, acute on chronic systolic heart failure and discharged home. Patient states that he went home and sat on the couch and was having a hard time breathing. There was concern from a niece that he may have taken too Xanax and possibly to Ultram. He has had worsening cough with dark green sputum production. He came back into [facility] emergency center for evaluation where he found to have a lactic acid of 4 and was given 2 L of IV fluid with repeat lactic acid 1.3. He was tachycardic running in the 136 and blood pressure was low at 81/41 and pulse ox 88%. Patient was placed on BiPAP. His white count was elevated from time of discharge to 27.3. EKG was a sinus tachycardia. D-dimer was within normal limits, proBNP was 362, troponin 0.028. Sodium was done on 124 with potassium of 5.2, BUN 34 and creatinine 1.48. Ammonia level was less than 9. Urinalysis was negative for nitrate and leukoesterase. Urine drug screen was positive for tricyclic antidepressants and benzodiazepines. Imaging studies done included a chest x-ray that showed bibasilar airspace disease with marked prior May represent pneumonia. KUB of the abdomen for abdominal pain and distention which was suboptimal and not inconclusive. Moderate amount of retained right jl-colonic stool. Patient states that he has had abdominal bloating for many months with no change. CT of the abdomen and pelvis with contrast revealed decreased contrast and the renal collection systems. Images suggest some degree of renal failure. Dilated urinary bladder suggestive bladder outlet obstruction. Normal appendix. Extensive pneumonic infiltrates at the lung bases and more on the right side. CAT scan of the brain showed mild atrophy otherwise negative scan. CTA of the chest showed extensive pneumonic infiltrates probably related to inflammatory disease. Cardiomegaly. No evidence of pulmonary embolism. Spondylotic changes in the thoracic spine with slight anterior wedging of several mid and lower thoracic vertebrae. Repeat chest x-ray done this morning shows borderline heart size and interstitial prominence slightly more pronounced from prior. Correlate to exclude mild heart failure. Patchy bibasilar infiltrates also slightly increased in the interval. Aspiration of infectious pneumonitis are considerations. Due to sepsis and hypotension, patient was admitted into the intensive care unit. Consults in place with cardiology and pulmonary medicine. Patient had no real improvement of his respiratory status and was made comfort care and started on a morphine drip along with Ativan IV. He has been transferred to the oncology floor. We'll put in an order for hospice to evaluate for GIP. Patient appears comfortable at this time. Family members are at the bedside and updated. Patient on January 18. Please see nursing documentation for details. Review of Systems ROS unobtainable: due to mental status Past Medical History Past Medical History: COPD, Hypertension Additional Past Medical History / Comment(s): Advanced COPD with an FEV1 of 36% of predicted, right lower lobes. Related nodule measuring 1.5 x 0.9 cm in size that looks suspicious for malignancy. The patient is not a candidate for any further interventions, hypertension, lower symmetry edema, CHF with mild impairment of the LV function and ejection fraction 45-50% History of Any Multi-Drug Resistant Organisms: None Reported Past Surgical History: No Surgical Hx Reported Past Psychological History: Anxiety Smoking Status: Former smoker Past Alcohol Use History: None Reported Past Drug Use History: None Reported - Past Family History Father Family Medical History: No Reported History Medications and Allergies Home Medications Medication Instructions Recorded Confirmed Type Potassium Chloride [Klor-Con 10 meq PO AC-BID 10/18/17 01/17/18 History Sprinkle] ALPRAZolam [Xanax] 0.25 mg PO BID PRN 01/04/18 01/17/18 History Albuterol Nebulized [Ventolin 2.5 mg INHALATION Q4H PRN 01/04/18 01/17/18 History Nebulized] Albuterol Sulfate [Proair Hfa] 2 puff INHALATION RT-Q6H PRN 01/04/18 01/17/18 History Atenolol [Tenormin] 50 mg PO DAILY 01/04/18 01/17/18 History Furosemide [Lasix] 20 mg PO DAILY 01/04/18 01/17/18 History Levalbuterol Nebulized [Xopenex 1.25 mg INHALATION RT-Q8H PRN 01/04/18 01/17/18 History Nebulized] Montelukast [Singulair] 10 mg PO HS 01/04/18 01/17/18 History Omeprazole 40 mg PO DAILY 01/04/18 01/17/18 History Tiotropium [place] [Spiriva] 1 cap INHALATION RT-DAILY 01/04/18 01/17/18 History Umeclidinium Brm/Vilanterol Tr 1 puff INHALATION DAILY 01/07/18 01/17/18 History [Anoro Ellipta 62.5-25 Mcg INH] Aspirin 81 mg PO DAILY chew 01/11/18 01/17/18 Rx Cyclobenzaprine [Flexeril] 10 mg PO TID #30 tab 01/11/18 01/17/18 Rx Levofloxacin [Levaquin] 750 mg PO DAILY #7 tab 01/11/18 01/17/18 Rx Lisinopril [Zestril] 5 mg PO DAILY #30 tab 01/11/18 01/17/18 Rx Verapamil [Isoptin] 40 mg PO BID #60 tab 01/11/18 01/17/18 Rx traMADol HCL [Ultram] 100 mg PO Q8H PRN #21 tablet 01/11/18 01/17/18 Rx guaiFENesin [Mucinex] 600 mg PO Q12HR PRN 01/12/18 01/17/18 History predniSONE See Taper PO DIRECTED 01/12/18 01/17/18 History Allergies Allergy/AdvReac Type Severity Reaction Status Date / Time Penicillins Allergy Swelling Verified 01/17/18 16:15 Physical Exam Vitals: Intake and Output 01/17/18 01/18/18 01/18/18 22:59 06:59 14:59 Output Total 500 Balance -500 Output: Urine 500 Other: # Voids 0 Weight 85.9 kg 85.9 kg General appearance: no acute distress, obese - Respiratory Respiratory: Respirations unlabored - Neurologic Neurologic: Patient is unresponsive Thrombosis Risk Factor Assmnt - DVT/VTE Prophylaxis DVT/VTE Prophylaxis: Contraindicated - See note - Choose All That Apply Each Risk Factor Represents 2 Points: Age 61-74 years Thrombosis Risk Factor Assessment Total Risk Factor Score: 2 Thrombosis Risk Factor Assessment Level: Low Risk Assessment and Plan Plan: 1. Acute on chronic hypoxic respiratory failure secondary to COPD exacerbation and possible gram-negative pneumonia. 2. Acute sepsis with septic shock status post fluid resuscitation secondary to pneumonia. 3. Chronic hypoxic respiratory failure on home O2 at 2 L nasal cannula. 4. Chronic systolic heart failure. 5. Spiculated upper right lower lobe nodule 6. Former tobacco abuse. Quit 2 years ago, 1-1/2 pack for 40 years. 5. Hypertension, currently hypotensive. 7. Sinus tachycardia secondary to sepsis and underlying pulmonary disease. 8. 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 9. Acute metabolic encephalopathy from ICU psychosis and medical conditions. CODE STATUS no code Continue morphine drip, Ativan. Consult placed with hospice GIP. Impression and plan of care have been directed as dictated by the signing physician. Valery Germain nurse practitioner acting as scribe for signing physician.
== END 2018-01-18 14:15 | disposition expired | DRG 951 ==
LOC: 5ONC 14:43
PROVIDERS: ADMIT Internal Medicine Geriatric Medicine; ATTEND Internal Medicine Geriatric Medicine
DX: Z51.5 Encounter for palliative care (principal); J96.21 Acute and chronic respiratory failure with hypoxia; R65.21 Severe sepsis with septic shock; A41.9 Sepsis, unspecified organism; I50.23 Acute on chronic systolic (congestive) heart failure; J15.6 Pneumonia due to other Gram-negative bacteria; G93.41 Metabolic encephalopathy; E22.2 Syndrome of inappropriate secretion of antidiuretic hormone; E87.3 Alkalosis; I11.0 Hypertensive heart disease with heart failure; J44.1 Chronic obstructive pulmonary disease with (acute) exacerbation; J44.0 Chronic obstructive pulmonary disease with (acute) lower respiratory infection; F41.9 Anxiety disorder, unspecified; E86.1 Hypovolemia; R91.1 Solitary pulmonary nodule; R00.0 Tachycardia, unspecified; Z88.0 Allergy status to penicillin; Z87.891 Personal history of nicotine dependence; Z79.899 Other long term (current) drug therapy; Z79.82 Long term (current) use of aspirin; Z79.52 Long term (current) use of systemic steroids; Z99.81 Dependence on supplemental oxygen